=== PATIENT | male | born 1955 | race Caucasian/White ===

== ENCOUNTER → 2019-11-24 08:51 | Outpatient (CLI) | payer MEDICARE, SELFPAY ==
[2019-10-29 10:15] VITALS: BMI 29.6
--- NOTE | 2019-11-24 08:52 | ECHOCS_ITS ---
Reason For Study: Afib/Flutter Procedure This was a 2D Doppler, Color Flow transthoracic echocardiogram. The study was technically difficult. Contrast injection was performed. Exam performed in department. Left Ventricle Normal LV size. Mild concentric left ventricular hypertrophy. Left ventricular systolic function is normal. Stage 1 diastolic dysfunction. No regional wall motion abnormalities noted. Right Ventricle Normal RV size. Normal systolic function. Atria Normal left atrium. Normal right atrium. Mitral Valve Normal mitral valve. Tricuspid Valve Normal tricuspid valve. Aortic Valve Normal aortic valve. Pulmonic Valve The pulmonic valve is not well visualized. Great Vessels Normal aortic root. Pericardium/Pleural No pericardial effusion. Medication 22 gauge I.V. with prn adaptor inserted into right arm. Diluted definity 4ml given slow IV push to enhance endocardial definition. MMode/2D Measurements & Calculations LVIDd: 5.2 cm IVSd: 1.2 cm Ao root diam: 3.7 cm LVIDs: 3.3 cm LVPWd: 1.5 cm LA dimension: 3.8 cm FS: 36.2 % LAV(MOD-bp): 61.6 ml LA A4 area: 21.4 cm2 LAV(MOD-bp) Indexed: 26.7 ml/m2 LAV(MOD-sp2): 63.6 ml LAV(MOD-sp4): 59.2 ml Time Measurements MV dec time: 0.32 sec Doppler Measurements & Calculations MV E max best: 78.1 cm/sec Lat Peak E' Best: 8.3 cm/sec Med Peak E' Best: 10.1 cm/sec MV A max best: 65.8 cm/sec E/E' lat: 9.5 E/E' med: 7.7 MV E/A: 1.2 MV V2 max: 99.2 cm/sec MV P1/2t max best: 104.0 cm/sec Ao V2 max: 83.9 cm/sec MV max P.9 mmHg MV P1/2t: 175.5 msec Ao max P.8 mmHg MV V2 mean: 52.0 cm/sec MV dec slope: 173.5 cm/sec2 MV mean P.3 mmHg MV V2 VTI: 39.6 cm MVA(P1/2t): 1.3 cm2 LV V1 max: 69.8 cm/sec PA V2 max: 79.0 cm/sec LV V1 max P.9 mmHg Interpretation Summary Normal LV size. Mild concentric left ventricular hypertrophy. Left ventricular systolic function is normal. Stage 1 diastolic dysfunction. Contrast injection was performed. Ordering Physician: Minesh Mcmanus Referring Physician: Minesh Mcmanus Performed By: Valdez Ho RCS
== END ==
PROVIDERS: Referring Provider Internal Medicine Cardiovascular Disease; Visit Provider Internal Medicine Cardiovascular Disease
DX: I25.5 Ischemic cardiomyopathy (principal); I48.91 Unspecified atrial fibrillation; I48.92 Unspecified atrial flutter
CPT/HCPCS: 93306; Q9957; A4216; C8929

== ENCOUNTER → 2022-11-21 | Outpatient (CLI) | payer MEDICARE, SELFPAY ==
[2022-11-21 13:54] LABS: Anion Gap 8 (5-15); BUN 25 mg/dL (7-18); BUN/Creat Ratio 16.1 RATIO (10-20); Calcium,Total 9.1 mg/dL (8.5-10.1); Chloride 105 mmol/L (98-107); Creatinine, Serum 1.55 mg/dL (0.70-1.30); EST Glomerular Filtration Rate 47 mL/min (>60); Est Glom Filt Rate - Afr Amer 57 mL/min (>60); Glucose 90 mg/dL (74-106); Potassium 4.3 mmol/L (3.5-5.1); Sodium Level 139 mmol/L (136-145)
== END | disposition home or self-care (01) ==
LOC: LAB 12:11
PROVIDERS: Referring Provider Internal Medicine Cardiovascular Disease; Visit Provider Internal Medicine Cardiovascular Disease
DX: I48.0 Paroxysmal atrial fibrillation (principal)
CPT/HCPCS: 36415; 80048

== ENCOUNTER → 2022-11-30 | Outpatient (CLI) | payer MEDICARE, SELFPAY ==
--- NOTE | 2022-11-30 07:39 | ECHOCS_ITS ---
Reason For Study: Afib/Flutter Procedure This was a 2D Doppler, Color Flow transthoracic echocardiogram. The study was technically difficult. Contrast injection was performed. Exam performed in department. Left Ventricle Normal LV size. Left ventricular systolic function is normal. The estimated ejection fraction is 55 %. No regional wall motion abnormalities noted. Right Ventricle Normal RV size. Normal systolic function. Atria The left atrium is moderately enlarged. Normal right atrium. Mitral Valve Normal mitral valve. Tricuspid Valve Normal tricuspid valve. Aortic Valve Trisinus/trileaflet aortic valve. Pulmonic Valve Normal pulmonic valve. Trivial pulmonic valve insufficiency. Great Vessels Normal aortic root. The pulmonary artery is normal size. Normal inferior vena cava. Pericardium/Pleural No pericardial effusion. Medication 20 gauge I.V. with prn adaptor inserted into left arm. Diluted definity 3ml given slow IV push to enhance endocardial definition. MMode/2D Measurements & Calculations LVIDd: 5.6 cm IVSd: 0.84 cm Ao root diam: 3.8 cm LVIDs: 4.0 cm LVPWd: 1.2 cm LA dimension: 4.3 cm RVDd: 4.1 cm FS: 28.8 % LAV(MOD-bp): 92.9 ml LVAd ap4: 38.6 cm2 SV(MOD-sp4): 77.1 ml LAV(MOD-bp) Indexed: 41.0 ml/m2 LVLd ap4: 8.5 cm LAV(MOD-sp2): 97.1 ml EDV(MOD-sp4): 146.2 ml LAV(MOD-sp4): 85.8 ml EDV(sp4-el): 148.2 ml LVAs ap4: 24.1 cm2 LVLs ap4: 7.1 cm ESV(MOD-sp4): 69.1 ml ESV(sp4-el): 69.1 ml EF(MOD-sp4): 52.7 % EF(sp4-el): 53.4 % SV(sp4-el): 79.1 ml LA A4 area: 26.3 cm2 RA A4 area: 17.9 cm2 Time Measurements MV dec time: 0.31 sec Doppler Measurements & Calculations MV E max best: 77.4 cm/sec Lat Peak E' Best: 11.0 cm/sec Med Peak E' Best: 6.4 cm/sec MV A max best: 61.5 cm/sec E/E' lat: 7.0 E/E' med: 12.1 MV E/A: 1.3 MV V2 max: 89.8 cm/sec MV P1/2t max best: 90.8 cm/sec Ao V2 max: 112.3 cm/sec MV max P.2 mmHg MV P1/2t: 127.5 msec Ao max P.0 mmHg MV V2 mean: 44.0 cm/sec MV mean P.94 mmHg MV dec slope: 208.7 cm/sec2 MV V2 VTI: 36.1 cm MVA(P1/2t): 1.7 cm2 LV V1 max: 84.9 cm/sec PA V2 max: 85.5 cm/sec LV V1 max P.9 mmHg ECHO/Echo Complete W/ Contrast Interpretation Summary Normal LV size. Left ventricular systolic function is normal. The estimated ejection fraction is 55 %. The left atrium is moderately enlarged. Contrast injection was performed. Ordering Physician: Minesh Mcmanus Performed By: Valdez Ho RCS
== END | disposition home or self-care (01) ==
PROVIDERS: Visit Provider Internal Medicine Cardiovascular Disease
DX: I48.91 Unspecified atrial fibrillation (principal); I25.2 Old myocardial infarction
CPT/HCPCS: 93306; Q9957; A4216; C8929

== ENCOUNTER → 2022-12-26 | Outpatient (CLI) | payer MEDICARE, SELFPAY | END | disposition home or self-care (01) | PROVIDERS: Referring Provider Internal Medicine Cardiovascular Disease; Visit Provider Internal Medicine Cardiovascular Disease | DX: I48.0 Paroxysmal atrial fibrillation (principal) | CPT/HCPCS: 93225; 93226 ==

== ENCOUNTER → 2023-07-17 | Outpatient (CLI) | payer MEDICARE, SELFPAY ==
--- NOTE | 2023-07-17 12:59 | ECHOD_ITS ---
Reason For Study: OTHER SPECIFIED POSTPROCEDUFAL STATES Procedure This was a 2D Doppler, Color Flow transthoracic echocardiogram. Exam performed in department. Left Ventricle Normal LV size. Left ventricular systolic function is normal. The estimated ejection fraction is 55 %. Stage 1 diastolic dysfunction. No regional wall motion abnormalities noted. Right Ventricle Normal RV size. Normal systolic function. Atria Normal left atrium. Normal right atrium. Mitral Valve Normal mitral valve. Tricuspid Valve Normal tricuspid valve. Aortic Valve Trisinus/trileaflet aortic valve. Pulmonic Valve The pulmonic valve is not well visualized. Great Vessels Normal aortic root. The pulmonary artery is normal size. Normal inferior vena cava. Pericardium/Pleural No pericardial effusion. MMode/2D Measurements & Calculations LVIDd: 4.8 cm IVSd: 0.96 cm Ao root diam: 3.5 cm LVIDs: 3.0 cm LVPWd: 1.0 cm RVDd: 2.9 cm FS: 37.8 % LAV(MOD-bp): 54.6 ml EDV(MOD-sp4): 119.8 ml EDV(MOD-sp2): 99.0 ml LAV(MOD-bp) Indexed: 24.6 ml/m2 ESV(MOD-sp4): 47.6 ml ESV(MOD-sp2): 40.8 ml LAV(MOD-sp2): 52.3 ml EF(MOD-sp4): 60.2 % EF(MOD-sp2): 58.7 % LAV(MOD-sp4): 52.3 ml SV(MOD-sp4): 72.1 ml SV(MOD-sp2): 58.2 ml LA A4 area: 18.6 cm2 LA dimension(2D): 3.2 cm RA A4 area: 14.2 cm2 Time Measurements MV dec time: 0.19 sec Doppler Measurements & Calculations MV E max best: 74.0 cm/sec Lat Peak E' Best: 11.1 cm/sec Med Peak E' Best: 10.3 cm/sec MV A max best: 93.3 cm/sec E/E' lat: 6.7 E/E' med: 7.2 MV E/A: 0.79 Ao V2 max: 109.3 cm/sec LV V1 max: 81.5 cm/sec Ao max P.8 mmHg LV V1 max P.7 mmHg Ao V2 mean: 74.6 cm/sec LV V1 mean P.5 mmHg Ao mean P.5 mmHg LV V1 mean: 58.5 cm/sec Ao V2 VTI: 22.7 cm LV V1 VTI: 22.4 cm AV (velocity ratio): 0.99 ECHO/Echo Complete Interpretation Summary Normal LV size. Left ventricular systolic function is normal. The estimated ejection fraction is 55 %. Stage 1 diastolic dysfunction. Structurally normal valves. Ordering Physician: Minesh Mcmanus Referring Physician: OTD Performed By: Liseth Daniel, VERONICA, RVT
== END | disposition home or self-care (01) ==
PROVIDERS: Referring Provider Internal Medicine Cardiovascular Disease; Visit Provider Internal Medicine Cardiovascular Disease
DX: I48.0 Paroxysmal atrial fibrillation (principal); Z98.890 Other specified postprocedural states; I25.10 Atherosclerotic heart disease of native coronary artery without angina pectoris; I25.2 Old myocardial infarction; R00.1 Bradycardia, unspecified
CPT/HCPCS: 93225; 93226; 93306

== ENCOUNTER → 2025-10-09 | Outpatient (CLI) | payer MEDICARE, SELFPAY ==
--- NOTE | 2025-10-09 07:56 | ECHOD_ITS ---
Reason For Study Reason For Study: Dyspnea Procedure This was a 2D Doppler, Color Flow transthoracic echocardiogram. Exam performed in department. Left Ventricle Normal LV size. Mild concentric left ventricular hypertrophy. The left ventricular ejection fraction is 60 %. No regional wall motion abnormalities noted. Right Ventricle Normal RV size. Normal systolic function. Atria Normal left atrium. Normal right atrium. Mitral Valve Normal mitral valve. Tricuspid Valve Normal tricuspid valve. Mild (1+) tricuspid valve insufficiency. Aortic Valve Trisinus/trileaflet aortic valve. Pulmonic Valve Normal pulmonic valve. Great Vessels Normal aortic root. The pulmonary artery is normal size. Inferior vena cava collapse with respiration. Pericardium/Pleural No pericardial effusion. MMode/2D Measurements & Calculations LVIDd: 4.7 cm IVSd: 1.3 cm Ao root diam: 3.2 cm LVIDs: 3.3 cm LVPWd: 1.2 cm RVDd: 3.6 cm FS: 30.8 % LAV(MOD-bp): 41.8 ml LVAd ap4: 29.8 cm2 SV(MOD-sp4): 55.1 ml LAV(MOD-bp) Indexed: 18.3 ml/m2 LVLd ap4: 8.3 cm SI(MOD-sp4): 24.1 ml/m2 LAV(MOD-sp2): 41.0 ml EDV(MOD-sp4): 90.2 ml LAV(MOD-sp4): 43.0 ml EDV(sp4-el): 90.7 ml LVAs ap4: 16.7 cm2 LVLs ap4: 6.8 cm ESV(MOD-sp4): 35.1 ml ESV(sp4-el): 34.8 ml EF(MOD-sp4): 61.1 % EF(sp4-el): 61.6 % SV(sp4-el): 55.9 ml LA A4 area: 17.3 cm2 LA dimension(2D): 3.6 cm RA A4 area: 12.2 cm2 TAPSE: 1.9 cm Time Measurements MV dec time: 0.25 sec Doppler Measurements & Calculations MV E max best: 85.7 cm/sec Lat Peak E' Best: 11.8 cm/sec Med Peak E' Best: 10.2 cm/sec MV A max best: 89.7 cm/sec E/E' lat: 7.2 E/E' med: 8.4 MV E/A: 0.96 Ao V2 max: 124.0 cm/sec LV V1 max: 113.6 cm/sec MV dec slope: 343.9 cm/sec2 Ao max P.1 mmHg LV V1 max P.2 mmHg Ao V2 mean: 103.8 cm/sec LV V1 mean P.7 mmHg Ao mean P.4 mmHg LV V1 mean: 76.9 cm/sec Ao V2 VTI: 29.2 cm LV V1 VTI: 24.9 cm AV (velocity ratio): 0.85 PA V2 max: 108.4 cm/sec TR max best: 167.2 cm/sec TR max P.2 mmHg ECHO/Echo Complete Interpretation Summary Normal LV size. Mild concentric left ventricular hypertrophy. The left ventricular ejection fraction is 60 %. Structurally normal valves. Ordering Physician: Stephen Hunt Referring Physician: Stephen Hunt Performed By: Taya Holcomb, VERONICA, RVT
--- OUTSIDE RECORDS SUMMARY | 2025-10-09 08:20 | XMS RPT_ITS | CCD ---
Author Organization [facility] ion Partnership [facility] Care Team Providers Care Dye Lab Technician Name Role Phone Pcp, None Primary Care Provider UnavailMark Rubio Unavailable No, Physician Primary Care Provider Unavailabl e SYSTEM, PROVIDER NOT IN Referring Unavaila KESHA Solano Admitting Unavailable ALEXANDRA SORENSEN Consulting Unavailable NO, PHYSICIAN Primary Care Unavailable BRADLEY HERNANDEZ Attending Unavail able ALEXANDRA SORENSEN Attending Unavailable NO, PHYSICIAN Primary Care Unavailable No, Physician Primary Care Provider UnavailMark Rubio MD Unavailable Taya Lynch PA-C Primary Care Provider Care Physician, No Primary Primary Care Provider Unavailable Care Physician, No Primary Referring Provider Un available Dr. Minesh Mcmanus Attending Provider Roof GROUP SALES COORDINATOR, GROUP SALES COORDINATOR-C Alexandra Baker Attending Provider Unavailable Primary Care Provider Unavailabl Minesh Oglesby MD Unavailable Minesh Mcmanus MD Primary Care Provider Yonathan, Jackson S Unavailable LEO IQBAL Attending Unavailable YONATHAN, MINESH S Referring Unavailable YONATHAN, IMNESH S Primary Care Unavailable Yonathan, Minesh S Unavailable Care Physician, No Primary Primary Care Provider Unavailable Laury Byrne Attending Provider Unavailable Dr. Minesh Mcmanus Attending Provider Minesh Mcmanus MD Unavailable Mark Fernandez MD Unavailable Taya Lynch PA-C Primary Care Provider Oral Miller MD Primary Care Provider Lanie Thakkar MD Unavailable PHYSICIAN, UNASSIGNED Primary Care Provider Unav PATRICIA Grant MD Emergency Provider PAUL A, ORAL Other Provider PAUL RUBIO MD, ORAL Donohue Primary Care Provider ORAL MILLER JR A Primary Care Unavailable PATRICIA CARDOZO Attending Unavailable Paul Joyce MD, [facility] Primary Care Pro vider Care Physician, No Primary Referring Provider Un available Christopher Alegre Attending Provider Town Doctor, Out of Primary Care Provider Unachandrakant carranza [facility] Doctor, Out of Referring Provider Unavailab Charla SANTOS, Dr. Del Rosario Attending Provider LANIE THAKKAR Admitting Unavailable LANIE THAKKAR Attending Unavailable PAUL JR, [facility] Primary Care Unava ilable LANIE THAKKAR Admitting Unavailable LANIE THAKKAR Attending Unavailable [facility] Care Unava ilable LANIE THAKKAR Attending Unavailable PAUL JR, [facility] Primary Care Unava ilable LANIE THAKKAR Referring Unavailable [facility]UL [facility], [facility] Primary Care Unava ilable PAUL, ORAL Primary Care Unavailable ALE WISE Referring Unavailable CAL WISE Attending Unavailable PAUL, ORAL Primary Care Unavailable JASMINA NASH Attending Unavailable PAUL, ORAL Primary Care Unavailable LANA FERNANDEZ Attending Unavailable LANA FERNANDEZ Referring Unavailable PAUL, ORAL Primary Care Unavailable PAUL, ORAL Referring Unavailable JOSHUA URBAN Attending Unavailable PAUL, ORAL Primary Care Unavailable PAUL, ORAL Referring Unavailable PATRICIA TRAN Attending Unavailable Town Doctor, Out of Primary Care Unavailable Christopher Fine Attending Unavailable Care Physician, No Primary Referring Unava ilelise [place] Doctor, Out of Primary Care Unavailable [facility] Doctor, Out of Referring Unavailable Miguel Ángel Oviedo Attending Unavailable Lanie Thakkar Attending Unavailable Lanie Thakkar Referring Unavailable KERRI CORTEZ Primary Care Unavailable Allergies Allergy Classification Reported Allergen(s) Allergy Type Date of Onset Reaction(s) Facility Caffeine (2 sources) Caffeine Drug Allergy 8 Palpitations, Other: See Comments [facility] Work Phone: Calcium Channel Blockers (2 sources) Verapamil Drug Allergy 8 Other (See Comments), Other: See Comments [facility] Penicillins (antibiotic) (2 sources) Penicillins Drug Allergy 8 Anaphylaxis [facility] Ticagrelor (1 source) Ticagrelor Drug Allergy 1 Other: See Comments [facility] (20 sources) Caffeine; Translations: [CAFFEINE] Drug Allergy 8 Palpitations, Other: See Comments [facility] (16 sources) Penicillins; Translations: [PENICILLINS] Propensity to adverse reactions to drug 8 Anaphylaxis [facility] (20 sources) Verapamil; Translations: [Unknown] Drug Allergy 8 Other (See Comments), Other: See Comments [facility] (5 sources) Penicillins Allergy to substance 3 Anaphylaxis [facility] (18 sources) Ticagrelor; Translations: [TICAGRELOR] Drug Allergy 1 Other: See Comments [facility] (7 sources) Penicillins Drug Allergy 3 Anaphylaxis [facility] Work Phone: (4 sources) Penicillins (Antibiotic); Translations: [PCN] Propensity to adverse reactions 8 [facility] (5 sources) Penicillins Drug Allergy 3 Anaphylaxis [facility] (2 sources) Caffeine Drug Allergy 8 [facility] Rep[facility] (1 source) Penicillins Drug allergy (disorder) 5 [facility] Rep[facility] (1 source) Ticagrelor Drug Allergy 5 [facility] (1 source) Verapamil Drug Allergy 5 [facility] Medications Current Medications Medication Drug Class(es) Dates Sig (Normalized) Sig (Original) acetaminophen 500 mg oral tablet (5 sources) Start: 04-01-2024 acetaminophen tablet 1,000 mg Start: 03-11-2024 take 1 tablet by every four hours as needed 650 mg, Oral, EVERY 4 HOURS PRN, Mild Pain, Fever, Headaches, Starting on Sun03/11/24 at 2154, Until Discontinued, Maximum dose of acetaminophen is 4000 mg from all sources in 24 hours. Start: 04-28-2020 End: 05-08-2020 take 2 tablets by mouth every four hours as needed acetaminophen (TYLENOL) 325 MG tablet Take 2 (two) tablets (650 mg total) by mouth every 4 (four) hours as needed . 30 tablet 0 04/28/2020 05/08/2020 Active Start: 04-27-2020 End: 04-28-2020 take 1 tablet by mouth every four hours as needed 650 mg, Oral, Every 4 hours PRN, mild pain, fever 100.4 F or greater, headaches, Starting Sun04/27/20 at 0432 aspirin 81 mg delayed release oral tablet (20 sources) Platelet Aggregation Inhibitor, Nonsteroidal Anti-inflammatory Drug Start: 10-29-2019 Aspirin (Adult Lo w Dose Aspirin) 81 mg tablet,delayed release (DR/EC) Active 81 mg PO DAILY October 29, 2019 1:00am aspirin 81 MG Ch ew Tab chewable tablet Chew 1 tablet daily. 0 Active Comment on above: Take 81 mg by mouth once daily. calcium chloride 0.0014 meq/ml / potassium chloride 0.004 meq/ml / sodium chloride 0.103 meq/ml / sodium lactate 0.028 meq/ml injectable solution (3 sources) Start: 04-01-2024 lactated ringers infusion Start: 03-11-2024 End: 03-12-2024 Intravenous, at 100 mL/hr, CONTINUOUS, Starting on Sun03/11/24 at 2230, Until Sun03/12/24 at 1629 Start: 04-27-2020 End: 04-28-2020 take 125 mL intravenous route every hour 125 mL/hr, Intravenous, Continuous, Starting Sun04/27/20 at 1815, PACU (only) ciprofloxacin 500 mg oral tablet (6 sources) Quinolone Antimicrobial Start: 04-01-2024 take 1 tablet by mouth twice daily ciprofloxacin (CIPRO) 500 MG tablet Indications: Right kidney stone Take 1 tablet by mouth two times a day. 6 tablet 04/01/2024 Active Start: 03-13-2024 End: 03-16-2024 take 1 tablet by mouth twice daily ciprofloxacin (CIPRO) 250 MG tablet Indications: Right ureteral stone Take 1 tablet by mouth two times a day for 3 days. 6 tablet 0 03/13/2024 03/16/2024 Active Start: 04-27-2020 End: 04-28-2020 take 400 mg intravenous route every twenty-four hours ciprofloxacin (CIPRO) IVPB 400 mg (premix) doxycycline hyclate 100 mg oral capsule (1 source) Tetracycline-class Drug Start: 06-21-2021 End: 06-28-2021 take 1 capsule by mouth twice daily doxycycline (VIBRAMYCIN) 100 MG capsule Indications: Subacute maxillary sinusitis Take 1 capsule by mouth two times a day for 7 days. 14 capsule 0 06/21/2021 06/28/2021 Active 0.5 ml HYDROmorphone hydrochloride 1 mg/ml prefilled syringe (2 sources) Opioid Agonist Start: 04-01-2024 HYDROmorphone (DILAUDID) injection 0.5 mg Start: 03-11-2024 take 0.25 mg intrave nously every four hours as needed HYDROmorphone (DILAUDID) injection 0.25 mg 100 ml levoFLOXacin 5 mg/ml injection (3 sources) Quinolone Antimicrobial Start: 04-01-2024 levoFLOXacin (LEVAQUIN) IVPB SOLN 500 mg Start: 03-13-2024 levoFLOXacin 2 50mg/50ml (LEVAQUIN) IVPB SOLN 250 mg Start: 03-11-2024 End: 03-12-2024 levoFLOXacin (LEVAQUIN) IVPB SOLN 500 mg melatonin 5 mg oral tablet (1 source) Start: 03-11-2024 melatonin tabl et 5 mg Ondansetron (ZOFRAN-ODT) disintegrating tablet 4 mg (1 source) Start: 03-11-2024 take 1 tablet by mouth every six hours as needed Ondansetron (ZOFRAN-ODT) disintegrating tablet 4 mg oxyCODONE hydrochloride 5 mg oral tablet (2 sources) Opioid Agonist Start: 04-01-2024 take 1 tablet by mouth every four hours as needed oxyCODONE (ROXICODONE) immediate release tablet 5 mg Start: 03-11-2024 take 1 tablet by kendrick th every six hours as needed oxyCODONE (ROXICODONE) immediate release tablet 5 mg phenazopyridine hydrochloride 100 mg oral tablet (3 sources) Start: 04-01-2024 take 1 tablet by mouth three times daily as needed for pain phenazopyridine (PYRIDIUM) 100 MG tablet Take 1 tablet by mouth 3 times daily as needed for Pain. 10 tablet 04/01/2024 Active potassium citrate 10 meq extended release oral tablet (11 sources) Start: 02-25-2025 take 1 tablet by mouth twice daily Potassium Citrate 10 mEq (1,080 mg) tablet extended release Active 30 meq PO TWICE A DAY February 25, 2025 12:00am Start: 02-25-2025 End: 02-25-2025 take 1 mg by mouth twice daily Potassium Citrate 99 mg capsule Discontinued mg PO TWICE A DAY February 25, 2025 12:00am February 25, 2025 8:56am Start: 04-14-2024 take 1 tablet by kendrick th twice daily at mealtime potassium citrate (UROCIT-K) 10 MEQ (1080 MG) SR tablet Take 1 tablet by mouth 2 times daily (with meals). 180 tablet 3 04/14/2024 Active Start: 04-01-2024 take 1 tablet by kendrick th three times daily at mealtime potassium citrate (UROCIT-K) 10 MEQ (1080 MG) SR tablet Take 1 tablet by mouth 3 times daily (with meals). 90 tablet 1 04/01/2024 Active rivaroxaban 15 mg oral tablet (20 sources) Factor Xa Inhibitor Start: 06-05-2025 take 1 tablet by mouth once daily rivaroxaban (XARELTO) 15 mg tablet Indications: Paroxysmal atrial fibrillation (HCC) , At risk for stroke , Anticoagulant medication declined by patient Take 1 tablet by mouth once daily. 180 tablet 3 06/05/2025 Active Start: 04-02-2023 End: 04-03-2023 take 1 tablet by mouth once daily at dinner Rivaroxaban (Xarelto) 20 mg tablet Discontinued 20 mg PO DAILY 30 April 02, 2023 5:32pm April 03, 2023 8:56am must administer with evening meal Start: 03-15-2023 End: 05-09-2024 take 1 tablet by mouth once daily Rivaroxaban (Xarelto) 10 mg tablet Discontinued 10 mg PO DAILY June 28, 2023 12:00am August 10, 2023 10:00am Start: 03-15-2023 End: 06-05-2025 take 10 mg by mouth once daily at dinner Rivaroxaban (Xarelto) 20 mg tablet Discontinued 10 mg PO DAILY April 03, 2023 12:00am June 28, 2023 8:55am Pt will stay on until after EP procedure must administer with evening meal Comment on above: Take 10 mg by mouth once daily. 5 ml sodium chloride 9 mg/ml injection (12 sources) Start: 04-01-2024 take 1-10 mL intravenously every twenty-four hours as needed Sodium Chloride Flush (SALINE FLUSH) 0.9 % injection 1-10 mL Start: 03-11-2024 End: 03-11-2024 sodium chloride 0.9% bolus 0 .9 % solution 1,000 mL Start: 12-01-2023 End: 12-01-2023 sodium chloride 0.9% bolus 0 .9 % solution 1,000 mL Start: 05-25-2023 End: 08-23-2024 sodium chloride 0.9 % (flush ) 10 mL (BD POSIFLUSH) Start: 04-27-2020 End: 04-28-2020 take 100 mL intravenous route every hour 100 mL/hr, Intravenous, Continuous, Starting Sun04/27/20 at 0530 Start: 04-27-2020 End: 04-27-2020 sodium chloride 0.9% bolus 0 .9 % solution 1,000 mL sotalol hydrochloride 80 mg oral tablet (20 sources) Antiarrhythmic Start: 06-05-2025 take 1.5 tablets by mouth once daily sotalol (BETAPACE) 80 mg tablet Indications: Paroxysmal atrial fibrillation (HCC) Take 1.5 tablets by mouth once daily. 135 tablet 3 06/05/2025 Active Start: 11-09-2022 End: 05-08-2023 take 3 tablets by mouth three times daily sotalol (BETAPACE) 80 mg tablet Take 240 mg by mouth three times daily. 0 12/22/2022 01/23/2023 Discontinued (Other) Start: 11-09-2022 End: 05-08-2023 take 240 mg by mouth three times daily Sotalol Discontinued 240 MG PO THREE TIMES A DAY 270 November 21, 2022 1:04pm May 08, 2023 8:35am Start: 10-29-2019 End: 12-01-2023 Sotalol 80 mg tablet Discont inued 120 mg PO TWICE A DAY 270 3 April 17, 2022 12:25pm November 09, 2022 10:10am Start: 10-29-2019 End: 11-09-2022 take 120 mg by mouth twice daily Sotalol Discontinued 120 MG PO TWICE A DAY 270 April 17, 2022 12:25pm November 09, 2022 10:10am Start: 10-29-2019 End: 10-29-2019 take 1 tablet by mouth every eight hours Sotalol 80 mg tablet Discontinued 80 mg PO Q8H October 29, 2019 1:00am October 29, 2019 11:19am Start: 01-06-2018 take 1 tablet by kendrick th three times daily Sotalol Hcl (Sotalol) 80 MG Tablet Active 80 MG PO Three Times A Day January 06, 2018 1:00am take 1 tablet by kendrick th three times daily sotalol (BETAPACE) 240 mg tablet Take 240 mg by mouth three times daily. 0 Active End: 04-27-2020 take 2 tablets by mouth twice daily sotaloL (BETAPACE) 160 MG tablet Take 320 mg by mouth 2 (two) times a day . 0 04/27/2020 Discontinued (Error) Comment on above: Take 240 mg by mouth three times daily. tamsulosin hydrochloride 0.4 mg oral capsule (11 sources) alpha-Adrenergic Rose Start: 12-01-2023 End: 05-09-2024 take 1 capsule by mouth once daily Tamsulosin HCl (FLOMAX) 0.4 MG 24 hr capsule Take 1 capsule by mouth daily. Take until stone passes. 30 capsule 04/02/2024 Active Start: 04-27-2020 End: 04-28-2020 tamsulosin (FLOMAX) 24 hr ca psule 0.4 mg ticagrelor 90 mg oral tablet (3 sources) Start: 05-31-2018 take 1 tablet by mouth twice daily Ticagrelor (Brilinta) 90 MG Tablet Active 1 TAB PO Two Times A Day May 31, 2018 12:00am traZODone hydrochloride 50 mg oral tablet (2 sources) Serotonin Reuptake Inhibitor Start: 03-12-2024 traZODone (DESYREL) tablet 50 mg Start: 04-27-2020 End: 04-28-2020 take 50 mg by mouth once daily as needed for sleep 50 mg, Oral, Nightly PRN, sleep, Starting Sun04/27/20 at 0432 [] May repeat times 1 in 30 minutes if still awake. Completed/Discontinued Medications Medication Drug Class(es) Dates Sig (Normalized) Sig (Original) aluminum hydroxide 40 mg/ml / magnesium hydroxide 40 mg/ml oral suspension (1 source) Start: 03-11-2024 take 30 mL by mouth every six hours as needed 30 mL, Oral, EVERY 6 HOURS PRN, Indigestion, Starting on Sun03/11/24 at 2154, Until Discontinued aluminum hydroxide 40 mg/ml / magnesium hydroxide 40 mg/ml / simethicone 4 mg/ml oral suspension (1 source) Start: 04-27-2020 End: 04-28-2020 take 30 mL by mouth every four hours as needed 30 mL, Oral, Every 4 hours PRN, indigestion, Starting Sun04/27/20 at 0432 apixaban 5 mg oral tablet (4 sources) Factor Xa Inhibitor Start: 01-10-2023 End: 01-23-2023 take 1 tablet by mouth every twelve hours apixaban (ELIQUIS) 5 mg tab(s) Take 1 tablet by mouth q 12 HR. 0 01/10/2023 01/23/2023 Discontinued (Other) Comment on above: Take 1 tablet by kendrick th q 12 HR. bisacodyl 10 mg rectal suppository (1 source) Stimulant Laxative Start: 04-27-2020 End: 04-28-2020 take 10 mg rectal route once daily as needed for constipation 10 mg, Rectal, Daily PRN, constipation, Starting Sun04/27/20 at 0432 Try oral medications first for constipation.&nbsp ; Try rectal medication if oral meds are ineffective, not tolerated, or not ordered. calcium carbonate 500 mg chewable tablet (1 source) Start: 03-11-2024 take 1 tablet by mouth every four hours as needed 1,000 mg, Oral, EVERY 4 HOURS PRN, Heartburn, Starting on Sun03/11/24 at 2154, Until Discontinued For electrolyte abnormalities subsequent to initial labs (refer to the [facility] Electrolyte Replacement Orders) (1 source) Start: 03-11-2024 Other, PRN, For electrolyte abnormalities, Starting on Sun03/11/24 at 2154, Until Discontinued, For Potassium level <=3.9 or Magnesium level <=1.9, please use Order Set #100 to order medications and repeat labs. BE SURE TO CONTINUE PROTOCOL AFTER REPLACEMENT UNTIL LABS NORMALIZE. lidocaine hydrochloride 0.02 mg/mg topical gel (2 sources) Antiarrhythmic, Amide Local Anesthetic Start: 05-06-2020 End: 05-06-2020 lidocaine HCL (UROJET) 2 % applicator 1 application Start: 05-06-2020 End: 05-06-2020 lidocaine HCL (UROJET) 2 % a pplicator 1 application magnesium hydroxide 80 mg/ml oral suspension (1 source) Start: 04-27-2020 End: 04-28-2020 take 2400 mg by mouth once daily as needed for constipation 2,400 mg (30 mL), Oral, Daily PRN, constipation, For constipation., Starting Sun04/27/20 at 0432 ondansetron 4 mg disintegrating oral tablet (6 sources) Serotonin-3 Receptor Antagonist Start: 12-01-2023 End: 03-20-2024 take 1 tablet by mouth every eight hours as needed Ondansetron (ZOFRAN-ODT) 4 MG disintegrating tablet Take 1 tablet by mouth every 8 hours as needed for Nausea and/or Vomiting. Dissolve on tongue then swallow. 20 tablet 0 12/01/2023 03/20/2024 Discontinued (Error) ondansetron (ZOFRAN-ODT) disintegrating tablet 4 mg (1 source) Start: 04-27-2020 End: 04-28-2020 take 1 tablet by mouth every six hours as needed ondansetron (ZOFRAN-ODT) disintegrating tablet 4 mg oxybutynin chloride 5 mg oral tablet (4 sources) Cholinergic Muscarinic Antagonist Start: 03-13-2024 End: 03-20-2024 take 1 tablet by mouth every eight hours as needed oxybutynin (DITROPAN) 5 MG tablet Take 1 tablet by mouth every 8 hours as needed (bladder spasms). 15 tablet 0 03/13/2024 03/20/2024 Discontinued (Error) perflutren lipid microspheres 1.3 mL in NaCl (PF) 0.9% 10 mL injection (DEFINITY) (7 sources) Start: 05-25-2023 End: 05-09-2024 perflutren lipid microspheres 1.3 mL in NaCl (PF) 0.9% 10 mL injection (DEFINITY) Start: 05-25-2023 End: 08-23-2024 perflutren lipid microsphere s 1.3 mL in NaCl (PF) 0.9% 10 mL injection (DEFINLab21) polyethylene glycol 3350 11504 mg powder for oral solution (1 source) Osmotic Laxative Start: 03-11-2024 take 17 g by mouth every twenty-four hours as needed 17 g, Oral, DAILY PRN, Constipation, constipation, Starting on Sun03/11/24 at 2154, Until Discontinued, This is a maintenance laxative, begin for prevention of constipation. Problems Active Problems Problem Classification Problem Date Documented Date Episodic/Chronic Acute and unspecified renal failure (15 sources) Acute renal failure syndrome; Translations: [Acute kidney failure, unspecified] Onset: 06-01-20 Resolved : 06-02-20 18 06-02-2018 Episodic Acute myocardial infarction (20 sources) Myocardial infarction; Translations: [Acute ST segment elevation myocardial infarction] Onset: 01-06-20 Resolved : 08-09-20 18 08-09-2018 Chronic Cardiac dysrhythmias (20 sources) Sinus bradycardia; Translations: [Paroxysmal atrial fibrillation] Onset: 01-31-20 18 03-13-2019 Chronic Comment on above: Failed RFA/PVI 2005; Ablation in April 2023 at [facility]; Chronic kidney disease (20 sources) Chronic kidney disease stage 3; Translations: [CKD (chronic kidney disease) stage 3, GFR 30-59 ml/min] Onset: 12-12-19 19 12-12-2018 Chronic Chronic kidney disease (1 source) Chronic kidney disease; Translations: [Stage 3a chronic kidney disease (HCC)] Onset: 01-24-20 Coma; stupor; and brain damage (1 source) Daytime somnolence; Translations: [Somnolence] Episodic Conduction disorders (18 sources) Right bundle branch block; Translations: [Unspecified right bundle-branch block] Onset: 01-24-20 Chronic Coronary atherosclerosis and other heart disease (20 sources) Coronary arteriosclerosis in knik artery; Translations: [Coronary arteriosclerosis] Onset: 01-06-20 Resolved : 08-09-20 18 08-09-2018 Chronic Diverticulosis and diverticulitis (1 source) Diverticular disease; Translations: [Diverticulosis] Chronic Genitourinary congenital anomalies (1 source) Congenital occlusion of ureteropelvic junction; Translations: [Hydronephrosis] 03-11-2024 Chronic Immunizations and screening for infectious disease (1 source) Viral screening status; Translations: [Encounter for screening for other viral diseases] Episodic Nephritis; nephrosis; renal sclerosis (20 sources) Atrophy of kidney; Translations: [Atrophy of left kidney] Onset: 06-01-2006-02-2018 Chronic Other circulatory disease (3 sources) H/O: atrial fibrillation; Translations: [Personal history of other diseases of the circulatory system] 05-25-2025 Episodic Other diseases of kidney and ureters (1 source) Hydroureteronephrosis ; Translations: [Unspecified hydronephrosis] 12-01-2023 Episodic Other gastrointestinal disorders (3 sources) Diarrhea; Translations: [Diarrhea, unspecified] 05-25-2025 Episodic Other lower respiratory disease (1 source) Dyspnea; Translations: [Dyspnea, unspecified] 07-10-2025 Episodic Other lower respiratory disease (1 source) Dyspnea, unspecified; Translations: [Dyspnea, unspecified] Onset: 09-21-20 Episodic Other nutritional; endocrine; and metabolic disorders (4 sources) Obese class I; Translations: [Obesity, unspecified] Onset: 01-11-2001-10-2023 Chronic Other nutritional; endocrine; and metabolic disorders (3 sources) Body mass index 30+ - obesity; Translations: [Obesity, unspecified] Onset: 07-06-2007-06-2025 Chronic Other nutritional; endocrine; and metabolic disorders (1 source) Obesity, unspecified; Translations: [Obesity (BMI 30-39.9)] Onset: 07-06-20 Chronic Other screening for suspected conditions (not mental disorders or infectious disease) (3 sources) Patient encounter status; Translations: [Encounter for screening for diseases of the blood and blood-forming organs and certain disorders involving the immune mechanism] Episodic Spondylosis; intervertebral disc disorders; other back problems (1 source) Lumbar spondylosis; Translations: [Lumbar spondylosis] Chronic Unclassified (2 sources) Patient encounter status; Translations: [Medication monitoring encounter] Unclassified (2 sources) Atrophy of left kidney; Translations: [Atrophy of left kidney] Onset: 06-01-2006-02-2018 Unclassified (1 source) Autogenerated Problem Onset: 06-21-2006-21-2025 Unclassified (1 source) Flank pain, unspecified side; Translations: [Flank pain, unspecified side] Onset: 09-14-20 Past or Other Problems Problem Classification Problem Date Documented Date Episodic/Chronic Allergic reactions (1 source) Unspecified contact dermatitis due to plants, except food; Translations: [Unspecified contact dermatitis due to plants, except food] Onset: 04-28-2025 Episodic Calculus of urinary tract (20 sources) Kidney stone; Translations: [Ureteric stone] Onset: 06-01-2018 Resolved: 06-02-2018 08-09-2018 Episodic Cardiac dysrhythmias (20 sources) Sinus bradycardia; Translations: [Bradycardia, unspecified] Onset: 03-13-2019 03-13-2019 Episodic Coronary atherosclerosis and other heart disease (6 sources) Presence of coronary angioplasty implant and graft; Translations: [Percutaneous transluminal coronary angioplasty status] Onset: 01-06-2018 11-21-2022 Episodic E Codes: Natural/environment (7 sources) Tick bite; Translations: [Bitten or stung by nonvenomous insect and other nonvenomous arthropods, initial encounter] Onset: 04-03-2025 Episodic Other aftercare (14 sources) Long-term current use of drug therapy; Translations: [Other termite control representative (current) drug therapy] Onset: 01-22-2023 Resolved: 05-08-2024 Episodic Other aftercare (7 sources) Long-term current use of anticoagulant; Translations: [intermediate card tender (current) use of anticoagulants] Onset: 05-08-2024 Resolved: 05-09-2024 05-09-2024 Episodic Other aftercare (1 source) intermediate card tender (current) use of anticoagulants; Translations: [Anticoagulant long-term use] Onset: 05-09-2024 Episodic Other non-traumatic joint disorders (1 source) Pain in unspecified joint; Translations: [Pain in unspecified joint] Onset: 04-03-2025 Episodic Residual codes; unclassified (6 sources) History of radiofrequency ablation operation for arrhythmia; Translations: [Other specified postprocedural states] Onset: 11-12-2005 10-24-2022 Episodic Comment on above: Pulmonary vein isola tion 2006, 05/01/2023 Residual codes; unclassified (18 sources) Other specified personal risk factors, not elsewhere classified; Translations: [Other specified personal history presenting hazards to health] Onset: 01-23-2023 Episodic Residual codes; unclassified (17 sources) H/O cardiac surgery; Translations: [Other specified postprocedural states] Onset: 11-21-2022 Episodic Residual codes; unclassified (3 sources) Other specified postprocedural states; Translations: [Other specified postprocedural states] Onset: 10-25-2022 Episodic Residual codes; unclassified (8 sources) Anticoagulation declined; Translations: [Procedure and treatment not carried out because of patient's decision for unspecified reasons] Onset: 05-09-2024 05-09-2024 Episodic Residual codes; unclassified (1 source) Procedure and treatment not carried out because of patient's decision for unspecified reasons; Translations: [Anticoagulant medication declined by patient] Onset: 05-09-2024 Episodic Superficial injury; contusion (1 source) Insect bite (nonvenomous) of abdominal wall, initial encounter; Translations: [Insect bite (nonvenomous) of abdominal wall, initial encounter] Onset: 04-03-2025 Episodic Results Test Name Value Interpretation Reference Range Facility CT KIDNEY STONEon 09-14-2025 CT KIDNEY STONE EXAMINATION: CT JOSIASWale BROWN STONE, 09/14/2025 6:54 AM RECRUITMENT AND OUTREACH ASSISTANT HISTORY: Abdominal/flank pain, stone suspected. COMPARISON: CT of the abdomen and pelvis from 09/12/2024. TECHNIQUE: CT scan of the abdomen and pelvis was performed without IV contrast. CT dose reduction technique was used, including Automated Exposure Control. FINDINGS: ABDOMEN: Imaged lower lungs grossly clear. Visualized lower cardiac chambers are normal in size. Coronary artery calcifications are present. Noncontrast appearance of the liver, spleen, pancreas, and adrenal glands are unremarkable. Gallbladder not well-distended limiting evaluation. No biliary ductal dilatation. Mild calcified atherosclerotic plaque involving the abdominal aorta which is nonaneurysmal. There is severe atrophy of the left kidney. There is nonobstructing calculus involving the lower pole of the left kidney measuring 0.6 cm as well as a punctate nonobstructing calculus involving the mid left kidney on image 68. Exophytic cyst is noted emanating from the posterior-inferior left renal cortex measuring approximately 2.1 cm. Noncontrast appearance of the right kidney demonstrates punctate, nonobstructing calculus involving the lower pole. Pelvis: No ureteral calculus or hydroureter. No intraluminal bladder calculus. Prostate is top normal to mildly enlarged. Calcified pelvic phleboliths are present. No bulky pelvic lymphadenopathy or ascites. There is mild to moderate colonic diverticulosis primarily within the sigmoid colon without CT evidence of diverticulitis. No obvious small or large bowel wall thickening or bowel obstruction. No mesenteric inflammatory change. Small fat-containing left inguinal hernia. Images on bone windows demonstrate moderate to severe L4-L5 degenerative disc disease. Moderate bilateral hip degenerative change. There is moderate bilateral sacroiliac degenerative change as well. IMPRESSION: Severe atrophy of the left kidney, stable. Nonobstructing bilateral renal calculi with the largest in the lower pole of the left kidney measuring 6 mm. No ureteral or bladder calculus. No CT evidence of urinary obstruction. Exophytic lower pole left renal cyst measures 2.1 cm, grossly stable. No lymphadenopathy. Colonic diverticulosis without CT evidence of diverticulitis. Prostate is top normal to mildly enlarged. Abdominal/flank pain, stone suspected, Flank pain Normal [facility] Basic metabolic 2000 panelon 07-10-2025 Anion gap [Moles/Vol] 11 mmol/L Normal 8-15 [facility] Comment on above: Order Comment: Speci men Type: BLOOD SPECIMENOrdering Facility: [facility] Address: [address] [place] [address] Performed By: #### 2 4321-2 ####[facility] LABORATORYCLIA [id number] [place] [address] [place] Calcium [Mass/Vol] 8.6 mg/dL Normal 8.5-10.2 [facility] Comment on above: Order Comment: Speci men Type: BLOOD SPECIMENOrdering Facility: [facility] Address: [address] [place] [address] Performed By: #### 2 4321-2 ####[facility] LABORATORYCLIA [id number] [place] [address] [place] Chloride [Moles/Vol] 103 mmol/L Normal 98-107 [facility] Comment on above: Order Comment: Speci men Type: BLOOD SPECIMENOrdering Facility: [facility] Address: [address] [place] [address] Performed By: #### 2 4321-2 ####[facility] LABORATORYCLIA [id number] [place] [id number] [place] CO2 [Moles/Vol] 22 mmol/L Normal 22-30 [facility] Comment on above: Order Comment: Speci men Type: BLOOD SPECIMENOrdering Facility: [facility] Address: [address] [place] [address] Performed By: #### 2 4321-2 ####[facility] LABORATORYCLIA [id number] [place] [address] [place] Creatinine [Mass/Vol] 1.50 mg/dL High 0.73-1.22 [facility] Comment on above: Order Comment: Speci men Type: BLOOD SPECIMENOrdering Facility: [facility] Address: [address] [place] [address] Performed By: #### 2 4321-2 ####[facility] LABORATORYCLIA [id number] [place] [address] [place] eGFRcr SerPlBld CKD-EPI 2020 49 mL/min/1.73m??? Low >=60 [facility] Comment on above: Order Comment: Speci men Type: BLOOD SPECIMENOrdering Facility: [facility] Address: [address] [place] [address] Result Comment: Antonietta mated Glomerular Filtration Rate (eGFR) is calculated using the 2020 CKD-EPI creatinine equation. This equation utilizes serum creatinine, sex, and age as parameters. The creatinine assay has traceable calibration to isotope dilution-mass spectrometry. Refer to KDIGO guidelines for clinical interpretation. In patients with unstable renal function, e.g. those with acute kidney injury, the eGFR may not accurately reflect actual GFR. Performed By: #### 2 4321-2 ####[facility]ORATORYCLIA [id number] [place] [address] [place] Glucose [Mass/Vol] 113 mg/dL High 74-99 [facility] Comment on above: Order Comment: Daquan men Type: BLOOD SPECIMENOrdering Facility: [facility] Address: [address] [place] [id number] Result Comment: The [place] Diabetes Association (ADA) provides guidance for cutoff values for fasting glucose and random glucose. The ADA defines fasting as no caloric intake for at least 8 hours. Fasting plasma glucose results between 100 to 125 mg/dL indicate increased risk for diabetes (prediabetes). Fasting plasma glucose results greater than or equal to 126 mg/dL meet the criteria for diagnosis of diabetes. In the absence of unequivocal hyperglycemia, results should be confirmed by repeat testing. In a patient with classic symptoms of hyperglycemia or hyperglycemic crisis, random plasma glucose results greater than or equal to 200 mg/dL meet the criteria for diagnosis of diabetes. Reference: Standards of Medical Care in Diabetes 2016, [place] [employer] Association. Diabetes Care. 2016.39(Suppl 1). Performed By: #### 2 4321-2 ####[facility]ATORYCLIA [id number] [place] [address] [place] Potassium [Moles/Vol] 4.4 mmol/L Normal 3.7-5.1 [facility] Comment on above: Order Comment: Daquan elizabeth Type: BLOOD SPECIMENOrdering Facility: [facility] Address: [address] [place] [address] Performed By: #### 2 4321-2 ####[facility]ORATORYCLIA [id number] [place] [address] [place] Sodium [Moles/Vol] 136 mmol/L Normal 136-144 [facility] Comment on above: Order Comment: Mateoi men Type: BLOOD SPECIMENOrdering Facility: [facility] Address: [address] [place] [id number] Performed By: #### 2 4321-2 ####[facility]ATORYCLIA [id number] [place] [address] [place] Urea nitrogen [Mass/Vol] 23 mg/dL Normal 9-24 [facility] Comment on above: Order Comment: Mateoi men Type: BLOOD SPECIMENOrdering Facility: [facility] Address: [address] [place] [address] Performed By: #### 2 4321-2 ####[facility]ORATORYCLIA [id number] [address] CBC panel Auto (Bld)on 07-10 Erythrocyte distribution width (RBC) [Ratio] 14.3 % Normal 11.5-15.0 [facility] Comment on above: Order Comment: Speci men Type: BLOOD SPECIMENOrdering Facility: [facility] Address: [address] [place] [address] Performed By: #### 5 8410-2 ####[facility]ATORYCLIA [id number] [address] Hematocrit (Bld) [Volume fraction] 40.0 % Normal 39.0-51.0 [facility] Comment on above: Order Comment: Speci men Type: BLOOD SPECIMENOrdering Facility: [facility] Address: [address] [place] [address] Performed By: #### 5 8410-2 ####[facility]ATORYCLIA [id number] [address] Hemoglobin (Bld) [Mass/Vol] 12.8 g/dL Low 13.0-17.0 [facility] Comment on above: Order Comment: Speci men Type: BLOOD SPECIMENOrdering Facility: [facility] Address: [address] [place] [address] Performed By: #### 5 8410-2 ####[facility]ORATORYCLIA [id number] [address] STATES [facility] MCH (RBC) [Entitic mass] 26.2 pg Normal 26.0-34.0 [facility] Comment on above: Order Comment: Speci men Type: BLOOD SPECIMENOrdering Facility: [facility] Address: [address] [place] [address] Performed By: #### 5 8410-2 ####[facility]ATORYCLIA [id number] [address] STATES [facility] MCHC (RBC) [Mass/Vol] 32.0 g/dL Normal 30.5-36.0 [facility] Comment on above: Order Comment: Speci men Type: BLOOD SPECIMENOrdering Facility: [facility] Address: [address] [place] [address] Performed By: #### 5 8410-2 ####[facility]ATORYCLIA [id number] [address] [place] MCV (RBC) [Entitic vol] 81.8 fL Normal 80.0-100.0 [facility] Comment on above: Order Comment: Speci men Type: BLOOD SPECIMENOrdering Facility: [facility] Address: [address] [place] [address] Performed By: #### 5 8410-2 ####[facility]ATORYCLIA [id number] [address] [place] Nucleated RBC (Bld) [#/Vol] 10*3/uL Normal <0.01 [facility] Comment on above: Order Comment: Speci men Type: BLOOD SPECIMENOrdering Facility: [facility] Address: [address] [place] [address] Performed By: #### 5 8410-2 ####[facility]ATORYCLIA [id number] [address] [place] Platelet mean volume (Bld) [Entitic vol] 10.8 fL Normal 9.0-12.7 [facility] Comment on above: Order Comment: Speci men Type: BLOOD SPECIMENOrdering Facility: [facility] Address: [address] [place] [address] Performed By: #### 5 8410-2 ####[facility]ATORYCLIA [id number] [address] [place] Platelets (Bld) [#/Vol] 201 10*3/uL Normal 150-400 [facility] Comment on above: Order Comment: Speci men Type: BLOOD SPECIMENOrdering Facility: [facility] Address: [address] [place] [address] Performed By: #### 5 8410-2 ####[facility]ATORYCLIA [id number] [address] OF [facility] RBC (Bld) [#/Vol] 4.89 10*6/uL Normal 4.20-6.00 [facility] Comment on above: Order Comment: Speci elizabeth Type: BLOOD SPECIMENOrdering Facility: [facility] Address: [address] [place] [address] Performed By: #### 5 8410-2 ####[facility]ATORYCLIA [id number] [address] WBC (Bld) [#/Vol] 10.94 10*3/uL Normal 3.70-11.00 [facility] Comment on above: Order Comment: Specaliya elizabeth Type: BLOOD SPECIMENOrdering Facility: [facility] Address: [address] [place] [address] Performed By: #### 5 8410-2 ####[facility]ORATORYCLIA [id number] [address] CNDSon 07-10-2025 [facility] HNO ID: [id number] Author: ALEX ARROYO MD Service: Electrophysiology Author Type: Physician Type: Discharge Summary Filed: 07/10/2025 11:35 Note Text: Patient kept in observation post PFA for AF Patient seen and examined at bedside No complaints No bleeding No chest pain SOB dizziness No pain over procedural access sites Ambulated earlier without difficulty, O/E Alert Oriented X3 Speech nl Lungs good air entry No wheeze CVS Regular rhythm nl S1S2 no murmur Tele SR with PVCs Rt and Lt femoral sites - Dressing removed, F of 8 suture cut Soft Non tender No hematoma Rt IJ site dressing removed, small oozing of blood, Manual pressure held for 12-15 minutes and gauze dressing with tagaderm placed. This is to be removed tomorrow. Post procedure care instructions discussed To continue medications as prescribed, Stop Sotalol FU in EP clinic as scheduled Normal [facility] Barry 07-10-2025 [place] Telephone (AKPRAD) -------- JOHNATHAN SOLIS ([id number]) 1955 M Date Time Provider Department 07/10/25 ALEX ARROYO During your visit today, we recorded the following information about you: Alex Arroyo MD 07/10/2025 11:40 AM Signed Patient had AF ablation with DR Thakkar Needs to be set for TTE in 3 months and monitor in 3 months MD Carlos Sweet Emily 07/10/2025 2:19 PM Signed Post PVAI orders pended for signature Curry Bowman 07/10/2025 2:19 PM Signed Addended by: CURRY BOWMAN on: 07/10/2025 02:19 PM Modules accepted: Lanie Schulz MD 07/10/2025 8:31 PM Signed Addended by: LANIE THAKKAR on: 07/10/2025 08:31 PM Modules accepted: Donna Cox RN 08/21/2025 2:38 PM Addendum Johnathan Solis called in because he wasw not aware of upcoming appts. He asked if he could have 4 mo follow up visit in [place]? He also asks if he can have Holter and Echo completed in [place] through Dr. Se Oviedo? Pt asks if monitor really needs to be 7 days? CYNDI Ramos Linda S, RN 08/24/2025 9:16 AM Signed Called Johnathan Irma to relay reinforce timing of testing and ok to have tests in [place]. He voiced understanding and will ask them to fax results to [facility] prior to appt. Transferred to clerical to inquire about switching post procedure appt to [place] location. CYNDI Ramos Jessica, LPN 08/25/2025 10:40 AM Signed Received a call from [employer] and they are requesting a new order for them to mail a monitor to patient. [place] does not apply them anymore and mails them out but will not accept the Zio-patch order in chart. Patient is scheduled in [place] for Echo on 09/08/2025. TANYA Dinh Robert A, MD 08/25/2025 11:09 AM Signed [facility] Electrophysiology (EP) I am confused, what does [employer] have to do with our outpatient cardiac monitors? Are you asking for a new ZioPatch to be mailed to him? Lanie Thakkar MD August 25, 2025 11:09 AM Sadia Martínez LPN 08/25/2025 11:17 AM Signed He was informed to schedule through [place] he would need an order for [employer]. The Zio patch would work as well since he just wants it mailed out but new order will need placed to be a mail out instead of in clinic. TANYA Dinh Robert A, MD 08/25/2025 11:30 AM Signed [facility] Electrophysiology (EP) ZioPatch 7-day monitor ordered as mail out to patient. Lanie Thakkar MD August 25, 2025 11:30 AM Lanie Thakkar MD 08/25/2025 11:30 AM Signed Addended by: LANIE THAKKAR on: 08/25/2025 11:30 AM Modules accepted: Sadia Vance LPN 08/25/2025 11:34 AM Signed I left detailed message for Johnathan Solis and informed him of 's new order and that he would get monitor in the mail. [facility] phone number provided for any questions or concerns. TANYA Dinh Emily 08/25/2025 12:20 PM Signed Patient will receive the monitor in a few days but he should not wear it before 10/09. He will also need instructed to reschedule his ECHO to 10/09 or after. 09/08 is only 2 months post ablation. Sadia Brink LPN 08/26/2025 8:27 AM Signed I spoke to Johnathan Solis and he is scheduled for 10/09/2025. He states he is very aware that it is due on 10/09/2025. TANYA Dinh As of Date: 07/10/2025 Noted Allergy Reaction PENICILLINS 01/18/2023 10 - Anaphylaxis CAFFEINE 01/18/2023 14 - Other: See Comments Comments: arrhythmia TICAGRELOR 05/24/2021 14 - Other: See Comments Comments: Didn't feel well VERAPAMIL 01/18/2023 14 - Other: See Comments Comments: Hypotension Date Reviewed: 07/09/2025 Reviewed by: Caridad Lubin RN - Fully Assessed Reason for Visit: Orders [681] Primary Visit Diagnosis:Persistent atrial fibrillation (HCC) [I48.19] Other Visit Diagnosis:Dyspnea, unspecified type [R06.00] Order(s):ECHO [213802] Order #: [id number]: 1 FUTURE OUTSIDE VENDOR CARDIAC OUTPATIENT EXTENDED RHYTHM RECORDING (WITHOUT TELEMETRY) [4327807] Order #: [id number]: 1 FUTURE OUTSIDE VENDOR CARDIAC OUTPATIENT EXTENDED RHYTHM RECORDING (WITHOUT TELEMETRY) [9759927] Order #: [id number]: 1 OUTSIDE VENDOR CARDIAC OUTPATIENT EXTENDED RHYTHM RECORDING (WITHOUT TELEMETRY) [0640661] Order #: [id number]: 1 Prescriptions as of 08/26/2025 - rivaroxaban (XARELTO) 15 mg tablet Take 1 tablet by mouth once daily. - potassium citrate ER (UROCIT-K) 10 mEq (1,080 mg) Take 1,080 mg by mouth two times a day. - aspirin, enteric coated (ASPIRIN, ENTERIC COATED) 81 mg EC tablet Take 81 mg by mouth once daily. Problem List As Of Date 07/10/2025 Noted Resolved Atherosclerotic heart disease of knik coronar* Ischemic cardi (more content not included)... Normal [facility] ECG COMPLETEon 07-10-2025 ECG COMPLETE Ventricular Rate : 7 2 BPM Atrial Rate : 72 BPM P-R Interval : 168 ms QRS Duration : 136 ms Q-T Interval : 446 ms QTC Calculation(Bazett) : 488 ms Calculated P [place] : 68 degrees Calculated R [place] : 22 degrees Calculated T [place] : 13 degrees NORMAL SINUS RHYTHM RIGHT BUNDLE BRANCH BLOCK INFERIOR INFARCT , AGE UNDETERMINED ABNORMAL ECG NO PREVIOUS ECGS AVAILABLE Confirmed by MD MCLAIN YASSAR ([id number]) on 07/10/2025 1:23:23 PM NAME : JOHNATHAN SOLIS PID : [id number] : 1955 Gender : Male Race : ORD : [id number] Procedure Date : Jul 10 2025 07:52:45 Edit Date : Jul 10 2025 13:23:24 Diagnosis: NORMAL SINUS RHYTHM RIGHT BUNDLE BRANCH BLOCK INFERIOR INFARCT , AGE UNDETERMINED ABNORMAL ECG NO PREVIOUS ECGS AVAILABLE Confirmed by MD MCLAIN YASSAR ([id number]) on 07/10/2025 1:23:23 PM Test Reason : Arrhythmia Location : 103 : [facility] Overread By : MD MCLAIN YASSAR Edited By : MD MCLAIN YASSAR Referred By : , Acquired by : CARIDAD LUBIN [facility] ANES POSTPROC EVALon 025 ANES POSTPROC EVAL HNO ID: [id number] Author: ESME MANSFIELD MD Service: Anesthesiology Author Type: Anesthesiologist Type: Anesthesia Postprocedure Evaluation Filed: 07/09/2025 15:47 Note Text: POST ANESTHESIA EVALUATION NOTE : 1955 Procedure Summary Date: 07/09/25 Room / Location: [facility] [place] [facility] Anesthesia Start: 0937 Anesthesia Stop: Procedure: COMPRE EP EVAL ABLTJ ATR FIB PULM VEIN ISOLATION (Cardiac) Diagnosis: Paroxysmal atrial fibrillation (HCC) Status post catheter ablation of atrial fibrillation (Paroxysmal atrial fibrillation (HCC) [I48.0]) (Status post catheter ablation of atrial fibrillation [Z98.890]) Surgeons: Lanie Thakkar MD Responsible Provider: Esme Mansfield MD Anesthesia Type: general ASA Status: 4 Anesthesia Type: general Airway Type: ETT Last Vitals Vitals Value Taken Time BP 140/79 07/09/25 15:30 Temp 36.5 ?C (97.7 ?F) 07/09/25 15:30 Pulse 77 07/09/25 15:45 Resp 11 07/09/25 15:45 SpO2 97 % 07/09/25 15:45 Vitals shown include unfiled device data. Post Anesthesia Patient Status Patient Evaluation: bedside. Neurological Status: aware and responsive. Pulmonary Status: breathing comfortably on room air Airway Control: returned to baseline unsupported. Cardiovascular Status: stable. Pain Management: clinically adequate Postoperative Hydration: acceptable. Intraoperative Events: no significant anesthesia events Post Operative Nausea/Vomiting Status: no significant post operative nausea or vomiting Recommendation: continue current plan of care. Anesthesia Observations No Documentation SIGNATURE: Esme Mansfield MD PATIENT NAME: Johnathan Solis DATE: July 09, 2025 TIME: 3:46 PM CSN: [id number] Normal [facility] ANES PRE-OPon 07-09-2025 ANES PRE-OP HNO ID: [id number] Author: ESME MANSFIELD MD Service: Anesthesiology Author Type: Anesthesiologist Type: Anesthesia Preprocedure Evaluation Filed: 07/09/2025 12:56 Note Text: ANESTHESIOLOGY DAY OF SURGERY NOTE : 1955 Procedure Information Anesthesia Start Date/Time: 07/09/25936 Procedure: COMPRE EP EVAL ABLTJ ATR FIB PULM VEIN ISOLATION (Cardiac) - pfa/carto hANDp on 07/06 by PAT *can reschedule to 07/09 if unable to do 3 pvi on 07/08 Try to expedite a redo catheter ablation procedure (PFA) for atrial fibrillation. Dr. Thakkar only. Hold sotalol one week prior to procedure. Taking Xarelto. No other medications that need to be held. PACU/ROU Location: [facility] [place] [facility] Surgeons: Lanie Thakkar MD Estimated body mass index is 30.38 kg/m? as calculated from the following: Height as of 07/06/25: 182.9 cm (6'). Weight as of 07/06/25: 101.6 kg (224 lb). 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 Tracheostomy tube not present Mallampati: II. TM distance: >3 FB. Neck ROM: full ROM without neurological symptoms. Mouth opening: >3 FB. Short neck: no. Thick neck: no DENTAL Dental findings: teeth intact and poor dentition. II - ANESTHESIA PLAN ASA Score: 4 Anesthetic Plan: general Airway type: ETT NPO Status: adequate Monitoring Plan Monitoring plan: standard ASA. Post Procedure Analgesic Plan Postoperative analgesic plan: parenteral or oral opioids. Informed Consent Anesthetic risks, benefits, alternatives, personnel and consent discussed: yes. Patient / Responsible Constitution Party agrees to proceed: yes Patient / Surrogate agrees to blood products: blood products not planned Potential Anesthesia issues that may suggest increased risk of complications or contraindication to planned procedure: none. Vitals Value Taken Time BP 149/87 07/09/25 08:46 Pulse Resp 16 07/09/25 08:44 Temp 36.1 ?C (97 ?F) 07/09/25 08:44 SpO2 97 % 07/09/25 08:46 Vitals shown include unfiled device data. No current facility-administered medications on file as of 07/09/2025. Outpatient Medications as of 07/09/2025 Medication Sig rivaroxaban (XARELTO) 15 mg tablet Take 1 tablet by mouth once daily. potassium citrate ER (UROCIT-K) 10 mEq (1,080 mg) Take 1,080 mg by mouth two times a day. aspirin, enteric coated (ASPIRIN, ENTERIC COATED) 81 mg EC tablet Take 81 mg by mouth once daily. sotalol (BETAPACE) 80 mg tablet Take 1.5 tablets by mouth once daily. (Patient not taking: Reported on 07/06/2025) I have interviewed and examined the patient. I have reviewed the medical record and/or the pre-anesthesia evaluation, pertinent labs, and test results. This contains updated information obtained within 48 hours of Surgery/Procedure. SIGNATURE: Esme Mansfield MD PATIENT NAME: Johnathan Solis DATE: July 09, 2025 TIME: 9:20 AM CSN: [id number] Normal [facility] Basic metabolic 2000 panelon 07-09-2025 Anion gap [Moles/Vol] 15 mmol/L Normal 8-15 [facility] Comment on above: Order Comment: Speci men Type: BLOOD SPECIMENOrdering Facility: [facility] Address: [address] [place], [place] [address] Performed By: #### 2 4321-2 ####[facility] LABORATORYCLIA [id number] [place] [address] [place] Calcium [Mass/Vol] 9.4 mg/dL Normal 8.5-10.2 [facility] Comment on above: Order Comment: Speci men Type: BLOOD SPECIMENOrdering Facility: [facility] Address: [address] [place] [address] Performed By: #### 2 4321-2 ####[facility] LABORATORYCLIA [id number] [place] [address] [place] Chloride [Moles/Vol] 100 mmol/L Normal 98-107 [facility] Comment on above: Order Comment: Speci men Type: BLOOD SPECIMENOrdering Facility: [facility] Address: [address] [place] [address] Performed By: #### 2 4321-2 ####[facility] LABORATORYCLIA [id number] [address] [place] CO2 [Moles/Vol] 22 mmol/L Normal 22-30 [facility] Comment on above: Order Comment: Speci men Type: BLOOD SPECIMENOrdering Facility: [facility] Address: [address] [place] [address] Performed By: #### 2 4321-2 ####[facility] LABORATORYCLIA [id number] [place] [address] [place] Creatinine [Mass/Vol] 1.44 mg/dL High 0.73-1.22 [facility] Comment on above: Order Comment: Speci men Type: BLOOD SPECIMENOrdering Facility: [facility] Address: [address] [place] [address] Performed By: #### 2 4321-2 ####[facility] LABORATORYCLIA [id number] [address] [place] eGFRcr SerPlBld CKD-EPI 2020 52 mL/min/1.73m??? Low >=60 [facility] Comment on above: Order Comment: Speci men Type: BLOOD SPECIMENOrdering Facility: [facility] Address: [address] [place] [address] Result Comment: Antonietta mated Glomerular Filtration Rate (eGFR) is calculated using the 2020 CKD-EPI creatinine equation. This equation utilizes serum creatinine, sex, and age as parameters. The creatinine assay has traceable calibration to isotope dilution-mass spectrometry. Refer to KDIGO guidelines for clinical interpretation. In patients with unstable renal function, e.g. those with acute kidney injury, the eGFR may not accurately reflect actual GFR. Performed By: #### 2 4321-2 ####[facility] LABORATORYCLIA [id number] [place] [address] [place] Glucose [Mass/Vol] 100 mg/dL High 74-99 [facility] Comment on above: Order Comment: Specaliya johnson Type: BLOOD SPECIMENOrdering Facility: [facility] Address: [address] [place] [address] Result Comment: The [place] [employer] (ADA) provides guidance for cutoff values for fasting glucose and random glucose. The ADA defines fasting as no caloric intake for at least 8 hours. Fasting plasma glucose results between 100 to 125 mg/dL indicate increased risk for diabetes (prediabetes). Fasting plasma glucose results greater than or equal to 126 mg/dL meet the criteria for diagnosis of diabetes. In the absence of unequivocal hyperglycemia, results should be confirmed by repeat testing. In a patient with classic symptoms of hyperglycemia or hyperglycemic crisis, random plasma glucose results greater than or equal to 200 mg/dL meet the criteria for diagnosis of diabetes. Reference: Standards of Medical Care in Diabetes 2016, [place] [employer]. Diabetes Care. 2016.39(Suppl 1). Performed By: #### 2 4321-2 ####[facility] LABORATORYCLIA [id number] [place] [address] [place] Potassium [Moles/Vol] Normal [facility] Comment on above: Order Comment: Speci men Type: BLOOD SPECIMENOrdering Facility: [facility] Address: [address] [place] [address] Result Comment: Unab le to assay due to interference from hemolysis. Suggest reorder as clinically indicated. Performed By: #### 2 4321-2 ####[facility]ORATORYCLIA [id number] [address] STATES OF [facility] Sodium [Moles/Vol] 137 mmol/L Normal 136-144 [facility] Comment on above: Order Comment: Speci men Type: BLOOD SPECIMENOrdering Facility: [facility] Address: [address] [place] [address] Performed By: #### 2 4321-2 ####[facility]ORATORYCLIA [id number] [address] [place] Urea nitrogen [Mass/Vol] 19 mg/dL Normal 9-24 [facility] Comment on above: Order Comment: Speci men Type: BLOOD SPECIMENOrdering Facility: [facility] Address: [address] [place] [address] Performed By: #### 2 4321-2 ####[facility]ORATORYCLIA [id number] [address] STATES OF [facility] CBC panel Auto (Bld)on 07-09 Erythrocyte distribution width (RBC) [Ratio] 14.0 % Normal 11.5-15.0 [facility] Comment on above: Order Comment: Speci men Type: BLOOD SPECIMENOrdering Facility: [facility] Address: [address] [place] [address] Performed By: #### 5 8410-2 ####[facility] LABORATORYCLIA [id number] [address] [place] Hematocrit (Bld) [Volume fraction] 46.8 % Normal 39.0-51.0 [facility] Comment on above: Order Comment: Speci men Type: BLOOD SPECIMENOrdering Facility: [facility] Address: [address] [place] [address] Performed By: #### 5 8410-2 ####[facility] LABORATORYCLIA [id number] [address] [place] Hemoglobin (Bld) [Mass/Vol] 15.3 g/dL Normal 13.0-17.0 [facility] Comment on above: Order Comment: Speci men Type: BLOOD SPECIMENOrdering Facility: [facility] Address: [address] [place] [address] Performed By: #### 5 8410-2 ####[facility]ORATORYCLIA [id number] [address] MCH (RBC) [Entitic mass] 27.5 pg Normal 26.0-34.0 [facility] Comment on above: Order Comment: Speci men Type: BLOOD SPECIMENOrdering Facility: [facility] Address: [address] [place] [address] Performed By: #### 5 8410-2 ####[facility]ORATORYCLIA [id number] [address] MCHC (RBC) [Mass/Vol] 32.7 g/dL Normal 30.5-36.0 [facility] Comment on above: Order Comment: Speci men Type: BLOOD SPECIMENOrdering Facility: [facility] Address: [address] [place] [address] Performed By: #### 5 8410-2 ####[facility]ATORYCLIA [id number] [address] MCV (RBC) [Entitic vol] 84.2 fL Normal 80.0-100.0 [facility] Comment on above: Order Comment: Speci men Type: BLOOD SPECIMENOrdering Facility: [facility] Address: [address] [place] [address] Performed By: #### 5 8410-2 ####[facility] LABORATORYCLIA [id number] [address] Nucleated RBC (Bld) [#/Vol] 10*3/uL Normal <0.01 [facility] Comment on above: Order Comment: Speci men Type: BLOOD SPECIMENOrdering Facility: [facility] Address: [address] [place] [address] Performed By: #### 5 8410-2 ####[facility] LABORATORYCLIA [id number] [address] Platelet mean volume (Bld) [Entitic vol] 11.3 fL Normal 9.0-12.7 [facility] Comment on above: Order Comment: Speci men Type: BLOOD SPECIMENOrdering Facility: [facility] Address: [address] [place] [address] Performed By: #### 5 8410-2 ####[facility]ORATORYCLIA [id number] [address] OF [facility] Platelets (Bld) [#/Vol] 239 10*3/uL Normal 150-400 [facility] Comment on above: Order Comment: Speci men Type: BLOOD SPECIMENOrdering Facility: [facility] Address: [address] [place] [address] Performed By: #### 5 8410-2 ####[facility]ATORYCLIA [id number] [address] OF [facility] RBC (Bld) [#/Vol] 5.56 10*6/uL Normal 4.20-6.00 [facility] Comment on above: Order Comment: Speci men Type: BLOOD SPECIMENOrdering Facility: [facility] Address: [address] [place] [address] Performed By: #### 5 8410-2 ####[facility]ORATORYCLIA [id number] [address] OF [facility] WBC (Bld) [#/Vol] 7.72 10*3/uL Normal 3.70-11.00 [facility] Comment on above: Order Comment: Speci men Type: BLOOD SPECIMENOrdering Facility: [facility] Address: [address] [place] [address] Performed By: #### 5 8410-2 ####[facility]ATORYCLIA [id number] [address] OF [place] Basic metabolic 2000 panelon 07-08-2025 Anion gap [Moles/Vol] 13 mmol/L Normal 8-15 [facility] Comment on above: Order Comment: Speci men Type: BLOOD SPECIMENOrdering Facility: [facility] Address: [address] [place] [address] Performed By: #### 2 4321-2 ####[facility] LABORATORYCLIA [id number] [place] [address] [place] Calcium [Mass/Vol] 9.7 mg/dL Normal 8.5-10.2 [facility] Comment on above: Order Comment: Speci men Type: BLOOD SPECIMENOrdering Facility: [facility] Address: [address] [place] [address] Performed By: #### 2 4321-2 ####[facility]ORATORYCLIA [id number] [place] [address] [place] Chloride [Moles/Vol] 102 mmol/L Normal 98-107 [facility] Comment on above: Order Comment: Speci men Type: BLOOD SPECIMENOrdering Facility: [facility] Address: [address] [place] [address] Performed By: #### 2 4321-2 ####[facility]ATORYCLIA [id number] [place] [address] [place] CO2 [Moles/Vol] 21 mmol/L Low 22-30 [facility] Comment on above: Order Comment: Speci men Type: BLOOD SPECIMENOrdering Facility: [facility] Address: [address] [place] [address] Performed By: #### 2 4321-2 ####[facility] LABORATORYCLIA [id number] [place] [address] [place] Creatinine [Mass/Vol] 1.47 mg/dL High 0.73-1.22 [facility] Comment on above: Order Comment: Speci men Type: BLOOD SPECIMENOrdering Facility: [facility] Address: [address] [place] [address] Performed By: #### 2 4321-2 ####[facility]ORATORYCLIA [id number] [place] [address] [place] eGFRcr SerPlBld CKD-EPI 2020 51 mL/min/1.73m??? Low >=60 [facility] Comment on above: Order Comment: Speci men Type: BLOOD SPECIMENOrdering Facility: [facility] Address: [address] [place] [address] Result Comment: Antonietta mated Glomerular Filtration Rate (eGFR) is calculated using the 2020 CKD-EPI creatinine equation. This equation utilizes serum creatinine, sex, and age as parameters. The creatinine assay has traceable calibration to isotope dilution-mass spectrometry. Refer to KDIGO guidelines for clinical interpretation. In patients with unstable renal function, e.g. those with acute kidney injury, the eGFR may not accurately reflect actual GFR. Performed By: #### 2 4321-2 ####[facility]ATORYCLIA [id number] [place] [address] [place] Glucose [Mass/Vol] 91 mg/dL Normal 74-99 [facility] Comment on above: Order Comment: Daquan johnson Type: BLOOD SPECIMENOrdering Facility: [facility] Address: [address] [place] [address] Result Comment: The [place] Diabetes [employer] (ADA) provides guidance for cutoff values for fasting glucose and random glucose. The ADA defines fasting as no caloric intake for at least 8 hours. Fasting plasma glucose results between 100 to 125 mg/dL indicate increased risk for diabetes (prediabetes). Fasting plasma glucose results greater than or equal to 126 mg/dL meet the criteria for diagnosis of diabetes. In the absence of unequivocal hyperglycemia, results should be confirmed by repeat testing. In a patient with classic symptoms of hyperglycemia or hyperglycemic crisis, random plasma glucose results greater than or equal to 200 mg/dL meet the criteria for diagnosis of diabetes. Reference: Standards of Medical Care in Diabetes 2016, [place] [employer]. Diabetes Care. 2016.39(Suppl 1). Performed By: #### 2 4321-2 ####[facility]ATORYCLIA [id number] [place] [address] [place] Potassium [Moles/Vol] 3.9 mmol/L Normal 3.7-5.1 [facility] Comment on above: Order Comment: Daquan johnson Type: BLOOD SPECIMENOrdering Facility: [facility] Address: [address] [place] [id number] Performed By: #### 2 4321-2 ####[facility] LABORATORYCLIA [id number] [place] [id number] [place] Sodium [Moles/Vol] 136 mmol/L Normal 136-144 [facility] Comment on above: Order Comment: Speci men Type: BLOOD SPECIMENOrdering Facility: [facility] Address: [address] [place] [address] Performed By: #### 2 4321-2 ####[facility]ORATORYCLIA [id number] [place] [address] [place] Urea nitrogen [Mass/Vol] 20 mg/dL Normal 9-24 [facility] Comment on above: Order Comment: Speci men Type: BLOOD SPECIMENOrdering Facility: [facility] Address: [address] [place] [address] Performed By: #### 2 4321-2 ####[facility]ATORYCLIA [id number] [address] [place] CBC panel Auto (Bld)on 07-08 Erythrocyte distribution width (RBC) [Ratio] 13.5 % Normal 11.5-15.0 [facility] Comment on above: Order Comment: Speci men Type: BLOOD SPECIMENOrdering Facility: [facility] Address: [address] [place] [address] Performed By: #### 5 8410-2 ####[facility] LABORATORYCLIA [id number] [address] [place] Hematocrit (Bld) [Volume fraction] 45.0 % Normal 39.0-51.0 [facility] Comment on above: Order Comment: Speci men Type: BLOOD SPECIMENOrdering Facility: [facility] Address: [address] [place] [address] Performed By: #### 5 8410-2 ####[facility] LABORATORYCLIA [id number] [address] [place] Hemoglobin (Bld) [Mass/Vol] 14.5 g/dL Normal 13.0-17.0 [facility] Comment on above: Order Comment: Speci men Type: BLOOD SPECIMENOrdering Facility: [facility] Address: [address] [place] [address] Performed By: #### 5 8410-2 ####[facility] LABORATORYCLIA [id number] [address] STATES [facility] MCH (RBC) [Entitic mass] 26.3 pg Normal 26.0-34.0 [facility] Comment on above: Order Comment: Speci men Type: BLOOD SPECIMENOrdering Facility: [facility] Address: [address] [place] [address] Performed By: #### 5 8410-2 ####[facility] LABORATORYCLIA [id number] [address] STATES OF [facility] MCHC (RBC) [Mass/Vol] 32.2 g/dL Normal 30.5-36.0 [facility] Comment on above: Order Comment: Speci men Type: BLOOD SPECIMENOrdering Facility: [facility] Address: [address] [place] [address] Performed By: #### 5 8410-2 ####[facility] LABORATORYCLIA [id number] [address] MCV (RBC) [Entitic vol] 81.5 fL Normal 80.0-100.0 [facility] Comment on above: Order Comment: Speci men Type: BLOOD SPECIMENOrdering Facility: [facility] Address: [address] [place] [address] Performed By: #### 5 8410-2 ####[facility] LABORATORYCLIA [id number] [address] Nucleated RBC (Bld) [#/Vol] 10*3/uL Normal <0.01 [facility] Comment on above: Order Comment: Speci men Type: BLOOD SPECIMENOrdering Facility: [facility] Address: [address] [place] [address] Performed By: #### 5 8410-2 ####[facility] LABORATORYCLIA [id number] [address] Platelet mean volume (Bld) [Entitic vol] 10.5 fL Normal 9.0-12.7 [facility] Comment on above: Order Comment: Speci men Type: BLOOD SPECIMENOrdering Facility: [facility] Address: [address] [place] [address] Performed By: #### 5 8410-2 ####[facility] LABORATORYCLIA [id number] [address] OF [facility] Platelets (Bld) [#/Vol] 207 10*3/uL Normal 150-400 [facility] Comment on above: Order Comment: Speci men Type: BLOOD SPECIMENOrdering Facility: [facility] Address: [address] [place] [address] Performed By: #### 5 8410-2 ####[facility] LABORATORYCLIA [id number] [address] OF [facility] RBC (Bld) [#/Vol] 5.52 10*6/uL Normal 4.20-6.00 [facility] Comment on above: Order Comment: Speci men Type: BLOOD SPECIMENOrdering Facility: [facility] Address: [address] [place] [address] Performed By: #### 5 8410-2 ####[facility] LABORATORYCLIA [id number] [address] OF [facility] WBC (Bld) [#/Vol] 8.57 10*3/uL Normal 3.70-11.00 [facility] Comment on above: Order Comment: Speci men Type: BLOOD SPECIMENOrdering Facility: [facility] Address: [address] [place] [address] Performed By: #### 5 8410-2 ####[facility] LABORATORYCLIA [id number] [address] OF [facility] TYPE + SCREENon 07-08-2025 ABO A Normal [facility] Comment on above: Order Comment: Speci men Type: BLOOD SPECIMENOrdering Facility: [facility] Address: [address] [place] [address] Performed By: #### T SCR ####[facility] B[facility] BANKCLIA [id number] [address] Rh Nom (Bld) Positive Normal [facility] Comment on above: Order Comment: Speci men Type: BLOOD SPECIMENOrdering Facility: [facility] Address: [address] [place] [address] Performed By: #### T SCR ####[facility] BLOOD BANKCLIA [id number] [place] [address] [facility] TYPE AND SCREEN EXPIRATION 07/11/2025 23:59 Normal [facility] Comment on above: Order Comment: Speci men Type: BLOOD SPECIMENOrdering Facility: [facility] Address: [address] [place], [place] [address] [address] Performed By: #### T SCR ####[facility] BLOOD BANKCLIA [id number] [place] [id number] [facility] EKGon 07-06-2025 Electrocardiogram Ventricular Rate : 5 9 BPM Atrial Rate : 59 BPM P-R Interval : 166 ms QRS Duration : 132 ms Q-T Interval : 478 ms QTC Calculation(Bazett) : 473 ms Calculated P [place] : 58 degrees Calculated R [place] : 26 degrees Calculated T [place] : 2 degrees SINUS BRADYCARDIA RIGHT BUNDLE BRANCH BLOCK LATERAL INFARCT , AGE UNDETERMINED INFERIOR INFARCT (CITED ON OR BEFORE 02-May-2023) ABNORMAL ECG WHEN COMPARED WITH ECG OF 02-May-2023 05:36, LATERAL INFARCT IS NOW PRESENT T WAVE INVERSION NO LONGER EVIDENT IN ANTEROLATERAL LEADS Confirmed by MD MCLAIN YASSAR ([id number]) on 07/07/2025 12:50:37 PM NAME : JOHNATHAN SOLIS PID : [id number] : 1955 Gender : Male Race : ORD : Procedure Date : Jul 06 2025 08:42:18 Edit Date : Jul 07 2025 12:57:54 Diagnosis: SINUS BRADYCARDIA RIGHT BUNDLE BRANCH BLOCK LATERAL INFARCT , AGE UNDETERMINED INFERIOR INFARCT (CITED ON OR BEFORE 02-May-2023) ABNORMAL ECG WHEN COMPARED WITH ECG OF 02-May-2023 05:36, LATERAL INFARCT IS NOW PRESENT T WAVE INVERSION NO LONGER EVIDENT IN ANTEROLATERAL LEADS Confirmed by MD MCLAIN YASSAR ([id number]) on 07/07/2025 12:50:37 PM Test Reason : Location : 147 : [facility] Overread By : MD MCLAIN YASSAR Edited By : MD MCLAIN YASSAR Referred By : LANIE THAKKAR Acquired by : SHYANNE HERNANDEZ [facility] HISTORY PHYSICALon HISTORY PHYSICAL HNO ID: [id number] Author: SHYANNE OCONNOR APRN.CNP Service: ? Author Type: Nurse Practitioner Type: H&P Filed: 07/06/2025 09:12 Note Text: [facility] HISTORY AND PHYSICAL EXAMINATION SERVICE DATE: 07/06/2025 SERVICE TIME: 9:12 AM PRIMARY CARE PHYSICIAN: Oral Miller Jr, MD, MD Assessment Patient has the following medical conditions which may affect dotty-operative course: Paroxysmal atrial fibrillation (HCC) Scheduled for ablation 07/08/[address] Thakkar Old myocardial infarction 2018 with stent to RCA Anticoagulant long-term use LD Xarelto 07/01/2025 ASA 81mg Obesity (BMI 30-39.9) BMI 30.38 ANESTHESIA FINDINGS: Intubation History: No history of difficult intubation Significant Anesthesia Considerations: none Airway History: No history of difficult airway Carvajal Activity Status Index: METS: Climb a flight of stairs or walk up a hill (5.50 METs) DASI Score: 5.5 ARISCAT Score: Age: 51-80 Preoperative SpO2: >=96% Respiratory infection in the last month: No Preoperative anemia: No Surgical incision: peripheral Duration of surgery: >3 hrs Emergency procedure: No ARISCAT Score: 26 I - PHYSICAL EVALUATION AIRWAY Patient intubated: No. DENTAL Dental findings: teeth intact. II - ANESTHESIA PLAN Anesthetic Plan: general Beta Rose Monitoring Plan Post Procedure Analgesic Plan Prepared for Surgery: CONSULTS: Patient does not require consults for optimization at this time Planned Anesthetic: general The Following Tests/Procedures Have Been Initiated: No orders of the defined types were placed in this encounter. REASON FOR VISIT: Johnathan Solis is a 69 year old male who is scheduled for Procedure(s) with comments: JANIE EP EVAL ABLTJ ATR FIB PULM VEIN ISOLATION (N/A) - pfa/carto *can reschedule to 07/09 if unable to do 3 pvi on 07/08 at the request of Dr. Lanie Thakkar for routine HANDP. My final recommendation will be communicated back to the requesting physician by way of shared medical record or letter. Implantable Devices: cardiac stent Assessment/Plan PLAN Pre-op testing: Medical conditions which may affect the dotty-operative course were addressed in the visit today. Procedure Diagnosis: PAF Planned Procedure: Procedure(s) with comments: CAMILLE SIBLEY EVAL ABLTJ ATR FIB PULM VEIN ISOLATION (N/A) - pfa/carto *can reschedule to 07/09 if unable to do 3 pvi on 07/08 Planned Anesthetic: General CONSULTS: Patient does not require consults for optimization at this time. I spent a total of 60 minutes on the date of the service which included preparing to see the patient, [id number] patient care, completing clinical documentation, obtaining and/or reviewing separately obtained history, performing a medically appropriate examination, counseling and educating the patient/family/caregiver , and ordering medications, tests, or procedures. The Following Tests/Procedures Have Been Initiated: EKG ordered in Epic per surgeon. None ordered per SEARCH MARKETING SPECIALIST. Subjective The patient has the following: COVID-19 Immunization Status This patient has no relevant Health Maintenance data. CHIEF COMPLAINT: The reason for this visit is to perform a comprehensive review of the patient's past medical history, assess their current health status and obtain any additional testing required based on anesthesia guidelines. We will also identify any potential anesthesia problems or contraindications to the planned procedure. HPI: 69 yo WM with Paroxysmal atrial fibrillation (HCC) [I48.0] Status post catheter ablation of atrial fibrillation [Z98.890], A fib since age 33, 1987. States was treated with multiple atniarrythmics, Ablation 2005 and April 2023. Reports April 2025, felt in A fib. Last does stotal 07/01/2025. REVIEW OF SYSTEMS: General: No weight loss, malaise or fevers. Negative for: unintentional weight change, malaise and fever. Neurological: Negative for: headaches, seizures and strokes. Respiratory: Negative for: asthma, COPD, tobacco use and obstructive sleep apnea. Cardiovascular: Positive for: CAD Patient's last office visit with transporter driver, Dr. Yonathan Ross, The following tests and/or procedures were performed: cardiac stents (2018 [place] stent RCA). Negative for: arrhythmia, DVT/PE, hyperlipidemia and hypertension. GI: Negative for: abdominal pain and GERD. : Hx renal stones Left kidney Negative for: frequent urination, hematuria, hesitancy and urinary incontinence. Endocrine: Negative for: diabetes mellitus, hyperthyroidism and hypothyroidism. Hematology: Positive for: chronic anti-coagulation/platele t meds. Patient is on anti-coagulation/platele t medication(s): Aspirin. Oncology: No history of CA metastasis, chemo within 30 days, or radiotherapy within 90 days. No history of oncological symptoms or problems. Psych: Negative for: an (more content not included)... Normal [facility] 06-16-2025 POPPY Telephone (AGCARDPOB ) -------- JOHNATHAN SOLIS ([id number]) 1955 M Date Time Provider Department 06/16/25 LANIE THAKKAR AGCARDPOSharon During your visit today, we recorded the following information about you: Delilah Carrillo LPN 06/16/2025 7:30 AM Signed Received EKG from [facility]. Scanned in for review. TANYA Coe Kimberly, APRN.CARISSA 06/16/2025 1:54 PM Addendum Reviewed EKG, which appears to be atrial fibrillation. According to the notes, short-term treatment plan would be cardioversion, he is scheduled for catheter ablation the end of this month with Dr. Thakkar, with plan to hold sotalol 1 week prior to ablation. A cardioversion will get him through the next few weeks, if he is overly symptomatic, perhaps he wishes to pursue, though may take a little time to even get that scheduled. So if his symptoms are reasonably controlled, perhaps continue current regimen and proceed with catheter ablation, as previously outlined. Thank you. Karina Causey APRN.Suri Kraus LPN 06/16/2025 2:01 PM Signed Spoke with Johnathan Solis and informed them of Loretta response to EKG and recommendations. Patient voiced understanding . Suri James LPN June 16, 2025 2:01 PM Allergies As of Date: 06/16/2025 Noted Allergy Reaction PENICILLINS 01/18/2023 10 - Anaphylaxis CAFFEINE 01/18/2023 14 - Other: See Comments Comments: arrhythmia TICAGRELOR 05/24/2021 14 - Other: See Comments Comments: Didn't feel well VERAPAMIL 01/18/2023 14 - Other: See Comments Comments: Hypotension Date Reviewed: 06/05/2025 Reviewed by: Lanie Thakkar MD - Fully Assessed Reason for Visit: Results [95] Prescriptions as of 06/16/2025 - rivaroxaban (XARELTO) 15 mg tablet Take 1 tablet by mouth once daily. - sotalol (BETAPACE) 80 mg tablet Take 1.5 tablets by mouth once daily. - potassium citrate ER (UROCIT-K) 10 mEq (1,080 mg) Take 1,080 mg by mouth two times a day. - aspirin, enteric coated (ASPIRIN, ENTERIC COATED) 81 mg EC tablet Take 81 mg by mouth once daily. Problem List As Of Date 06/16/2025 Noted Resolved Atherosclerotic heart disease of knik coronar* Ischemic cardiomyopathy [I25.5] Bradycardia [R00.1] Paroxysmal atrial fibrillation (HCC) [I48.0] Old myocardial infarction [I25.2] intermediate card tender current use of antiarrhythmic drug [Z*01/22/2023 05/08/2024 Atrophy of left kidney [N26.1] 06/01/2018 Status post catheter ablation of atrial fibrill*11/21/2022 History of coronary artery stent placement [Z95*01/06/[address] elevation myocardial infarction (*01/06/2018 Kidney stones [N20.0] 08/09/2018 Sinus bradycardia [R00.1] 03/13/2019 Stage 3 chronic kidney disease (HCC) [N18.30] 12/12/2018 At risk for stroke [Z91.89] 01/23/2023 Right bundle branch block (RBBB) [I45.10] 01/23/2023 PAC (premature atrial contraction) [I49.1] 08/02/2023 Anticoagulant long-term use [Z79.01] 05/08/2024 05/09/2024 Anticoagulant medication declined by patient [Z*05/09/2024 Encounter Status:Closed by DELILAH CARRILLO on 06/16/25 [facility] CNPN Telephone (AGCARDPOB ) -------- JOHNATHAN SOLIS ([id number]) 1955 M Date Time Provider Department 06/16/25 LANIE THAKKAR AGCARDPOB During your visit today, we recorded the following information about you: Curry Bowman 06/16/2025 12:43 PM Signed Patient is scheduled for a PFA on 07/[address] Thakkar. The hospital will call the day before between 2-5pm with your arrival time. You should not eat or drink after midnight the day before the procedure. You will need a package car driver when released from the hospital and you will stay overnight for observation. You should continue to take medications as prescribed the morning of the procedure with just a sip of water but Hold sotalol one week prior PAT to call and scheduled HANDP/EKG Spoke with Johnathan Solis on June 16, 2025. Informed of instructions as stated above. Patient verbalized understanding. Donna Sunshine RN 06/16/2025 12:54 PM Signed Noted CYNDI Ramos Linda S, RN 07/02/2025 10:55 AM Addendum Johnathan Solis called in. He needs to cancel PAT appt today. He tried to call [facility] [phone] to reschedule appt, but was transferred to [facility] to reschedule. Curry can you assist? CYNDI Ramos Linda S, RN 07/02/2025 11:26 AM Signed Called Scheduling [phone]. They will reach out to to reschedule. Donna Arzola RN Allergies As of Date: 06/16/2025 Noted Allergy Reaction PENICILLINS 01/18/2023 10 - Anaphylaxis CAFFEINE 01/18/2023 14 - Other: See Comments Comments: arrhythmia TICAGRELOR 05/24/2021 14 - Other: See Comments Comments: Didn't feel well VERAPAMIL 01/18/2023 14 - Other: See Comments Comments: Hypotension Date Reviewed: 06/05/2025 Reviewed by: Lanie Thakkar MD - Fully Assessed Reason for Visit: Preparations For Procedures [899] Prescriptions as of 07/02/2025 - rivaroxaban (XARELTO) 15 mg tablet Take 1 tablet by mouth once daily. - sotalol (BETAPACE) 80 mg tablet Take 1.5 tablets by mouth once daily. - potassium citrate ER (UROCIT-K) 10 mEq (1,080 mg) Take 1,080 mg by mouth two times a day. - aspirin, enteric coated (ASPIRIN, ENTERIC COATED) 81 mg EC tablet Take 81 mg by mouth once daily. Problem List As Of Date 06/16/2025 Noted Resolved Atherosclerotic heart disease of knik coronar* Ischemic cardiomyopathy [I25.5] Bradycardia [R00.1] Paroxysmal atrial fibrillation (HCC) [I48.0] Old myocardial infarction [I25.2] intermediate card tender current use of antiarrhythmic drug [Z*01/22/2023 05/08/2024 Atrophy of left kidney [N26.1] 06/01/2018 Status post catheter ablation of atrial fibrill*11/21/2022 History of coronary artery stent placement [Z95*01/06/[address] elevation myocardial infarction (*01/06/2018 Kidney stones [N20.0] 08/09/2018 Sinus bradycardia [R00.1] 03/13/2019 Stage 3 chronic kidney disease (HCC) [N18.30] 12/12/2018 At risk for stroke [Z91.89] 01/23/2023 Right bundle branch block (RBBB) [I45.10] 01/23/2023 PAC (premature atrial contraction) [I49.1] 08/02/2023 Anticoagulant long-term use [Z79.01] 05/08/2024 05/09/2024 Anticoagulant medication declined by patient [Z*05/09/2024 Encounter Status:Closed by CURRY BOWMAN on 06/16/25 [facility] Office Visit Reporton 2024 Office Visit Report [facility] [address] [place] [address] OFFICE VISIT Date of Service: 06/12/25 MR#: [id number] Acct: [id number] Patient: JOHNATHAN SOLIS Rep #: [id number] : 1955 Provider: Dr. Miguel Ángel viera MD Age/Sex: 69/M Location[place] [facility] [place] Status: Signed Intake Vital Signs 02/25/25 07:29 Height 6 ft 2 in Weight: 234 lb BMI 30.0 BP 121/77 H Blood Pressure Location Lt brachial Position Sitting Respiration 18 Pulse 74 Pulse Source Monitor Pulse Oximetry (%) 100 Intake Visit Reasons: 1 WK S/P Ablation Allergies Penicillins Allergy (Severe, Verified 02/25/25 08:54) Anaphylaxis caffeine Allergy (Intermediate, Verified 02/25/25 08:54) arrhythmia verapamil Allergy (Intermediate, Verified 02/25/25 08:54) hypotension ticagrelor (From Brilinta) Adverse Reaction (Verified 02/25/25 08:54) insomnia, nausea, dizziness Have you fallen in the past year?: No Nursing Note Patient in office for EKG per Dr. Thakkar's request. Patient started Sotalol on 06/05/2025. States he can tell he is currently in afib. EKG faxed to Dr. Thakkar's office to review. Assessment and Plan Assessment and Plan Orders: Orders 12 Lead EKG performed by [facility] [place] 06/12/25 I48.0 - Paroxysmal atrial fibrillation Clinical Quality Measures Falls Risk Screening/Assistive Devices Have you fallen in the past year?: No 06/14/2532 Date Miguel Ángel Mao Signature: Date (if applicable) [facility] -------- JOHNATHAN SOLIS ([id number]) 1955 M Date Time Provider Department 06/05/25 8:00 AM LANIE THAKKARAGHWW During your visit today, we recorded the following information about you: Pulse Respiration Blood pressure Weight 91/minute 16/minute 131/84 98.4 kg Height 1.88 m Lanie Thakkar MD 06/05/2025 11:55 AM Signed PRIMARY CARE PHYSICIAN: Oral Miller Jr, MD [address] [place] [address] Patient Care Team: Oral Miller Jr., MD as PCP - General (Nephrology) [facility] as Specialty Pin Machine Operator (Cardiology) Lanie Thakkar MD as Specialty Pin Machine Operator (Cardiology) CHIEF COMPLAINT: Follow up for arrhythmia HISTORY OF PRESENT ILLNESS: Mr. Solis is a 69 year old male who presents today for a cardiovascular medicine follow-up visit. Recording using ambient AI software for draft documentation of the visit was discussed with the patient/authorized electroplating sales representative; all questions welcomed and answered. Patient/authorized electroplating sales representative agreed to proceed History from previous notes, edited as needed and/or generated by dictation with use of AI.: Patient Overview: Mr. Solis presents for a follow-up evaluation in the [facility] outpatient clinic with Dr. Thakkar on 06/05/2025. He has a long history of arrhythmia, first experiencing atrial fibrillation at age 33 in 1987. He has been treated with various medications over the years, including digoxin, beta blockers, calcium channel blockers, and sotalol. In late 2021, he experienced a recurrence of atrial fibrillation and resumed taking sotalol, 240 mg three times daily. He has a history of coronary artery disease and experienced a heart attack in 2018, undergoing intracoronary stent placement to the right coronary artery. He reports triggers for his atrial fibrillation, including large meals and alcohol, particularly wine. He underwent repeat atrial fibrillation catheter ablation in April 2023 at [facility] by Dr. Thakkar, which included catheter ablation of a focal left atrial PAC. In April 2024, he reported doing well, experiencing only occasional and brief palpitations. At that time, there was a discussion about oral anticoagulation therapy for stroke prevention, but he preferred to take low-dose aspirin, 81 milligrams daily. He has been followed by general transporter driver Dr. Mcmanus of the [facility]. In May 2025, he contacted the office to report a recurrence of atrial fibrillation, with prolonged episodes lasting over 12 hours. He had been sick with norovirus, experiencing diarrhea and fever, and reported heart rates around 85 bpm. He was evaluated by his primary care physician and was considered to still be in atrial fibrillation, although he has recovered from the viral illness. He inquired about anticoagulant medication and resuming sotalol and was advised to make an appointment with Dr. Thakkar, for which he presents now. Diagnostic Results: - Echocardiogram (07/17/2023): - Normal left ventricular size and function - LVEF: 55% - Stage 1 diastolic dysfunction - Normal atrial dimensions - No significant valvular abnormalities Interim History Dr. Thakkar 06/05/2025: The patient is a 69-year-old male with a history of arrhythmia, CAD, and [place], presenting for follow-up. The patient has a long-standing history of arrhythmia, with initial onset of atrial fibrillation at age 33 in 1987. He has been treated with various medications over the years, including digoxin, beta blockers, and calcium channel blockers. In 1992, he was started on sotalol, at one point taking a high dosage of 240 mg TID for several years. He underwent atrial fibrillation catheter ablation in 2005, which was reportedly unsuccessful, and a repeat ablation in April 2023, which included ablation of a focal left atrial PAC. In late 2021, he experienced a recurrence of atrial fibrillation and resumed taking sotalol 240 mg TID. During a follow-up in April 2024, he reported doing well with only occasional brief palpitations. At that time, he declined oral anticoagulation therapy for stroke prevention, opting to continue low-dose aspirin 81 mg daily. Recently, he contacted the office in May 2025, reporting a recurrence of atrial fibrillation with prolonged episodes lasting over 12 hours. He was experiencing diarrhea and fever, reportedly due to norovirus, and noted heart rates around 85 bpm. He was evaluated by his PCP and was considered to be still in atrial fibrillation, although he has recovered from the viral illness. He inquired about resuming sotalol and starting anticoagulation therapy. He reports a strong vagal component to his atrial fibrillation, with episodes more likely to occur after eating a large meal or consumin (more content not included)... Normal [facility] ECG B/O W INTERP (MED OFFICE )on 06-05-2025 Interpretation and review of laboratory results Abnormal [facility] atrial fibrillation with rapid ventricular response, average 115 bpm; RBBB (QRS 134 ms); QTc 528 ms; inferior infarct pattern; compared with previous EKG 04/2024, atrial fibrillation has replaced sinus rhythm [facility] Absolute immature granulocyt e countOrdered By: REBECCA PEREZ on 05-25-2025 Immature granulocytes (Bld) [#/Vol] Absolute immature granulocyte count 0.00-1.00 [facility] Absolute lymphocyte countOrd ered By: REBECCA PEREZ on 05-25-2025 Lymphocytes Auto (Unsp spec) [#/Vol] Absolute lymphocyte count 1.30-2.90 [facility] Activated partial thrombopla stin time (aPTT) in platelet poor plasma by coagulation aOrdered By: REBECCA PEREZ on 05-25-2025 aPTT Coag (PPP) [Time] PTT PPP 19.5-32.1 [facility] Comment on above: New Reference Ranges effective 2018. Basophils Auto (Bld) [#/Vol] Ordered By: REBECCA PEREZ on 05-25-2025 Basophils (Bld) [#/Vol] Automated blood basophil count (number/volume) 0.00-0.10 [facility] Blood absolute eosinophil co untOrdered By: REBECCA PEREZ on 05-25-2025 Eosinophils (Bld) [#/Vol] Blood absolute eosinophil count 0.00-0.20 [facility] Blood basophils/100 leukocyt esOrdered By: REBECCA PEREZ on 05-25-2025 Basophils/100 WBC (Bld) Blood basophils/100 leukocytes 0.2-1.0 [facility] Blood erythrocytes count (nu mber/volume)Ordered By: REBECCA PEREZ on 05-25-2025 RBC (Bld) [#/Vol] Blood erythrocyte count High 4.13- 5.69 [facility] Blood hematocrit (volume fra ction)Ordered By: REBECCA PEREZ on 05-25-2025 Hematocrit (Bld) [Volume fraction] Blood hematocrit (volume fraction) 36.7-50.6 [facility] Blood leukocytes count (numb er/volume)Ordered By: REBECCA PEREZ on 05-25-2025 WBC (Bld) [#/Vol] Blood leukocytes cou nt (number/volume) High 3.6-10.8 [facility] Blood platelet mean volumeOr dered By: REBECCA PEREZ on 05-25-2025 Platelet mean volume (Bld) [Entitic vol] Blood platelet mean volume 7.4-10.4 [facility] CBC w/Auto Differentialon Basophils Abs. # 0.04 K/uL Normal 0.00-0.10 [facility] Comment on above: Performed By: #### C BCS #### [place] [address] Basophils/100 WBC (Bld) 0.4 % Normal 0.2-1.0 [facility] Comment on above: Performed By: #### C BCS #### [address] [address] Eosinophils (Bld) [#/Vol] 0.10 10*3/uL Normal 0.00-0.20 [facility] Comment on above: Performed By: #### C BCS #### [address] [address] Eosinophils/100 WBC (Bld) 1.1 % Normal 0.9-2.9 [facility] Comment on above: Performed By: #### C BCS #### [address] [place] [address] Erythrocyte distribution width (RBC) [Ratio] 13.7 % Normal 11.5-14.5 [facility] Comment on above: Performed By: #### C BCS #### [address] [address] Hematocrit (Bld) [Volume fraction] 47.2 % Normal 36.7-50.6 [facility] Comment on above: Performed By: #### C BCS #### [address] [address] Hemoglobin (Bld) [Mass/Vol] 15.5 g/dL Normal 12.4-17.3 [facility] Comment on above: Performed By: #### C BCS #### [address] [address] Imm Grans % 0.10 % Normal 0.00-1.00 [facility] Comment on above: Performed By: #### C BCS #### [address] [address] Imm Grans Absolute # 0.01 K/uL Normal 0.00-0.10 [facility] Comment on above: Performed By: #### C BCS #### [address] [place] [address] Lymphocytes (Bld) [#/Vol] 2.30 10*3/uL Normal 1.30-2.90 [facility] Comment on above: Performed By: #### C BCS #### [address] [address] Lymphocytes/100 WBC (Bld) 21.1 % Normal 17.0-45.5 [facility] Comment on above: Performed By: #### C BCS #### [facility] [address] [place] [address] MCH (RBC) [Entitic mass] 26.2 pg Low 27.0-31.0 [facility] Comment on above: Performed By: #### C BCS #### [address] [place] [address] MCHC (RBC) [Mass/Vol] 32.8 g/dL Low 33.0-37.0 [facility] Comment on above: Performed By: #### C BCS #### [address] [place] [address] MCV (RBC) [Entitic vol] 79.7 fL Low 80.0-94.0 [facility] Comment on above: Performed By: #### C BCS #### [address] [place] [address] Monocytes (Bld) [#/Vol] 0.90 10*3/uL High 0.30-0.80 [facility] Comment on above: Performed By: #### C BCS #### [address] [place] [address] Monocytes/100 WBC (Bld) 8.2 % Normal 5.5-11.7 [facility] Comment on above: Performed By: #### C BCS #### [address] [place] [address] Neutrophils Abs. # 7.63 K/uL High 2.20-4.80 [facility] Comment on above: Performed By: #### C BCS #### [address] [place] [address] Neutrophils/100 WBC (Bld) 69.1 % High 43.0-65.0 [facility] Comment on above: Performed By: #### C BCS #### [address] [place] [address] Platelet mean volume (Bld) [Entitic vol] 10.0 fL Normal 7.4-10.4 [facility] Comment on above: Performed By: #### C BCS #### [address] [place] [address] Platelets (Bld) [#/Vol] 206 10*3/uL Normal 148-402 [facility] Comment on above: Performed By: #### C BCS #### [address] [place] [address] RBC (Bld) [#/Vol] 5.92 10*6/uL High 4.13-5.69 [facility] [place] Comment on above: Performed By: #### C BCS #### [address] [place] [address] WBC (Bld) [#/Vol] 11.0 10*3/uL High 3.6-10.8 [facility] [place] Comment on above: Performed By: #### C BCS #### [address] [address] CHEST APon 05-25-2025 CHEST AP EXAMINATION: ONE XRAY VIEW OF THE CHEST 05/25/2025 7:01 pm COMPARISON: 01/06/2018 HISTORY: ORDERING SYSTEM PROVIDED HISTORY: Chest Pain, Afib FINDINGS: The lungs are without acute focal process. There is no effusion or pneumothorax. The cardiomediastinal silhouette is without acute process. The osseous structures are without acute process. IMPRESSION: No acute process. Normal [facility] CNPNon 05-25-2025 CNPN Telephone (AGCARDPOB ) -------- JOHNATHAN SOLIS ([id number]) 1955 M Date Time Provider Department 05/25/25 LANIE THAKKAR During your visit today, we recorded the following information about you: Donna Arzola RN 05/25/2025 1:06 PM Signed Johnathan Solis called in to report he went out of rhythm yesterday with an episode lasting about 12 hours then he returned to normal rhythm. He went out of rhythm again about an hour ago. He states he also has norovirus which started yesterday with diarrhea, fever 99.1. How long has this been occurring? Since yesterday What is your heart rate and blood pressure? HR 85 BP has not checked Are you having chest pain, shortness of breath or dizziness? no Verify medications, doses and frequency. Reviewed, correct. CYNDI Ramos Robert A, MD 05/25/2025 7:52 PM Signed [facility] Electrophysiology (EP) Not uncommon to have arrhythmias exacerbated when having another illness such as the viral illness. Not much to do differently right now except recover from the viral illness. Lanie Thakkar MD May 25, 2025 7:52 PM Jamila Dan RN 05/26/2025 8:28 AM Signed Spoke with pt. Notified of Dr Thakkar's message. He voices understanding. CYNDI Farnsworth Stacey, RN 05/27/2025 2:09 PM Signed Pt calls to report he is over his viral symptoms. He reports he saw an MD this morning who feels he is recovered from the virus but remains in atrial fibrillation. Pt confirms by symptoms also that he is in atrial fibrillation. HR 88-110 bpm. Pt denies dizziness, dyspnea or any symptoms. Pt reports he is eating a bland diet and drinking normally. CYNDI Farnsworth Stacey, RN 05/28/2025 3:06 PM Signed Pt calls to report he remains in afib. He continue concerned about not being on OAC or sotalol. He asks how will you allow him to remain in afib before starting OAC and/or sotalol. Pt has OV 06/05/25. CYNDI Farnsworth, Lanie Donohue MD 05/28/2025 4:58 PM Signed [facility] Electrophysiology (EP) His risk for stroke is not necessarily any different now than in the past when he was not in atrial fibrillation. This is why at previous outpatient visits we discussed the fact that he had risk for stroke ([id number] score of 2 points) and he preferred not to be on an anticoagulation medication. He should be on an anticoagulant, yes, but not just because the atrial fibrillation has recurred. If he is willing to take Xarelto 15 mg daily we can send a prescription. We should obtain more recent blood tests that evaluate kidney function, serum potassium (such as BMP or CMP). We should confirm the presence of atrial fibrillation with an EKG. We typically do not start sotalol as outpatient. I am also hesitant to even use sotalol in patients with CKD, as sotalol is processed by the kidneys so might not be safe with CKD. Lanie Thakkar MD May 28, 2025 4:57 PM Sadia Martínez LPN 05/29/2025 9:13 AM Signed I spoke to Johnathan Paigebill and informed them of 's response and recommendations. Patient voiced understanding and states he knows he should be on OAC but states he wants to wait until Sunday and discuss in depth in office visit. Patient wants to discuss treatment options so he does not have the expense of the OAC. Sadia Martínez LPN Allergies As of Date: 05/25/2025 Noted Allergy Reaction PENICILLINS 01/18/2023 10 - Anaphylaxis CAFFEINE 01/18/2023 14 - Other: See Comments Comments: arrhythmia TICAGRELOR 05/24/2021 14 - Other: See Comments Comments: Didn't feel well VERAPAMIL 01/18/2023 14 - Other: See Comments Comments: Hypotension Date Reviewed: 05/09/2024 Reviewed by: Joya Hernandez MA - Fully Assessed Reason for Visit: Patient Update [1234] Treatment Planning [881] Prescriptions as of 05/29/2025 - potassium citrate ER (UROCIT-K) 10 mEq (1,080 mg) Take 1,080 mg by mouth three times a day. - aspirin, enteric coated (ASPIRIN, ENTERIC COATED) 81 mg EC tablet Take 81 mg by mouth once daily. Problem List As Of Date 05/25/2025 Noted Resolved Atherosclerotic heart disease of knik coronar* Ischemic cardiomyopathy [I25.5] Bradycardia [R00.1] Paroxysmal atrial fibrillation (HCC) [I48.0] Old myocardial infarction [I25.2] jail current use of antiarrhythmic drug [Z*01/22/2023 05/08/2024 Atrophy of left kidney [N26.1] 06/01/2018 Status post catheter ablation of atrial fibrill*11/21/2022 History of coronary artery stent placement [Z95*01/06/[address] elevation myocardial infarction (*01/06/2018 Kidney stones [N20.0] 08/09/2018 Sinus bradycardia [R00.1] 03/13/2019 Stage 3 chronic kidney disease (HCC) [N18.30] 12/12/2018 At risk for stroke [Z91.89] 01/23/2023 Right bundle branch block (RBBB) [I45.10] 01/23/2023 PAC (more content not included)... Normal [facility] Calcium measurement (mass fr action)Ordered By: REBECCA PEREZ on 05-25-2025 Calcium (Unsp spec) [Mass fraction] Calcium measurement (mass fraction) 8.2-10.0 [facility] Comprehensive Metabolic Pane enrique 05-25-2025 Albumin [Mass/Vol] 3.7 g/dL Normal 3.4-5.0 [facility] Comment on above: Performed By: #### C MP #### [facility] [address] [place] [address] Albumin/Globulin [Mass ratio] 0.8 {ratio} Low 1.1-2.5 [facility] Comment on above: Performed By: #### C MP #### [facility] [address] [place] [address] ALP [Catalytic activity/Vol] 76 U/L Normal 54-112 [facility] Comment on above: Performed By: #### C MP #### [facility] [address] [place] [address] ALT [Catalytic activity/Vol] 18 U/L Normal 13-66 [facility] Comment on above: Performed By: #### C MP #### [facility] [address] [place] [address] Anion gap [Moles/Vol] 15.7 mmol/L Normal 8.0-16.0 [facility] Comment on above: Performed By: #### C MP #### [address] [place] [address] AST [Catalytic activity/Vol] 13 U/L Normal 3-39 [facility] Comment on above: Performed By: #### C MP #### [facility] [address] [place] [address] Bilirubin [Mass/Vol] 1.05 mg/dL High 0.00-0.99 [facility] Comment on above: Performed By: #### C MP #### [address] [place] [address] Calcium [Mass/Vol] 8.9 mg/dL Normal 8.2-10.0 [facility] Comment on above: Performed By: #### C MP #### [facility] [address] [place] [address] Chloride [Moles/Vol] 102 mmol/L Normal 94-110 [facility] Comment on above: Performed By: #### C MP #### [address] [place] [address] CO2 [Moles/Vol] 22 mmol/L Normal 21-34 [facility] Comment on above: Performed By: #### C MP #### [facility] [address] [place] [address] Creatinine [Mass/Vol] 1.80 mg/dL High 0.50-1.17 [facility] Comment on above: Performed By: #### C MP #### [facility] [address] [place] [address] EGFR Other Races 37 Abnormal >60 [facility] Comment on above: Performed By: #### C MP #### [facility] [address] [place] [address] GFR/1.73 sq M.predicted among blacks MDRD (S/P/Bld) [Vol rate/Area] 45 mL/min/{1.73_m2} Abnormal >60 [facility] Comment on above: Result Comment: Loading And Unloading Supervisor barrington Kidney Disease less than 60 mL/min/1.73 m2 Kidney Failure less than 15 mL/min/1.73 m2 Average estimated GFR by age: 70+ years 75 mL/min/1.73 m2 Performed By: #### C MP #### [facility] [address] [place] [address] Globulin (S) [Mass/Vol] 4.4 g/dL Normal 1.5-4.5 [facility] Comment on above: Performed By: #### C MP #### [facility] [address] [place] [address] Glucose [Mass/Vol] 147 mg/dL High 65-100 [facility] Comment on above: Performed By: #### C MP #### [facility] [address] [place] [address] Potassium [Moles/Vol] 3.7 mmol/L Normal 3.3-5.1 [facility] Comment on above: Performed By: #### C MP #### [address] [place] [address] Protein [Mass/Vol] 8.1 g/dL Normal 6.1-8.2 [facility] Comment on above: Performed By: #### C MP #### [address] [address] Sodium [Moles/Vol] 136 mmol/L Normal 132-145 [facility] Comment on above: Performed By: #### C MP #### [address] [address] Urea nitrogen [Mass/Vol] 31.3 mg/dL High 3.2-26.9 [facility] Comment on above: Performed By: #### C MP #### [address] [address] Urea nitrogen/Creatinine [Mass ratio] 17 mg/mg Normal 6-20 [facility] Comment on above: Performed By: #### C MP #### [address] [address] Determination of erythrocyte mean corpuscular volume (MCV)Ordered By: REBECCA PEREZ on 05-25-2025 MCV (RBC) [Entitic vol] Determination of erythrocyte mean corpuscular volume (MCV) Low 80.0-94.0 [facility] EMERGENCY DEPARTMENTon 05-25 [place] [address] HEALTH INFORMATION MANAGEMENT EMERGENCY DEPARTMENT : [id number] Signed Patient: JOHNATHAN SOLIS Acct:[id number] MRUN: [id number] : 1955 Sex: M Loc: ED ADM Date: Room/Bed: DISC Date: ____ History of Present Illness - General Chief Complaint: Cardiac complaints Stated Complaint: AFIB Symptom onset: TODAY HPI: PT ARRIVES TO THE ED WITH C/O BEING WOKEN UP FROM HIS NAP AND FEELING HIS HEART FLUTTERING. PT HAS H/X OF AFIB. PT HAS H/X OF ABLASIONS. PT TAKES A BABY ASPIRIN DAILY. PT DENIES ANY CHEST PAIN. PT ALERT AND OREINTED. NO RESPIRATORY DISTRESS. Time Seen by Provider: 05/25/25 18:46 Source: Patient Mode of Transport: Ambulatory - History of Present Illness MD Complaint: Complains of: rapid heart beat, atrial fibrillation Onset/Timin -: days(s) Arrhythmia Severity: Pulse checked and, Irregular, Rapid Context: Complains of: occured during rest Modifying factors: worse with: breathing, coughing, defacting, eating, exercise, lying down, anxiety, stress, caffeine, nothing, other Arrhythmia History: Complains of: atrial fibrillation Associated Symptoms: Complains of: diaphoresis. Denies: chest pain, shortness of breath, nausea/vomiting, anxiety Treatments Prior to Arrival: Complains of: other (Sotalol) - Related Data Home Medications Medication Instructions Recorded Confirmed Sotalol HCl [Sotalol] 80 mg PO TID 01/06/18 05/31/18 Ticagrelor [Brilinta] 1 tab PO BID 05/31/18 05/31/18 Allergies Allergy/AdvReac Type Severity Reaction Status Date / Time caffeine AdvReac Verified 05/31/18 15:25 PCN AdvReac Uncoded 05/31/18 15:25 Review of System - Constitutional Constitutional: Present: Well developed, Well nourished, Non-toxic - Nose,Throat,Mouth Nose (ROS): Absent: pain Throat: Absent: pain, swelling, discharge Mouth: Absent: pain, swelling - Respiratory Respiratory: Absent: cough, short of breath, wheezing - CV Cardiology: Present: palpitations. Absent: chest pain, edema - GI Gastrointestinal/Abdomin al: Present: diarrhea. Absent: abdominal pain, nausea, vomiting - Genitourinary Symptoms: Absent: dysuria - Neuro Neurological: Absent: headache, weakness - Muskuloskeletal Musculoskeletal: Absent: back pain, joint pain, joint swelling - Integumentary Skin: Absent: lesions, rash - Allergic/Immunologic Immunological/Allergic: Present: no symptoms reported - Hematologic Hematologic/Lymphatic: Absent: easy bleeding, easy bruising, swollen glands - Endocrine Endocrine: Present: no symptoms reported - Psychiatric Psychiatric: Present: Normal Affect, Normal Mood. Absent: Depressed - All Others/Exceptions All Other Systems: Reviewed and Negative Except Where Noted in Documentation ED PMH/Social HX/Family HX - Respiratory Hx Respiratory Disorders: No - Cardiovascular Hx Cardiac Disorders: Yes PMH--Cardiovascular: Atrial Fib PSH-Cardiac: Cardiac Catheterization - Neurological Hx Neurological Disorder: No - Endocrine Hx Endocrine Disorders: No - Gastrointestinal Hx Gastrointestinal Disorders: No - Genitourinary Hx Genitourinary Disorders: No - Psychological Hx Psychosocial Problems: No - HEENT Hx Ear, Nose Throat Disorders: No - Cancer Hx Cancer: No - Social History Marital Status: Able to Read: Yes Able to Write: Yes Smoking Status: Never Smoked Hx Chewing Tobacco Use: No Alcohol Use: Never Any recreational drug use reported?: No Hx Substance Use Treatment: No Feels Threatened In Home Environment: No Feels Threatened In a Relationship: No - Family PMH mother Living Status: Unknown - [place]/Gender ID What is your current Gender Identity? Choose all that Apply: Male General Exam - General Limitations: Complains of: no limitations Constitutional: Present: no symptoms reported - Head Head exam: Present: atraumatic, normocephalic, normal inspection - Eye Eye exam: Present: normal apperance - ENT ENT exam: Present: normal orophraynx, mucous membranes moist - Neck Neck exam: Present: full ROM, Supple. Absent: tenderness - Respiratory Respiratory exam: Present: lungs clear and equal bilaterally. Absent: respiratory distress - Cardiovascular Cardiovascular Exam: Present: regular rate, normal rhythm - GI/Abdominal GI/Abdominal exam: Present: soft, non tender. Absent: guarding, rebound, rigid - Extremities Exam Extremities exam: Present: normal inspection, neurovascularly intact, full ROM - Back Exam Back exam: Present: normal inspection - Neurological Exam Neurological exam: Present: alert, oriented X3 - Psychiatric Psychiatric exam: Present: normal (more content not included)... Normal [facility] Eosinophil count as percenta ge of total leukocytesOrdered By: REBECCA PEREZ on 05-25-2025 Eosinophils/100 WBC (Unsp spec) Eosinophil count as percentage of total leukocytes 0.9-2.9 [facility] Erythrocyte distribution wid th standard deviationOrdered By: REBECCA PEREZ on 05-25-2025 Erythrocyte distribution width (RBC) [Ratio] Erythrocyte distribution width standard deviation 11.5-14.5 [facility] Glomerular filtration rate ( GFR) estimation/1.73 sq m using serum, plasma, or whole bOrdered By: REBECCA PEREZ on 05-25-2025 GFR/1.73 sq M.predicted among blacks CKD-EPI (S/P/Bld) [Vol rate/Area] Glomerular filtration rate (GFR) estimation/1.73 sq m using serum, plasma, or whole b Abnormal >60 [facility] Comment on above: Chronic Kidney Disea se less than 60 mL/min/1.73 g3Alwlgt Failure less than 15 mL/min/1.73 g8Fbdjcom estimated GFR by age:70+ years 75 mL/min/1.73 m2 GFR/1.73 sq M.predicted among non-blacks CKD-EPI (S/P/Bld) [Vol rate/Area] Glomerular filtration rate (GFR) estimation/1.73 sq m using serum, plasma, or whole b Abnormal >60 [facility] High Sensitivity TNIon 05-25 High Sensitivity TNI 11 ng/L Normal 0-76 [facility] Comment on above: Result Comment: Inte rpretation comment: High-sensitivity troponin I (hsTnI) assay can reliably detect low troponin concentrations relative to conventional troponin assays. It is the preferred marker of myocardial necrosis as recommended by the Fourth [place] Definition of Myocardial Infarction Guidelines. The diagnosis of acute myocardial infarction (AMI) is made based on a rise or fall of troponin with at least one measurement exceeding the laboratory's upper limit of normal (indicating myocardial injury), in the context of reasonable suspicion for coronary ischemia (e.g. typical symptoms, changes on ECG, evidence for loss of myocardial infarction or demonstration of obstructive coronary artery disease). Note: Although abnormal hsTnI values reflect injury to myocardial cells, an elevated hsTnI does not indicate the cause of injury (i.e. ischemia versus non-ischemic disease). In some cases, myocardial injury is chronic and relatively stable such that hsTnI values remain elevated but do not change substantially over hours to days (examples include chronic kidney disease, heart failure or advanced patient age). When determining whether there has been a significant rise or fall of troponin on serial sampling, absolute change in troponin concentration has greater diagnostic accuracy for AMI then relative change criteria. A change of >7 ng/L over a 2-hour interval or a change of >10 ng/L over a 3-hour interval is suggested as a significant change. If the initial hsTnI is below or at the 99th percentile upper reference limit, a 50% change from the baseline is considered significant. If the initial hsTnI is above the 99th percentile upper reference limit, a 20% change from the baseline value is considered significant. Performed By: #### H STNI #### [place] [address] INR in Platelet poor plasma by Coagulation assayOrdered By: REBECCA PEREZ on 05-25-2025 INR Coag (PPP) [Relative time] Platelet poor plasma international normalized ratio (INR) [facility] Comment on above: 2.0 - 3.0 Group A2.5 - 3.5 Group BGroup A indications: Prophylaxis and treatment of venousthrombosis. Treatment of pulmonary embolism. Prevention ofsystemic embolism. Tissue heart valves. Acute myocardialinfarction. Valvular heart disease. Atrial fibrillation.Group B indications: Mechanical prosthetic valves. . Interpretation of serum or p lasma cardiac troponin I measurement by high sensitivityOrdered By: REBECCA PEREZ on 05-25-2025 Troponin I.cardiac High sensitivity method Ql [Interp] Interpretation of serum or plasma cardiac troponin I measurement by high sensitivity 0-76 [facility] Comment on above: Interpretation comme nt:High-sensitivity troponin I (hsTnI) assay can reliably detect low troponinconcentrations relative to conventional troponin assays. It is thepreferred marker of myocardial necrosis as recommended by the [place] Definition of Myocardial Infarction Guidelines.The diagnosis of acute myocardial infarction (AMI) is made based on a riseor fall of troponin with at least one measurement exceeding the laboratory'supper limit of normal (indicating myocardial injury), in the context ofreasonable suspicion for coronary ischemia (e.g. typical symptoms, changeson ECG, evidence for loss of myocardial infarction or demonstration ofobstructive coronary artery disease).Note: Although abnormal hsTnI values reflect injury to myocardial cells, anelevated hsTnI does not indicate the cause of injury (i.e. ischemia versusnon-ischemic disease).In some cases, myocardial injury is chronic and relatively stable such thathsTnI values remain elevated but do not change substantially over hours todays (examples include chronic kidney disease, heart failure or advancedpatient age).When determining whether there has been a significant rise or fall oftroponin on serial sampling, absolute change in troponin concentration hasgreater diagnostic accuracy for AMI then relative change criteria. A changeof >7 ng/L over a 2-hour interval or a change of >10 ng/L over a 3-hourinterval is suggested as a significant change. If the initial hsTnI isbelow or at the 99th percentile upper reference limit, a 50% change from thebaseline is considered significant. If the initial hsTnI is above the 99thpercentile upper reference limit, a 20% change from the baseline value isconsidered significant. Lymphocytes/100 WBC Auto (Bl d)Ordered By: REBECCA PEREZ on 05-25-2025 Lymphocytes/100 WBC (Bld) Automated blood lymphocyte count as percentage of total leukocytes 17.0-45.5 [facility] MCH Auto (RBC) [Entitic mass ]Ordered By: REBECCA PEREZ on 05-25-2025 MCH (RBC) [Entitic mass] Automated erythrocyte mean corpuscular hemoglobin (MCH) measurement (mass/erythrocyte Low 27.0-31.0 [facility] MCHC Auto (RBC) [Mass/Vol]Or dered By: REBECCA PEREZ on 05-25-2025 MCHC (RBC) [Mass/Vol] Automated erythroc yte mean corpuscular hemoglobin concentration (MCHC) measurement (m Low 33.0-37.0 [facility] Magnesiumon 05-25-2025 Magnesium [Mass/Vol] 2.2 mg/dL Normal 1.3-2.3 [facility] Comment on above: Performed By: #### M G #### [address] [id number] Monocytes Auto (Bld) [#/Vol] Ordered By: REBECCA PEREZ on 05-25-2025 Monocytes (Bld) [#/Vol] Automated blood monocyte count (number/volume) High 0.30-0.80 [facility] Monocytes/100 WBC Auto (Bld) Ordered By: REBECCA PEREZ on 05-25-2025 Monocytes/100 WBC (Bld) Automated blood monocyte count as percentage of total leukocytes 5.5-11.7 [facility] Neutrophils Auto (Bld) [#/Vo l]Ordered By: REBECCA PEREZ on 05-25-2025 Neutrophils (Bld) [#/Vol] Automated blood neutrophil count (number/volume) High 2.20-4.80 [facility] Neutrophils seg % bldOrdered By: REBECCA PEREZ on 05-25-2025 Segmented neutrophils/100 WBC (Bld) Neutrophils seg % bld High 43.0-65.0 [facility] PTTon 05-25-2025 aPTT Coag (Bld) [Time] 26.5 s Normal 19.5-32.1 [facility] Comment on above: Result Comment: New Reference Ranges effective 2018. Performed By: #### P TT #### [address] [id number] Platelets Auto (Bld) [#/Vol] Ordered By: REBECCA PEREZ on 05-25-2025 Platelets (Bld) [#/Vol] Automated blood platelet count (number/volume) 148-402 [facility] Potassium (Bld) [Moles/Vol]O rdered By: REBECCA PEREZ on 05-25-2025 Potassium [Moles/Vol] Potassium [Moles/v olume] in Blood 3.3-5.1 [facility] Protein total ser/plasOrdere d By: REBECCA PEREZ on 05-25-2025 Protein [Mass/Vol] Blood total protein measurement 6.1-8.2 [facility] Prothrombin Timeon INR Coag (PPP) [Relative time] 1.1 {INR} Normal [facility] Comment on above: Result Comment: 2.0 - 3.0 Group A 2.5 - 3.5 Group B Group A indications: Prophylaxis and treatment of venous thrombosis. Treatment of pulmonary embolism. Prevention of systemic embolism. Tissue heart valves. Acute myocardial infarction. Valvular heart disease. Atrial fibrillation. Group B indications: Mechanical prosthetic valves. . Performed By: #### P T #### [address] [address] PT Coag (PPP) [Time] 10.6 s Normal 8.9-12.2 [facility] Comment on above: Result Comment: New Reference Ranges effective 2018. Performed By: #### P T #### [address] [address] Prothrombin time (PT) in dario telet poor plasmaOrdered By: REBECCA PEREZ on 05-25-2025 PT Coag (PPP) [Time] Prothrombin time (P T) in platelet poor plasma by coagulation assay 8.9-12.2 [facility] Comment on above: New Reference Ranges effective 2018. Serum globulin measurement ( mass/volume)Ordered By: REBECCA PEREZ on 05-25-2025 Globulin (S) [Mass/Vol] Serum globulin measurement (mass/volume) 1.5-4.5 [facility] Serum or plasma alanine lowery otransferase (ALT) measurementOrdered By: REBECCA PEREZ on 05-25-2025 ALT [Catalytic activity/Vol] ALT (SGPT) ser/plas 13-66 [facility] Serum or plasma albumin alexandrea urement by bromocresol purple (BCP) dye binding method (mOrdered By: REBECCA PEREZ on 05-25-2025 Albumin BCP dye [Mass/Vol] Serum or plasma albumin measurement by bromocresol purple (BCP) dye binding method (m 3.4-5.0 [facility] Serum or plasma albumin/glob ulin mass ratioOrdered By: REBECCA PEREZ on 05-25-2025 Albumin/Globulin [Mass ratio] Serum or plasma albumin/globulin mass ratio Low 1.1-2.5 [facility] Serum or plasma alkaline polo sphatase measurement (enzymatic activity/volume)Ordered By: REBECCA PEREZ on 05-25-2025 ALP [Catalytic activity/Vol] Serum or plasma alkaline phosphatase measurement (enzymatic activity/volume) 54-112 [facility] Serum or plasma anion gapOrd ered By: REBECCA PEREZ on 05-25-2025 Anion gap [Moles/Vol] Serum or plasma an ion gap 8.0-16.0 [facility] Serum or plasma aspartate am inotransferase measurement with P-5'-P (enzymatic activitOrdered By: REBECCA PEREZ on 05-25-2025 AST With P-5'-P [Catalytic activity/Vol] Serum or plasma aspartate aminotransferase measurement with P-5'-P (enzymatic activit 3-39 [facility] Serum or plasma bilirubin me asurement (mass/volume)Ordered By: REBECCA PEREZ 05-25-2025 Bilirubin [Mass/Vol] Serum or plasma bilirubin measurement (mass/volume) High 0.00-0.99 [facility] Serum or plasma carbon dioxi de measurement (moles/volume)Ordered By: REBECCA PEREZ 05-25-2025 CO2 [Moles/Vol] Serum or plasma carb on dioxide measurement (moles/volume) 21-34 [facility] Serum or plasma chloride tariq surement (moles/volume)Ordered By: REBECCA PEREZ on 05-25-2025 Chloride [Moles/Vol] Serum or plasma chl oride measurement (moles/volume) 94-110 [facility] Serum or plasma creatinine m easurement (mass/volume)Ordered By: REBECCA PEREZ on 05-25-2025 Creatinine [Mass/Vol] Serum or plasma creatinine measurement (mass/volume) High 0.50-1.17 [facility] Serum or plasma glucose alexandrea urement (mass/volume)Ordered By: REBECCA PEREZ on 05-25-2025 Glucose [Mass/Vol] Serum or plasma gluc ose measurement (mass/volume) High 65-100 [facility] Serum or plasma magnesium me asurement (mass/volume)Ordered By: REBECCA PEREZ on 05-25-2025 Magnesium [Mass/Vol] Serum or plasma magnesium measurement (mass/volume) 1.3-2.3 [facility] Serum or plasma sodium measu rement (moles/volume)Ordered By: REBECCA PEREZ on 05-25-2025 Sodium [Moles/Vol] Serum or plasma sodi um measurement (moles/volume) 132-145 [facility] Serum or plasma urea nitroge n measurement (mass/volume)Ordered By: REBECCA PEREZ on 05-25-2025 Urea nitrogen [Mass/Vol] Serum or plasma urea nitrogen measurement (mass/volume) High 3.2-26.9 [facility] Serum or plasma urea nitroge n/creatinine mass ratioOrdered By: REBECCA PEREZ on 05-25-2025 Urea nitrogen/Creatinine [Mass ratio] Serum or plasma urea nitrogen/creatinine mass ratio 6-20 [facility] Whole blood hemoglobin measu rement (mass/volume)Ordered By: REBECCA PEREZ on 05-25-2025 Hemoglobin (Bld) [Mass/Vol] Whole blood hemoglobin measurement (mass/volume) 12.4-17.3 [facility] LYME ANTIBODY IGG IGM CHRIS N BLOTon 04-03-2025 ADDITIONAL INFORMATION ([facility]) Comment Normal [facility] Comment on above: Order Comment: Perfo rmed at: - [facility] [address] [id number] Binding Printer: Danny Alvarado MD, Phone: [phone] Result Comment: Per CDC criteria, the Lyme IgG Immunoblot is interpreted as positive if IgG-class antibodies are detected to 5 or more B. burgdorferi proteins, and the Lyme IgM Immunoblot is interpreted as positive if IgM-class antibodies are detected to 2 or more B. burgdorferi proteins. Immunoblot patterns not meeting these criteria should not be interpreted as positive. Epitopes from certain B. burgdorferi proteins (e.g., p41) are conserved across other bacteria, which may lead to the detection of IgM-and/or IgG class antibodies on the Lyme disease immunoblots in patients without Lyme disease. Immunoblot should only be ordered on specimens that are positive or equivocal by an FDA-licensed Lyme disease antibody screening test (e.g., EIA). Results of the Lyme IgM immunoblot should not be considered in patients with 30 or more days of symptoms. Performed By: #### [id number] #### [facility] [address] [place] [address] IGG P18 AB Absent [facility] Comment on above: Order Comment: Perfo rmed at: 01 - [address] [id number] Binding Printer: Danny Alvarado MD, Phone: [phone] Performed By: #### 4 [id number] #### [facility] [address] [place] [address] [place] IGG P23 AB Absent [facility] Comment on above: Order Comment: Perfo rmed at: 01 - [facility] [address] [id number] Binding Printer: Danny Alvarado MD, Phone: [phone] Performed By: #### 4 [id number] #### [facility] [address] [place] [address] [place] IGG P28 AB Absent [facility] Comment on above: Order Comment: Perfo rmed at: 01 - [facility] [address] [id number] Binding Printer: Danny Alvarado MD, Phone: [phone] Performed By: #### 4 [id number] #### [facility] [address] [place] [address] IGG P30 AB Absent [facility] Comment on above: Order Comment: Perfo rmed at: 01 - [facility] [address] [id number] Binding Printer: Danny Alvarado MD, Phone: [phone] Performed By: #### 4 [id number] #### [facility] [address] [place] [address] [place] IGG P39 AB Absent [facility] Comment on above: Order Comment: Perfo rmed at: 01 - [facility] [address] [id number] Binding Printer: Danny Alvarado MD, Phone: [phone] Performed By: #### 4 [id number] #### [facility] [address] [place] [address] [place] IGG P41 AB Present [facility] Comment on above: Order Comment: Perfo rmed at: 01 - [facility] [address] [id number] Binding Printer: Danny Alvarado MD, Phone: [phone] Performed By: #### 4 [id number] #### [facility] [address] [place] [address] [place] IGG P45 AB Absent [facility] Comment on above: Order Comment: Perfo rmed at: 01 - [facility] [address] [id number] Binding Printer: Danny Alvarado MD, Phone: [phone] Performed By: #### 4 [id number] #### [facility] [address] [place] [address] [place] IGG P58 AB Absent [facility] Comment on above: Order Comment: Perfo rmed at: 01 - [facility] [address] [id number] Binding Printer: Danny Alvarado MD, Phone: [phone] Performed By: #### 4 [id number] #### [facility] [address] [place] [address] [place] IGG P66 AB Absent [facility] Comment on above: Order Comment: Perfo rmed at: 01 - [facility] [address] [id number] Binding Printer: Danny Alvarado MD, Phone: [phone] Performed By: #### 4 [id number] #### [facility] [address] [place] [address] [place] IGG P93 AB Absent [facility] Comment on above: Order Comment: Perfo rmed at: 01 - [facility] [address] [id number] Binding Printer: Danny Alvarado MD, Phone: [phone] Performed By: #### 4 [id number] #### [facility] [address] [place] [address] [place] IGM P23 AB Absent [facility] Comment on above: Order Comment: Perfo rmed at: 01 - [facility] [address] [id number] Binding Printer: Danny Alvarado MD, Phone: [phone] Performed By: #### 4 [id number] #### [facility] [address] [place] [address] [place] IGM P39 AB Absent [facility] Comment on above: Order Comment: Perfo rmed at: 01 - [facility] [address] [id number] Binding Printer: Danny Alvarado MD, Phone: [phone] Performed By: #### 4 [id number] #### [facility] [address] [place] [address] [place] IGM P41 AB Absent [facility] Comment on above: Order Comment: Perfo rmed at: 01 - [facility] [address] [id number] Binding Printer: Danny Alvarado MD, Phone: [phone] Performed By: #### 4 [id number] #### [facility] [address] [place] [address] [place] LYME IGG WB INTERP Negative Normal Negative [facility] Comment on above: Order Comment: Perfo rmed at: 01 - [facility] [address] [id number] Binding Printer: Danny Alvarado MD, Phone: [phone] Performed By: #### 4 [id number] #### [facility] [address] [place] [address] [place] LYME IGM WB INTERP Negative Normal Negative [facility] Comment on above: Order Comment: Perfo rmed at: 01 - [facility] [address] [id number] Binding Printer: Danny Alvarado MD, Phone: [phone] Result Comment: Jean-Pierre acosta Note: Lyme immunoblot alone is not recommended for the diagnosis of Lyme disease. Current guidelines recommend the use of a two-tiered approach to Lyme serology testing to improve the sensitivity and specificity of testing. [facility] offers test code 556396 Lyme Disease Serology with Reflex to aid in the diagnosis of Lyme Disease. Performed By: #### 4 [id number] #### [facility] [address] [place] [address] Cardiology Visit Reporton Cardiology Visit Report [facility] [address] [place], [place] [address] OFFICE VISIT Date of Service: 02/25/25 MR#: [id number] Acct: [id number] Name: JOHNATHAN SOLIS Rep #: [id number] : 1955 Provider: MARANDA Valentino Age/Sex: 69/M Location[place] [facility] [place] Status: Signed HPI HPI History of Present Illness Details: Johnathan Solis is a 69 year old male who presents to office today for follow-up for monitoring of his cardiovascular disease. Patient has a history of atrial fibrillation and coronary artery disease. Patient was initially diagnosed with atrial fibrillation in 1987. In 2005, patient underwent ablation in [place] that was unsuccessful and pulmonary vein isolation. Patient was taking a large dose of sotalol after 720 mg a day. Patient with a history of inferior posterior [place] in 2018. Cardiac catheterization at that time demonstrated totally occluded RCA, LAD artery with 35% proximal lesion, and angiographically normal left main coronary artery, circumflex artery, normal ramus intermedius. Patient underwent stenting to his RCA. He did well on Brilinta for approximately 9 months and then discontinue this. Patient had sought out opinions from a few different EP physicians and ultimately when seeking out his third opinion in [place], they recommended ablation with anticoagulation prior and weaning off sotalol. Patient underwent ablation at [facility], Dr. Thakkar on 05/01/2023 with follow-up echocardiogram and Holter monitor that demonstrated preserved EF and no atrial fibrillation. Since last seen, approximately 18 months ago, patient reports doing well. Patient follows with EP Dr. Thakkar on a yearly basis, last seen in September. Since his ablation in April of 2023, patient denies any recurrence of atrial fibrillation. Patient describes the sensation of a butterfly in my chest and which is how he knew he was in atrial fibrillation. Patient denies any bleeding concerns, is taking aspirin. Prior to his [place], patient experienced a gas bubble in his epigastric region. He denies any recurrence of this symptom. Patient denies any anginal symptoms. No other concerns at this time. Further ROS below. Patient does remain active with walking his dog 2 times per day every day and denies any concerning symptoms associated. 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 Required: No Is patient in pain?: No Allergies Penicillins Allergy (Severe, Verified 02/25/25 08:54) Anaphylaxis caffeine Allergy (Intermediate, Verified 02/25/25 08:54) arrhythmia verapamil Allergy (Intermediate, Verified 02/25/25 08:54) hypotension ticagrelor (From Brilinta) Adverse Reaction (Verified 02/25/25 08:54) insomnia, nausea, dizziness Medications ???Medication ???Instructions ???Recorded ???Confirmed ???Type aspirin 81 mg tablet,delayed 81 mg PO DAILY 10/29/19 08/10/23 H istory release (Adult Low Dose Aspirin) potassium citrate 10 mEq (1,080 30 meq PO BID 02/25/25 02/25/25 Hi story mg) tablet,extended release Ejection fraction %: 55 Have you fallen in the past year?: No PFSH Medical History Ischemic cardiomyopathy Sinus bradycardia CKD (chronic kidney disease) stage 3, GFR 30-59 ml/min Paroxysmal atrial fibrillation Atherosclerosis of coronary artery of knik heart without angina pectoris 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) History of ST elevation myocardial infarction (STEMI) (01/06/18) Surgical History History of lithotripsy (04/2020) History of cardiac radiofrequency ablation (05/01/23) History of coronary artery stent placement (01/06/18) History of extraction of renal calculus (2017) History of tonsillectomy Family History Mother Alzheimers disease Diabetes Father Aneurysm Sister CVA (cerebral vascular accident) Social History Smoking Status: Never smoker alcohol intake: never substance use type: does not use caffeine: No ROS Const Const: Negative for fatigue, weakness, headache(s) or frequent falls Eyes Eyes: Negative for blurry vision ENT ENT: Negative for headache(s), dizziness or Nosebleed/epistaxis Cardio Chest Pain: No Palpitations: No Edema: None Muscle aches with walking: None Resp Respiratory: Negative for SOB with activity, SOB at rest or SOB orthopnea SOB lying down GI GI: Negative nausea, vomiting, heartbu (more content not included)... Normal [facility] CT Abdomen and Pelvis [facility] traston 09-12-2024 1. There has been interval removal of a previously seen right ureteral stent. 2. There is no ureteral calculus or obstructive uropathy. 3. There are a few small nonobstructing intrarenal calculi bilaterally. 4. There is moderate left renal atrophy. #5 there is moderate uncomplicated diverticulosis of the left colon. ИВАН EXAM: CT KIDNEY STON E TECHNIQUE: Axial CT images were obtained of the abdomen and pelvis without intravenous contrast. Sagittal and coronal reformatted images were also obtained. Dose reduction techniques were achieved by using automated exposure control and/or adjustment of mA and/or kV according to patient size and/or use of iterative reconstruction technique. HISTORY: Urolithiasis, symptomatic COMPARISON: CT abdomen pelvis: 04/11/2024, 04/02/2024 FINDINGS: Lower chest: The lower lungs are clear. Liver: The liver is homogeneous with normal contours and normal size. Gallbladder: There is a 2 mm calcification in the gallbladder lumen. The gallbladder is partially contracted. There is no pericholecystic inflammation. The bile ducts are normal in caliber. Pancreas: The pancreas is homogeneous without evidence for mass lesion or inflammation. Spleen: The spleen is unremarkable without evidence for mass lesion. Adrenal glands: The adrenal glands are unremarkable Kidneys and bladder: The previously seen right ureteral stent has been removed. There is no hydronephrosis or hydroureter. There is no residual right ureteral calculus. There are a couple small right intrarenal calculi measuring 2 to 3 mm. There is moderate atrophy of the left kidney. There is a 20 mm exophytic cyst arising from the left kidney. There is a 7 mm calculus in the lower pole collecting system of the left kidney and 3 mm calculus in the midpole. There is no left hydronephrosis or hydroureter. The ureters demonstrate normal caliber. The urinary bladder is unremarkable. GI Tract: Stomach is unremarkable. Visualized small bowel is unremarkable without evidence for obstruction or active inflammation. There are no findings of acute appendicitis.There is moderate diverticulosis of the left colon. There are no changes of diverticulitis or colitis. Reproductive: The prostate is mildly enlarged. Lymph nodes: No retroperitoneal or abdominal lymphadenopathy. Vascular: The aorta is not dilated. There is mild atherosclerotic change in the aorta. Peritoneum: No free intraperitoneal air or fluid. No acute inflammation. Abdominal wall: There is a tiny fat-containing umbilical hernia. Musculoskeletal: There is moderate to severe lumbar spondylosis and moderate degenerative change in the hips. There is no lumbar compression fracture or subluxation. _ ИВАН Pawel Rivero MD - 09/12/2024 EXAM: CT KIDNEY STONE TECHNIQUE: Axial CT images were obtained of the abdomen and pelvis without intravenous contrast. Sagittal and coronal reformatted images were also obtained. Dose reduction techniques were achieved by using automated exposure control and/or adjustment of mA and/or kV according to patient size and/or use of iterative reconstruction technique. HISTORY: Urolithiasis, symptomatic COMPARISON: CT abdomen pelvis: 04/11/2024, 04/02/2024 FINDINGS: Lower chest: The lower lungs are clear. Liver: The liver is homogeneous with normal contours and normal size. Gallbladder: There is a 2 mm calcification in the gallbladder lumen. The gallbladder is partially contracted. There is no pericholecystic inflammation. The bile ducts are normal in caliber. Pancreas: The pancreas is homogeneous without evidence for mass lesion or inflammation. Spleen: The spleen is unremarkable without evidence for mass lesion. Adrenal glands: The adrenal glands are unremarkable Kidneys and bladder: The previously seen right ureteral stent has been removed. There is no hydronephrosis or hydroureter. There is no residual right ureteral calculus. There are a couple small right intrarenal calculi measuring 2 to 3 mm. There is moderate atrophy of the left kidney. There is a 20 mm exophytic cyst arising from the left kidney. There is a 7 mm calculus in the lower pole collecting system of the left kidney and 3 mm calculus in the midpole. There is no left hydronephrosis or hydroureter. The ureters demonstrate normal caliber. The urinary bladder is unremarkable. GI Tract: Stomach is unremarkable. Visualized small bowel is unremarkable without evidence for obstruction or active inflammation. There are no findings of acute appendicitis.There is moderate diverticulosis of the left colon. There are no changes of diverticulitis or colitis. Reproductive: The prostate is mildly enlarged. Lymph nodes: No retroperitoneal or abdominal lymphadenopathy. Vascular: The aorta is not dilated. There is mild atherosclerotic change in the aorta. Peritoneum: No free intraperitoneal air or fluid. No acute inflammation. Abdominal wall: There is a tiny fat-containing umbilical hernia. Musculoskeletal: There is moderate to severe lumbar spondylosis and moderate degenerative change in the hips. There is no lumbar compression fracture or subluxation. _ IMPRESSION: 1. There has been interval removal of a previously seen right ureteral stent. 2. There is no ureteral calculus or obstructive uropathy. 3. There are a few small nonobstructing intrarenal calculi bilaterally. 4. There is moderate left renal atrophy. #5 there is moderate uncomplicated diverticulosis of the left colon. [facility] Radiology Study observation (narrative) [facility] CT Abdomen and Pelvis WO con trastOrdered By: Pawel Rivero on 09-12-2024 [facility] Work Phone: ECG B/O W INTERP (MED OFFICE )on 05-09-2024 Interpretation and review of laboratory results Abnormal [facility] Sinus rhythm 64 bpm; normal MS interval 184 ms; right bundle branch block (QRS 132 ms); QTc 462 ms; criteria for inferior and lateral infarct, no significant changes compared with previous EKGs [facility] CT Abdomen and Pelvis LONI phillipson 04-02-2024 1. Status post placement of right ureteral stent. Significant decrease in the severity of right-sided hydronephrosis. 2. Residual stone fragments versus contrast material in the right collecting system most prominently in the lower pole infundibulum and calyces. 3. There is the suggestion of a stone fragment at the level of the right UPJ adjacent to the stent. This measures up to 5 mm. 4. Chronic atrophy of the left kidney with left-sided nephrolithiasis. There is also simple appearing cyst in the mid left kidney. ИВАН EXAMINATION: CT BRENDAN DASILVA STONE, 04/02/2024 8:56 AM EDT HISTORY: Urolithiasis, symptomatic F/U FOR KIDNEY STONES. HX OF LITHOTRIPSY AND RT URETERAL STENT. NO OTHER SX'S/ COMPLAINTS COMPARISON: 03/11/2024 TECHNIQUE: CT scan of the abdomen and pelvis was performed without IV contrast. CT dose reduction technique was used, including Automated Exposure Control. FINDINGS: Lung bases: There is a scar or atelectasis in the left costophrenic angle and right costophrenic angle. No evidence for pleural effusion. Abdominal findings: Status post placement of right ureteral stent. This accounts for small amount of gas in the right collecting system. There is a stone fragment at the level of the right UPJ adjacent to the stent. This measures up to 5 mm. The degree of a right-sided hydronephrosis significantly improved since 03/11/2024. There is radiodense material in the upper and lower pole infundibula of the right collecting system. This could be stone material versus contrast. This measures up to 0.8 cm. The left kidney is severely atrophic with left-sided nephrolithiasis. Cyst in the mid left kidney measures up to 2.2 cm. No mass in the liver, spleen or pancreas although there is no IV contrast. No pancreatitis. No pancreatic or biliary ductal dilatation. Normal adrenal glands. IVC and aorta have normal caliber. No retroperitoneal hemorrhage. No dilatation of the small or large bowel. Pelvic findings: There is mild prostatomegaly. There is some gas in urinary bladder. There is diverticulosis of the sigmoid colon. No bladder calculus. [facility] Fazal Rose MD - 04/02/2024 EXAMINATION: CT KIDNEY STONE, 04/02/2024 8:56 AM EDT HISTORY: Urolithiasis, symptomatic F/U FOR KIDNEY STONES. HX OF LITHOTRIPSY AND RT URETERAL STENT. NO OTHER SX'S/ COMPLAINTS COMPARISON: 03/11/2024 TECHNIQUE: CT scan of the abdomen and pelvis was performed without IV contrast. CT dose reduction technique was used, including Automated Exposure Control. FINDINGS: Lung bases: There is a scar or atelectasis in the left costophrenic angle and right costophrenic angle. No evidence for pleural effusion. Abdominal findings: Status post placement of right ureteral stent. This accounts for small amount of gas in the right collecting system. There is a stone fragment at the level of the right UPJ adjacent to the stent. This measures up to 5 mm. The degree of a right-sided hydronephrosis significantly improved since 03/11/2024. There is radiodense material in the upper and lower pole infundibula of the right collecting system. This could be stone material versus contrast. This measures up to 0.8 cm. The left kidney is severely atrophic with left-sided nephrolithiasis. Cyst in the mid left kidney measures up to 2.2 cm. No mass in the liver, spleen or pancreas although there is no IV contrast. No pancreatitis. No pancreatic or biliary ductal dilatation. Normal adrenal glands. IVC and aorta have normal caliber. No retroperitoneal hemorrhage. No dilatation of the small or large bowel. Pelvic findings: There is mild prostatomegaly. There is some gas in urinary bladder. There is diverticulosis of the sigmoid colon. No bladder calculus. IMPRESSION: 1. Status post placement of right ureteral stent. Significant decrease in the severity of right-sided hydronephrosis. 2. Residual stone fragments versus contrast material in the right collecting system most prominently in the lower pole infundibulum and calyces. 3. There is the suggestion of a stone fragment at the level of the right UPJ adjacent to the stent. This measures up to 5 mm. 4. Chronic atrophy of the left kidney with left-sided nephrolithiasis. There is also simple appearing cyst in the mid left kidney. [facility] Radiology Study observation (narrative) [facility] CT Abdomen and Pelvis WO con trastOrdered By: Fazal Rose on 04-02-2024 [facility] Work Phone: XR Abdomen Single viewon 2 radiopaque foci overlap the left abdomen likely representing renal calculi measuring 6 mm and 4 mm. Right ureteral stent. No obvious abnormal calcification identified along the course of the right kidney as well as both ureters and bladder. ИВАН EXAM: XR ABDOMEN 1 V IEW HISTORY: Calculus of kidney: COMPARISON: CT of the abdomen and pelvis from 03/11/2024 TECHNIQUE: AP supine view of the abdomen and pelvis is performed on a total of 2 images. FINDINGS: Right ureteral stent present. 2 left abdominal radiopaque foci measuring 6 mm and 4 mm likely represent left renal calculi. No obvious abnormal calcification along the course of the right kidney as well as both ureters and bladder. Multiple calcified pelvic phleboliths are present. Bowel gas pattern is nonobstructive. Osseous structures are grossly intact. However there is at least mild multilevel degenerative change involving the visualized thoracolumbar spine. Barrington Henderson MD - 03/18/2024 EXAM: XR ABDOMEN 1 VIEW HISTORY: Calculus of kidney: COMPARISON: CT of the abdomen and pelvis from 03/11/2024 TECHNIQUE: AP supine view of the abdomen and pelvis is performed on a total of 2 images. FINDINGS: Right ureteral stent present. 2 left abdominal radiopaque foci measuring 6 mm and 4 mm likely represent left renal calculi. No obvious abnormal calcification along the course of the right kidney as well as both ureters and bladder. Multiple calcified pelvic phleboliths are present. Bowel gas pattern is nonobstructive. Osseous structures are grossly intact. However there is at least mild multilevel degenerative change involving the visualized thoracolumbar spine. IMPRESSION: 2 radiopaque foci overlap the left abdomen likely representing renal calculi measuring 6 mm and 4 mm. Right ureteral stent. No obvious abnormal calcification identified along the course of the right kidney as well as both ureters and bladder. [facility] Radiology Study observation (narrative) [facility] XR Abdomen Single viewOrdere d By: Barrington Mclean on 03-18-2024 [facility] Work Phone: Basic metabolic panelOrdered By: Background Lab on 03-14-2024 Anion gap [Moles/Vol] 11 mmol/L 8 - 12 mmol/L [facility] Calcium [Mass/Vol] 9.3 mg/dL 8.4 - 10. 4 mg/dL [facility] Calcium hydrogen phosphate dihydrate crystals LM Ql (Urine sed) 37 mg/dL High 8 - 26 mg/dL [facility] Chloride [Moles/Vol] 109 mmol/L 96 - 10 9 mmol/L И[facility]ан [employer] CO2 (BldMV) [Moles/Vol] 19 mmol/L Low 22 - 30 mmol/L [facility] Creatinine [Mass/Vol] 2.56 mg/dL High 0.66 - 1.25 mg/dL [facility] GFR/1.73 sq M.predicted among non-blacks MDRD (S/P/Bld) [Vol rate/Area] 26.2 mL/min/{1.73_m2} Low - PINF [facility] Comment on above: eGFR calculation bas ed on the Chronic Kidney Disease Epidemiology Collaboration (CKD-EPI) equation refit without adjustment for race. Categories in Chronic Kidney Disease (CKD) Category: GFR(mL/min/1.73m^2) Interpretation: G1* 90 or greater Normal or high G2* 60-89 Mild decrease G3a 45-59 Mild to moderate decrease G3b 30-44 Moderate to severe decrease G4 15-29 Severe decrease G5 14 or less Kidney failure *G1&G2: In the absence of evidence of kidney damage, neither GFR category G1 nor G2 fulfill the criteria for CKD Kidney Int Suppl.2013;3:1-150 Glucose [Mass/Vol] 109 mg/dL High 65 - 100 mg/dL Иван [employer] [facility] Interpretation and review of laboratory results Abnormal [employer] Potassium [Moles/Vol] 4.4 mmol/L 3.6 - 5.1 mmol/L [employer] Sodium [Moles/Vol] 139 mmol/L 135 - 147 mmol/L [facility] Basic metabolic panelon Anion gap [Moles/Vol] 4 mmol/L Low 8 - 12 mmol/L [employer] Calcium [Mass/Vol] 8.4 mg/dL 8.4 - 10. 4 mg/dL [facility] Calcium hydrogen phosphate dihydrate crystals LM Ql (Urine sed) 45 mg/dL High 8 - 26 mg/dL [facility] Chloride [Moles/Vol] 111 mmol/L High 96 - 10 9 mmol/L [facility] CO2 (BldMV) [Moles/Vol] 23 mmol/L 22 - 30 mmol/L [facility] Creatinine [Mass/Vol] 3.80 mg/dL High 0.66 - 1.25 mg/dL [facility] GFR/1.73 sq M.predicted among non-blacks MDRD (S/P/Bld) [Vol rate/Area] 16.3 mL/min/{1.73_m2} Low - PINF [facility] Comment on above: eGFR calculation bas ed on the Chronic Kidney Disease Epidemiology Collaboration (CKD-EPI) equation refit without adjustment for race. Categories in Chronic Kidney Disease (CKD) Category: GFR(mL/min/1.73m^2) Interpretation: G1* 90 or greater Normal or high G2* 60-89 Mild decrease G3a 45-59 Mild to moderate decrease G3b 30-44 Moderate to severe decrease G4 15-29 Severe decrease G5 14 or less Kidney failure *G1&G2: In the absence of evidence of kidney damage, neither GFR category G1 nor G2 fulfill the criteria for CKD Kidney Int Suppl.2013;3:1-150 Glucose [Mass/Vol] 105 mg/dL High 65 - 100 mg/dL [facility] Interpretation and review of laboratory results Abnormal [facility] Potassium [Moles/Vol] 4.6 mmol/L 3.6 - 5.1 mmol/L [facility] Sodium [Moles/Vol] 138 mmol/L 135 - 147 mmol/L [facility] CBC without Differentialon 0 - Absolute Immature Granulocytes 0.0 [facility] Age [Time] 80.2 fL Low 80.6 - 99 fL [facility] Age [Time] 26.2 pg Low 27.0 - 34.2 pg [facility] Age [Time] 32.6 g/dL 31.4 - 36.2 g/dL [facility] B. burgdorferi IgM IB Ql (CSF) 12.2 % [facility] Basophils (Bld) [#/Vol] 0.0 10*3/uL [facility] Basophils/100 WBC (Body fld) 0.2 % [facility] Eosinophils (Bld) [#/Vol] 1.2 10*3/uL [facility] Eosinophils (Bld) [#/Vol] 0.7 10*3/uL High [facility] Eosinophils (Bld) [#/Vol] 0.1 10*3/uL [facility] Eosinophils/100 WBC (Bld) 0.5 % [facility] Erythrocyte distribution width (RBC) [Ratio] 13.6 % 11.5 - 14.5 % [facility] Hematocrit (Bld) [Volume fraction] 41.7 % 37.7 - 51.1 % [facility] Hexanoylglycine (U) [Moles/Vol] 13.6 g/dL 12.8 - 17.7 g/dL [facility] Immature granulocytes/100 WBC (Bld) 0.2 % [facility] Interpretation and review of laboratory results Abnormal [facility] Monocytes/100 WBC (Bld) 7.8 % [facility] Neurotensin (P) [Mass/Vol] 79.1 % [facility] Neutrophils (Bld) [#/Vol] 7.5 10*3/uL [facility] Nucleated RBC/100 WBC (Bld) [Ratio] 0.0 % 0.0 - 1.0 % [facility] Platelets (Bld) [#/Vol] 175 10*3/uL [facility] RBC (Bld) [#/Vol] 5.20 10*6/uL [facility] WBC (Bld) [#/Vol] 9.5 10*3/uL [facility] Comprehensive metabolic 2000 panelon 03-12-2024 Albumin (Syn fld) [Mass/Vol] 3.9 g/dL 3.5 - 5.0 g/dL [facility] Aldosterone (U) [Mass/Vol] 62 U/L 24 - 126 U/L [facility] ALT [Catalytic activity/Vol] 17 U/L 4 - 50 U/L [facility] Anion gap [Moles/Vol] 8 mmol/L 8 - 12 mmol/L [facility] AST [Catalytic activity/Vol] 28 U/L 3 - 55 U/L [facility] Bilirubin [Mass/Vol] 0.8 mg/dL 0.2 - 1 .6 mg/dL [facility] Calcium [Mass/Vol] 8.7 mg/dL 8.4 - 10. 4 mg/dL [facility] Calcium hydrogen phosphate dihydrate crystals LM Ql (Urine sed) 41 mg/dL High 8 - 26 mg/dL [employer] Chloride [Moles/Vol] 109 mmol/L 96 - 10 9 mmol/L [employer] CO2 (BldMV) [Moles/Vol] 18 mmol/L Low 22 - 30 mmol/L [employer] Creatinine [Mass/Vol] 3.79 mg/dL High 0.66 - 1.25 mg/dL [employer] GFR/1.73 sq M.predicted among non-blacks MDRD (S/P/Bld) [Vol rate/Area] 16.4 mL/min/{1.73_m2} Low - PINF [employer] Comment on above: eGFR calculation bas ed on the Chronic Kidney Disease Epidemiology Collaboration (CKD-EPI) equation refit without adjustment for race. Categories in Chronic Kidney Disease (CKD) Category: GFR(mL/min/1.73m^2) Interpretation: G1* 90 or greater Normal or high G2* 60-89 Mild decrease G3a 45-59 Mild to moderate decrease G3b 30-44 Moderate to severe decrease G4 15-29 Severe decrease G5 14 or less Kidney failure *G1&G2: In the absence of evidence of kidney damage, neither GFR category G1 nor G2 fulfill the criteria for CKD Kidney Int Suppl.2013;3:1-150 Glucose [Mass/Vol] 122 mg/dL High 65 - 100 mg/dL [employer] Interpretation and review of laboratory results Abnormal [employer] Potassium [Moles/Vol] 4.2 mmol/L 3.6 - 5.1 mmol/L [employer] Protein [Mass/Vol] 7.1 g/dL 6.3 - 8.2 g/dL [employer] Sodium [Moles/Vol] 135 mmol/L 135 - 147 mmol/L [facility] EKG 12 leadon 03-12-2024 [employer] Test Date: 2024-03-12 Pat Name: JOHNATHAN SOLIS Department: Room: 1208 Gender: M [facility] President: Kath : 1955 Requested By: PHYLICIA PRATT Order Number: [id number] [place] MD: Vivian Pulliam Study Reason: Preop Cardiovascular Exam (Z01.810) Measurements Intervals [place] Rate: 71 P: 93 MS: 183 QRS: -10 QRSD: 133 T: 31 QT: 404 QTc: 440 Interpretive Statements SINUS RHYTHM RIGHT BUNDLE BRANCH BLOCK INFERIOR MYOCARDIAL INFARCTION , PROBABLY OLD ABNORMAL ECG Electronically Signed On 03-12-2024 8:48:08 EDT by Vivian FARRELL [facility] RF Kidney and Ureter and Uri nary bladder Views during surgery W contrast retrogradeon 03-12-2024 Images submitted for storage only; no interpretation required. RADWHERE/PAC S CBC with DifferentialOrdered By: Background Lab on 03-11-2024 Absolute Immature Granulocytes 0.0 Иван [facility] Age [Time] 80.3 fL Low 80.6 - 99 fL Иван [facility] Age [Time] 26.0 pg Low 27.0 - 34.2 pg Иван [facility] Age [Time] 32.3 g/dL 31.4 - 36.2 g/dL [facility] B. burgdorferi IgM IB Ql (CSF) 19.2 % [facility] Basophils (Bld) [#/Vol] 0.0 10*3/uL Иван [facility] Basophils/100 WBC (Body fld) 0.3 % Иван [facility] Eosinophils (Bld) [#/Vol] 1.8 10*3/uL [facility] Eosinophils (Bld) [#/Vol] 0.7 10*3/uL High Иван [facility] Eosinophils (Bld) [#/Vol] 0.2 10*3/uL Иван [facility] Eosinophils/100 WBC (Bld) 1.6 % Иван [facility] Erythrocyte distribution width (RBC) [Ratio] 13.6 % 11.5 - 14.5 % Иван [facility] Hematocrit (Bld) [Volume fraction] 46.4 % 37.7 - 51.1 % Иван [facility] [employer] Hexanoylglycine (U) [Moles/Vol] 15.0 g/dL 12.8 - 17.7 g/dL [facility] Immature granulocytes/100 WBC (Bld) 0.1 % Иван [facility] Interpretation and review of laboratory results Abnormal [facility] Monocytes/100 WBC (Bld) 7.4 % Иван [facility] [employer] Neurotensin (P) [Mass/Vol] 71.4 % Иван [facility] Neutrophils (Bld) [#/Vol] 6.6 10*3/uL [facility] Platelets (Bld) [#/Vol] 204 10*3/uL [facility] RBC (Bld) [#/Vol] 5.78 10*6/uL [facility] WBC (Bld) [#/Vol] 9.2 10*3/uL [facility] CT Abdomen and Pelvis LONI flores 03-11-2024 1. Moderate to severe right-sided hydronephrosis and perinephric fat stranding secondary to a 1.7 cm size calculus in the right ureteropelvic junction. 2. Distal right ureteral calculi present on the previous examination are no longer present and were likely expelled. 3. Nonobstructive bilateral intrarenal calculi. Severe atrophy of the left kidney. ИВАН EXAMINATION:CT ABDOM EN PELVIS WITHOUT IV CONTRAST INDICATION:Abdominal/fla nk pain, stone suspected COMPARISON:12/01/2023 TECHNIQUE:Multiple thin section transaxial slices were acquired through the abdomen and pelvis without intravenous contrast. Coronal and sagittal reconstructed images were reviewed. Oral contrastWas not administered. FINDINGS: LOWER CHEST: Dependent changes are present in the lung bases. LIVER: The liver is unremarkable. GALLBLADDER AND BILIARY SYSTEM: No obvious ductal dilation. No calcified stones. SPLEEN: The spleen is unremarkable. PANCREAS: The pancreas is unremarkable. ADRENAL GLANDS: The adrenal glands are unremarkable. KIDNEYS AND URETERS: There is moderate to severe hydronephrosis of the right kidney with surrounding perinephric fat stranding. The obstructive uropathy is felt to be due to a large calculus within the distal right renal pelvis at the ureteropelvic junction measuring 1.7 cm. The distal right ureteral calculi present on the previous examination are no longer present and were likely expelled. No obstructing urologic calcifications are identified in either kidney. The left kidney is severely atrophied without hydronephrosis. There are nonobstructive bilateral intrarenal calculi. There is a simple cyst arising from the posterior left kidney similar to the previous exam. VASCULATURE: Vascularity is unremarkable. PERITONEUM/RETROPERITONE UM: Peritoneum/retroperitone um is unremarkable. LYMPH NODES: No suspicious lymphadenopathy. GASTROINTESTINAL TRACT: The bowel is normal in caliber.There is chronic colonic diverticulosis of the colon without acute inflammation.The appendix is not well delineated on this exam and may be absent or diminutive. BLADDER: The urinary bladder is unremarkable. REPRODUCTIVE SYSTEM: Reproductive system is unremarkable. BODY WALL: There is a tiny fat-containing umbilical hernia. There is a small left fat-containing umbilical hernia. BONES: There is multilevel degenerative disc disease throughout the thoracolumbar spine most severe at L4-L5. Danette Pappas, DO - 03/11/2024 EXAMINATION:CT ABDOMEN PELVIS WITHOUT IV CONTRAST INDICATION:Abdominal/fla nk pain, stone suspected COMPARISON:12/01/2023 TECHNIQUE:Multiple thin section transaxial slices were acquired through the abdomen and pelvis without intravenous contrast. Coronal and sagittal reconstructed images were reviewed. Oral contrastWas not administered. FINDINGS: LOWER CHEST: Dependent changes are present in the lung bases. LIVER: The liver is unremarkable. GALLBLADDER AND BILIARY SYSTEM: No obvious ductal dilation. No calcified stones. SPLEEN: The spleen is unremarkable. PANCREAS: The pancreas is unremarkable. ADRENAL GLANDS: The adrenal glands are unremarkable. KIDNEYS AND URETERS: There is moderate to severe hydronephrosis of the right kidney with surrounding perinephric fat stranding. The obstructive uropathy is felt to be due to a large calculus within the distal right renal pelvis at the ureteropelvic junction measuring 1.7 cm. The distal right ureteral calculi present on the previous examination are no longer present and were likely expelled. No obstructing urologic calcifications are identified in either kidney. The left kidney is severely atrophied without hydronephrosis. There are nonobstructive bilateral intrarenal calculi. There is a simple cyst arising from the posterior left kidney similar to the previous exam. VASCULATURE: Vascularity is unremarkable. PERITONEUM/RETROPERITONE UM: Peritoneum/retroperitone um is unremarkable. LYMPH NODES: No suspicious lymphadenopathy. GASTROINTESTINAL TRACT: The bowel is normal in caliber.There is chronic colonic diverticulosis of the colon without acute inflammation.The appendix is not well delineated on this exam and may be absent or diminutive. BLADDER: The urinary bladder is unremarkable. REPRODUCTIVE SYSTEM: Reproductive system is unremarkable. BODY WALL: There is a tiny fat-containing umbilical hernia. There is a small left fat-containing umbilical hernia. BONES: There is multilevel degenerative disc disease throughout the thoracolumbar spine most severe at L4-L5. IMPRESSION: 1. Moderate to severe right-sided hydronephrosis and perinephric fat stranding secondary to a 1.7 cm size calculus in the right ureteropelvic junction. 2. Distal right ureteral calculi present on the previous examination are no longer present and were likely expelled. 3. Nonobstructive bilateral intrarenal calculi. Severe atrophy of the left kidney. [facility] Radiology Study observation (narrative) [employer] CT Abdomen and Pelvis WO con trastOrdered By: Danette Medley on 03-11-2024 [employer] Work Phone: Comprehensive metabolic 2000 panelon 03-11-2024 Albumin (Syn fld) [Mass/Vol] 5.0 g/dL 3.5 - 5.0 g/dL [facility] Aldosterone (U) [Mass/Vol] 69 U/L 24 - 126 U/L Ив[facility] [employer] ALT [Catalytic activity/Vol] 18 U/L 4 - 50 U/L [facility] [employer] Anion gap [Moles/Vol] 11 mmol/L 8 - 12 mmol/L Иван [facility] [employer] AST [Catalytic activity/Vol] 28 U/L 3 - 55 U/L Иван [facility] [employer] Bilirubin [Mass/Vol] 0.6 mg/dL 0.2 - 1 .6 mg/dL Иван [facility] [employer] Calcium [Mass/Vol] 9.4 mg/dL 8.4 - 10. 4 mg/dL [facility] Calcium hydrogen phosphate dihydrate crystals LM Ql (Urine sed) 37 mg/dL High 8 - 26 mg/dL [facility] Chloride [Moles/Vol] 106 mmol/L 96 - 10 9 mmol/L Иван [employer] CO2 (BldMV) [Moles/Vol] 19 mmol/L Low 22 - 30 mmol/L Иван [facility] [employer] Creatinine [Mass/Vol] 2.17 mg/dL High 0.66 - 1.25 mg/dL Иван [facility] GFR/1.73 sq M.predicted among non-blacks MDRD (S/P/Bld) [Vol rate/Area] 32.0 mL/min/{1.73_m2} Low - PINF [facility] Comment on above: eGFR calculation bas ed on the Chronic Kidney Disease Epidemiology Collaboration (CKD-EPI) equation refit without adjustment for race. Categories in Chronic Kidney Disease (CKD) Category: GFR(mL/min/1.73m^2) Interpretation: G1* 90 or greater Normal or high G2* 60-89 Mild decrease G3a 45-59 Mild to moderate decrease G3b 30-44 Moderate to severe decrease G4 15-29 Severe decrease G5 14 or less Kidney failure *G1&G2: In the absence of evidence of kidney damage, neither GFR category G1 nor G2 fulfill the criteria for CKD Kidney Int Suppl.2013;3:1-150 Glucose [Mass/Vol] 114 mg/dL High 65 - 100 mg/dL [facility] Potassium [Moles/Vol] 4.0 mmol/L 3.6 - 5.1 mmol/L [facility] Protein [Mass/Vol] 8.7 g/dL High 6.3 - 8.2 g/dL [facility] Sodium [Moles/Vol] 136 mmol/L 135 - 147 mmol/L [facility] Lipaseon 03-11-2024 Lipase [Catalytic activity/Vol] 1810 U/L High 23 - 300 U/L [facility] No Panel Informationon 03-11 Interpretation and review of laboratory results Abnormal [facility] Urine Dipon 03-11-2024 Acetone [Mass/Vol] Negative Negative mg/dL [facility] Appearance (Body fld) Cloudy [facility] Bilirubin Ql (U) Negative Negative [facility] Color (Stone) Yellow [facility] G6PD (RBC) [Catalytic activity/Vol] Negative Negative mg/dL [facility] Interpretation and review of laboratory results Abnormal [facility] Leukocyte esterase Test strip Ql (U) Trace Abnormal Negative [facility] Nitrite Test strip (U) [Mass/Vol] Negative Negative [facility] pH (Elizabeth fld) 5.5 [facility] Protein (U) [Mass/Vol] 100 mg/dL Abnormal Negative [facility] [place] IgE Qn (S) Large Abnormal Negative [facility] Specific gravity (U) [Rel density] 1.020 [facility] Urobilinogen Qn (U) <2.0 NINF - 2 .0 mg/dL [facility] CBC with DifferentialOrdered By: Background Lab on 12-01-2023 Absolute Immature Granulocytes 0.0 [facility] Age [Time] 80.7 fL 80.6 - 99 fL [facility] Age [Time] 25.7 pg Low 27.0 - 34.2 pg [facility] Age [Time] 31.9 g/dL 31.4 - 36.2 g/dL [facility] B. burgdorferi IgM IB Ql (CSF) 13.0 % [facility] Basophils (Bld) [#/Vol] 0.1 10*3/uL [facility] Basophils/100 WBC (Body fld) 0.5 % [facility] Eosinophils (Bld) [#/Vol] 1.5 10*3/uL [facility] Eosinophils (Bld) [#/Vol] 0.6 10*3/uL [facility] Eosinophils (Bld) [#/Vol] 0.1 10*3/uL [facility] Eosinophils/100 WBC (Bld) 0.7 % [facility] Erythrocyte distribution width (RBC) [Ratio] 14.1 % 11.5 - 14.5 % [facility] Hematocrit (Bld) [Volume fraction] 47.4 % 37.7 - 51.1 % [facility] Hexanoylglycine (U) [Moles/Vol] 15.1 g/dL 12.8 - 17.7 g/dL [facility] Immature granulocytes/100 WBC (Bld) 0.2 % [facility] Interpretation and review of laboratory results Abnormal [facility] Monocytes/100 WBC (Bld) 5.0 % [facility] Neurotensin (P) [Mass/Vol] 80.6 % [facility] Neutrophils (Bld) [#/Vol] 9.3 10*3/uL High [facility] Platelets (Bld) [#/Vol] 200 10*3/uL [facility] RBC (Bld) [#/Vol] 5.87 10*6/uL [facility] WBC (Bld) [#/Vol] 11.6 10*3/uL High [facility] CT Abdomen and Pelvis WO con traston 12-01-2023 1. Mild to moderate right hydroureteronephrosis due to several stones in the distal right ureter measuring up to 3 mm extending to the UVJ level. Additional 16 mm stone noted in the dilated right renal pelvis. Several additional nonobstructing left renal calculi noted. 2. Marked asymmetric left renal atrophy with exophytic left renal cyst, unchanged. 3. Cholelithiasis. 4. Colonic diverticulosis. 5. Prostatomegaly. 6. Diffuse urinary bladder wall thickening could reflect incomplete bladder distention, chronic wall hypertrophy or cystitis, not appreciably changed from the prior exam. [facility] EXAMINATION: CT ABDO MEN PELVIS WITHOUT IV CONTRAST, 12/01/2023 12:48 AM EST HISTORY: Abdominal/flank pain, stone suspected COMPARISON: CT abdomen pelvis, 04/26/2020. TECHNIQUE: CT scan of the abdomen and pelvis was performed without IV contrast. Sagittal and coronal reconstructions are performed. CT dose reduction technique was used, including Automated Exposure Control. FINDINGS: CT ABDOMEN: Mild posterior lower lobe atelectasis. Coronary arterial calcifications in the RCA. Normal cardiac size. No pericardial effusion. Punctate gallstone on image 53 of series 2. No cholecystitis or biliary ductal dilatation. The exam is limited by the lack of IV contrast. Solid organ lesions or acute abnormalities could be missed. Allowing for this, grossly unremarkable liver, pancreas, spleen, adrenal glands, stomach and small bowel. Mild to moderate right hydroureteronephrosis due to multiple small stones in the distal right ureter extending to the UVJ level, measuring up to 3 mm. These have moved distally since the prior exam. New 16 mm stone in the dilated right renal pelvis on image 65. Right perinephric and periureteral fat stranding related to obstructive uropathy. Marked asymmetric left renal atrophy with several nonobstructing left renal stones measuring up to 6 mm in the posterior lower pole. Stable exophytic cyst off the posterior left kidney. Unremarkable stomach and small bowel. Minimal aortic calcifications without aneurysm. Normal IVC. CT PELVIS: A normal appendix on image 86. Unremarkable small bowel. Unremarkable prostate. Nonspecific diffuse urinary bladder wall thickening. Colonic diverticulosis, most prominent in the sigmoid region. Fat-containing inguinal hernias. No free fluid, loculated fluid, free air or soft tissue gas in the abdomen or pelvis. Advanced degenerative disc disease at L4-L5 with bilateral neural foraminal stenosis. No acute osseous abnormality or suspicious bony lesion is seen. Aman Bear MD - 12/01/2023 EXAMINATION: CT ABDOMEN PELVIS WITHOUT IV CONTRAST, 12/01/2023 12:48 AM EST HISTORY: Abdominal/flank pain, stone suspected COMPARISON: CT abdomen pelvis, 04/26/2020. TECHNIQUE: CT scan of the abdomen and pelvis was performed without IV contrast. Sagittal and coronal reconstructions are performed. CT dose reduction technique was used, including Automated Exposure Control. FINDINGS: CT ABDOMEN: Mild posterior lower lobe atelectasis. Coronary arterial calcifications in the RCA. Normal cardiac size. No pericardial effusion. Punctate gallstone on image 53 of series 2. No cholecystitis or biliary ductal dilatation. The exam is limited by the lack of IV contrast. Solid organ lesions or acute abnormalities could be missed. Allowing for this, grossly unremarkable liver, pancreas, spleen, adrenal glands, stomach and small bowel. Mild to moderate right hydroureteronephrosis due to multiple small stones in the distal right ureter extending to the UVJ level, measuring up to 3 mm. These have moved distally since the prior exam. New 16 mm stone in the dilated right renal pelvis on image 65. Right perinephric and periureteral fat stranding related to obstructive uropathy. Marked asymmetric left renal atrophy with several nonobstructing left renal stones measuring up to 6 mm in the posterior lower pole. Stable exophytic cyst off the posterior left kidney. Unremarkable stomach and small bowel. Minimal aortic calcifications without aneurysm. Normal IVC. CT PELVIS: A normal appendix on image 86. Unremarkable small bowel. Unremarkable prostate. Nonspecific diffuse urinary bladder wall thickening. Colonic diverticulosis, most prominent in the sigmoid region. Fat-containing inguinal hernias. No free fluid, loculated fluid, free air or soft tissue gas in the abdomen or pelvis. Advanced degenerative disc disease at L4-L5 with bilateral neural foraminal stenosis. No acute osseous abnormality or suspicious bony lesion is seen. IMPRESSION: 1. Mild to moderate right hydroureteronephrosis due to several stones in the distal right ureter measuring up to 3 mm extending to the UVJ level. Additional 16 mm stone noted in the dilated right renal pelvis. Several additional nonobstructing left renal calculi noted. 2. Marked asymmetric left renal atrophy with exophytic left renal cyst, unchanged. 3. Cholelithiasis. 4. Colonic diverticulosis. 5. Prostatomegaly. 6. Diffuse urinary bladder wall thickening could reflect incomplete bladder distention, chronic wall hypertrophy or cystitis, not appreciably changed from the prior exam. [facility] Radiology Study observation (narrative) [facility] CT Abdomen and Pelvis WO con trastOrdered By: Aman Ash on 12-01-2023 [facility] Work Phone: Comprehensive metabolic 2000 panelon 12-01-2023 Albumin (Syn fld) [Mass/Vol] 4.5 g/dL 3.5 - 5.0 g/dL [facility] Aldosterone (U) [Mass/Vol] 70 U/L 24 - 126 U/L [facility] ALT [Catalytic activity/Vol] 24 U/L 4 - 50 U/L [facility] Anion gap [Moles/Vol] 13 mmol/L High 8 - 12 mmol/L [facility] AST [Catalytic activity/Vol] 31 U/L 3 - 55 U/L [facility] Bilirubin [Mass/Vol] 0.4 mg/dL 0.2 - 1 .6 mg/dL [facility] Calcium [Mass/Vol] 9.4 mg/dL 8.4 - 10. 4 mg/dL [facility] Calcium hydrogen phosphate dihydrate crystals LM Ql (Urine sed) 36 mg/dL High 8 - 26 mg/dL [facility] Chloride [Moles/Vol] 105 mmol/L 96 - 10 9 mmol/L [facility] CO2 (BldMV) [Moles/Vol] 19 mmol/L Low 22 - 30 mmol/L [facility] Creatinine [Mass/Vol] 1.73 mg/dL High 0.66 - 1.25 mg/dL [facility] GFR/1.73 sq M.predicted among non-blacks MDRD (S/P/Bld) [Vol rate/Area] 41.9 mL/min/{1.73_m2} Low - PINF [facility] Comment on above: eGFR calculation bas ed on the Chronic Kidney Disease Epidemiology Collaboration (CKD-EPI) equation refit without adjustment for race. Categories in Chronic Kidney Disease (CKD) Category: GFR(mL/min/1.73m^2) Interpretation: G1* 90 or greater Normal or high G2* 60-89 Mild decrease G3a 45-59 Mild to moderate decrease G3b 30-44 Moderate to severe decrease G4 15-29 Severe decrease G5 14 or less Kidney failure *G1&G2: In the absence of evidence of kidney damage, neither GFR category G1 nor G2 fulfill the criteria for CKD Kidney Int Suppl.2013;3:1-150 Glucose [Mass/Vol] 131 mg/dL High 65 - 100 mg/dL [facility] Interpretation and review of laboratory results Abnormal [facility] Potassium [Moles/Vol] 4.0 mmol/L 3.6 - 5.1 mmol/L [facility] Protein [Mass/Vol] 8.3 g/dL High 6.3 - 8.2 g/dL [facility] Sodium [Moles/Vol] 137 mmol/L 135 - 147 mmol/L [facility] Lipaseon 12-01-2023 Interpretation and review of laboratory results Abnormal [facility] Lipase [Catalytic activity/Vol] 1788 U/L High 23 - 300 U/L [facility] [place]note 2] System Urine Dipon 12-01-2023 Acetone [Mass/Vol] Negative Negative [employer] [facility] System Appearance (Body fld) Clear Gen [facility] Bilirubin Ql (U) Negative Negative [facility] [place] System Color (Stone) Yellow [facility] [place] [facility] G6PD (RBC) [Catalytic activity/Vol] Negative Negative [facility] [place] [facility] Interpretation and review of laboratory results Abnormal [facility] [place] [facility] Leukocyte esterase Test strip Ql (U) Negative Negative [facility] [place] [facility] Nitrite Test strip (U) [Mass/Vol] Negative Negative [facility] [place] System pH (Elizabeth fld) 5.5 [facility] [place] [facility] Protein (U) [Mass/Vol] Negative Negative [facility] [place] [facility] [place] IgE Qn (S) Large Abnormal Negative [facility] System Specific gravity (U) [Rel density] 1.020 [facility] [place] System Urobilinogen Qn (U) <2.0 NINF - 2.0 [facility] [place] System Basophil percentageOrdered B y: Dr. Mcmanus on 11-21-2022 Chloride [Moles/Vol] 105 mmol/L 98-107 [facility] Glucose [Mass/Vol] 90 mg/dL 74-106 [facility] Potassium [Moles/Vol] 4.3 mmol/L 3.5-5.1 [facility] Sodium [Moles/Vol] 139 mmol/L 136-145 [facility] Laboratory - Chemistry and C hemistry - challengeOrdered By: Dr. Mcmanus on 11-21-2022 CO2 [Moles/Vol] 26.0 mmol/L 21.0-32.0 [facility] Urea nitrogen/Creatinine [Mass ratio] 16.1 mg/mg 08-31 [facility] No Panel InformationOrdered By: Dr. Mcmanus on 11-21-2022 Estimated GFR (MDRD) Amer 57 mL/min >60 [facility] Comment on above: GFR Calc Estimated GFR (MDRD) Non-Af Amer 47 mL/min >60 [facility] Comment on above: Non- GFR Calc Serum or plasma calcium alexandrea urement (mass/volume)Ordered By: Dr. Mcmanus on 11-21-2022 Calcium [Mass/Vol] 9.1 mg/dL 8.5-10.1 [facility] Serum or plasma creatinine m easurement (mass/volume)Ordered By: Dr. Mcmanus on 11-21-2022 Creatinine [Mass/Vol] 1.55 mg/dL 0.70-1.30 [facility] Comment on above: The validity of the calculated GFR & GFRAA in patients over 70 years has not been determined. Clinical correlation is essential. Serum or plasma urea nitroge n measurement (mass/volume)Ordered By: Dr. Mcmanus on 11-21-2022 Urea nitrogen [Mass/Vol] 25 mg/dL 7-18 [facility] Thin prep Papanicolaou smear with manual screeningOrdered By: Dr. Mcmanus on 11-21-2022 Thin prep Papanicolaou smear with manual screening 8 -15 [facility] Lipid panelOrdered By: Damaso Lynch on 06-22-2021 Cholesterol [Mass/Vol] 304 mg/dL High 0 - 200 mg/dL [facility] Comment on above: CHOLESTEROL REFERENC E RANGE Desirable <200 mg/dL Borderline 200-239 mg/dL High >240 mg/dL . Cholesterol in HDL [Mass/Vol] 45.0 mg/dL 40.0 - 59.9 mg/dL [facility] Comment on above: Interpretive data fo r HDL Cholesterol states: HDL <40 mg/dL is low and constitutes a coronary disease risk factor. HDL >60 mg/dL is a negative risk factor for coronary heart disease. . Cholesterol in LDL [Mass/Vol] 234 mg/dL High 0 - 100 mg/dL [facility] Comment on above: LDL REFERENCE RANGE Optimal <100 mg/dl Near Optimal 100-129 mg/dL Borderline High 130-159 mg/dL High 160-189 mg/dL Very High >=190 mg/dL . Cholesterol in VLDL [Mass/Vol] 25 mg/dL <42 [facility] Interpretation and review of laboratory results Abnormal [facility] Triglyceride [Mass/Vol] 125 mg/dL 0 - 150 mg/dL [facility] Comment on above: TRIGLYCERIDE REFEREN CE RANGE Normal <150 mg/dL Borderline High 150-199 mg/dL High 200-499 mg/dL Very High >=500 mg/dL . [facility] CBC with DifferentialOrdered By: Taya Lynch on 06-21-2021 Absolute Immature Granulocytes 0.0 0 10 3/uL [facility] Absolute Lymph 2.0 [facility] Absolute Boyd 0.6 [facility] Basophils (Bld) [#/Vol] 0.0 10*3/uL [facility] Basophils/100 WBC (Bld) 0.5 % [facility] Eosinophils (Bld) [#/Vol] 0.1 10*3/uL [facility] Eosinophils/100 WBC (Bld) 1.3 % [facility] Erythrocyte distribution width (RBC) [Ratio] 13.6 % 11.5 - 14.5 % [facility] Hematocrit (Bld) [Volume fraction] 45.2 % 37.7 - 51.1 % [facility] Hemoglobin (Bld) [Mass/Vol] 14.2 g/dL 12.8 - 17.7 g/dL [facility] Immature granulocytes/100 WBC (Bld) 0.1 % [facility] Interpretation and review of laboratory results Abnormal [facility] Lymphocytes/100 WBC (Bld) 26.3 % [facility] MCH (RBC) [Entitic mass] 26.3 pg Low 27.0 - 34.2 pg [facility] MCHC (RBC) [Mass/Vol] 31.4 g/dL 31.4 - 36.2 g/dl [facility] MCV (RBC) [Entitic vol] 83.7 fL 80.6 - 99.0 fL [facility] Monocytes/100 WBC (Bld) 7.5 % [facility] Neutrophils (Bld) [#/Vol] 4.8 10*3/uL [facility] Neutrophils/100 WBC (Bld) 64.3 % [facility] Platelets (Bld) [#/Vol] 180.0 10*3/uL [facility] RBC (Bld) [#/Vol] 5.40 10*6/uL [facility] WBC LM Ql (Sput) 7.5 [facility] Comprehensive metabolic pane l aka MetaboOrdered By: Taya Lynch on 06-21-2021 Albumin [Mass/Vol] 4.7 g/dL 3.5 - 5.0 g/dL [facility] Alk Phos 72 U/L 24 - 126 U/L [facility] ALT [Catalytic activity/Vol] 13 U/L 4 - 50 U/L [facility] AST [Catalytic activity/Vol] 23 U/L 3 - 55 U/L [facility] Bilirubin [Mass/Vol] 0.7 mg/dL 0.2 - 1 .6 mg/dL [facility] Calcium [Mass/Vol] 9.1 mg/dL 8.4 - 10. 4 mg/dL [facility] Chloride [Moles/Vol] 105 mmol/L 96 - 10 9 mmol/L [facility] CO2 [Moles/Vol] 22 mmol/L 22 - 30 mmol/L [facility] Creatinine [Mass/Vol] 1.53 mg/dL High 0.66 - 1.25 mg/dL [facility] Glucose [Mass/Vol] 93 mg/dL 65 - 100 mg/dL [facility] Interpretation and review of laboratory results Abnormal [facility] Potassium [Moles/Vol] 3.9 mmol/L 3.6 - 5.1 mmol/L [facility] Protein [Mass/Vol] 7.9 g/dL 6.3 - 8.2 g/dL [facility] Sodium [Moles/Vol] 139 mmol/L 135 - 147 mmol/L [facility] Urea nitrogen [Mass/Vol] 19 mg/dL 8 - 26 mg/dL [facility] GLOMERULAR FILTRATION RATEOr dered By: Taya Lynch on 06-21-2021 GFR 46 [facility] Comment on above: To estimate the GFR for Americans, multiply the result provided by 1.21. Population mean GFR = 116 ml/min/1.73 sq.m. for ages 18-29 yrs. The MDRD is validated in individuals 18-70 years of age. It is less accurate in patients with extremes of muscle mass, restriction of dietary protein, ingestion of creatine, extra-renal metabolism of creatinine, or treatment with medications that affect renal tubular creatinine secretion. GFR Categories in Chronic Kidney Disease (CKD) Category: GFR(mL/min/1.73m^2) Interpretation: G1* 90 or greater Normal or high G2* 60-89 Mild decrease G3a 45-59 Mild to moderate decrease G3b 30-44 Moderate to severe decrease G4 15-29 Severe decrease G5 14 or less Kidney failure *G1&G2: In the absence of evidence of kidney damage, neither GFR category G1 nor G2 fulfill the criteria for CKD Kidney Int Suppl.2013;3:1-150 [facility] Hepatitis C antibodyOrdered By: Taya Lynch on 06-21-2021 HCV Ab Qn (S) Non-Reactive Nonreactive [facility] No Panel InformationOrdered By: Taya Lynch on 06-21-2021 nRBC 0 [facility] Chem 7on 04-28-2020 Anion gap [Moles/Vol] 17 mmol/L 10 - 2 0 mmol/L [facility] Chloride [Moles/Vol] 105 mmol/L 98 - 10 8 mmol/L [facility] Creatinine [Mass/Vol] 1.90 mg/dL High 0.80 - 1.30 [facility] GFR/1.73 sq M predicted among non-blacks MDRD (S/P/Bld) [Vol rate/Area] The eGFR should be used for monitoring renal function only and not for medication dosing. [facility] GFR/1.73 sq M.predicted CKD-EPI (S/P/Bld) [Vol rate/Area] 36 Low >=60 mL/min/1.73 m2 [facility] Glucose [Mass/Vol] 103 mg/dL High 65 - 99 mg/dL [facility] HCO3 [Moles/Vol] 18 mmol/L Low 21 - 32 mmol/L [facility] Interpretation and review of laboratory results Abnormal [facility] Potassium [Moles/Vol] 4.5 mmol/L 3.5 - 5.1 mmol/L [facility] Sodium [Moles/Vol] 135 mmol/L 135 - 145 mmol/L [facility] Urea nitrogen [Mass/Vol] 32 mg/dL High 8 - 25 mg/dL [facility] Urea nitrogen/Creatinine [Mass ratio] 16.8 mg/mg [facility] CBCon 04-27-2020 Erythrocyte distribution width (RBC) [Entitic vol] 13.7 % 11.6 - 14.8 % [facility] Hematocrit (Bld) [Volume fraction] 43.2 % 41 - 53 % [facility] Hemoglobin (Bld) [Mass/Vol] 13.3 g/dL Low 13.5 - 17.5 g/dL [facility] Interpretation and review of laboratory results Abnormal [facility] MCH (RBC) [Entitic mass] 26.1 pg 26 - 34 pg [facility] MCHC (RBC) [Mass/Vol] 30.8 g/dL Low 31 - 37 g/dL [facility] MCV (RBC) [Entitic vol] 84.7 fL 80 - 100 fL [facility] Nucleated RBC (Bld) [#/Vol] 0.00 10*3/uL [facility] Nucleated RBC/100 WBC (Bld) [Ratio] 0.0 % [facility] Platelet mean volume (Bld) [Entitic vol] 11.2 fL 9.4 - 12.4 fL [facility] Platelets (Bld) [#/Vol] 143 10*3/uL Low [facility] RBC (Bld) [#/Vol] 5.10 10*6/uL [facility] WBC (Bld) [#/Vol] 9.11 10*3/uL [facility] COVID-19, Molecularon 2019 Interpretation and review of laboratory results Normal [facility] SARS-CoV-2 Not Detected Not Detected [facility] Comment on above: This test was perfor med under the FDA's Emergency Use Authorization (EUA). Testing was performed using the [employer] ID NOW COVID-19 assay on the ID NOW platform. This test has not been approved for use in asymptomatic patients and its performance in this patient population has not been evaluated. Negative results do not rule out the presence of SARS-CoV-2/COVID-19. Fact sheets for the EUA can be found at the following links: For Healthcare Providers: https://www.fda.gov/media/321540/download For Patients: https://www.fda.gov/media/823638/download Comprehensive Metabolic Pane enrique 04-27-2020 Albumin [Mass/Vol] 3.9 g/dL 3.2 - 5.2 g/dL [facility] ALP [Catalytic activity/Vol] 55 U/L 40 - 150 U/L [facility] ALT [Catalytic activity/Vol] 10 U/L 0 - 40 U/L [facility] Anion gap [Moles/Vol] 14 mmol/L 10 - 2 0 mmol/L [facility] AST [Catalytic activity/Vol] 13 U/L 0 - 45 U/L [facility] Bilirubin [Mass/Vol] 0.5 mg/dL 0 - 1.3 mg/dL [facility] Calcium [Mass/Vol] 8.5 mg/dL 8.4 - 10. 2 mg/dL [facility] Chloride [Moles/Vol] 108 mmol/L 98 - 10 8 mmol/L [facility] Creatinine [Mass/Vol] 2.96 mg/dL High 0.80 - 1.30 [facility] GFR/1.73 sq M predicted among non-blacks MDRD (S/P/Bld) [Vol rate/Area] The eGFR should be used for monitoring renal function only and not for medication dosing. [facility] GFR/1.73 sq M.predicted CKD-EPI (S/P/Bld) [Vol rate/Area] 21 Low >=60 mL/min/1.73 m2 [facility] Glucose [Mass/Vol] 99 mg/dL 65 - 99 mg/dL [facility] HCO3 [Moles/Vol] 20 mmol/L Low 21 - 32 mmol/L [facility] Interpretation and review of laboratory results Abnormal [facility] Potassium [Moles/Vol] 4.0 mmol/L 3.5 - 5.1 mmol/L [facility] Protein [Mass/Vol] 6.5 g/dL 6 - 8 g/dL [facility] Sodium [Moles/Vol] 138 mmol/L 135 - 145 mmol/L [facility] Urea nitrogen [Mass/Vol] 45 mg/dL High 8 - 25 mg/dL [facility] Urea nitrogen/Creatinine [Mass ratio] 15.2 mg/mg [facility] ECG 12-LEADon 04-27-2020 Atrial Rate 48 BPM [facility] P [place] 52 degrees [facility] P-R Interval 190 ms [facility] Q-T Interval 432 ms [facility] QRS Duration 92 ms [facility] QTC Calculation (Bezet) 385 ms [facility] R [place] 36 degrees [facility] T [place] 46 degrees [facility] Ventricular Rate 48 BPM [facility] Sinus bradycardia Inferior infarct , age undetermined Abnormal ECG Confirmed by ALEXANDRA XIAO MD ([id number]) on 04/27/2020 7:59:21 PM [facility] URINALYSISon 04-27-2020 Bacteria Auto Ql (U) None Seen None Se en /hpf [facility] Bilirubin Ql (U) Negative Negative [facility] Clarity Refractometry automated (U) Clear Clear [facility] Color (U) Colorless Colorless, Yellow [facility] Glucose Auto test strip (U) [Mass/Vol] Negative Negative mg/dL [facility] Hemoglobin Auto test strip Ql (U) Large Abnormal Negative [facility] Interpretation and review of laboratory results Abnormal [facility] Ketones (U) [Mass/Vol] Negative Negative mg/dL [facility] Leukocyte esterase Auto test strip Ql (U) Negative Negative [facility] Mucus Auto (Urine sed) [#/Area] Rare None Seen, Rare /lpf [facility] Nitrite Auto test strip Ql (U) Negative Negative [facility] pH (U) 5.0 [pH] [facility] Protein (U) [Mass/Vol] Negative Negative mg/dL [facility] RBC Auto (Urine sed) [#/Area] 4 High [facility] Specific gravity (U) [Rel density] 1.006 [facility] Urobilinogen (U) [Mass/Vol] <2.0 <2.0 mg/dL [facility] WBC Auto (Urine sed) [#/Area] 3 [facility] Microscopic examinat ion is performed on all urinalysis samples and only positive findings are reported. The test for blood on the chemical analytic portion of urinalysis may also be positive due to hemoglobinuria and myoglobinuria and if red blood cells are present they are quantified by microscopic examination. [facility] XR OR RETROGRADE PYELOGRAMon 04-27-2020 XR OR RETROGRADE PYELOGRAM EXAMINATION: XR OR RETROGRADE PYELOGRAM HISTORY: ORDERING SYSTEM PROVIDED HISTORY: right ureteral calculus, TECHNOLOGIST PROVIDED HISTORY: Illness/Other Reason for exam: right ureteral calculus Encounter Type: Unknown Additional signs and symptoms: . Fluoro dose in mGy: 6.83 ORDERING SYSTEM PROVIDED DIAGNOSIS CODES: N20.1 Right ureteral stone COMPARISON: CT abdomen pelvis dated 04/26/2020. TECHNIQUE: Fluoro Dose Ka,r mGy: Fluoro dose in Ka,r mGy: 6.83 27 seconds fluoroscopy time. FINDINGS: 8 intraoperative fluoroscopic still frame images submitted of presumed right-sided retrograde pyelogram. Multiple filling defects are present within the dilated distal ureter compatible with known obstructing calculi. Subsequent images demonstrate placement of a nephroureteral stent. IMPRESSION: Nephroureteral stent placement. Please see operative report regarding procedural details. Workstation ID: [id number] Dictated by: LANIE LOPEZ on SunApr 28, 2020 8:19:26 PM EDT Transcribed by: LANIE LOPEZ on SunApr 28, 2020 8:19:26 PM EDT Finalized by: LANIE LOPEZ on SunApr 28, 2020 8:19:26 PM EDT [facility] Comment on above: Order Comment: Injur y/Trauma or Illness?:Illness/Other How long have you had these symptoms (acute/chronic)?:Unknown Reason for exam?:right ureteral calculus Type of Exam?:Unknown Additional signs and symptoms?:. Fluoro time in minutes:.45 Fluoro dose in mGy?:6.83 Basic metabolic panel leisa ceballos 8on 04-26-2020 Calcium [Mass/Vol] 9.4 mg/dL 8.4 - 10. 4 mg/dL [facility] Chloride [Moles/Vol] 101 mmol/L 96 - 10 9 mmol/L [facility] CO2 [Moles/Vol] 23 mmol/L 22 - 30 mmol/L [facility] Comprehensive metabolic 2000 panel 3.65 mg/dL High 0.66 - 1.25 mg/dL [facility] Glucose [Mass/Vol] 111 mg/dL High 65 - 100 mg/dL [facility] Potassium [Moles/Vol] 4.2 mmol/L 3.6 - 5.1 mmol/L [facility] Sodium [Moles/Vol] 135 mmol/L 135 - 147 mmol/L [facility] Urea nitrogen [Mass/Vol] 48 mg/dL High 8 - 26 mg/dL [facility] CBC with Differentialon 04-12 Absolute Boyd 0.9 High [facility] Basophils (Bld) [#/Vol] 0.0 10*3/uL [facility] Basophils/100 WBC (Bld) 0.2 % [facility] Eosinophils (Bld) [#/Vol] 0.1 10*3/uL [facility] Eosinophils/100 WBC (Bld) 0.8 % [facility] Erythrocyte distribution width (RBC) [Ratio] 14.1 % 11.5 - 14.5 % [facility] Hematocrit (Bld) [Volume fraction] 49.3 % 37.7 - 51.1 % [facility] Hemoglobin (Bld) [Mass/Vol] 16.2 g/dL 12.8 - 17.7 g/dL [facility] Interpretation and review of laboratory results Abnormal [facility] Lymphocytes (Bld) [#/Vol] 1.5 10*3/uL [facility] Lymphocytes/100 WBC (Bld) 13.5 % [facility] MCH (RBC) [Entitic mass] 27.3 pg 27 - 34.2 pg [facility] MCHC (RBC) [Mass/Vol] 32.9 g/dL 31.4 - 36.2 g/dl [facility] MCV (RBC) [Entitic vol] 83.0 fL 80.6 - 99 fL [facility] Monocytes/100 WBC (Bld) 8.5 % [facility] Neutrophils (Bld) [#/Vol] 8.5 10*3/uL [facility] Neutrophils/100 WBC (Bld) 77.0 % [facility] Platelets (Bld) [#/Vol] 164.0 10*3/uL [facility] RBC (Bld) [#/Vol] 5.94 10*6/uL [facility] WBC LM Ql (Sput) 11.0 [facility] GLOMERULAR FILTRATION RATEon 04-26-2020 GFR/1.73 sq M.predicted MDRD (S/P/Bld) [Vol rate/Area] 17 mL/min/{1.73_m2} [facility] Comment on above: To estimate the GFR for Americans, multiply the result provided by 1.21. Population mean GFR = 116 ml/min/1.73 sq.m. for ages 18-29 yrs. The MDRD is validated in individuals 18-70 years of age. It is less accurate in patients with extremes of muscle mass, restriction of dietary protein, ingestion of creatine, extra-renal metabolism of creatinine, or treatment with medications that affect renal tubular creatinine secretion. GFR Categories in Chronic Kidney Disease (CKD) Category: GFR(mL/min/1.73m^2) Interpretation: G1* 90 or greater Normal or high G2* 60-89 Mild decrease G3a 45-59 Mild to moderate decrease G3b 30-44 Moderate to severe decrease G4 15-29 Severe decrease G5 14 or less Kidney failure *G1&G2: In the absence of evidence of kidney damage, neither GFR category G1 nor G2 fulfill the criteria for CKD Kidney Int Suppl.2013;3:1-150 Hepatic Function Panelon Albumin [Mass/Vol] 5.0 g/dL 3.5 - 5 g/dL [facility] Alk Phos 73 U/L 24 - 126 U/L [facility] ALT [Catalytic activity/Vol] 18 U/L 4 - 50 U/L [facility] AST [Catalytic activity/Vol] 29 U/L 3 - 55 U/L [facility] Bilirubin [Mass/Vol] 0.8 mg/dL 0.2 - 1 .6 mg/dL [facility] Bilirubin.conjugated [Mass/Vol] 0.2 mg/dL 0 - 0.5 mg/dL [facility] Protein [Mass/Vol] 9.1 g/dL High 6.3 - 8.2 g/dL [facility] Lipaseon 04-26-2020 Lipase [Catalytic activity/Vol] 209 U/L 23 - 300 U/L [facility] Otheron 04-26-2020 Interpretation and review of laboratory results Abnormal [facility] Urinalysis with Reflex Cultu reon 04-26-2020 Appearance (U) Cloudy [facility] Bacteria identified Aer cx Nom (Unsp spec) SETUP [facility] Bilirubin Ql (U) Negative Negative [facility] Color (CSF) Yellow [facility] Glucose Ql (U) Negative Negative mg/dL [facility] Hemoglobin Ql (U) 296 High [facility] Interpretation and review of laboratory results Abnormal [facility] [place] Ket[place] Ql (U) Negative Negative mg/dL [facility] Leukoesterase Trace Abnormal Negative [facility] Mucous-Urine Rare /LPF [facility] Nitrite Ql (U) Negative Negative [facility] Occult Bld Large Abnormal Negative [facility] pH (U) 5.0 [pH] [facility] Protein (U) [Mass/Vol] 30 mg/dL Abnormal Negative [facility] Specific gravity (U) [Rel density] 1.010 [facility] Urine Source Clean Catch [facility] Urobilinogen Qn (U) Negative <2.0 mg/dL [facility] WBC (U) [#/Vol] 10 /uL Abnormal [facility] Basic metabolic panelon 10-2 Calcium [Mass/Vol] 9.5 mg/dL 8.4 - 10. 4 mg/dL [facility] Chloride [Moles/Vol] 106 mmol/L 96 - 10 9 mmol/L [facility] CO2 [Moles/Vol] 26 mmol/L 22 - 30 mmol/L [facility] Comprehensive metabolic 2000 panel 1.59 mg/dL High 0.66 - 1.25 mg/dL [facility] Glucose [Mass/Vol] 101 mg/dL High 65 - 100 mg/dL [facility] Interpretation and review of laboratory results Abnormal [facility] Potassium [Moles/Vol] 4.8 mmol/L 3.6 - 5.1 mmol/L [facility] Sodium [Moles/Vol] 141 mmol/L 135 - 147 mmol/L [facility] Urea nitrogen [Mass/Vol] 33 mg/dL High 8 - 26 mg/dL [facility] CBC without differentialon 1 Erythrocyte distribution width (RBC) [Ratio] 14.1 % 11.5 - 14.5 % [facility] Hematocrit (Bld) [Volume fraction] 44.6 % 37.7 - 51.1 % [facility] Hemoglobin (Bld) [Mass/Vol] 14.2 g/dL 12.8 - 17.7 g/dL [facility] MCH (RBC) [Entitic mass] 27.0 pg 27 - 34.2 pg [facility] MCHC (RBC) [Mass/Vol] 31.8 g/dL 31.4 - 36.2 g/dl [facility] MCV (RBC) [Entitic vol] 85.0 fL 80.6 - 99 fL [facility] Platelets (Bld) [#/Vol] 182.0 10*3/uL [facility] RBC (Bld) [#/Vol] 5.25 10*6/uL [facility] WBC LM Ql (Sput) 6.6 [facility] GLOMERULAR FILTRATION RATEon 09-08-2019 GFR/1.73 sq M.predicted MDRD (S/P/Bld) [Vol rate/Area] 44 mL/min/{1.73_m2} [facility] Comment on above: To estimate the GFR for Americans, multiply the result provided by 1.21. Population mean GFR = 85 ml/min/1.73 sq.m. for ages 60-69 yrs Five stages of CKD and GFR for each stage: Stage 1 GFR >=90 Stage 2 GFR 60-89 Stage 3 GFR 30-59 Stage 4 GFR 15-29 Stage 5 GFR <15 No Panel Information [facility] Vital Signs Date Time Vital Sign Value Performing Clinician Facility 07-06-2025 08:25-0400 Body height 182.9 cm Pst 1 [facility] 07-06-2025 08:25-0400 Body mass index (BMI) [Ratio] 30.38 kg/m2 Pst 1 [facility] 07-06-2025 08:25-0400 Body temperature 98.1 [degF] Pst 1 [facility] 07-06-2025 08:25-0400 Body weight 101.61 kg Pst 1 [facility] 07-06-2025 08:25-0400 Diastolic blood pressure 88 mm[Hg] Pst 1 [facility] 07-06-2025 08:25-0400 Heart rate 60 /min Pst 1 [facility] 07-06-2025 08:25-0400 Respiratory rate 18 /min Pst 1 [facility] 07-06-2025 08:25-0400 SaO2% (BldA) [Mass fraction] 99 % Pst 1 [facility] 07-06-2025 08:25-0400 Systolic blood pressure 153 mm[Hg] Pst 1 [facility] 06-05-2025 07:49-0400 Body height 188 cm Lanie Thakkar MD Work Phone: [facility] 06-05-2025 07:49-0400 Body mass index (BMI) [Ratio] 27.86 kg/m2 Lanie Thakkar MD Work Phone: [facility] 06-05-2025 07:49-0400 Body weight 98.43 kg Lanie Thakkar MD Work Phone: [facility] 06-05-2025 07:49-0400 Diastolic blood pressure 84 mm[Hg] Lanie Thakkar MD Work Phone: [facility] 06-05-2025 07:49-0400 Heart rate 91 /min Lanie Thakkar MD Work Phone: [facility] 06-05-2025 07:49-0400 Respiratory rate 16 /min Lanie Thakkar MD Work Phone: [facility] 06-05-2025 07:49-0400 SaO2% (BldA) [Mass fraction] 100 % Lanie Thakkar MD Work Phone: [facility] 06-05-2025 07:49-0400 Systolic blood pressure 131 mm[Hg] Lanie Thakkar MD Work Phone: [facility] 05-25-2025 20:18-0400 Diastolic blood pressure 58 mm[Hg] UNASSIGNED PHYSICIAN [facility] 05-25-2025 20:18-0400 Systolic blood pressure 108 mm[Hg] UNASSIGNED PHYSICIAN [facility] 05-25-2025 18:32-0400 Body height 187.96 cm UNASSIGNED PHYSICIAN [facility] 05-25-2025 18:32-0400 Body temperature 97.9 [degF] UNASSIGNED PHYSICIAN [facility] 05-25-2025 18:32-0400 Body weight 99.79 kg UNASSIGNED PHYSICIAN [facility] 05-25-2025 18:32-0400 Heart rate 111 /min UNASSIGNED PHYSICIAN [facility] 05-25-2025 18:32-0400 Respiratory rate 18 /min UNASSIGNED PHYSICIAN [facility] 05-25-2025 18:32-0400 SaO2% (BldA) [Mass fraction] 98 % UNASSIGNED PHYSICIAN [facility] 02-25-2025 07:29-0400 Body mass index (BMI) [Ratio] 30 kg/m2 No Primary Care Physician [facility] 02-25-2025 07:29-0400 Body weight 106.14 kg No Primary Care Physician [facility] 02-25-2025 07:29-0400 Diastolic blood pressure 77 mm[Hg] No Primary Care Physician [facility] 02-25-2025 07:29-0400 Heart rate 74 /min No Primary Care Physician [facility] 02-25-2025 07:29-0400 Respiratory rate 18 /min No Primary Care Physician [facility] 02-25-2025 07:29-0400 SaO2% (BldA) [Mass fraction] 100 % No Primary Care Physician [facility] 02-25-2025 07:29-0400 Systolic blood pressure 121 mm[Hg] No Primary Care Physician [facility] 05-09-2024 09:22-0400 Body height 188 cm Lanie Thakkar MD Work Phone: [facility] 05-09-2024 09:22-0400 Body mass index (BMI) [Ratio] 29.02 kg/m2 Lanie Thakkar MD Work Phone: [facility] 05-09-2024 09:22-0400 Body weight 102.51 kg Lanie Thakkar MD Work Phone: [facility] 05-09-2024 09:22-0400 Diastolic blood pressure 78 mm[Hg] Lanie Thakkar MD Work Phone: [facility] 05-09-2024 09:22-0400 Heart rate 69 /min Lanie Thakkar MD Work Phone: [facility] 05-09-2024 09:22-0400 Respiratory rate 18 /min Lanie Thakkar MD Work Phone: [facility] 05-09-2024 09:22-0400 SaO2% (BldA) [Mass fraction] 99 % Lanie Thakkar MD Work Phone: [facility] 05-09-2024 09:22-0400 Systolic blood pressure 128 mm[Hg] Lanie Thakkar MD Work Phone: [facility] 04-01-2024 11:12-0400 Body temperature 97.7 [degF] Joshua Urban MD Work Phone: [facility] 04-01-2024 11:12-0400 Diastolic blood pressure 75 mm[Hg] Joshua Urban MD Work Phone: [facility] 04-01-2024 11:12-0400 Heart rate 63 /min Joshua Urban MD Work Phone: [facility] 04-01-2024 11:12-0400 Respiratory rate 22 /min Joshua Urban MD Work Phone: [facility] 04-01-2024 11:12-0400 SaO2% (BldA) [Mass fraction] 99 % Joshua Urban MD Work Phone: [facility] [employer] [facility] 04-01-2024 11:12-0400 Systolic blood pressure 142 mm[Hg] Joshua Urban MD Work Phone: [facility] [employer] [facility] 04-01-2024 07:19-0400 Body height 188 cm Joshua Urban MD Work Phone: [facility] 04-01-2024 07:19-0400 Body mass index (BMI) [Ratio] 28.71 kg/m2 Joshua Urban MD Work Phone: [facility] [employer] 04-01-2024 07:19-0400 Body weight 101.42 kg Joshua Urban MD Work Phone: [facility] [employer] 03-14-2024 09:55-0400 Body mass index (BMI) [Ratio] 28.81 kg/m2 Marleni Russo MD Work Phone: [facility] 03-14-2024 09:55-0400 Body temperature 98.4 [degF] Marleni Russo MD Work Phone: [facility] 03-14-2024 09:55-0400 Body weight 101.79 kg Marleni Russo MD Work Phone: [facility] 03-14-2024 09:55-0400 Diastolic blood pressure 70 mm[Hg] Marleni Russo MD Work Phone: [facility] 03-14-2024 09:55-0400 Heart rate 83 /min Marleni Russo MD Work Phone: [facility] 03-14-2024 09:55-0400 Respiratory rate 20 /min Marleni Russo MD Work Phone: [facility] 03-14-2024 09:55-0400 SaO2% (BldA) [Mass fraction] 98 % Marleni Russo MD Work Phone: [facility] Comment on above: ra 03-14-2024 09:55-0400 Systolic blood pressure 146 mm[Hg] Marleni Russo MD Work Phone: [facility] 03-13-2024 08:14-0400 Body temperature 98.29 [degF] [employer] Work Phone: [facility] 03-13-2024 08:14-0400 Diastolic blood pressure 68 mm[Hg] [employer] Work Phone: [facility] 03-13-2024 08:14-0400 Heart rate 76 /min [employer] Work Phone: [phone] [place] [address] 03-13-2024 08:14-0400 Respiratory rate 20 /min [employer] Work Phone: [facility] 03-13-2024 08:14-0400 SaO2% (BldA) [Mass fraction] 97 % [employer] Work Phone: [facility] 03-13-2024 08:14-0400 Systolic blood pressure 149 mm[Hg] [employer] Work Phone: [facility] [employer] [facility] 03-11-2024 21:42-0400 Body height 188 cm [employer] Work Phone: [facility] 03-11-2024 21:42-0400 Body mass index (BMI) [Ratio] 28.25 kg/m2 [employer] Work Phone: [facility] [employer] [facility] 03-11-2024 21:42-0400 Body weight 99.79 kg [employer] Work Phone: [facility] 12-01-2023 02:33-0500 Body temperature 98.01 [degF] Brandon Bright MD Work Phone: [facility] [employer] [facility] 12-01-2023 02:33-0500 Diastolic blood pressure 82 mm[Hg] Brandon Bright MD Work Phone: [facility] 12-01-2023 02:33-0500 Heart rate 88 /min Brandon Bright MD Work Phone: [facility] 12-01-2023 02:33-0500 Respiratory rate 19 /min Brandon Bright MD Work Phone: [facility] 12-01-2023 02:33-0500 SaO2% (BldA) [Mass fraction] 99 % Brandon Bright MD Work Phone: [facility] 12-01-2023 02:33-0500 Systolic blood pressure 180 mm[Hg] Brandon Bright MD Work Phone: [facility] 12-01-2023 00:19-0500 Body height 188 cm Brandon Bright MD Work Phone: [facility] 12-01-2023 00:19-0500 Body mass index (BMI) [Ratio] 28.25 kg/m2 Brandon Bright MD Work Phone: [facility] 12-01-2023 00:19-0500 Body weight 99.79 kg Brandon Bright MD Work Phone: [facility] 01-23-2023 11:23-0400 Body height 188 cm Lanie Thakkar MD Work Phone: [facility] 01-23-2023 11:23-0400 Body weight 107.96 kg Lanie Thakkar MD Work Phone: [facility] 01-23-2023 11:23-0400 Diastolic blood pressure 84 mm[Hg] Lanie Thakkar MD Work Phone: [facility] 01-23-2023 11:23-0400 Heart rate 57 /min aLnie Thakkar MD Work Phone: [facility] 01-23-2023 11:23-0400 Respiratory rate 18 /min Lanie Thakkar MD Work Phone: [facility] 01-23-2023 11:23-0400 SaO2% (BldA) [Mass fraction] 99 % Lanie Thakkar MD Work Phone: [facility] 01-23-2023 11:23-0400 Systolic blood pressure 155 mm[Hg] Lanie Thakkar MD Work Phone: [facility] 01-10-2023 12:21-0500 Body height 188 cm Leo Iqbal MD Work Phone: [facility] 01-10-2023 12:21-0500 Body mass index (BMI) [Ratio] 30.3 kg/m2 Leo Iqbal MD Work Phone: [facility] 01-10-2023 12:21-0500 Body weight 107.05 kg Leo Iqbal MD Work Phone: [facility] 01-10-2023 12:21-0500 Diastolic blood pressure 71 mm[Hg] Leo Iqbal MD Work Phone: [facility] 01-10-2023 12:21-0500 Heart rate 53 /min Leo Iqbal MD Work Phone: [facility] 01-10-2023 12:21-0500 Respiratory rate 16 /min Leo Iqbal MD Work Phone: [facility] 01-10-2023 12:21-0500 SaO2% (BldA) [Mass fraction] 99 % Leo Iqbal MD Work Phone: [facility] 01-10-2023 12:21-0500 Systolic blood pressure 155 mm[Hg] Leo Iqbal MD Work Phone: [facility] 11-21-2022 11:27-0500 Body height 187.96 cm No Primary Care Physician [facility] 11-21-2022 11:27-0500 Body mass index (BMI) [Ratio] 30.2 kg/m2 No Primary Care Physician [facility] 11-21-2022 11:27-0500 Body weight 106.59 kg No Primary Care Physician [facility] 11-21-2022 11:27-0500 Diastolic blood pressure 60 mm[Hg] No Primary Care Physician [facility] 01-10-2023 11:27-0500 Heart rate 56 /min No Primary Care Physician [facility] 11-21-2022 11:27-0500 Respiratory rate 18 /min No Primary Care Physician [facility] 11-21-2022 11:27-0500 Systolic blood pressure 118 mm[Hg] No Primary Care Physician [facility] 05-06-2020 07:36-0400 BMI (Body Mass Index) 28.89 kg/m2 Alexandra [facility] 05-06-2020 07:36-0400 Body weight 102.06 kg [facility] 05-06-2020 07:36-0400 BP Diastolic 76 mm[Hg] [facility] 05-06-2020 07:36-0400 BP Systolic 134 mm[Hg] [facility] 05-06-2020 07:36-0400 Height 188 cm [facility] 05-06-2020 07:36-0400 Pulse (Heart Rate) 47 /min [facility] 04-28-2020 07:27-0400 Body Temperature 98.1 [degF] [facility] 04-28-2020 07:27-0400 BP Diastolic 69 mm[Hg] [facility] 04-28-2020 07:27-0400 BP Systolic 122 mm[Hg] [facility] 04-28-2020 07:27-0400 Pulse (Heart Rate) 49 /min [facility] 04-28-2020 07:27-0400 Pulse Oximetry 96 % [facility] 04-28-2020 07:27-0400 Respiratory Rate 15 /min [facility] 04-27-2020 05:13-0400 BMI (Body Mass Index) 28.96 kg/m2 [facility] 04-27-2020 05:13-0400 Body weight 102.3 kg [facility] 04-27-2020 05:13-0400 Height 188 cm [facility] 04-27-2020 01:58-0400 Pulse (Heart Rate) 54 /min Pawel Xiao [facility] 04-27-2020 01:58-0400 Pulse Oximetry 98 % Pawel Vila [facility] 04-27-2020 01:58-0400 Respiratory Rate 17 /min [facility]el [facility] 04-27-2020 01:46-0400 BP Diastolic 72 mm[Hg] [facility] 04-27-2020 01:46-0400 BP Systolic 153 mm[Hg] [facility] 04-26-2020 20:48-0400 BMI (Body Mass Index) 29.84 kg/m2 [facility] 04-26-2020 20:48-0400 Body Temperature 97.81 [degF] [facility] 04-26-2020 20:48-0400 Body weight 105.41 kg [facility] 04-26-2020 20:48-0400 Height 188 cm [facility] Encounters Encounter Date Encounter Type Care Provider Facility Start: 10-09-2025 ambulatory Lanie Saleh ity:[facility] Start: 09-14-2025 End: 09-14-2025 ambulatory ORAL MILLER [facility] [facility] Start: 07-10-2025 End: 07-10-2025 Telephone encounter Alex Arroyo MD Work Phone: [facility] Comment on above: Orders Start: 07-09-2025 End: 07-10-2025 ambulatory LANIE THAKKAR Facility:[facility] Start: 07-08-2025 End: 07-08-2025 ambulatory LANIE THAKKAR Facility:[facility] Start: 07-06-2025 End: 07-06-2025 Admission to establishment Pst [facility] Pre Surgical Testing Start: 07-06-2025 End: 07-06-2025 Preprocedural examination done Pst 1 [facility] Start: 07-06-2025 End: 07-06-2025 ambulatory LANIE THAKKAR Pre Surgical Testing Comment on above: Old myocardial infar ction (Primary Dx); Paroxysmal atrial fibrillation (HCC); Stage 3a chronic kidney disease (HCC); Anticoagulant long-term use; Pre-op exam [Z01.818]; Obesity (BMI 30-39.9) Start: 07-06-2025 Encounter for other preprocedural examination LANIE THAKKAR [facility] Start: 07-01-2025 End: 07-03-2025 Preprocedural examination done Pst 1 [facility] Start: 06-16-2025 End: 06-16-2025 Telephone encounter Lanie Thakkar MD Work Phone: [facility] [place] Comment on above: Results Start: 06-12-2025 End: 06-12-[address] Miguel Ángel Oviedo MD -[facility] Work Phone: Start: 06-12-2025 End: 06-12-2025 ambulatory No Primary Care Physician -[facility] Start: 06-05-2025 End: 06-05-2025 Office outpatient visit 25 minutes Lanie Thakkar MD Work Phone: [facility] Comment on above: Paroxysmal atrial fi brillation (HCC) (Primary Dx); Status post catheter ablation of atrial fibrillation; At risk for stroke; Anticoagulant medication declined by patient; Bradycardia; Sinus bradycardia; Right bundle branch block (RBBB); Atherosclerosis of knik coronary artery of knik heart without angina pectoris; Old myocardial infarction; History of ST elevation myocardial infarction (STEMI); History of coronary artery stent placement Start: 06-05-2025 End: 06-05-2025 ambulatory LANIE THAKKAR Facility:[facility] Start: 05-25-2025 End: 05-25-2025 ambulatory ORAL MILLER Facility: Start: 05-25-2025 End: 05-25-2025 Emergency department patient visit UNASSIGNED PHYSICIAN [facility] Start: 05-25-2025 End: 05-25-2025 Telephone encounter Lanie Thakkar MD Work Phone: [facility] [place] Comment on above: Patient Update Start: 04-28-2025 End: 04-28-2025 ambulatory [facility] Start: 04-03-2025 End: 04-03-2025 ambulatory [facility] Start: 02-25-2025 End: 02-25-2025 Patient encounter procedure Christopher LOW -[facility] Work Phone: Start: 02-25-2025 End: 02-25-2025 ambulatory Out of Town Doctor Facility:[facility] Start: 10-23-2024 End: 10-23-2024 ambulatory ORAL MILLER [facility] Start: 09-12-2024 End: 09-12-2024 Subsequent hospital visit by physician Joshua Urban MD Work Phone: [facility] Comment on above: Renal stone Start: 05-09-2024 End: 05-09-2024 Patient encounter procedure Lanie Thakkar MD Work Phone: [facility] Comment on above: Paroxysmal atrial fi brillation (HCC) (Primary Dx); Status post catheter ablation of atrial fibrillation; PAC (premature atrial contraction); Bradycardia; Sinus bradycardia; Right bundle branch block (RBBB); Atherosclerosis of knik coronary artery of knik heart without angina pectoris; Old myocardial infarction; History of ST elevation myocardial infarction (STEMI); History of coronary artery stent placement; Ischemic cardiomyopathy; At risk for stroke; Anticoagulant medication declined by patient Start: 04-02-2024 End: 04-02-2024 Subsequent hospital visit by physician Joshua Urban MD Work Phone: [facility] Comment on above: Renal stone Start: 04-01-2024 End: 04-01-2024 Subsequent hospital visit by physician Joshua Urban MD Work Phone: [facility] Comment on above: Renal stone (Primary Dx); Right ureteral stone; Right kidney stone Start: 03-26-2024 Patient encounter procedure [facility] Start: 03-25-2024 Patient encounter procedure [facility] Start: 03-20-2024 Patient encounter procedure [facility] Start: 03-20-2024 Telephone encounter Lanie salas MD Work Phone: [facility] [place] Comment on above: Medication Clearance Start: 03-18-2024 End: 03-18-2024 Subsequent hospital visit by physician Joshua Urban MD Work Phone: [facility] Comment on above: Right kidney stone Start: 03-14-2024 End: 03-14-2024 Office outpatient visit 25 minutes Marleni Russo MD Work Phone: [facility] Comment on above: Acute renal failure superimposed on stage 3b chronic kidney disease, unspecified acute renal failure type (HCC) (Primary Dx) Start: 03-11-2024 End: 03-13-2024 Emergency department patient visit [facility] Work Phone: [facility] Comment on above: Right ureteral stone (Primary Dx); Hydronephrosis with ureteropelvic junction (UPJ) obstruction; STANISLAW (acute kidney injury) (HCC) Start: 12-01-2023 End: 12-01-2023 Emergency department patient visit Brandon Bright MD Work Phone: [facility] Comment on above: Right kidney stone ( Primary Dx); Hydroureteronephrosis Start: 08-02-2023 End: 08-02-2023 Patient encounter procedure Juan Daniel Noel APRN.CNP Work Phone: [facility] [place] Comment on above: Status post catheter ablation of atrial fibrillation (Primary Dx); Paroxysmal atrial fibrillation (HCC); PAC (premature atrial contraction); Right bundle branch block (RBBB); History of coronary artery stent placement; At risk for stroke Start: 07-17-2023 Non-patient / Non-visit No [facility] Physician [facility] Start: 07-17-2023 End: 07-17-2023 ambulatory No Primary Care Physician [facility] Work Phone: Start: 07-17-2023 End: 07-17-2023 Patient encounter procedure No Primary Care Physician [facility]Cardiov[facility]cul [facility] Services Work Phone: Start: 06-28-2023 Non-patient / Non-visit No [facility] Work Phone: Start: 05-28-2023 Telephone encounter Lanie slaas MD Work Phone: [facility] [place] Comment on above: Patient Update; Josy tment Planning Start: 01-23-2023 End: 01-23-2023 Patient encounter procedure Lanie Thakkar MD Work Phone: [facility] [place] Comment on above: Paroxysmal atrial fi brillation (HCC) (Primary Dx); intermediate card tender current use of antiarrhythmic drug; At risk for stroke; Bradycardia; Atherosclerosis of knik coronary artery of knik heart without angina pectoris; Old myocardial infarction; Ischemic cardiomyopathy; Right bundle branch block (RBBB); Status post catheter ablation of atrial fibrillation Start: 01-12-2023 Telephone encounter Ag Card Work Phone: [facility] [place] Comment on above: Appointment Start: 01-11-2023 Documentation procedure [facility] Start: 01-10-2023 End: 01-10-2023 Office outpatient new 60 minutes Leo Iqbal MD Work Phone: [facility] Comment on above: Paroxysmal atrial fi brillation (Primary Dx); Daytime somnolence Start: 01-10-2023 ambulatory LEO JUNO Facility:[facility] Start: 12-29-2022 Non-patient / Non-visit No [facility] Physician [facility] Start: 12-26-2022 End: 12-26-2022 ambulatory No Primary Care Physician [facility] Work Phone: Start: 12-26-2022 End: 12-26-2022 Patient encounter procedure No Primary Care Physician [facility]-Pulmonary Services/Neurology Start: 11-30-2022 Non-patient / Non-visit No [facility] Start: 11-30-2022 End: 11-30-2022 ambulatory No Primary Care Physician [facility] Work Phone: Start: 11-30-2022 End: 11-30-2022 Patient encounter procedure No Primary Care Physician [facility]-Cardiovascul [facility] Services Start: 11-21-2022 End: 11-21-2022 ambulatory No Primary Care Physician [facility] Work Phone: Start: 11-21-2022 End: 11-21-2022 Patient encounter procedure No Primary Care Physician [facility] [facility] Start: 10-25-2022 ambulatory LEO JUNO Facility:[facility] Start: 06-21-2021 End: 06-21-2021 Subsequent hospital visit by physician Taya Lynch PA-C Work Phone: [facility] Comment on above: Tick bite, initial e ncounter; Screening, anemia, deficiency, iron; Encounter for screening examination for impaired glucose regulation and diabetes mellitus; Screening, ischemic heart disease; Need for hepatitis C screening test Start: 12-20-2020 End: 12-20-2020 Orders Only Lashae Guerrarustam Riley Work Phone: [facility] Start: 05-06-2020 End: 05-10-2020 Patient encounter procedure ALEXANDRA SORENSEN [facility] Start: 05-06-2020 End: 05-06-2020 Patient encounter procedure Alexandra Sorensen Work Phone: [facility] Comment on above: Encounter for fittin g and adjustment of urinary device Start: 04-27-2020 End: 04-28-2020 Evaluation and management of inpatient PROVIDER NOT IN SYSTEM [facility] Start: 04-27-2020 End: 04-28-2020 Evaluation and management of inpatient [facility] Work Phone: [facility] Surgical Unit 2 Comment on above: Right ureteral stone Start: 04-26-2020 End: 04-27-2020 Emergency department patient visit Pawel Vila Work Phone: [facility] Comment on above: Kidney stones (Prima ry Dx); Diverticulosis; Lumbar spondylosis; Renal atrophy Start: 09-08-2019 End: 09-08-2019 Subsequent hospital visit by physician Lina Matamoros Work Phone: [facility] Comment on above: Coronary artery dise ase involving knik coronary artery of knik heart without angina pectoris; CKD (chronic kidney disease) stage 3, GFR 30-59 ml/min ([facility]); Medication monitoring encounter Procedures Date Procedure Procedure Detail Performing Clinician Start: 07-08-2025 Antibody screen LANIE THAKKAR Comment on above: Order Comment: Speci men Type: BLOOD SPECIMENOrdering Facility: [facility] Address: [address] [place] [address] Performed By: #### T SCR ####[facility] BLOOD BANKCLIA [id number] [place] [address] [place] Start: 07-06-2025 Ecg routine ecg w/le ast 12 lds trcg only w/o i&r [facility] Provider Start: 06-05-2025 Ecg routine ecg w/le ast 12 lds w/i&r Lanie Thakkar MD Work Phone: Start: 05-25-2025 X-ray of chest anteroposterior view UNASSIGNED PHYSICIAN Start: 09-12-2024 Ct abdomen & pelvis w/o contrast material Joshua Urban MD Work Phone: Start: 08-12-2024 Lipid 1996 panel - S nkechi or Plasma Joshua Urban MD Work Phone: Start: 05-09-2024 Ecg routine ecg w/le ast 12 lds w/i&r Lanie Thakkar MD Work Phone: Start: 04-22-2024 Lipid 1996 panel - S nkechi or Plasma Lanie Thakkar MD Work Phone: Start: 04-02-2024 Ct abdomen & pelvis w/o contrast material Joshua Urban MD Work Phone: Start: 03-18-2024 Radiologic exam abdo men 1 view Joshua Urban MD Work Phone: Start: 03-14-2024 Basic metabolic pane l calcium total Marleni Russo MD Work Phone: Start: 03-13-2024 Basic metabolic pane l calcium total Phylicia Pratt APRN GROUP SALES COORDINATOR Work Phone: Start: 03-12-2024 RF Kidney and Ureter and Urinary bladder Views during surgery W contrast retrograde Joshua Urban MD Work Phone: Start: 03-12-2024 End: 03-12-2024 URETERAL STENT Joshua Urban MD Work Phone: Start: 03-12-2024 End: 03-12-2024 Comprehensive metabolic panel Phylicia Pratt APRN GROUP SALES COORDINATOR Work Phone: Start: 03-12-2024 Ecg routine ecg w/le ast 12 lds trcg only w/o i&r Phylicia Pratt SUKUMAR GROUP SALES COORDINATOR Work Phone: Start: 03-11-2024 Urnls dip stick/tabl et rgnt non-auto w/o micrscp Keren Mcneill GEOTHERMAL HEAT PUMP MACHINIST GROUP SALES COORDINATOR Work Phone: Start: 03-11-2024 Ct abdomen & pelvis w/o contrast material Keren Mcneill APRN GROUP SALES COORDINATOR Work Phone: Start: 03-11-2024 Comprehensive metabo lic panel Keren Mcneill APRN GROUP SALES COORDINATOR Work Phone: Start: 12-01-2023 Urnls dip stick/tabl et rgnt non-auto w/o micrscp Brandon Bright MD Work Phone: Start: 12-01-2023 Ct abdomen & pelvis w/o contrast material Brandon Bright MD Work Phone: Start: 12-01-2023 Comprehensive metabo lic panel Brandon Bright MD Work Phone: Start: 08-02-2023 Ecg routine ecg w/le ast 12 lds w/i&r Juan Daniel Bellburton PATINO.DIRECTOR OF SOFTWARE ENGINEERING Work Phone: Start: 01-23-2023 Ecg routine ecg w/le ast 12 lds w/i&r Lanie Thakkar MD Work Phone: Start: 01-10-2023 Ecg routine ecg w/le ast 12 lds trcg only w/o i&r Leo Iqbal MD Work Phone: Start: 06-21-2021 CBC W Auto Different ial panel - Blood Taya Lynch PA-C Work Phone: Start: 06-21-2021 Comprehensive metabo lic panel Taya Lynch PA-C Work Phone: Start: 06-21-2021 GLOMERULAR FILTRATION RATE Taya Lynch PA-C Work Phone: Start: 06-21-2021 Lipid panel Taya romero PA-C Work Phone: Start: 06-21-2021 Adult depression scr eening assessment Taya Lynch PA-C Work Phone: Start: 06-21-2021 Lipid 1996 panel - S nkechi or Plasma Taya Lynch PA-C Work Phone: Start: 04-28-2020 Basic metabolic 1998 panel - Serum or Plasma Bradley Aquinorich Hernandez Work Phone: Start: 04-27-2020 End: 04-27-2020 CYSTOSCOPY WITH RETROGRADE STONE MANIPULATION STENT INSERTION WITH LASER Alexandra Sorensen Work Phone: Start: 04-27-2020 12 lead ECG Rashard Tariq Work Phone: Start: 04-27-2020 Complete blood count (hemogram) panel - Blood by Automated count Kesha Cordell Work Phone: Start: 04-27-2020 Comprehensive metabo lic 2000 panel - Serum or Plasma Kesha Cordell Work Phone: Start: 04-27-2020 Urinalysis Kesha denis Work Phone: Start: 04-27-2020 COVID-19, MOLECULAR Jhonathan n Nah Fe Work Phone: Start: 04-26-2020 Urnls dip stick/tabl et reagent auto microscopy Georgia Mcfarlane Work Phone: Start: 04-26-2020 CT Abdomen and Pelvi s WO contrast Pawel Vila Work Phone: Start: 04-26-2020 Assay of lipase Milo Mcfarlane Work Phone: Start: 04-26-2020 Basic metabolic pane l calcium total Georgia Mcfarlane Work Phone: Start: 04-26-2020 CBC WITH DIFFERENTIAL E jocy Mcfarlane Work Phone: Start: 04-26-2020 GLOMERULAR FILTRATION RATE Georgia Mcfarlane Work Phone: Start: 04-26-2020 Hepatic function panel Georgia Mcfarlane Work Phone: Start: 09-08-2019 Basic metabolic pane l calcium total Lina Matamoros Work Phone: Start: 09-08-2019 Blood count complete automated Lina Matamoros Work Phone: Start: 09-08-2019 GLOMERULAR FILTRATION RATE Lina Matamoros Work Phone: Start: 01-06-2018 History of placement of stent for coronary artery disease History of coronary artery stent placement Christopher LOW Comment on above: YUY-ADS-Fprqiy RCA w / 4 x 15 mm Resolute Stent 01/06/18 History of placement of stent for coronary artery disease History of coronary artery stent placement Juan Daniel Noel APRN.CNP Work Phone: History of placement of stent for coronary artery disease History of coronary artery stent placement Lanie Thakkar MD Work Phone: History of placement of stent for coronary artery disease History of coronary artery stent placement Lanie Thakkar MD Work Phone: Plan of Treatment Date Care Activity Detail Author Start: 08-12-2029 Fasting lipid profile LIPID SCREENING [facility] Start: 08-12-2029 Lipid panel Lipid Screening [facility] Start: 04-22-2029 Lipid panel Lipid Screening [facility] Start: 2028 RSV Vaccine (1 - 1-dose 75+ series) RSV Vaccine (1 - 1-dose 75+ series) [facility] Start: 07-10-2028 Diabetes Screening Diabetes Screening [facility] Start: 04-22-2027 Diabetes Screening Diabetes Screening [facility] Start: 03-14-2027 Diabetes Screening Diabetes Screening [facility] Start: 07-10-2026 Complete blood count Hemoglobin/Hematocrit [facility] Start: 07-10-2026 Creatinine measurement Serum Creatinine [facility] Start: 06-21-2026 Fasting lipid profile LIPID SCREENING [facility] Start: 06-21-2026 Lipid 1996 panel - Serum or Plasma Lipid Screening [facility] Start: 06-21-2026 Lipid panel Lipid Screening [facility] Start: 06-21-2026 LIPID SCREEN LIPID SCREEN [facility] Start: 05-02-2026 DIABETES SCREEN DIABETES SCREEN [facility] Start: 05-02-2026 Diabetes Screening Diabetes Screening [facility] Start: 10-26-2025 ambulatory Ambulatory [facility] Start: 08-12-2025 Complete blood count Hemoglobin/Hematocrit [facility] Start: 08-12-2025 Creatinine measurement Serum Creatinine [facility] Start: 07-13-2025 Influenza vaccination Influenza Vaccine (#1) [facility] Start: 07-08-2025 End: 07-08-2025 Admission to same day surgery center 07/08/2025 3:10 PM EDT - 07/08/2025 6:50 PM EDT Surgery [address] [place] [address] Lanie Thakkar MD [address] [place] [address] COMPRE EP EVAL ABLTJ ATR FIB PULM VEIN ISOLATION [facility] Comment on above: COMPRE EP EVAL ABLTJ ATR FIB PULM VEIN I SOLATION Start: 07-08-2025 End: 07-08-2025 Ephys evl trnsptl tx atrial fib isolat pulm vein COMPRE EP EVAL ABLTJ ATR FIB PULM VEIN ISOLATION Paroxysmal atrial fibrillation (HCC) Status post catheter ablation of atrial fibrillation 07/08/2025 3:10 PM EDT [facility] Start: 07-08-2025 Subsequent hospital visit by physician [facility] Comment on above: Paroxysmal atrial fibrillation (HCC) [I4 8.0], Status post catheter ablation of atrial fibrillation [Z98.890] Start: 06-12-2025 Evaluation of diagnostic study results [facility] Start: 06-05-2025 End: 06-05-2025 Patient encounter procedure 06/05/2025 8:00 AM EDT Office Visit [facility] [address] [place], [place] [id number] Lanie Thakkar MD [address] [place] [address] 1 year follow up [facility] Comment on above: 1 year follow up Start: 05-25-2025 Troponin I.cardiac panel - Serum or Plasma by High sensitivity method [facility] Start: 05-25-2025 Troponin I.cardiac panel - Serum or Plasma by High sensitivity method [facility] Start: 05-25-2025 Electrocardiographic procedure EKG [facility] Start: 04-23-2025 Creatinine measurement Serum Creatinine [facility] Start: 04-22-2025 Complete blood count Hemoglobin/Hematocrit [facility] Start: 03-14-2025 Creatinine measurement Serum Creatinine [facility] Start: 03-12-2025 Complete blood count Hemoglobin/Hematocrit [facility] Start: 11-12-2024 Advance Directive Discussion Advance Directive Discussion [facility] Start: 10-06-2024 End: 10-06-2024 Patient encounter procedure 10/06/2024 3:00 PM EST Office Visit [facility] [address] [id number] Joshua Urban MD [address] [address] [facility] Start: 07-13-2024 COVID-19 VACCINE ( season) COVID-19 VACCINE ( season) [facility] Start: 07-13-2024 Influenza vaccination [facility] Start: 07-13-2024 Influenza vaccination given [facility] Start: 06-21-2024 DIABETES SCREEN DIABETES SCREEN [facility] Start: 05-09-2024 End: 05-09-2024 Patient encounter procedure 05/09/2024 9:20 AM EDT Office Visit [facility] [address] [place] [address] Lanie Thakkar MD [address] [place] [address] overdue 6 month follow up EKG/eo [facility] Comment on above: overdue 6 month follow up EKG/eo Start: 05-02-2024 HEMOGLOBIN/HEMATOCRIT HEMOGLOBIN/HEMATOCRIT [facility] Start: 05-02-2024 SERUM CREATININE SERUM CREATININE [facility] Start: 04-14-2024 End: 04-14-2024 Patient encounter procedure 04/14/2024 12:00 PM EDT Office Visit [facility] [address] [place] [id number] Joshua Urban MD [address] [place] [phone] [facility] Start: 04-01-2024 End: 04-01-2024 CYSTO URETEROSCOPY WITH LITHOTRIPSY WITH LASER CYSTO URETEROSCOPY WITH LITHOTRIPSY WITH LASER Renal stone 04/01/2024 8:36 AM EDT [facility] Start: 04-01-2024 End: 04-01-2024 URETERAL STENT URETERAL STENT Renal stone 04/01/2024 8:36 AM EDT [facility] Start: 03-21-2024 End: 03-21-2024 Patient encounter procedure 03/21/2024 1:00 PM EDT Office Visit [address] [phone] Taya Lynch PA-C [address] [place] [phone] [facility] Start: 03-19-2024 End: 03-19-2024 Patient encounter procedure 03/19/2024 11:30 AM EDT Office Visit [facility] [address] [place] [address] Joshua Urban MD [address] [place] [phone] [facility] Start: 03-14-2024 End: 03-14-2024 Patient encounter procedure 03/14/2024 10:00 AM EDT Appointment [facility] [address] [place] [address] Provider, Meredith Acc Generic Dept [facility] Start: 11-12-2023 Advance Directive Discussion Advance Directive Discussion [facility] Start: 11-12-2023 Behavioral Health Screening Behavioral Health Screening [facility] Start: 07-13-2023 Covid-19 Vaccine () Covid-19 Vaccine () [facility] Start: 07-13-2023 Influenza vaccination [facility] Start: 07-13-2023 Influenza vaccination given INFLUENZA VACCINE (#1) [facility] Start: 01-10-2023 End: 01-11-[address] CARDIAC PULMONARY VENOGRAM Imaging Routine Paroxysmal atrial fibrillation Daytime somnolence Expected: 01/10/2023, Expires: 01/11/2024 [facility] Comment on above: Expected: 01/10/2023, Expires: 4 Start: 01-10-2023 End: 01-11-2024 Overnight pulse oximetry MS [address] HOME SLEEP STUDY MS - OFFICE PERFORMED Routine Paroxysmal atrial fibrillation Daytime somnolence Expected: 01/10/2023, Expires: 01/11/2024 [facility] Comment on above: Expected: 01/10/2023, Expires: 4 Start: 11-12-2022 ADVANCE DIRECTIVE DISCUSSION ADVANCE DIRECTIVE DISCUSSION [facility] Start: 11-12-2022 DEPRESSION ASSESSMENT DEPRESSION ASSESSMENT [facility] Start: 07-13-2022 Influenza vaccination [facility] Start: 06-27-2022 End: 06-27-2022 Patient encounter procedure 06/27/2022 Office Visit Family Medicine Taya Lynch PA-C [address] [place] [address] [phone] [facility] [address] ADULT Start: 06-21-2022 Depression screening using PHQ-9 (Patient Health Questionnaire 9) score DEPRESSION SCREENING [facility] Start: 06-21-2022 SERUM CREATININE SERUM CREATININE [facility] Start: 07-13-2021 Influenza vaccination given INFLUENZA VACCINE (#1) [employer] [facility] Start: 04-27-2021 HEMOGLOBIN/HEMATOCRIT HEMOGLOBIN/HEMATOCRIT [facility] Start: 04-26-2021 CBC panel - Blood by Automated count CBC [facility] Start: 04-26-2021 Creatinine measurement CREATININE LEVEL (ANNUAL) [facility] Start: 10-26-2020 Renal function test NOS RENAL PROFILE [facility] Start: 07-13-2020 Influenza vaccination given [facility] Start: 02-25-2020 End: 02-25-2020 Office Visit 02/25/2020 Office Visit Cardiology [facility] Start: 01-22-2020 End: 01-22-2020 Office Visit 01/22/2020 Office Visit Cardiology [facility] Start: 07-13-2019 Influenza vaccination given INFLUENZA VACCINE (#1) [facility] [employer] [facility] Start: 2018 Abdominal aortic aneurysm screening ABDOMINAL AORTIC ANEURYSM HIGH RISK SCREEN [facility] Start: 2018 Fall risk assessment FALL RISK [facility] Start: 2018 Glaucoma screening GLAUCOMA/EYE EXAM AGE 65+ [facility] Start: 2018 Pneumococcal 23-valent polysaccharide vaccination given (situation) [facility] Start: 2018 Pneumococcal polysaccharide vaccine (product) PNEUMONIA VACCINE (PCV13 PPSV23) (1 of 2 - PCV13) [facility] Start: 2018 Pneumococcal vaccination [facility] Start: 2018 Pneumococcal Vaccine: 65+ (1 - PCV) Pneumococcal Vaccine: 65+ (1 - PCV) [facility] Start: 2018 Pneumococcal Vaccine: 65+ (1 of 1 - PCV) Pneumococcal Vaccine: 65+ (1 of 1 - PCV) [facility] Start: 2018 PNEUMOCOCCAL: 65+ (1 - PCV) PNEUMOCOCCAL: 65+ (1 - PCV) [facility] Start: 07-13-2018 Medicare Annual Wellness Visit Medicare Annual Wellness Visit [facility] Start: 2013 RSV Vaccine (1 - 1-dose 60+ series) RSV Vaccine (1 - 1-dose 60+ series) [facility] Start: 2013 RSV Vaccine (1 - Risk 60-74 years 1-dose series) RSV Vaccine (1 - Risk 60-74 years 1-dose series) [facility] Start: 2013 Varicella-zoster vaccine (product) ADULT VZV VACCINE [facility] Start: 2008 Prostate specific antigen measurement PSA SHARED DECISION MAKING [facility] Start: 2003 Administration of herpes zoster vaccine Zoster Vaccines (1 of 2) [facility] Start: 2003 Colonoscopy [facility] Start: 2003 Pneumococcal Vaccine: 50+ (1 of 1 - PCV) Pneumococcal Vaccine: 50+ (1 of 1 - PCV) [facility] Start: 2003 Prostate specific antigen measurement PROSTATE CANCER SCREENING DISCUSSION [facility] Start: 2003 Screening for malignant neoplasm of colon [facility] Start: 2003 SHINGLES VACCINE (1 of 2) SHINGLES VACCINE (1 of 2) [facility] Start: 2003 SHINGRIX VACCINE (1 of 2) SHINGRIX VACCINE (1 of 2) [facility] Start: 2003 Zoster vaccine hzv live for subcutaneous use ZOSTER (SHINGLES) VACCINE (1 of 2) [facility] Start: 1998 COLOGUARD (FIT-DNA) COLOGUARD (FIT-DNA) [facility] Start: 1998 Colonoscopy COLONOSCOPY [facility] Start: 1998 COLORECTAL CANCER SCREENING COLORECTAL CANCER SCREENING [facility] Start: [address] COLONOGRAPHY [facility] Start: 1998 FECAL OCCULT BLOOD FECAL OCCULT BLOOD [facility] Start: 1998 Screening for malignant neoplasm of colon [facility] Start: 1998 SIGMOIDOSCOPY SIGMOIDOSCOPY [facility] Start: 1993 Lipid panel LIPID SCREENING [facility] Start: 1988 Fasting lipid profile LIPID SCREENING [facility] Start: 1974 Tetanus, diphtheria and acellular pertussis vaccination TDAP/TD ADULT [facility] Start: 1972 Third diphtheria, tetanus and acellular pertussis (DTaP) vaccination TDAP (ADULT) [facility] Start: 1972 [facility]rine [facility]albumin [facility] Start: 1971 ANNUAL PCP TEAM CHRONIC DISEASE VISIT ANNUAL PCP TEAM CHRONIC DISEASE VISIT [facility] Start: 1971 ANNUAL WELLNESS VISIT ANNUAL WELLNESS VISIT [facility] Start: 1971 Anxiety Screening Anxiety Screening [facility] Start: 1971 Depression Screening Depression Screening [facility] Start: 1971 Hepatitis B surface antibody level LDL CHOLESTEROL [facility] Start: 1971 Hepatitis C antibody, confirmatory test Hepatitis C Screening [facility] Start: 1971 HEPATITIS C SCREENING HEPATITIS C SCREENING [facility] Start: 1971 WELLNESS ANNUAL VISIT WELLNESS ANNUAL VISIT [facility] Start: 1969 COVID-19 Vaccine (1 of 2) COVID-19 Vaccine (1 of 2) [facility] Start: 1965 Adolescent depression screening assessment Depression Screening (PHQ9) [facility] Start: 1965 Adult depression screening assessment [facility] Start: 1965 Depression screening using PHQ-9 (Patient Health Questionnaire 9) score DEPRESSION SCREENING [facility] Start: 1964 Administration of diphtheria + tetanus + acellular pertussis vaccine DTAP/TDAP/TD VACCINE (1 - Tdap) [facility] Start: 1964 Diphtheria + pertussis + tetanus vaccine (product) DTAP/TDAP/TD VACCINE (1 - Tdap) [facility] Start: 1963 Albumin DL <= 20 mg/L (U) [Mass/Vol] Urine Microalbumin [facility] Start: 1959 Pneumococcal 23-valent polysaccharide vaccination given (situation) [facility] Start: 1956 History and physical examination, annual for health maintenance Wellness Visit [facility] Start: 01-20-1954 COVID-19 VACCINE (#1) COVID-19 VACCINE (#1) [facility] Start: 1953 CLASS III : CREATININE CLASS III : CREATININE [facility] Start: 1953 CLASS III : EKG CLASS III : EKG [facility] Start: 1953 CLASS III : OFFICE VISIT CLASS III : OFFICE VISIT [facility] Start: 1953 CLASS III : POTASSIUM CLASS III : POTASSIUM [facility] Start: 1953 Class III: Magnesium Class III: Magnesium [facility] Start: 1953 Fall risk assessment Falls Risk Assessment [facility] Start: 1953 Hepatitis C antibody, confirmatory test Hepatitis C Screening [facility] Start: 1953 Hepatitis C screening [facility] Start: 1953 INTACT PARATHYROID HORMONE (iPTH) INTACT PARATHYROID HORMONE (iPTH) [facility] Start: 1953 Prostate specific antigen measurement PSA Level [facility] Start: 1953 RENAL US RENAL US [facility] Start: 1953 Screening for malignant neoplasm of colon Colorectal Cancer Screening: Colonoscopy [facility] Start: 1953 Tetanus vaccination [facility] Start: 1953 Urine screening for protein MICROALBUMINURIA [facility] Start: 1953 VITAMIN 25 ([place]) D VITAMIN 25 ([place]) D [facility] Ambulatory ECG [facility] End: 12-01-2023 Bacteria identified in Urine by Culture Urine culture and sensitivity Microbiology JOSÉ LUIS One Time for 1 Occurrences starting 12/01/2023 until 12/01/2023 [facility] Comment on above: One Time for 1 Occurrences starting 11/13 until 12/01/2023 Bacteria identified in Urine by Culture Urine culture and sensitivity Microbiology JOSÉ LUIS 12/01/2023 1:58 AM [facility] Cardiac telemetry MOBILE CARDIAC TELEMETRY ECG Routine Paroxysmal atrial fibrillation Daytime somnolence Ordered: 01/10/2023 [facility] Comment on above: Ordered: 01/10/2023 CT Abdomen and Pelvi s WO contrast CT Abdomen / Pelvis Without ANY Contrast Imaging STAT 04/26/2020 10:52 PM EDT [facility] End: 12-01-2023 Dark Green Top Dark Green Top Lab JOSÉ LUIS Once for 1 Occurrences starting 12/01/2023 until 12/01/2023, 1 completed [facility] Comment on above: Once for 1 Occurrences starting 12/01/19 until 12/01/2023, 1 completed Dark Green Top Dark Green Top L ab JOSÉ LUIS 12/01/2023 12:26 AM EST [facility] End: 03-11-2024 Dark Green Top [facility] Comment on above: Once for 1 Occurrences starting 03/11/20 until 03/11/2024, 1 completed Electrocardiogram EKG BIC Routin e 07/06/2025 8:42 AM EDT [facility] Ephys evl trnsptl tx atrial fib isolat pulm vein ABLATION SCHED INTERCARDIAC A-FIB TRANSEPTAL BY PULM VEIN ISOLATION W/EP EVAL ([id number]) Paroxysmal atrial fibrillation Daytime somnolence [facility] EP Ephys evl trnsptl tx atrial fib isolat pulm vein COMPRE EP EVAL ABLTJ ATR FIB PULM VEIN ISOLATION Paroxysmal atrial fibrillation (HCC) Status post catheter ablation of atrial fibrillation [place] [facility] Glucose [Mass/volume ] in Serum or Plasma POCT glucose Point of Care Testing Routine As Needed until discontinued starting 04/01/2024 [facility] Comment on above: As Needed until discontinued starting End: 12-01-2023 Gold Top Gold Top Lab JOSÉ LUIS Once for 1 Occurrences starting 12/01/2023 until 12/01/2023, 1 completed [facility] Comment on above: Once for 1 Occurrences starting 12/01/19 until 12/01/2023, 1 completed Gold Top Gold Top Lab ASA P 12/01/2023 12:26 AM Delver End: 03-11-2024 Gold [facility] Comment on above: Once for 1 Occurrences starting 03/11/20 until 03/11/2024, 1 completed Kidney Stone Analysis Kidney Sto ne Analysis Lab STAT Release Upon Ordering for 1 Occurrences starting 04/27/2020 [facility] Comment on above: Release Upon Ordering for 1 Occurrences starting 04/27/2020 End: 12-01-2023 Lavender Top Lavender Top Lab JOSÉ LUIS Once for 1 Occurrences starting 12/01/2023 until 12/01/2023, 1 completed [facility] Comment on above: Once for 1 Occurrences starting 12/01/19 until 12/01/2023, 1 completed Lavender Top Lavender Top Lab JOSÉ LUIS 12/01/2023 12:26 AM Delver End: 03-11-2024 Lavender [facility] Comment on above: Once for 1 Occurrences starting 03/11/20 until 03/11/2024, 1 completed End: 12-01-2023 LIGHT BLUE TOP LIGHT BLUE TOP Lab JOSÉ LUIS Once for 1 Occurrences starting 12/01/2023 until 12/01/2023, 1 completed [facility] Comment on above: Once for 1 Occurrences starting 12/01/19 until 12/01/2023, 1 completed LIGHT BLUE TOP LIGHT BLUE TOP L ab JOSÉ LUIS 12/01/2023 12:26 AM Delver End: 04-30-2024 LIGHT BLUE TOP [facility] Comment on above: Once for 1 Occurrences starting 03/11/20 until 03/11/2024, 1 completed End: 12-01-2023 Light Green Top Light Green Top Lab JOSÉ LUIS Once for 1 Occurrences starting 12/01/2023 until 12/01/2023, 1 completed [facility] Comment on above: Once for 1 Occurrences starting 12/01/19 24 until 12/01/2023, 1 completed Light Green Top Light Green Top Lab JOSÉ LUIS 12/01/2023 12:26 AM EST [facility] End: 03-11-2024 Light Green Top [facility] Comment on above: Once for 1 Occurrences starting 03/11/20 until 03/11/2024, 1 completed End: 06-21-2021 Lyme Total Antibody IGG & IGM Lyme Total Antibody IGG & IGM Lab Routine Tick bite, initial encounter 1 Occurrences starting 06/21/2021 until 06/21/2021 [facility] Comment on above: 1 Occurrences starting 06/21/2021 until 06/21/2021 Lyme Total Antibody IGG & IGM Lyme Total Antibody IGG & IGM Lab Routine Tick bite, initial encounter 06/21/2021 3:30 PM EDT [facility] Oxygen Therapy Nasal Cannula; Liters Per Minute: 1.0 LPM; FiO2: 28%; Indications for O2 therapy: Immediate post-op period; RT may modify oxygen administration per policy: Yes 1-6 LPM Titrate O2 to keep sat > *90% Oxygen Therapy Nasal Cannula; Liters Per Minute: 1.0 LPM; FiO2: 28%; Indications for O2 therapy: Immediate post-op period; RT may modify oxygen administration per policy: Yes 1-6 LPM Titrate O2 to keep sat > *90% Respiratory Care Routine Continuous until discontinued starting 03/12/2024 [facility] Work Phone: Comment on above: Continuous until discontinued starting 0 03/12/2024 Oxygen Therapy Nasal Cannula; Liters Per Minute: 2.0 LPM; RT may modify oxygen administration per policy: Yes Oxygen Therapy Nasal Cannula; Liters Per Minute: 2.0 LPM; RT may modify oxygen administration per policy: Yes Respiratory Care Routine As Needed until discontinued starting 03/11/2024 [facility] Work Phone: Comment on above: As Needed until discontinued starting Patient Education Palpitations A trial Fibrillation [facility]er [facility] Zandra Work Phone: Patient referral Ramer [facility] Work Phone: Polysomnography SCHEDULE HOME SL EEP STUDY PFT Routine Paroxysmal atrial fibrillation Daytime somnolence Ordered: 01/10/2023 [facility] Comment on above: Ordered: 01/10/2023 End: 04-27-2020 Procedure on tissue specimen Tissue Exam Pathology and Cytology Routine Once for 1 Occurrences starting 04/27/2020 until 04/27/2020, 1 completed [facility] Comment on above: Once for 1 Occurrences starting 04/27/20 until 04/27/2020, 1 completed Procedure on tissue specimen Tis viky Exam Pathology and Cytology Routine 04/27/2020 [facility] Pulse oximetry, continuous Pulse oximetry, continuous Respiratory Care Routine Continuous until discontinued starting 04/01/2024 [facility] Work Phone: Comment on above: Continuous until discontinued starting 0 04/01/2024 Pulse oximetry, cont inuous - Pulse Oximetry until discontinued by surgeon Pulse oximetry, continuous - Pulse Oximetry until discontinued by surgeon Respiratory Care Routine Continuous until discontinued starting 03/12/2024 [facility] Comment on above: Continuous until discontinued starting 0 03/12/2024 End: 12-01-2023 [facility]OW DRAW PC and [facility] ED Rachel Draw Lab JOSÉ LUIS One Time for 1 Occurrences starting 12/01/2023 until 12/01/2023 [facility] Work Phone: Comment on above: One Time for 1 Occurrences starting 11/13 until 12/01/2023 [facility]OW DRAW PC and [facility] ED R ainbow Draw Lab JOSÉ LUIS 12/01/2023 12:26 AM EST [facility] End: 03-11-2024 RAINBOW DRAW [facility] Work Phone: Comment on above: One Time for 1 Occurrences starting 02/12 until 03/11/2024 Retrograde pyelogram XR OR Retro grade Pyelogram Imaging Routine 04/27/2020 5:31 PM EDT [facility] End: 04-01-2024 RF Kidney and Ureter and Urinary bladder Views during surgery W contrast retrograde FL [facility] Surgical Procedure-Urology Imaging Routine One time imaging One time imaging for 1 Occurrences starting 04/01/2024 until 04/01/2024 [facility] Work Phone: Comment on above: One time imaging One time imaging for 1 Occurrences starting 04/01/2024 until 04/01/2024 RF Kidney and Ureter and Urinary bladder Views during surgery W contrast retrograde FL [facility] Surgical Procedure-Urology Imaging Routine 04/01/2024 10:16 AM EDT [facility] End: 04-26-2020 Urine culture and sensitivity Urine culture and sensitivity Microbiology JOSÉ LUIS One Time for 1 Occurrences starting 04/26/2020 until 04/26/2020 [facility] Comment on above: One Time for 1 Occurrences starting 04/12 until 04/26/2020 Urine culture and sensitivity Urine culture and sensitivity Microbiology JOSÉ LUIS 04/26/2020 11:31 PM EDT [facility] [place] [facility] Payers Date Payer Category Payer Self-pay [id number] 2018 Medicare xxxxxxxxxxx [id number] 2018 Medicare [id number] 2018 Medicare [id number] 2018 Medicare [id number] 2018 Medicare [id number] 1955 Unknown [id number] 2.16.8 [id number] 1955 Unknown [id number] 2.16. [id number] 1953 Unknown [id number] 2.16. [id number] 1953 Unknown [id number] 2.16. [id number] 1953 Unknown [id number] 2.16. [id number] 1953 Unknown [id number] 2.16. [id number] 1953 Unknown [id number] 2.16. [id number] 1953 Unknown [id number] 2.16. [id number] 1953 Unknown [id number] 2.16. [id number] Unknown [id number] 2.16.8 [id number] Unknown [id number] 2.16.8 [id number] Unknown [id number] 2.16.8 [id number] Unknown [id number] 2.16.8 [id number] Social History Date Type Detail Facility Start: 08-21-2019 End: 03-14-2024 Tobacco smoking status [facility] Former smoker [facility] Start: 08-21-2019 End: 04-14-2024 Alcohol intake Current non-drinker of alcohol (finding) [facility] Start: 01-30-2018 Alcohol Comment occ beer. [facility] Start: 1955 Sex Assigned At Not on file [facility] Start: 04-28-2020 End: 01-18-2023 Tobacco smoking status NYIS Never smoker [facility] Start: 04-28-2020 End: 07-09-2025 Alcohol intake Ex-drinker (finding) [facility] Start: 12-31-2022 End: 01-10-2023 Exposure to SARS-CoV-2 (event) Not sure [facility] Start: 05-06-2020 End: 01-18-2023 Tobacco use and exposure Never used [facility] Start: 1955 Sex Assigned At Male [facility] Start: 11-21-2022 End: 03-15-2023 Tobacco smoking status NHIS Unknown if ever smoked [facility] Start: 04-24-2023 End: 05-01-2023 History of Social function [facility] Start: 04-24-2023 End: 05-01-2023 Tobacco use panel [facility] Start: 10-13-2012 National Score (1-100), lower number is lower risk 86 [facility] History of tobacco use Current smoker [facility] Start: 06-21-2021 Gender identity Identifies as male gender (finding) [facility] Start: 06-21-2021 Sexual orientation Heterosexual (finding) [facility] Start: 05-25-2025 Never Never [facility] Start: 05-25-2025 No No [facility] Start: 05-25-2025 End: 05-27-2025 Sex Male (finding) [facility] How often to you hav e a drink containing alcohol? Never [facility] (I/We) worried jacquelyn er (my/our) food would run out before (I/we) got money to buy more. Never true [facility] In the past 12 month s, was there a time when you were not able to pay the mortgage or rent on time? No [facility] Medical Equipment Procedure Code Equipment Code Equipment Origin al Text Equipment Identifier Dates Stent Ureteral Polaris Ultra 6fr X 24cm .035in [place] - Sna - [id number] Start: 06-01-2018 Stent 6fr X 26cm Ureter W/O Wire - [id number] , [id number] FDA Start: 04-27-2020 Stent Contour Vl/Percuflex 6fr X 22-30cm - Sn/A - [id number] Start: 03-12-2024 Stent Contour Vl/Percuflex 6fr X 22-30cm - Sna - [id number] Start: 04-01-2024 Goals Date Patient Goal Desired Activity /State Personal health goal Personal health goal Functional Status Date Assessment Result Facility [facility] Mental Status Date Assessment Result Facility 05-25-2025 Cognitive function Level Of Cons ciousness Awake;Alert;Appropriate;Follow s Commands [facility] Work Phone: Clinical Notes 01-06-2018 to 07-10-2025 Addendum Note - Curry Bowman - 07/10/2025 2:19 PM EDTTelephone Encounter - Curry Bowman - 07/10/2025 2:19 PM EDTAddendum Note - Curry Bowman - 07/10/2025 2:19 PM EDTPatient Instructions Note Date & Type Note Facility 07-10-2025 Note Addended by: CURRY BOWMAN on: 07/10/2025 02:19 PM Modules accepted: Orders [facility] 07-10-2025 Telephone encounter Note Post PVAI orders pended for signature [facility] 07-10-2025 Miscellaneous Notes Addended by: CURRY BOWMAN on: 07/10/2025 02:19 PM Modules accepted: Orders Post PVAI orders pended for signature Patient had AF ablation with DR Thakkar Needs to be set for TTE in 3 months and monitor in 3 months Alex Arroyo MD documented in this encounter [facility] 07-10-2025 Note HNO ID: [id number] Author: DANETTE KLEIN, RN Service: Care Management Author Type: Registered Nurse Type: Care Mgt Initial Assessment Filed: 07/10/2025 11:53 Note Text: CARE MANAGEMENT: ASSESSMENT AND DISCHARGE PLAN SERVICE DATE: July 10, 2025 SERVICE TIME: 11:49 AM PCP: Oral Miller Jr, MD, MD Primary Contact: Extended Emergency Contact Information Primary Emergency Contact: Raina Solis Relation: Spouse Admission Status: Ambulatory Surgery Insurance Provider: MEDICARE A AND B Discharge Planning requested by: Per Department Practice Potential Transition Plans Home Advance Directives Current Advance Directive: None Forge Utility Worker Attempted to Assist with AD Completion: Yes Action: Education Provided Current Living Arrangements and Support Lives with: Spouse/significant other Type of Residence: Private Residence (House) Does the patient have to climb stairs at home?: Yes Support: Family members, Friends/neighbors, Spouse/significant other How do you manage to accomplish the following: Independent: Ambulation, Bathe/Shower, Dress, Meals/Meal Prep, Going to the bathroom, Medication Management, Transportation to appointments/community Current Services/Equipment Current Post-Acute Service(s): None Discharge Planning Patient Goal(s): Be able to go home, General wellness [place] of [place] Explained: [place] of [place] Given: No Reason Not Given: No placements necessary Are you interested in bedside delivery of your medications? No Discharge Planning Participant(s): Patient Patient/Family Comments: Caregiver Assessment: Caregiver is ready, willing and able to meet the patient's needs as recommended by the inter-professional team: No Caregiver needed Transport at Discharge: Transportation Arrangements: Car Needs Prior to Discharge: Needs Prior to Discharge: None Post-Acute Discharge Plan: Per chart review, patient is is a 69 yr old male admitted for scheduled ablation Met with patient at bedside; introduced self and CM role. Prior to admission, patient was independent with ADLs. The patient declined using any assistive equipment. He drives and is active. He lives with his who is available to assist him if needed. At this time, the patient has no skilled needs. CM will continue to follow for post-acute needs based on hospital course. The patient will be transported home at d/c by via private auto. Patient is discharging home today with no skilled needs SIGNATURE: Danette Klein RN PATIENT NAME: Johnathan Solis DATE: July 10, 2025 TIME: 11:49 AM [facility] 07-10-2025 Telephone encounter Note Patient had AF ablation with DR Thakkar Needs to be set for TTE in 3 months and monitor in 3 months Alex Arroyo MD [facility] 07-09-2025 Note HNO ID: [id number] Author: SUSANNE LI APRN.TYPE BAR AND SEGMENT ASSEMBLER Service: Anesthesiology Author Type: Nurse Outdoor Education Teacher Type: Anesthesia Procedure Notes Filed: 07/09/2025 10:04 Note Text: ANESTHESIOLOGY PROCEDURE NOTE Airway General Information Procedure Start Time/Medication Administration: 07/09/2025 9:48 AM Procedure End Time: 07/09/2025 9:49 AM Patient location during procedure: OR Timeout Performed Pre-procedure: timeout performed Consent Obtained: Yes Patient identity confirmed: arm band Staffing Performed by: TYPE BAR AND SEGMENT ASSEMBLER Indications and Patient Condition Indications for airway management: anesthesia Preoxygenated: yes anesthesia circuit Patient position: sniffing Method: asleep Difficult Mask: No Airway Accessory: oral airway Final Airway Details Final airway type: endotracheal airwayFinal Endotracheal Airway: ETT Cuffed: yes Successful intubation technique: direct laryngoscopy Endotracheal tube insertion site: oral Blade: Lori Blade size: #4 ETT size (mm): 8.0 Measured from: lips Measurement (cm): 24 Placement verified by: chest auscultation and capnometry Cormack-Lehane Classification: grade I - full view of glottis Number of attempts at approach: 1 Airway not difficult SIGNATURE: Susanne Li APRN.TYPE BAR AND SEGMENT ASSEMBLER PATIENT NAME: Johnathan Solis DATE: July 09, 2025 TIME: 10:01 AM CSN: [id number] [facility] 07-06-2025 Instructions Shyanne Oconnor APRN.CNP - 07/06/2025 8:11 AM EDT PATIENT PREOPERATIVE INSTRUCTIONS Lanie Thakkar MD has scheduled you for your procedure at this surgery center: EP- Check in at [facility]. EP will call the patient with arrival time and instructions. Please read below carefully for your personalized instructions. Date of Surgery:07/08/2025 Arrival Time for Surgery: Your surgeon's office will provide you with your ARRIVAL TIME for surgery. -If you have not received an arrival time by the afternoon before your surgery date, please follow up with your surgeon's office. -If you are scheduled for Sunday surgery, please make sure you have your arrival time by Sunday afternoon. Please be aware that emergency situations arise, which may delay or change your surgical time. If this happens, the surgeon's office will notify you as soon as possible. Blood Thinning Medications: -Stop NSAIDS (Ibuprofen, Advil, Aleve, Motrin, Celebrex, Mobic, Voltaren , Diclofenac etc.) 7 days before surgery, as directed by your surgeon. - If you take any of the following blood thinners, please contact your surgeon and the physician who prescribes it for you in order to get perioperative instructions as soon as possible Blood thinners: Aspirin,Coumadin, Plavix, Eliquis, Pradaxa, Xarelto, Lovenox, Brilinta, Effient, Savaysa, etc. - Stop Vitamin E, fish oil, Ginko, Solon's Wort, flax seed oil, multivitamins, CBD oil, marijuana and other over the counter herbals and dietary supplements 7 days before surgery. This would not apply to cancer patients who are prescribed Marinol or any other prescription form of marijuana or CBD. Pain Medications: - You may take Tylenol (Acetaminophen) or any of your current prescribed pain medications that do not contain aspirin or NSAIDS as needed. Dietary Restrictions: - No solid food after midnight. - You may have 12 ounces of clear liquids (water, clear juices such as apple juice or Gatorade, carbonated beverages) until 4 hours before scheduled surgery. Medications: Approved medications to take the morning of surgery with a sip of water: Pre Surgery Med Instructions Medication instructions aspirin, enteric coated (ASPIRIN, ENTERIC COATED) 81 mg EC tablet Follow surgeon's instructions. potassium citrate ER (UROCIT-K) 10 mEq (1,080 mg) If you normally take this medication in the morning, it is ok to take the morning of surgery with a sip of water. If you take any medications for erectile dysfunction-Cialis (Tadalafil), Levitra, Staxyn (Vardenafil) Viagra (Sildenenafil please do not take these for [address]-operatively. If you start any new medications after today's visit, please contact the surgeon's office. Important Reminders: - If you have a stimulator, implant or pump that requires a remote please bring the remote with you day of surgery. - If you use CPAP/BIPAP, bring the machine with you to the surgery center. - If you are prescribed inhalers for breathing, continue using them AND bring them to the surgery center. - Candy, mints, gum and tobacco products are NOT permitted the morning of surgery. - Hearing aids, dentures and glasses may be worn the morning of surgery. - NO jewelry, body piercings, makeup, hairpins or contacts are to be worn the day of surgery. - NO lotion, creams, powders or deodorants on the skin the day of surgery -[facility] should bring their walker into the building. -[facility] listed as to be [facility] should leave their walkers in the car or with a family member. - You will need to have someone else (Family or friend) drive you home once discharged from the hospital. You cannot take a cab or Uber. You are not allowed to drive yourself home after surgery. -If you are undergoing an outpatient procedure you must have someone drive you home and stay with you for 24 hours. Your surgery may be cancelled if you do not have someone to drive you home or take care of you for 24 hours. [facility]- Visitation instructions: Visitation hours are from 7 a.m. to 9 p.m. Pre-Surgery- Patients may have up to two visitors at a time. Recovery room- Patients may have up to 1-2 visitors at a time . If you already have an Advance Directive, please fax a copy to [phone] or [facility] at [phone] or email to for it to be added to your chart. If you do not have an Advance Directive, you can find the appropriate form and more information at [email or web address]. We recommend that you complete the Advance Directive form found on the website and bring it with you the day of your surgery. It can be witnessed and scanned into your chart that day. If you develop symptoms such as a fever, cold, or flu, or have other changes to your health within TWO DAYS of scheduled surgery or the morning of surgery, please contact the surgery center above. Personal Belongings: - Leave ALL valuables and money at home or with family members. - You will need a form of ID and insurance card to check in the morning of surgery. - You will have to wear a hospital gown during your stay but if you wish to bring undergarments for after surgery you may. Our anesthesia department recommends reading Prepare for Surgery, Heal Faster: A Guide of Mond-Body Techniques by Sammi Fay prior to surgery. Shyanne Oconnor APRN.DIRECTOR OF SOFTWARE ENGINEERING documented in this encounter [facility] 07-06-2025 History and physical note Images from the original note were not included. [facility] Pre[facility]Anesthesia Consultation Clinic HISTORY AND PHYSICAL EXAMINATION SERVICE DATE: 07/06/2025 SERVICE TIME: 9:12 AM PRIMARY CARE PHYSICIAN: Oral Miller Jr, MD, MD Assessment Patient has the following medical conditions which may affect dotty-operative course: Paroxysmal atrial fibrillation (HCC) Scheduled for ablation 07/08/[address] Thakkar Old myocardial infarction 2018 with stent to RCA Anticoagulant long-term use LD Xarelto 07/01/2025 ASA 81mg Obesity (BMI 30-39.9) BMI 30.38 ANESTHESIA FINDINGS: Intubation History: No history of difficult intubation Significant Anesthesia Considerations: none Airway History: No history of difficult airway Carvajal Activity Status Index: METS: Climb a flight of stairs or walk up a hill (5.50 METs) DASI Score: 5.5 ARISCAT Score: Age: 51-80 Preoperative SpO2: >=96% Respiratory infection in the last month: No Preoperative anemia: No Surgical incision: peripheral Duration of surgery: >3 hrs Emergency procedure: No ARISCAT Score: 26 I - PHYSICAL EVALUATION AIRWAY Patient intubated: No. DENTAL Dental findings: teeth intact. II - ANESTHESIA PLAN Anesthetic Plan: general Beta Rose Monitoring Plan Post Procedure Analgesic Plan Prepared for Surgery: CONSULTS: Patient does not require consults for optimization at this time Planned Anesthetic: general The Following Tests/Procedures Have Been Initiated: No orders of the defined types were placed in this encounter. REASON FOR VISIT: Johnathan Solis is a 69 year old male who is scheduled for Procedure(s) with comments: JANIE EP EVAL ABLTJ ATR FIB PULM VEIN ISOLATION (N/A) - pfa/carto *can reschedule to 07/09 if unable to do 3 pvi on 07/08 at the request of Dr. Lanie Thakkar for routine H&P. My final recommendation will be communicated back to the requesting physician by way of shared medical record or letter. Implantable Devices: cardiac stent Assessment/Plan PLAN Pre-op testing: Medical conditions which may affect the dotty-operative course were addressed in the visit today. Procedure Diagnosis: PAF Planned Procedure: Procedure(s) with comments: CAMILLE EP EVAL ABLTJ ATR FIB PULM VEIN ISOLATION (N/A) - pfa/carto *can reschedule to 07/09 if unable to do 3 pvi on 07/08 Planned Anesthetic: General CONSULTS: Patient does not require consults for optimization at this time. I spent a total of 60 minutes on the date of the service which included preparing to see the patient, [id number] patient care, completing clinical documentation, obtaining and/or reviewing separately obtained history, performing a medically appropriate examination, counseling and educating the patient/family/caregiver, and ordering medications, tests, or procedures. The Following Tests/Procedures Have Been Initiated: EKG ordered in Epic per surgeon. None ordered per SEARCH MARKETING SPECIALIST. Subjective The patient has the following: COVID-19 Immunization Status This patient has no relevant Health Maintenance data. CHIEF COMPLAINT: The reason for this visit is to perform a comprehensive review of the patient's past medical history, assess their current health status and obtain any additional testing required based on anesthesia guidelines. We will also identify any potential anesthesia problems or contraindications to the planned procedure. HPI: 69 yo WM with Paroxysmal atrial fibrillation (HCC) [I48.0] Status post catheter ablation of atrial fibrillation [Z98.890], A fib since age 33, 1987. States was treated with multiple atniarrythmics, Ablation 2005 and April 2023. Reports April 2025, felt in A fib. Last does stotal 07/01/2025. REVIEW OF SYSTEMS: General: No weight loss, malaise or fevers. Negative for: unintentional weight change, malaise and fever. Neurological: Negative for: headaches, seizures and strokes. Respiratory: Negative for: asthma, COPD, tobacco use and obstructive sleep apnea. Cardiovascular: Positive for: CAD Patient's last office visit with transporter driver, Dr. Yonathan Ross, The following tests and/or procedures were performed: cardiac stents (2018 [place] stent RCA). Negative for: arrhythmia, DVT/PE, hyperlipidemia and hypertension. GI: Negative for: abdominal pain and GERD. : Hx renal stones Left kidney Negative for: frequent urination, hematuria, hesitancy and urinary incontinence. Endocrine: Negative for: diabetes mellitus, hyperthyroidism and hypothyroidism. Hematology: Positive for: chronic anti-coagulation/platelet meds. Patient is on anti-coagulation/platelet medication(s): Aspirin. Oncology: No history of CA metastasis, chemo within 30 days, or radiotherapy within 90 days. No history of oncological symptoms or problems. Psych: Negative for: anxiety and depression. Musculoskeletal: Positive for: joint pain. Skin: Negative for lesions, rash and itching. Implanted Devices: Has implanted device PAST MEDICAL HISTORY Diagnosis Date At risk for stroke Atherosclerotic heart disease of knik coronary artery without angina pectoris Bradycardia CKD (chronic kidney disease) stage 3, GFR 30-59 ml/min ([facility]) Ischemic cardiomyopathy Kidney stones jail current use of antiarrhythmic drug Old myocardial infarction PAC (premature atrial contraction) 08/02/2023 Paroxysmal atrial fibrillation ([facility]) Presence of coronary angioplasty implant and graft Right bundle branch block (RBBB) Status post catheter ablation of atrial fibrillation RF catheter ablation for atrial fibrillation 2005 ([place]) STEMI (ST elevation myocardial infarction) ([facility]) 11/2017 PAST SURGICAL HISTORY Procedure Laterality Date AFIB ABLATION/PULM VEIN ISOLATION 2005 RF catheter ablation for atrial fibrillation; [place], [place] AFIB ABLATION/PULM VEIN ISOLATION 05/01/2023 redo PVAI (both carinas, anterior segments PVs, posterior wall, SVC/RA junction); focal left atrial PAC (posteroseptal) ablation; [facility] Dr. Thakkar ECHOCARDIOGRAM 11/30/2022 LVEF 55%; moderate LAE; no significant valvular abnormalities HOLTER MONITOR 48 HR 12/26/2022 INSERT INTRACORONARY STENT 01/06/2018 KIDNEY STONE ANALYSIS 2017 extraction 2017 LEFT HEART CATH,PERCUTANEOUS 01/06/2018 LITHOTRIPSY XTRCORP SHOCK WAVE 04/2020 LITHOTRIPSY XTRCORP SHOCK WAVE 04/01/2024 with stent TONSILLECTOMY & ADENOIDECTOMY FAMILY HISTORY Problem Relation Age of Onset Alzheimer's Disease Mother Diabetes Mother Aneurysm Father Stroke Sister SOCIAL HISTORY[1] Prior to Admission medications as of 06/30/25 1342 Medication Sig Last Dose Taking potassium citrate ER (UROCIT-K) 10 mEq (1,080 mg) Take 1,080 mg by mouth two times a day. Yes aspirin, enteric coated (ASPIRIN, ENTERIC COATED) 81 mg EC tablet Take 81 mg by mouth once daily. Yes rivaroxaban (XARELTO) 15 mg tablet Take 1 tablet by mouth once daily. Patient not taking: Reported on 07/06/2025 sotalol (BETAPACE) 80 mg tablet Take 1.5 tablets by mouth once daily. Patient not taking: Reported on 07/06/2025 No medication comments found. ALLERGIES Allergen Reactions Penicillins Anaphylaxis Caffeine Other: See Comments arrhythmia Ticagrelor Other: See Comments Didn't feel well Verapamil Other: See Comments Hypotension Objective PHYSICAL EXAM: General: alert and oriented and healthy appearance. Skin: normal color, no rash or lesions. HEENT: Neck supple, pharynx clear . Cardiovascular: RRR, S1S2. Respiratory: normal breath sounds, no wheezes or crackles. Respirations easy at rest . Abdomen: Soft, non tender . Extremities: JOY no gross deficits no peripheral edema. Neurological: normal cognition and motor skills. PAIN ASSESSMENT: VITALS: BP 153/88 Pulse 60 Temp (Src) 98.1 (Temporal) Resp 18 Ht 6' 0 (1.83m) Wt 224 lb (101.6kg) SpO2 99% BMI 30.37 kg/(m^2). Diagnostic tests reviewed for today's visit: Lab Value Units Date High Low HB No results within date range. HCT No results within date range. WBC No results within date range. PLT No results within date range. NA No results within date range. K No results within date range. GLUC No results within date range. BUN No results within date range. CREAT No results within date range. PTSEC No results within date range. INR No results within date range. APTT No results within date range. ALT No results within date range. AST No results within date range. TBILI No results within date range. TSH No results within date range. Lab Value Units Date High Low HCGQT No results within date range. UHCG No results within date range. HCG, BODY* No results within date range. Lab Value Units Date High Low ABORHD No results within date range. ABSCREEN No results within date range. No results found for: HBA1C No results found for this or any previous visit (from the past 8760 hours). No results found for this or any previous visit (from the past 08689 hours). Instructions Given to Patient: Instructions located in the after visit summary. Patient given verbal and written preop instructions and voices comprehension and compliance. SIGNATURE: Shyanne Oconnor APRN.CNP PATIENT NAME: Johnathan Solis DATE: July 06, 2025 TIME: 8:02 AM PAGER/CONTACT #: [1] Social History Tobacco Use Smoking status: Never Smokeless tobacco: Never Vaping Use Vaping status: Never Used Substance Use Topics Alcohol use: Not Currently Drug use: Never [facility] 07-06-2025 History and physical note Images from the original note were not included. [facility] HISTORY AND PHYSICAL EXAMINATION SERVICE DATE: 07/06/2025 SERVICE TIME: 9:12 AM PRIMARY CARE PHYSICIAN: Oral Miller Jr, MD, MD Assessment Patient has the following medical conditions which may affect dotty-operative course: Paroxysmal atrial fibrillation (HCC) Scheduled for ablation 07/08/[address] Thakkar Old myocardial infarction 2018 with stent to RCA Anticoagulant long-term use LD Xarelto 07/01/2025 ASA 81mg Obesity (BMI 30-39.9) BMI 30.38 ANESTHESIA FINDINGS: Intubation History: No history of difficult intubation Significant Anesthesia Considerations: none Airway History: No history of difficult airway [place]ajal Activity Status Index: METS: Climb a flight of stairs or walk up a hill (5.50 METs) DASI Score: 5.5 ARISCAT Score: Age: 51-80 Preoperative SpO2: >=96% Respiratory infection in the last month: No Preoperative anemia: No Surgical incision: peripheral Duration of surgery: >3 hrs Emergency procedure: No ARISCAT Score: 26 I - PHYSICAL EVALUATION AIRWAY Patient intubated: No. DENTAL Dental findings: teeth intact. II - ANESTHESIA PLAN Anesthetic Plan: general Beta Rose Monitoring Plan Post Procedure Analgesic Plan Prepared for Surgery: CONSULTS: Patient does not require consults for optimization at this time Planned Anesthetic: general The Following Tests/Procedures Have Been Initiated: No orders of the defined types were placed in this encounter. REASON FOR VISIT: Johnathan Solis is a 69 year old male who is scheduled for Procedure(s) with comments: COMPRE EP EVAL ABLTJ ATR FIB PULM VEIN ISOLATION (N/A) - pfa/carto *can reschedule to 07/09 if unable to do 3 pvi on 07/08 at the request of Dr. Lanie Thakkar for routine H&P. My final recommendation will be communicated back to the requesting physician by way of shared medical record or letter. Implantable Devices: cardiac stent Assessment/Plan PLAN Pre-op testing: Medical conditions which may affect the dotty-operative course were addressed in the visit today. Procedure Diagnosis: PAF Planned Procedure: Procedure(s) with comments: COMPRE EP EVAL ABLTJ ATR FIB PULM VEIN ISOLATION (N/A) - pfa/carto *can reschedule to 07/09 if unable to do 3 pvi on 07/08 Planned Anesthetic: General CONSULTS: Patient does not require consults for optimization at this time. I spent a total of 60 minutes on the date of the service which included preparing to see the patient, [id number] patient care, completing clinical documentation, obtaining and/or reviewing separately obtained history, performing a medically appropriate examination, counseling and educating the patient/family/caregiver, and ordering medications, tests, or procedures. The Following Tests/Procedures Have Been Initiated: EKG ordered in Epic per surgeon. None ordered per SEARCH MARKETING SPECIALIST. Subjective The patient has the following: COVID-19 Immunization Status This patient has no relevant Health Maintenance data. CHIEF COMPLAINT: The reason for this visit is to perform a comprehensive review of the patient's past medical history, assess their current health status and obtain any additional testing required based on anesthesia guidelines. We will also identify any potential anesthesia problems or contraindications to the planned procedure. HPI: 69 yo WM with Paroxysmal atrial fibrillation (HCC) [I48.0] Status post catheter ablation of atrial fibrillation [Z98.890], A fib since age 33, 1988. States was treated with multiple atniarrythmics, Ablation 2005 and April 2023. Reports April 2025, felt in A fib. Last does stotal 07/01/2025. REVIEW OF SYSTEMS: General: No weight loss, malaise or fevers. Negative for: unintentional weight change, malaise and fever. Neurological: Negative for: headaches, seizures and strokes. Respiratory: Negative for: asthma, COPD, tobacco use and obstructive sleep apnea. Cardiovascular: Positive for: CAD Patient's last office visit with transporter driver, Dr. Yonathan Ross, The following tests and/or procedures were performed: cardiac stents (2018 [place] stent RCA). Negative for: arrhythmia, DVT/PE, hyperlipidemia and hypertension. GI: Negative for: abdominal pain and GERD. : Hx renal stones Left kidney Negative for: frequent urination, hematuria, hesitancy and urinary incontinence. Endocrine: Negative for: diabetes mellitus, hyperthyroidism and hypothyroidism. Hematology: Positive for: chronic anti-coagulation/platelet meds. Patient is on anti-coagulation/platelet medication(s): Aspirin. Oncology: No history of CA metastasis, chemo within 30 days, or radiotherapy within 90 days. No history of oncological symptoms or problems. Psych: Negative for: anxiety and depression. Musculoskeletal: Positive for: joint pain. Skin: Negative for lesions, rash and itching. Implanted Devices: Has implanted device PAST MEDICAL HISTORY Diagnosis Date At risk for stroke Atherosclerotic heart disease of knik coronary artery without angina pectoris Bradycardia CKD (chronic kidney disease) stage 3, GFR 30-59 ml/min (HCC) Ischemic cardiomyopathy Kidney stones jail current use of antiarrhythmic drug Old myocardial infarction PAC (premature atrial contraction) 08/02/2023 Paroxysmal atrial fibrillation (HCC) Presence of coronary angioplasty implant and graft Right bundle branch block (RBBB) Status post catheter ablation of atrial fibrillation RF catheter ablation for atrial fibrillation 2005 ([place]) STEMI (ST elevation myocardial infarction) ([facility]) 11/2017 PAST SURGICAL HISTORY Procedure Laterality Date AFIB ABLATION/PULM VEIN ISOLATION 2005 RF catheter ablation for atrial fibrillation; [place], [place] AFIB ABLATION/PULM VEIN ISOLATION 05/01/2023 redo PVAI (both carinas, anterior segments PVs, posterior wall, SVC/RA junction); focal left atrial PAC (posteroseptal) ablation; [facility] Dr. Thakkar ECHOCARDIOGRAM 11/30/2022 LVEF 55%; moderate LAE; no significant valvular abnormalities HOLTER MONITOR 48 HR 12/26/2022 INSERT INTRACORONARY STENT 01/06/2018 KIDNEY STONE ANALYSIS 2018 extraction 2018 LEFT HEART CATH,PERCUTANEOUS 01/06/2018 LITHOTRIPSY XTRCORP SHOCK WAVE 04/2020 LITHOTRIPSY XTRCORP SHOCK WAVE 04/01/2024 with stent TONSILLECTOMY & ADENOIDECTOMY <AGE 10 FAMILY HISTORY Problem Relation Age of Onset Alzheimer's Disease Mother Diabetes Mother Aneurysm Father Stroke Sister SOCIAL HISTORY[1] Prior to Admission medications as of 06/30/25 1342 Medication Sig Last Dose Taking potassium citrate ER (UROCIT-K) 10 mEq (1,080 mg) Take 1,080 mg by mouth two times a day. Yes aspirin, enteric coated (ASPIRIN, ENTERIC COATED) 81 mg EC tablet Take 81 mg by mouth once daily. Yes rivaroxaban (XARELTO) 15 mg tablet Take 1 tablet by mouth once daily. Patient not taking: Reported on 07/06/2025 sotalol (BETAPACE) 80 mg tablet Take 1.5 tablets by mouth once daily. Patient not taking: Reported on 07/06/2025 No medication comments found. ALLERGIES Allergen Reactions Penicillins Anaphylaxis Caffeine Other: See Comments arrhythmia Ticagrelor Other: See Comments Didn't feel well Verapamil Other: See Comments Hypotension Objective PHYSICAL EXAM: General: alert and oriented and healthy appearance. Skin: normal color, no rash or lesions. HEENT: Neck supple, pharynx clear . Cardiovascular: RRR, S1S2. Respiratory: normal breath sounds, no wheezes or crackles. Respirations easy at rest . Abdomen: Soft, non tender . Extremities: JOY no gross deficits no peripheral edema. Neurological: normal cognition and motor skills. PAIN ASSESSMENT: VITALS: BP 153/88 Pulse 60 Temp (Src) 98.1 (Temporal) Resp 18 Ht 6' 0 (1.83m) Wt 224 lb (101.6kg) SpO2 99% BMI 30.37 kg/(m^2). Diagnostic tests reviewed for today's visit: Lab Value Units Date High Low HB No results within date range. HCT No results within date range. WBC No results within date range. PLT No results within date range. NA No results within date range. K No results within date range. GLUC No results within date range. BUN No results within date range. CREAT No results within date range. PTSEC No results within date range. INR No results within date range. APTT No results within date range. ALT No results within date range. AST No results within date range. TBILI No results within date range. TSH No results within date range. Lab Value Units Date High Low HCGQT No results within date range. UHCG No results within date range. HCG, BODY* No results within date range. Lab Value Units Date High Low ABORHD No results within date range. ABSCREEN No results within date range. No results found for: HBA1C No results found for this or any previous visit (from the past 8760 hours). No results found for this or any previous visit (from the past 59143 hours). Instructions Given to Patient: Instructions located in the after visit summary. Patient given verbal and written preop instructions and voices comprehension and compliance. SIGNATURE: Shyanne Oconnor APRN.CNP PATIENT NAME: Johnathan Solis DATE: July 06, 2025 TIME: 8:02 AM PAGER/CONTACT #: [1] Social History Tobacco Use Smoking status: Never Smokeless tobacco: Never Vaping Use Vaping status: Never Used Substance Use Topics Alcohol use: Not Currently Drug use: Never documented in this encounter [facility] 06-16-2025 Telephone encounter Note Received EKG from [facility]. Scanned in for review. Delilah Carrillo LPN [facility] 06-16-2025 Miscellaneous Notes Received EKG from [facility]. Scanned in for review. Delilah Carrillo LPN documented in this encounter [facility] 06-05-2025 Instructions Lanie Thakkar MD - 06/05/2025 8:53 AM EDT We discussed your atrial fibrillation and treatment plan: - You are currently experiencing recurrent atrial fibrillation with episodes lasting over 12 hours. This may have been triggered by a recent illness (norovirus) or other factors such as dehydration or physical activity. - We discussed restarting sotalol to help manage your rhythm. I have prescribed sotalol 80 mg tablets. Please take 120 mg (1.5 tablets) once daily. This is a conservative dose due to your kidney function. Do not adjust the dose on your own. We will reassess your response with an EKG within one week. - We discussed the option of electrical cardioversion to restore your rhythm. If you prefer this approach, please let us know, and we will schedule the procedure. You will need someone to drive you home due to sedation. - Longer-term, we discussed the possibility of a repeat ablation using pulse field ablation (PFA), a newer and safer technology. This may provide a more definitive solution. We will work to expedite scheduling, but availability is limited. We discussed your anticoagulation therapy: - I have prescribed Xarelto 15 mg once daily due to your kidney function. This is necessary to reduce your stroke risk while you are in atrial fibrillation. Please take this as directed. A 3-month supply has been sent to your preferred pharmacy. We discussed your follow-up care: - You expressed interest in seeing Dr. Se Oviedo at the [facility]. I recommend reaching out to their office to request an appointment with him. He is an excellent transporter driver and may be a good fit for your ongoing care. - If you are unable to see Dr. Oviedo, we can help you find another transporter driver closer to your preferred location. Additional instructions: - Monitor your symptoms, including heart rate and rhythm. If you experience worsening symptoms, such as chest pain, dizziness, or shortness of breath, please seek immediate medical attention. - Stay hydrated and avoid known triggers for your atrial fibrillation, such as alcohol or large meals. - Continue taking your other medications as prescribed, including potassium citrate 1,080 mg twice daily and aspirin 81 mg daily. Next steps: - Schedule an EKG within one week to assess your response to sotalol. - Contact our office if you decide to proceed with electrical cardioversion or if you have any concerns about your medications or symptoms. - We will work on scheduling your ablation and notify you of any available openings. Your prescriptions for Xarelto and sotalol have been sent to [facility] in [place]. Please pick them up and begin taking them as directed. documented in this encounter [facility] 06-05-2025 History of Presen t illness Narrative PRIMARY CARE PHYSICIAN: Oral Miller Jr, MD [address] [place] [phone] Patient Care Team: Oral Miller Jr., MD as PCP - General (Nephrology) [facility] Pin Machine Operator (Cardiology) Lanie Thakkar MD as Specialty Pin Machine Operator (Cardiology) CHIEF COMPLAINT: Follow up for arrhythmia HISTORY OF PRESENT ILLNESS: Mr. Solis is a 69 year old male who presents today for a cardiovascular medicine follow-up visit. Recording using [employer] software for draft documentation of the visit was discussed with the patient/authorized electroplating sales representative; all questions welcomed and answered. Patient/authorized electroplating sales representative agreed to proceed History from previous notes, edited as needed and/or generated by dictation with use of AI.: Patient Overview: Mr. Solis presents for a follow-up evaluation in the [facility] outpatient clinic with Dr. Thakkar on 06/05/2025. He has a long history of arrhythmia, first experiencing atrial fibrillation at age 33 in 1987. He has been treated with various medications over the years, including digoxin, beta blockers, calcium channel blockers, and sotalol. In late 2021, he experienced a recurrence of atrial fibrillation and resumed taking sotalol, 240 mg three times daily. He has a history of coronary artery disease and experienced a heart attack in 2018, undergoing intracoronary stent placement to the right coronary artery. He reports triggers for his atrial fibrillation, including large meals and alcohol, particularly wine. He underwent repeat atrial fibrillation catheter ablation in April 2023 at [facility] by Dr. Thakkar, which included catheter ablation of a focal left atrial PAC. In April 2024, he reported doing well, experiencing only occasional and brief palpitations. At that time, there was a discussion about oral anticoagulation therapy for stroke prevention, but he preferred to take low-dose aspirin, 81 milligrams daily. He has been followed by general transporter driver Dr. Mcmanus of the [facility]. In May 2025, he contacted the office to report a recurrence of atrial fibrillation, with prolonged episodes lasting over 12 hours. He had been sick with norovirus, experiencing diarrhea and fever, and reported heart rates around 85 bpm. He was evaluated by his primary care physician and was considered to still be in atrial fibrillation, although he has recovered from the viral illness. He inquired about anticoagulant medication and resuming sotalol and was advised to make an appointment with Dr. Thakkar, for which he presents now. Diagnostic Results: - Echocardiogram (07/17/2023): - Normal left ventricular size and function - LVEF: 55% - Stage 1 diastolic dysfunction - Normal atrial dimensions - No significant valvular abnormalities Interim History Dr. Thakkar 06/05/2025: The patient is a 69-year-old male with a history of arrhythmia, CAD, and [place], presenting for follow-up. The patient has a long-standing history of arrhythmia, with initial onset of atrial fibrillation at age 33 in 1987. He has been treated with various medications over the years, including digoxin, beta blockers, and calcium channel blockers. In 1992, he was started on sotalol, at one point taking a high dosage of 240 mg TID for several years. He underwent atrial fibrillation catheter ablation in 2005, which was reportedly unsuccessful, and a repeat ablation in April 2023, which included ablation of a focal left atrial PAC. In late 2021, he experienced a recurrence of atrial fibrillation and resumed taking sotalol 240 mg TID. During a follow-up in April 2024, he reported doing well with only occasional brief palpitations. At that time, he declined oral anticoagulation therapy for stroke prevention, opting to continue low-dose aspirin 81 mg daily. Recently, he contacted the office in May 2025, reporting a recurrence of atrial fibrillation with prolonged episodes lasting over 12 hours. He was experiencing diarrhea and fever, reportedly due to norovirus, and noted heart rates around 85 bpm. He was evaluated by his PCP and was considered to be still in atrial fibrillation, although he has recovered from the viral illness. He inquired about resuming sotalol and starting anticoagulation therapy. He reports a strong vagal component to his atrial fibrillation, with episodes more likely to occur after eating a large meal or consuming alcohol, particularly wine. He has been engaging in physical activities such as pruning, landscaping, and painting the house, and notes that his arrhythmia often resolves when he lies down. He has a history of CAD and experienced an [place] in 2018, at which time he underwent intracoronary stent placement to the RCA. He denies any recent surgeries other than lithotripsy for a 3/4-inch kidney stone. He has a single kidney and is followed by a technician helper instrument. He has been taking Xarelto 10 mg daily for the past 9-10 days, cutting 20 mg tablets in half. He is also taking potassium citrate 1,080 mg BID for kidney stones and aspirin 81 mg daily. He denies taking any other medications. I have confirmed and edited as necessary, the PFSH and ROS obtained by others. PAST MEDICAL HISTORY Diagnosis Date At risk for stroke Atherosclerotic heart disease of knik coronary artery without angina pectoris Bradycardia CKD (chronic kidney disease) stage 3, GFR 30-59 ml/min ([facility]) Ischemic cardiomyopathy Kidney stones jail current use of antiarrhythmic drug Old myocardial infarction PAC (premature atrial contraction) 08/02/2023 Paroxysmal atrial fibrillation ([facility]) Presence of coronary angioplasty implant and graft Right bundle branch block (RBBB) Status post catheter ablation of atrial fibrillation RF catheter ablation for atrial fibrillation 2005 ([place]) STEMI (ST elevation myocardial infarction) ([facility]) PAST SURGICAL HISTORY Procedure Laterality Date AFIB ABLATION/PULM VEIN ISOLATION 2005 RF catheter ablation for atrial fibrillation; [place], [place] AFIB ABLATION/PULM VEIN ISOLATION 05/01/2023 redo PVAI (both carinas, anterior segments PVs, posterior wall, SVC/RA junction); focal left atrial PAC (posteroseptal) ablation; [facility] Dr. Thakkar ECHOCARDIOGRAM 11/30/2022 LVEF 55%; moderate LAE; no significant valvular abnormalities HOLTER MONITOR 48 HR 12/26/2022 INSERT INTRACORONARY STENT 01/06/2018 KIDNEY STONE ANALYSIS 2018 extraction 2018 LEFT HEART CATH,PERCUTANEOUS 01/06/2018 LITHOTRIPSY XTRCORP SHOCK WAVE 04/2020 LITHOTRIPSY XTRCORP SHOCK WAVE 04/01/2024 with stent TONSILLECTOMY & ADENOIDECTOMY <AGE 10 SOCIAL HISTORY Social History Tobacco Use Smoking status: Never Smokeless tobacco: Never Vaping Use Vaping status: Never Used Substance Use Topics Alcohol use: Not Currently Drug use: Never FAMILY HISTORY Problem Relation Age of Onset Alzheimer's Disease Mother Diabetes Mother Aneurysm Father Stroke Sister ALLERGIES: ALLERGIES Allergen Reactions Penicillins Anaphylaxis Caffeine Other: See Comments arrhythmia Ticagrelor Other: See Comments Didn't feel well Verapamil Other: See Comments Hypotension MEDICATIONS: potassium citrate ER (UROCIT-K) 10 mEq (1,080 mg) Take 1,080 mg by mouth two times a day. aspirin, enteric coated (ASPIRIN, ENTERIC COATED) 81 mg EC tablet Take 81 mg by mouth once daily. rivaroxaban (XARELTO) 15 mg tablet Take 1 tablet by mouth once daily. sotalol (BETAPACE) 80 mg tablet Take 1.5 tablets by mouth once daily. Review of Systems Constitutional: Positive for malaise/fatigue. Negative for chills and fever. Respiratory: Negative for cough, hemoptysis, sputum production and shortness of breath. Cardiovascular: Positive for palpitations. Negative for chest pain, orthopnea, claudication, leg swelling and PND. Gastrointestinal: Negative for abdominal pain, blood in stool, melena, nausea and vomiting. Genitourinary: Negative for dysuria, flank pain and hematuria. Musculoskeletal: Negative for falls. Skin: Negative for rash. Neurological: Negative for focal weakness, seizures and loss of consciousness. PHYSICAL EXAMINATION: BP 131/84 Pulse 91 Resp 16 Ht 6' 2 (1.88m) Wt 217 lb (98.4kg) SpO2 100% BMI 27.85 kg/(m^2). Physical Exam Vitals reviewed. Constitutional: General: He is not in acute distress. Appearance: Normal appearance. HENT: Head: Normocephalic and atraumatic. Cardiovascular: Rate and Rhythm: Tachycardia present. Rhythm irregularly irregular. Heart sounds: Normal heart sounds, S1 normal and S2 normal. No murmur heard. No friction rub. Pulmonary: Effort: Pulmonary effort is normal. No respiratory distress. Breath sounds: Normal breath sounds. No wheezing, rhonchi or rales. Musculoskeletal: Cervical back: Neck supple. Right lower leg: No edema. Left lower leg: No edema. Skin: General: Skin is warm and dry. Neurological: General: No focal deficit present. Mental Status: He is alert and oriented to person, place, and time. Psychiatric: Mood and Affect: Mood normal. Behavior: Behavior normal. Thought Content: Thought content normal. CARDIOVASCULAR MEDICINE TESTING: Electrocardiogram: atrial fibrillation with rapid ventricular response, average 115 bpm; RBBB (QRS 134 ms); QTc 528 ms; inferior infarct pattern; compared with previous EKG 04/2024, atrial fibrillation has replaced sinus rhythm I have personally reviewed the Electrocardiogram. I spent a total of 45 minutes on the date of the service which included preparing to see the patient, [id number] patient care, completing clinical documentation, obtaining and/or reviewing separately obtained history, performing a medically appropriate examination, counseling and educating the patient/family/caregiver, ordering medications, tests, or procedures, communicating with other HCPs (not separately reported), independently interpreting results (not separately reported), communicating results to the patient/family/caregiver, and care coordination (not separately reported). 1. Paroxysmal atrial fibrillation (HCC) - ICD9: 427.31, ICD10: I48.0 (primary diagnosis) 2. Status post catheter ablation of atrial fibrillation - ICD9: V45.89, ICD10: Z98.890 3. At risk for stroke - ICD9: V15.89, ICD10: Z91.89 4. Anticoagulant medication declined by patient - ICD9: V64.2, ICD10: Z53.20 5. Bradycardia - ICD9: 427.89, ICD10: R00.1 6. Sinus bradycardia - ICD9: 427.89, ICD10: R00.1 7. Right bundle branch block (RBBB) - ICD9: 426.4, ICD10: I45.10 8. Atherosclerosis of knik coronary artery of knik heart without angina pectoris - ICD9: 414.01, ICD10: I25.10 9. Old myocardial infarction - ICD9: 412, ICD10: I25.[address] elevation myocardial infarction (STEMI) - ICD9: 412, ICD10: I25.2 11. History of coronary artery stent placement - ICD9: V45.82, ICD10: Z95.5 CHADS2-Vasc Score Breakdown 2 Total Score 1 Age 65-74 years old 1 History of vascular disease IMPRESSION: 1. Paroxysmal atrial fibrillation (HCC) (I48.0) Status post catheter ablation of atrial fibrillation (Z98.890) Long-standing history of atrial fibrillation with multiple episodes and treatments, including two catheter ablations (2005 and April 2023). Recent recurrence of prolonged atrial fibrillation episodes, possibly triggered by a recent viral illness (norovirus) and dehydration. Previous treatments included high-dose sotalol (240 mg TID) and recent use of Xarelto 10 mg daily. Recent echocardiogram (07/17/2023) showed normal LV size and function (LVEF 55%), stage 1 diastolic dysfunction, normal atrial dimensions, and no significant valvular abnormalities. - Initiated sotalol 120 mg once daily due to current kidney function (creatinine 1.8 mg/dL, GFR 37 mL/min). - Prescribed Xarelto 15 mg once daily for anticoagulation. - Scheduled outpatient EKG within one week to monitor rhythm and QT interval. - Discussed potential for another catheter ablation using pulse field ablation (PFA) technology; will expedite scheduling. 2. At risk for stroke (Z91.89) Anticoagulant medication declined by patient (Z53.20) CHADS2-VASc score of 2 due to age and coronary artery disease. - Initiated Xarelto 15 mg once daily for stroke prevention. - Discontinue aspirin 81 mg daily unless general cardiology recommends he take aspirin concomitantly with OAC due to history of CAD and stent placement. 3. Bradycardia (R00.1) Sinus bradycardia (R00.1) Right bundle branch block (RBBB) (I45.10) 4. Atherosclerosis of knik coronary artery of knik heart without angina pectoris (I25.10) Old myocardial infarction (I25.2) History of ST elevation myocardial infarction (STEMI) (I25.2) History of coronary artery stent placement (Z95.5) History of myocardial infarction in 2018 with intracoronary stent placement to the right coronary artery. No current angina pectoris. Atherosclerosis of knik coronary artery confirmed. - Continue management of coronary artery disease with current medications. - Discussed importance of regular follow-up with a general transporter driver. - Recommended follow-up with a general transporter driver, he would like to see Dr. Oviedo at [facility], as he has seen Dr. Oviedo many years ago and liked him. PLAN AND RECOMMENDATIONS: See above. We will initiate antiarrhythmic drug therapy with sotalol using once daily dosing due to renal dysfunction. We did discuss the pros and cons of outpatient versus inpatient reinitiation of sotalol. Given that he has a strong preference to avoid hospitalization it is reasonable to resume sotalol as an outpatient given the fact that he has tolerated sotalol very well in the past including at very high dosages. I think there is favorable risk to benefit of outpatient reinitiation of the sotalol. An EKG within about a week or two of reinitiation of sotalol would be prudent. For convenience he could get this completed at [facility]. We had discussed the potential for electrical cardioversion but it seems reasonably certain that he is experiencing periods of sinus rhythm so I doubt that electrical cardioversion would be beneficial as he is already transitioning spontaneously in and out of the arrhythmia. Hopefully sotalol antiarrhythmic drug therapy will help him maintain sinus rhythm. This is intended to be a short-term measure as he very much desires repeat catheter ablation with new technology of pulsed field ablation or PFA. Proceed with scheduling of atrial fibrillation catheter ablation with pulsed field ablation PFA, will try to expedite the procedure for a sooner timeframe in light of his circumstances. He is very keen to establish care with Dr. Miguel Ángel Oviedo. He has been a patient of [facility] but was not aware that Dr. Oviedo, whom he has seen many years ago, was working in that practice. I instructed him to call the [facility] office to get an appointment with Dr. Oviedo. I had a detailed discussion with Mr. Solis regarding my evaluation and recommendations. After our discussion, Mr. Slois expressed his understanding and I answered all his questions to his apparent satisfaction. He agrees to proceed as outlined. INFORMED CONSENT The risks, benefits and anticipated outcomes of the procedure, the risks and benefits of the alternatives to the procedure and the roles and tasks of the personnel to be involved were discussed with the patient. Consent for the procedure and agreement to proceed has been obtained. I verify that I personally obtained the consent. Lanie Thakkar MD 06/05/2025 Medical Decision Making: Problems: Moderate: 1+ chronic illnesses with change Data: Unique source(s) for external note(s) reviewed: 1 Unique test result(s) reviewed: 3+ Risk: Moderate: Moderate risk from testing/treatment and Drug management Medical Decision Making Level: 4 - Moderate documented in this encounter [facility] 06-05-2025 Note HNO ID: [id number] Author: LANIE THAKKAR MD Service: ? Author Type: Physician Type: Progress Notes Filed: 06/05/2025 11:55 Note Text: PRIMARY CARE PHYSICIAN: [place] [address] [place] [id number] Patient Care Team: Oral Miller Jr., MD as PCP - General (Nephrology) [facility] Specialty Pin Machine Operator (Cardiology) Lanie Thakkar MD as Specialty Pin Machine Operator (Cardiology) CHIEF COMPLAINT: Follow up for arrhythmia HISTORY OF PRESENT ILLNESS: Mr. Solis is a 69 year old male who presents today for a cardiovascular medicine follow-up visit. Recording using ambient AI software for draft documentation of the visit was discussed with the patient/authorized electroplating sales representative; all questions welcomed and answered. Patient/authorized electroplating sales representative agreed to proceed History from previous notes, edited as needed and/or generated by dictation with use of AI.: Patient Overview: Mr. Solis presents for a follow-up evaluation in the [facility] outpatient clinic with Dr. Thakkar on 06/05/2025. He has a long history of arrhythmia, first experiencing atrial fibrillation at age 33 in 1987. He has been treated with various medications over the years, including digoxin, beta blockers, calcium channel blockers, and sotalol. In late 2021, he experienced a recurrence of atrial fibrillation and resumed taking sotalol, 240 mg three times daily. He has a history of coronary artery disease and experienced a heart attack in 2017, undergoing intracoronary stent placement to the right coronary artery. He reports triggers for his atrial fibrillation, including large meals and alcohol, particularly wine. He underwent repeat atrial fibrillation catheter ablation in April 2023 at [facility] by Dr. Thakkar, which included catheter ablation of a focal left atrial PAC. In April 2024, he reported doing well, experiencing only occasional and brief palpitations. At that time, there was a discussion about oral anticoagulation therapy for stroke prevention, but he preferred to take low-dose aspirin, 81 milligrams daily. He has been followed by general transporter driver Dr. Mcmanus of the [facility]. In May 2025, he contacted the office to report a recurrence of atrial fibrillation, with prolonged episodes lasting over 12 hours. He had been sick with norovirus, experiencing diarrhea and fever, and reported heart rates around 85 bpm. He was evaluated by his primary care physician and was considered to still be in atrial fibrillation, although he has recovered from the viral illness. He inquired about anticoagulant medication and resuming sotalol and was advised to make an appointment with Dr. Thakkar, for which he presents now. Diagnostic Results: - Echocardiogram (07/17/2023): - Normal left ventricular size and function - LVEF: 55% - Stage 1 diastolic dysfunction - Normal atrial dimensions - No significant valvular abnormalities Interim History Dr. Thakkar 06/05/2025: The patient is a 69-year-old male with a history of arrhythmia, CAD, and [place], presenting for follow-up. The patient has a long-standing history of arrhythmia, with initial onset of atrial fibrillation at age 33 in 1987. He has been treated with various medications over the years, including digoxin, beta blockers, and calcium channel blockers. In 1992, he was started on sotalol, at one point taking a high dosage of 240 mg TID for several years. He underwent atrial fibrillation catheter ablation in 2005, which was reportedly unsuccessful, and a repeat ablation in April 2023, which included ablation of a focal left atrial PAC. In late 2021, he experienced a recurrence of atrial fibrillation and resumed taking sotalol 240 mg TID. During a follow-up in April 2024, he reported doing well with only occasional brief palpitations. At that time, he declined oral anticoagulation therapy for stroke prevention, opting to continue low-dose aspirin 81 mg daily. Recently, he contacted the office in May 2025, reporting a recurrence of atrial fibrillation with prolonged episodes lasting over 12 hours. He was experiencing diarrhea and fever, reportedly due to norovirus, and noted heart rates around 85 bpm. He was evaluated by his PCP and was considered to be still in atrial fibrillation, although he has recovered from the viral illness. He inquired about resuming sotalol and starting anticoagulation therapy. He reports a strong vagal component to his atrial fibrillation, with episodes more likely to occur after eating a large meal or consuming alcohol, particularly wine. He has been engaging in physical activities such as pruning, landscaping, and painting the house, and notes that his arrhythmia often resolves when he lies down. He has a history of CAD and experienced an [place] in 2018, at which time he underwent intracoronary stent p (more content not included)... [facility] 05-25-2025 Discharge summary Note Date/Time May 25, 2025 8:09pm [facility] [address] [place] [id number] HEALTH INFORMATION MANAGEMENT EMERGENCY DEPARTMENT : [id number] Signed Patient: JOHNATHAN SOLIS Acct:[id number] MRUN: [id number] : 1955 Sex: M Loc: ED AD M Date: 05/25/25 Room/Bed: DISC Date: History of Present Illness - General Chief Complaint: Cardiac complaints Stated Complaint: AFIB Symptom onset: TODAY HPI: PT ARRIVES TO THE ED WITH C/O BEING WOKEN UP FROM HIS NAP AND FEELING HIS HEART FLUTTERING. PT HAS H/X OF AFIB. PT HAS H/X OF ABLASIONS. PT TAKES A BABY ASPIRIN DAILY. PT DENIES ANY CHEST PAIN. PT ALERT AND OREINTED. NO RESPIRATORY DISTRESS. Time Seen by Provider: 05/25/25 18:46 Source: Patient Mode of Transport: Ambulatory - History of Present Illness MD Complaint: Complains of: rapid heart beat, atrial fibrillation Onset/Timin -: days(s) Arrhythmia Severity: Pulse checked and, Irregular, Rapid Context: Complains of: occured during rest Modifying factors: worse with: breathing, coughing, defacting, eating, exercise,lying down, anxiety, stress, caffeine, nothing, other Arrhythmia History: Complains of: atrial fibrillation Associated Symptoms: Complains of: diaphoresis. Denies: chest pain, shortness of breath, nausea/vomiting, anxiety Treatments Prior to Arrival: Complains of: other (Sotalol) - Related Data Home Medications Medication Instructions Recorded Confirmed Sotalol HCl [Sotalol] 80 mg PO TID 01/06/18 05/31/18 Ticagrelor [Brilinta] 1 tab PO BID 05/31/18 05/31/18 Allergies Allergy/AdvReac Type Severity Reaction Status Date / Time caffeine AdvReac Verified 05/31/18 15:25 PCN AdvReac Uncoded 05/31/18 15:25 Review of System - Constitutional Constitutional: Present: Well developed, Well nourished, Non-toxic - Nose,Throat,Mouth Nose (ROS): Absent: pain Throat: Absent: pain, swelling, discharge Mouth: Absent: pain, swelling - Respiratory Respiratory: Absent: cough, short of breath, wheezing - CV Cardiology: Present: palpitations. Absent: chest pain, edema - GI Gastrointestinal/Abdominal: Present: diarrhea. Absent: abdominal pain, nausea, vomiting - Genitourinary Symptoms: Absent: dysuria - Neuro Neurological: Absent: headache, weakness - Muskuloskeletal Musculoskeletal: Absent: back pain, joint pain, joint swelling - Integumentary Skin: Absent: lesions, rash - Allergic/Immunologic Immunological/Allergic: Present: no symptoms reported - Hematologic Hematologic/Lymphatic: Absent: easy bleeding, easy bruising, swollen glands - Endocrine Endocrine: Present: no symptoms reported - Psychiatric Psychiatric: Present: Normal Affect, Normal Mood. Absent: Depressed - All Others/Exceptions All Other Systems: Reviewed and Negative Except Where Noted in Documentation ED PMH/Social HX/Family HX - Respiratory Hx Respiratory Disorders: No - Cardiovascular Hx Cardiac Disorders: Yes PMH--Cardiovascular: Atrial Fib PSH-Cardiac: Cardiac Catheterization - Neurological Hx Neurological Disorder: No - Endocrine Hx Endocrine Disorders: No - Gastrointestinal Hx Gastrointestinal Disorders: No - Genitourinary Hx Genitourinary Disorders: No - Psychological Hx Psychosocial Problems: No - HEENT Hx Ear, Nose Throat Disorders: No - Cancer Hx Cancer: No - Social History Marital Status: Able to Read: Yes Able to Write: Yes Smoking Status: Never Smoked Hx Chewing Tobacco Use: No Alcohol Use: Never Any recreational drug use reported?: No Hx Substance Use Treatment: No Feels Threatened In Home Environment: No Feels Threatened In a Relationship: No - Family PMH mother Living Status: Unknown - [place]/Gender ID What is your current Gender Identity? Choose all that Apply: Male General Exam - General Limitations: Complains of: no limitations Constitutional: Present: no symptoms reported - Head Head exam: Present: atraumatic, normocephalic, normal inspection - Eye Eye exam: Present: normal apperance - ENT ENT exam: Present: normal orophraynx, mucous membranes moist - Neck Neck exam: Present: full ROM, Supple. Absent: tenderness - Respiratory Respiratory exam: Present: lungs clear and equal bilaterally. Absent: respiratory distress - Cardiovascular Cardiovascular Exam: Present: regular rate, normal rhythm - GI/Abdominal GI/Abdominal exam: Present: soft, non tender. Absent: guarding, rebound, rigid - Extremities Exam Extremities exam: Present: normal inspection, neurovascularly intact, full ROM - Back Exam Back exam: Present: normal inspection - Neurological Exam Neurological exam: Present: alert, oriented X3 - Psychiatric Psychiatric exam: Present: normal affect - Skin Skin Color: Present: Normal Skin exam: Present: warm, dry, intact - Vital Signs Vital Signs 05/25/25 18:32 Temperature 97.9 F Pulse Rate [ 111 H Pulse Ox] Respiratory 18 Rate Blood Pressure 129/79 [Left Arm Sitting] O2 Sat by Pulse 98 Oximetry(%) MDM Arrhythmia - Lab Data Result diagrams: 05/25/25 18:43 05/25/25 18:43 Lab Results 05/25/25 05/25/25 05/25/25 Range/Units 18:43 18:43 18:43 WBC 11.0 H (3.6-10.8) K/uL RBC 5.92 H (4.13-5.69) M/uL Hgb 15.5 (12.4-17.3) g/dL Hct 47.2 (36.7-50.6) % MCV 79.7 L (80.0-94.0) fL MCH 26.2 L (27.0-31.0) pg MCHC 32.8 L (33.0-37.0) g/dL RDW 13.7 (11.5-14.5) % Plt Count 206 (148-402) K/uL MPV 10.0 (7.4-10.4) fL Neut % (Auto) 69.1 H (43.0-65.0) % Lymph % (Auto) 21.1 (17.0-45.5) % Boyd % (Auto) 8.2 (5.5-11.7) % Eos % (Auto) 1.1 (0.9-2.9) % Baso % (Auto) 0.4 (0.2-1.0) % Abs Immat Gran (man) 0.01 (0.00-0.10) K/uL Absolute Neuts (auto) 7.63 H (2.20-4.80) K/uL Absolute Lymphs (auto) 2.30 (1.30-2.90) K/uL Absolute Monos (auto) 0.90 H (0.30-0.80) K/uL Absolute Eos (auto) 0.10 (0.00-0.20) K/uL Absolute Basos (auto) 0.04 (0.00-0.10) K/uL Immature Gran % 0.10 (0.00-1.00) % PT 10.6 (8.9-12.2) sec INR 1.1 ratio APTT 26.5 (19.5-32.1) sec Sodium 136 (132-145) mmol/L Potassium 3.7 (3.3-5.1) mmol/L Chloride 102 (94-110) mmol/L Total Carbon Dioxide 22 (21-34) mmol/L Anion Gap 15.7 (8.0-16.0) mmol/L BUN 31.3 H (3.2-26.9) mg/dL Creatinine 1.80 H (0.50-1.17) mg/dL Est GFR (MDRD) Af Amer 45 A (>60) Est GFR (MDRD) Non-Af 37 A (>60) BUN/Creatinine Ratio 17 (6-20) Glucose 147 H (65-100) mg/dL Calcium 8.9 (8.2-10.0) mg/dL Magnesium (1.3-2.3) mg/dL Total Bilirubin 1.05 H (0.00-0.99) mg/dL AST 13 (3-39) U/L ALT 18 (13-66) U/L Alkaline Phosphatase 76 (54-112) U/L Troponin I High Sens 11 (0-76) ng/L Total Protein 8.1 (6.1-8.2) g/dL Albumin 3.7 (3.4-5.0) g/dL Globulin 4.4 (1.5-4.5) g/dL Albumin/Globulin Ratio 0.8 L (1.1-2.5) 05/25/25 Range/Units 18:43 WBC (3.6-10.8) K/uL RBC (4.13-5.69) M/uL Hgb (12.4-17.3) g/dL Hct (36.7-50.6) % MCV (80.0-94.0) fL MCH (27.0-31.0) pg MCHC (33.0-37.0) g/dL RDW (11.5-14.5) % Plt Count (148-402) K/uL MPV (7.4-10.4) fL Neut % (Auto) (43.0-65.0) % Lymph % (Auto) (17.0-45.5) % Boyd % (Auto) (5.5-11.7) % Eos % (Auto) (0.9-2.9) % Baso % (Auto) (0.2-1.0) % Abs Immat Gran (man) (0.00-0.10) K/uL Absolute Neuts (auto) (2.20-4.80) K/uL Absolute Lymphs (auto) (1.30-2.90) K/uL Absolute Monos (auto) (0.30-0.80) K/uL Absolute Eos (auto) (0.00-0.20) K/uL Absolute Basos (auto) (0.00-0.10) K/uL Immature Gran % (0.00-1.00) % PT (8.9-12.2) sec INR ratio APTT (19.5-32.1) sec Sodium (132-145) mmol/L Potassium (3.3-5.1) mmol/L Chloride (94-110) mmol/L Total Carbon Dioxide (21-34) mmol/L Anion Gap (8.0-16.0) mmol/L BUN (3.2-26.9) mg/dL Creatinine (0.50-1.17) mg/dL Est GFR (MDRD) Af Amer (>60) Est GFR (MDRD) Non-Af (>60) BUN/Creatinine Ratio (6-20) Glucose (65-100) mg/dL Calcium (8.2-10.0) mg/dL Magnesium 2.2 (1.3-2.3) mg/dL Total Bilirubin (0.00-0.99) mg/dL AST (3-39) U/L ALT (13-66) U/L Alkaline Phosphatase (54-112) U/L Troponin I High Sens (0-76) ng/L Total Protein (6.1-8.2) g/dL Albumin (3.4-5.0) g/dL Globulin (1.5-4.5) g/dL Albumin/Globulin Ratio (1.1-2.5) Orders: Medications Discontinued Medications Sodium Chloride (Sodium Chloride 0.9 % 1000 Ml) 1,000 mls @ 999 mls/hr IV .Q1H1M STA Stop: 05/25/25 20:04 Last Admin: 05/25/25 19:09 Dose: 999 mls/hr Documented by: [email or web address] Labs 05/25/25 18:32 12-Lead per nursing [RC] STAT BIOTIN CHEST PAIN SCREENING [RC] ONE ED-IV [RC] ONE CHEST AP [DIAG] Stat EKG [CAR] Stat Pulse Oximetry [RESP] ONE Telemetry [RC] CONT 05/25/25 18:43 CBC w/Auto Differential [HEM] Stat Comprehensive Metabolic Panel [CHM] Stat High Sensitivity Troponin I* [CHM] Stat Magnesium [CHM] Stat PT [COA] Stat PTT [COA] Stat 05/25/25 19:04 Normal Saline 0.9% 1000 ml [Sodium Chloride 0.9 % 1000 ml] 1,000 ml IV 999 mls/hr 05/25/25 19:57 Potassium Chloride [Kdur 20 Meq Tablet] 40 meq PO ONE ONE 05/25/25 20:32 High Sensitivity Troponin I* [CHM] Routine 05/25/25 22:32 High Sensitivity Troponin I* [CHM] Routine - Radiology Data IMPRESSIONS Chest X-Ray 05/25/25 18:32 IMPRESSION: No acute process. Electrocardiogram 05/25/25 18:32 [facility] ED Test Date: 2025-05-25 Test Time: 18:36:20 Pat Name: JOHNATHAN SOLIS Department: ED Room: Gender: Male Campus President: LUIS ENRIQUE : 1955 Requested By: REBECCA PEREZ Order Number: [id number] Reading MD: Measurements Intervals [place] Rate: 117 P: 0 MS: 0 QRS: -97 QRSD: 129 T: 33 QT: 353 QTc: 493 Interpretive Statements Atrial flutter Right bundle branch block Inferior infarct, old Probable anterolateral infarct, old - Differential Diagnosis Arrhythmia Differential Dx: Considered: Atrial fibrillation, Atrial flutter, MAT, PAC's, Electrolyte disorder, PSVT, Sinus tachycardia, WPW, V-Fib, V-Tach, [place], Pulmonary embolis, Torsades de Pointes, PVC's, AV block 1st degree, AV block 2nd degree-Type 1-Wenckebach, AV block 2nd degree-Type 2, Anxiety/Panic attack, Medication toxicity, Hyperthyroidism, Hyperventilation, Hypoxia - Medical Decision Making 69-year-old male who has had some diarrhea for the last two days. Intermittently he has felt like his heart has been racing and he is back in AFib. He had a cardiac ablation two years ago and has been well controlled since then. EKG shows an AF flutter rate of 117 on arrival. Patient received IV fluids heart rate is now down to 77. He did take some sotalol that he had left over when he was on it before at home prior to coming. He appears normal regular rhythm on the monitor. He is asymptomatic at this time. Patient's potassium is borderline low at 3.7. He did give an oral replacement. his diarrhea maybe affected his levels. Workup was otherwise unremarkable. Creatinine is 1.8 which is baseline for him. 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 He will contact him tomorrow for further management. Patient is stable for discharge home. ED Discharge Summary - Discharge Data Clinical Impression: Palpitation, History of atrial fibrillation, Diarrhea Condition: Good Disposition: 01 HOME / SELF CARE Referrals: PHYSICIAN,UNASSIGNED [Primary Care Provider] - Home Medications: Ambulatory Orders Medication Instructions Recorded Sotalol HCl [Sotalol] 80 mg PO TID 01/06/18 Ticagrelor [Brilinta] 1 tab PO BID 05/31/18 Time Seen by Provider: 05/25/25 18:46 Electronically Generated By:PATRICIA CARDOZO MD Generated Date/Time: 05/25/252002 Electronically Signed By: <Electronically signed by PATRICIA CARDOZO MD> 05/25/252008 Co Signed Electronically By: Co Signed Date/Time: CC: PHYSICIAN, UNASSIGNED [facility] Work Phone: [phone] 100-754707-14-[address] [address] HEALTH INFORMATION MANAGEMENT EMERGENCY DEPARTMENT : Signed Patient: JOHNATHAN SOLIS Acct:[id number] MRUN: [id number] : 1955 Sex: M Loc: ED AD M Date: 05/25/25 Room/Bed: DISC Date: History of Present Illness - General Chief Complaint: Cardiac complaints Stated Complaint: AFIB Symptom onset: TODAY HPI: PT ARRIVES TO THE ED WITH C/O BEING WOKEN UP FROM HIS NAP AND FEELING HIS HEART FLUTTERING. PTHAS H/X OF AFIB. PT HAS H/X OF ABLASIONS. PT TAKES A BABY ASPIRIN DAILY. PT DENIES ANY CHEST PAIN. PT ALERT AND OREINTED. NO RESPIRATORY DISTRESS. Time Seen by Provider: 05/25/25 18:46 Source: Patient Mode of Transport: Ambulatory - History of Present Illness Complaint: Complains of: rapid heart beat, atrial fibrillation Onset/Timin -: days(s) Arrhythmia Severity: Pulse checked and, Irregular, Rapid Context: Complains of: occured during rest Modifying factors: worse with: breathing, coughing, defacting, eating, exercise,lying down, anxiety, stress, caffeine, nothing, other Arrhythmia History: Complains of: atrial fibrillation Associated Symptoms: Complains of: diaphoresis. Denies: chest pain, shortness of breath, nausea/vomiting, anxiety Treatments Prior to Arrival: Complains of: other (Sotalol) - Related Data Home Medications Medication Instructions Recorded Confirmed Sotalol HCl [Sotalol] 80 mg PO TID 01/06/18 05/31/18 Ticagrelor [Brilinta] 1 tab PO BID 05/31/18 05/31/18 Allergies Allergy/AdvReac Type Severity Reaction Status Date / Time caffeine AdvReac Verified 05/31/18 15:25 PCN AdvReac Uncoded 05/31/18 15:25 Review of System - Constitutional Constitutional: Present: Well developed, Well nourished, Non-toxic - Nose,Throat,Mouth Nose (ROS): Absent: pain Throat: Absent: pain, swelling, discharge Mouth: Absent: pain, swelling - Respiratory Respiratory: Absent: cough, short of breath, wheezing - CV Cardiology: Present: palpitations. Absent: chest pain, edema - GI Gastrointestinal/Abdominal: Present: diarrhea. Absent: abdominal pain, nausea, vomiting - Genitourinary Symptoms: Absent: dysuria - Neuro Neurological: Absent: headache, weakness - Muskuloskeletal Musculoskeletal: Absent: back pain, joint pain, joint swelling - Integumentary Skin: Absent: lesions, rash - Allergic/Immunologic Immunological/Allergic: Present: no symptoms reported - Hematologic Hematologic/Lymphatic: Absent: easy bleeding, easy bruising, swollen glands - Endocrine Endocrine: Present: no symptoms reported - Psychiatric Psychiatric: Present: Normal Affect, Normal Mood. Absent: Depressed - All Others/Exceptions All Other Systems: Reviewed and Negative Except Where Noted in Documentation ED PMH/Social HX/Family HX - Respiratory Hx Respiratory Disorders: No - Cardiovascular Hx Cardiac Disorders: Yes PMH--Cardiovascular: Atrial Fib PSH-Cardiac: Cardiac Catheterization - Neurological Hx Neurological Disorder: No - Endocrine Hx Endocrine Disorders: No - Gastrointestinal Hx Gastrointestinal Disorders: No - Genitourinary Hx Genitourinary Disorders: No - Psychological Hx Psychosocial Problems: No - HEENT Hx Ear, Nose Throat Disorders: No - Cancer Hx Cancer: No - Social History Marital Status: Able to Read: Yes Able to Write: Yes Smoking Status: Never Smoked Hx Chewing Tobacco Use: No Alcohol Use: Never Any recreational drug use reported?: No Hx Substance Use Treatment: No Feels Threatened In Home Environment: No Feels Threatened In a Relationship: No - Family PMH mother Living Status: Unknown - [place]/Gender ID What is your current Gender Identity? Choose all that Apply: Male General Exam - General Limitations: Complains of: no limitations Constitutional: Present: no symptoms reported - Head Head exam: Present: atraumatic, normocephalic, normal inspection - Eye Eye exam: Present: normal apperance - ENT ENT exam: Present: normal orophraynx, mucous membranes moist - Neck Neck exam: Present: full ROM, Supple. Absent: tenderness - Respiratory Respiratory exam: Present: lungs clear and equal bilaterally. Absent: respiratory distress - Cardiovascular Cardiovascular Exam: Present: regular rate, normal rhythm - GI/Abdominal GI/Abdominal exam: Present: soft, non tender. Absent: guarding, rebound, rigid - Extremities Exam Extremities exam: Present: normal inspection, neurovascularly intact, full ROM - Back Exam Back exam: Present: normal inspection - Neurological Exam Neurological exam: Present: alert, oriented X3 - Psychiatric Psychiatric exam: Present: normal affect - Skin Skin Color: Present: Normal Skin exam: Present: warm, dry, intact - Vital Signs Vital Signs 05/25/25 18:32 Temperature 97.9 F Pulse Rate [ 111 H Pulse Ox] Respiratory 18 Rate Blood Pressure 129/79 [Left Arm Sitting] O2 Sat by Pulse 98 Oximetry(%) MDM Arrhythmia - Lab Data Result diagrams: 05/25/25 18:43 05/25/25 18:43 Lab Results 05/25/25 05/25/25 05/25/25 Range/Units 18:43 18:43 18:43 WBC 11.0 H (3.6-10.8) K/uL RBC 5.92 H (4.13-5.69) M/uL Hgb 15.5 (12.4-17.3) g/dL Hct 47.2 (36.7-50.6) % MCV 79.7 L (80.0-94.0) fL MCH 26.2 L (27.0-31.0) pg MCHC 32.8 L (33.0-37.0) g/dL RDW 13.7 (11.5-14.5) % Plt Count 206 (148-402) K/uL MPV 10.0 (7.4-10.4) fL Neut % (Auto) 69.1 H (43.0-65.0) % Lymph % (Auto) 21.1 (17.0-45.5) % Boyd % (Auto) 8.2 (5.5-11.7) % Eos % (Auto) 1.1 (0.9-2.9) % Baso % (Auto) 0.4 (0.2-1.0) % Abs Immat Gran (man) 0.01 (0.00-0.10) K/uL Absolute Neuts (auto) 7.63 H (2.20-4.80) K/uL Absolute Lymphs (auto) 2.30 (1.30-2.90) K/uL Absolute Monos (auto) 0.90 H (0.30-0.80) K/uL Absolute Eos (auto) 0.10 (0.00-0.20) K/uL Absolute Basos (auto) 0.04 (0.00-0.10) K/uL Immature Gran % 0.10 (0.00-1.00) % PT 10.6 (8.9-12.2) sec INR 1.1 ratio APTT 26.5 (19.5-32.1) sec Sodium 136 (132-145) mmol/L Potassium 3.7 (3.3-5.1) mmol/L Chloride 102 (94-110) mmol/L Total Carbon Dioxide 22 (21-34) mmol/L Anion Gap 15.7 (8.0-16.0) mmol/L BUN 31.3 H (3.2-26.9) mg/dL Creatinine 1.80 H (0.50-1.17) mg/dL Est GFR (MDRD) Af Amer 45 A (>60) Est GFR (MDRD) Non-Af 37 A (>60) BUN/Creatinine Ratio 17 (6-20) Glucose 147 H (65-100) mg/dL Calcium 8.9 (8.2-10.0) mg/dL Magnesium (1.3-2.3) mg/dL Total Bilirubin 1.05 H (0.00-0.99) mg/dL AST 13 (3-39) U/L ALT 18 (13-66) U/L Alkaline Phosphatase 76 (54-112) U/L Troponin I High Sens 11 (0-76) ng/L Total Protein 8.1 (6.1-8.2) g/dL Albumin 3.7 (3.4-5.0) g/dL Globulin 4.4 (1.5-4.5) g/dL Albumin/Globulin Ratio 0.8 L (1.1-2.5) / Range/Units 18:43 WBC (3.6-10.8) K/uL RBC (4.13-5.69) M/uL Hgb (12.4-17.3) g/dL Hct (36.7-50.6) % MCV (80.0-94.0) fL MCH (27.0-31.0) pg MCHC (33.0-37.0) g/dL RDW (11.5-14.5) % Plt Count (148-402) K/uL MPV (7.4-10.4) fL Neut % (Auto) (43.0-65.0) % Lymph % (Auto) (17.0-45.5) % Boyd % (Auto) (5.5-11.7) % Eos % (Auto) (0.9-2.9) % Baso % (Auto) (0.2-1.0) % Abs Immat Gran (man) (0.00-0.10) K/uL Absolute Neuts (auto) (2.20-4.80) K/uL Absolute Lymphs (auto) (1.30-2.90) K/uL Absolute Monos (auto) (0.30-0.80) K/uL Absolute Eos (auto) (0.00-0.20) K/uL Absolute Basos (auto) (0.00-0.10) K/uL Immature Gran % (0.00-1.00) % PT (8.9-12.2) sec INR ratio APTT (19.5-32.1) sec Sodium (132-145) mmol/L Potassium (3.3-5.1) mmol/L Chloride (94-110) mmol/L Total Carbon Dioxide (21-34) mmol/L Anion Gap (8.0-16.0) mmol/L BUN (3.2-26.9) mg/dL Creatinine (0.50-1.17) mg/dL Est GFR (MDRD) Af Amer (>60) Est GFR (MDRD) Non-Af (>60) BUN/Creatinine Ratio (6-20) Glucose (65-100) mg/dL Calcium (8.2-10.0) mg/dL Magnesium 2.2 (1.3-2.3) mg/dL Total Bilirubin (0.00-0.99) mg/dL AST (3-39) U/L ALT (13-66) U/L Alkaline Phosphatase (54-112) U/L Troponin I High Sens (0-76) ng/L Total Protein (6.1-8.2) g/dL Albumin (3.4-5.0) g/dL Globulin (1.5-4.5) g/dL Albumin/Globulin Ratio (1.1-2.5) Orders: Medications Discontinued Medications Sodium Chloride (Sodium Chloride 0.9 % 1000 Ml) 1,000 mls @ 999 mls/hr IV .Q1H1M STA Stop: 05/25/25 20:04 Last Admin: 05/25/25 19:09 Dose: 999 mls/hr Documented by: [email or web address] Labs 05/25/25 18:32 12-Lead per nursing [RC] STAT BIOTIN CHEST PAIN SCREENING [RC] ONE ED-IV [RC] ONE CHEST AP [DIAG] Stat EKG [CAR] Stat Pulse Oximetry [RESP] ONE Telemetry [RC] CONT 05/25/25 18:43 CBC w/Auto Differential [HEM] Stat Comprehensive Metabolic Panel [CHM] Stat High Sensitivity Troponin I* [CHM] Stat Magnesium [CHM] Stat PT [COA] Stat PTT [COA] Stat 05/25/25 19:04 Normal Saline 0.9% 1000 ml [Sodium Chloride 0.9 % 1000 ml] 1,000 ml IV 999 mls/hr 05/25/25 19:57 Potassium Chloride [Kdur 20 Meq Tablet] 40 meq PO ONE ONE 05/25/25 20:32 High Sensitivity Troponin I* [CHM] Routine 05/25/25 22:32 High Sensitivity Troponin I* [CHM] Routine - Radiology Data IMPRESSIONS Chest X-Ray 05/25/25 18:32 IMPRESSION: No acute process. 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 Intermittently he has felt like his heart has been racing and he is back in AFib. He had a cardiac ablation two years ago and has been well controlled since then. EKG shows an AF flutter rate of 117 on arrival. Patient received IV fluids heart rate is now down to 77. He did take some sotalol that he had left over when he was on it before at home prior to coming. He appears normal regular rhythm on the monitor. He is asymptomatic at this time. Patient's potassium is borderline low at 3.7. He did give an oral replacement. his diarrhea maybe affected his levels. Workup was otherwise unremarkable. Creatinine is 1.8 which is baseline for him. 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 He will contact him tomorrow for further management. Patient is stable for discharge home. ED Discharge Summary - Discharge Data Clinical Impression: Palpitation, History of atrial fibrillation, Diarrhea Condition: Good Disposition: HOME / SELF CARE Referrals: PHYSICIAN,UNASSIGNED [Primary Care Provider] - Home Medications: Ambulatory Orders Medication Instructions Recorded Sotalol HCl [Sotalol] 80 mg PO TID 01/06/18 Ticagrelor [Brilinta] 1 tab PO BID 05/31/18 Time Seen by Provider: 05/25/25 18:46 Electronically Generated By:PATRICIA CARDOZO MD Generated Date/Time: 05/25/252002 Electronically Signed By: 05/25/252008 Co Signed Electronically By: Co Signed Date/Time: CC: PHYSICIAN, UNASSIGNED [facility]07-14-2025 Telephone encounter Note* Telephone Encounter - Lanie Thakkar MD - 05/25/2025 7:51 PM EDT [facility] [place] General Electrophysiology (EP) Not uncommon to have arrhythmias exacerbated when having another illness such as the viral illness. Not much to do differently right now except recover from the viral illness. Lanie Thakkar MD May 25, 2025 7:52 PM [facility]07-14-2025 Miscellaneous Notes* Telephone Encounter - Lanie Thakkar MD - 05/25/2025 7:51 PM EDT [facility] [place] General Electrophysiology (EP) Not uncommon to have arrhythmias exacerbated when having another illness such as the viral illness. Not much to do differently right now except recover from the viral illness. Lanie Thakkar MD May 25, 2025 7:52 PM * Telephone Encounter - Donna Arzola RN - 05/25/2025 12:59 PM EDT Johnathan Solis called in to report he went out of rhythm yesterday with an episode lasting about 12 hours then he returned to normal rhythm. He went out of rhythm again about an hour ago. He stateshe also has norovirus which started yesterday with diarrhea, fever 99.1. How long has this been occurring? Since yesterday What is your heart rate and blood pressure? HR 85 BP has not checked Are you having chest pain, shortness of breath or dizziness? no Verify medications, doses and frequency. Reviewed, correct. Donna Arzola RN [facility] Radiology Diagnostic study note [facility] RADIOLOGY [address] [address] DIAGNOSTIC RADIOLOGY REPORT: [id number], Signed. 2 Patient: JOHNATHAN SOLIS : 1955, age 69 MR#: [id number] Acct: [id number] - EXAMINATION: ONE XRAY VIEW OF THE CHEST 05/25/2025 7:01 pm COMPARISON: 01/06/2018 HISTORY: ORDERING SYSTEM PROVIDED HISTORY: Chest Pain, Afib FINDINGS: The lungs are without acute focal process. There is no effusion or pneumothorax. The cardiomediastinal silhouette is without acute process. The osseous structures are without acute process. DIAG/CHEST AP IMPRESSION: No acute process. Electronically Signed by: SAMANTHA OLSON MD Signed date/time: 05/25/251914 CC: REBECCA PEREZ MD; PHYSICIAN, UNASSIGNED [facility] Work Phone: [phone]) 387-948107-14-2025 Telephone encounter Note* Telephone Encounter - Donna Arzola RN - 05/25/2025 12:59 PM EDT Johnathan Solis called in to report he went out of rhythm yesterday with an episode lasting about 12 hours then he returned to normal rhythm. He went out of rhythm again about an hour ago. He stateshe also has norovirus which started yesterday with diarrhea, fever 99.1. How long has this been occurring? Since yesterday What is your heart rate and blood pressure? HR 85 BP has not checked Are you having chest pain, shortness of breath or dizziness? no Verify medications, doses and frequency. Reviewed, correct. Donna Arzola RN [facility]07-14-2025 Discharge summary Author PATRICIA CARDOZO [facility] Note Date/Time May 25, 2025 8:09 pm [facility] [address] [place] [id number] HEALTH INFORMATION MANAGEMENT EMERGENCY DEPARTMENT : [phone] Signed Patient: JOHNATHAN SOLIS Acct:[id number] MRUN: [id number] : 1955 Sex: M Loc: ED AD M Date: 05/25/25 Room/Bed: DISC Date: History of Present Illness - General Chief Complaint: Cardiac complaints Stated Complaint: AFIB Symptom onset: TODAY HPI: PT ARRIVES TO THE ED WITH C/O BEING WOKEN UP FROM HIS NAP AND FEELING HIS HEART FLUTTERING. PT HAS H/X OF AFIB. PT HAS H/X OF ABLASIONS. PT TAKES A BABY ASPIRIN DAILY. PT DENIES ANY CHEST PAIN. PT ALERT AND OREINTED. NO RESPIRATORY DISTRESS. Time Seen by Provider: 05/25/25 18:46 Source: Patient Mode of Transport: Ambulatory - History of Present Illness MD Complaint: Complains of: rapid heart beat, atrial fibrillation Onset/Timin -: days(s) Arrhythmia Severity: Pulse checked and, Irregular, Rapid Context: Complains of: occured during rest Modifying factors: worse with: breathing, coughing, defacting, eating, exercise,lying down, anxiety, stress, caffeine, nothing, other Arrhythmia History: Complains of: atrial fibrillation Associated Symptoms: Complains of: diaphoresis. Denies: chest pain, shortness of breath, nausea/vomiting, anxiety Treatments Prior to Arrival: Complains of: other (Sotalol) - Related Data Home Medications Medication Instructions Recorded Confirmed Sotalol HCl [Sotalol] 80 mg PO TID 01/06/18 05/31/18 Ticagrelor [Brilinta] 1 tab PO BID 05/31/18 05/31/18 Allergies Allergy/AdvReac Type Severity Reaction Status Date / Time caffeine AdvReac Verified 05/31/18 15:25 PCN AdvReac Uncoded 05/31/18 15:25 Review of System - Constitutional Constitutional: Present: Well developed, Well nourished, Non-toxic - Nose,Throat,Mouth Nose (ROS): Absent: pain Throat: Absent: pain, swelling, discharge Mouth: Absent: pain, swelling - Respiratory Respiratory: Absent: cough, short of breath, wheezing - CV Cardiology: Present: palpitations. Absent: chest pain, edema - GI Gastrointestinal/Abdominal: Present: diarrhea. Absent: abdominal pain, nausea, vomiting - Genitourinary Symptoms: Absent: dysuria - Neuro Neurological: Absent: headache, weakness - Muskuloskeletal Musculoskeletal: Absent: back pain, joint pain, joint swelling - Integumentary Skin: Absent: lesions, rash - Allergic/Immunologic Immunological/Allergic: Present: no symptoms reported - Hematologic Hematologic/Lymphatic: Absent: easy bleeding, easy bruising, swollen glands - Endocrine Endocrine: Present: no symptoms reported - Psychiatric Psychiatric: Present: Normal Affect, Normal Mood. Absent: Depressed - All Others/Exceptions All Other Systems: Reviewed and Negative Except Where Noted in Documentation ED PMH/Social HX/Family HX - Respiratory Hx Respiratory Disorders: No - Cardiovascular Hx Cardiac Disorders: Yes PMH--Cardiovascular: Atrial Fib PSH-Cardiac: Cardiac Catheterization - Neurological Hx Neurological Disorder: No - Endocrine Hx Endocrine Disorders: No - Gastrointestinal Hx Gastrointestinal Disorders: No - Genitourinary Hx Genitourinary Disorders: No - Psychological Hx Psychosocial Problems: No - HEENT Hx Ear, Nose Throat Disorders: No - Cancer Hx Cancer: No - Social History Marital Status: Able to Read: Yes Able to Write: Yes Smoking Status: Never Smoked Hx Chewing Tobacco Use: No Alcohol Use: Never Any recreational drug use reported?: No Hx Substance Use Treatment: No Feels Threatened In Home Environment: No Feels Threatened In a Relationship: No - Family PMH mother Living Status: Unknown - [place]/Gender ID What is your current Gender Identity? Choose all that Apply: Male General Exam - General Limitations: Complains of: no limitations Constitutional: Present: no symptoms reported - Head Head exam: Present: atraumatic, normocephalic, normal inspection - Eye Eye exam: Present: normal apperance - ENT ENT exam: Present: normal orophraynx, mucous membranes moist - Neck Neck exam: Present: full ROM, Supple. Absent: tenderness - Respiratory Respiratory exam: Present: lungs clear and equal bilaterally. Absent: respiratory distress - Cardiovascular Cardiovascular Exam: Present: regular rate, normal rhythm - GI/Abdominal GI/Abdominal exam: Present: soft, non tender. Absent: guarding, rebound, rigid - Extremities Exam Extremities exam: Present: normal inspection, neurovascularly intact, full ROM - Back Exam Back exam: Present: normal inspection - Neurological Exam Neurological exam: Present: alert, oriented X3 - Psychiatric Psychiatric exam: Present: normal affect - Skin Skin Color: Present: Normal Skin exam: Present: warm, dry, intact - Vital Signs Vital Signs 05/25/25 18:32 Temperature 97.9 F Pulse Rate [ 111 H Pulse Ox] Respiratory 18 Rate Blood Pressure 129/79 [Left Arm Sitting] O2 Sat by Pulse 98 Oximetry(%) MDM Arrhythmia - Lab Data Result diagrams: 05/25/25 18:43 05/25/25 18:43 Lab Results 05/25/25 05/25/25 05/25/25 Range/Units 18:43 18:43 18:43 WBC 11.0 H (3.6-10.8) K/uL RBC 5.92 H (4.13-5.69) M/uL Hgb 15.5 (12.4-17.3) g/dL Hct 47.2 (36.7-50.6) % MCV 79.7 L (80.0-94.0) fL MCH 26.2 L (27.0-31.0) pg MCHC 32.8 L (33.0-37.0) g/dL RDW 13.7 (11.5-14.5) % Plt Count 206 (148-402) K/uL MPV 10.0 (7.4-10.4) fL Neut % (Auto) 69.1 H (43.0-65.0) % Lymph % (Auto) 21.1 (17.0-45.5) % Boyd % (Auto) 8.2 (5.5-11.7) % Eos % (Auto) 1.1 (0.9-2.9) % Baso % (Auto) 0.4 (0.2-1.0) % Abs Immat Gran (man) 0.01 (0.00-0.10) K/uL Absolute Neuts (auto) 7.63 H (2.20-4.80) K/uL Absolute Lymphs (auto) 2.30 (1.30-2.90) K/uL Absolute Monos (auto) 0.90 H (0.30-0.80) K/uL Absolute Eos (auto) 0.10 (0.00-0.20) K/uL Absolute Basos (auto) 0.04 (0.00-0.10) K/uL Immature Gran % 0.10 (0.00-1.00) % PT 10.6 (8.9-12.2) sec INR 1.1 ratio APTT 26.5 (19.5-32.1) sec Sodium 136 (132-145) mmol/L Potassium 3.7 (3.3-5.1) mmol/L Chloride 102 (94-110) mmol/L Total Carbon Dioxide 22 (21-34) mmol/L Anion Gap 15.7 (8.0-16.0) mmol/L BUN 31.3 H (3.2-26.9) mg/dL Creatinine 1.80 H (0.50-1.17) mg/dL Est GFR (MDRD) Af Amer 45 A (>60) Est GFR (MDRD) Non-Af 37 A (>60) BUN/Creatinine Ratio 17 (6-20) Glucose 147 H (65-100) mg/dL Calcium 8.9 (8.2-10.0) mg/dL Magnesium (1.3-2.3) mg/dL Total Bilirubin 1.05 H (0.00-0.99) mg/dL AST 13 (3-39) U/L ALT 18 (13-66) U/L Alkaline Phosphatase 76 (54-112) U/L Troponin I High Sens 11 (0-76) ng/L Total Protein 8.1 (6.1-8.2) g/dL Albumin 3.7 (3.4-5.0) g/dL Globulin 4.4 (1.5-4.5) g/dL Albumin/Globulin Ratio 0.8 L (1.1-2.5) 05/25/25 Range/Units 18:43 WBC (3.6-10.8) K/uL RBC (4.13-5.69) M/uL Hgb (12.4-17.3) g/dL Hct (36.7-50.6) % MCV (80.0-94.0) fL MCH (27.0-31.0) pg MCHC (33.0-37.0) g/dL RDW (11.5-14.5) % Plt Count (148-402) K/uL MPV (7.4-10.4) fL Neut % (Auto) (43.0-65.0) % Lymph % (Auto) (17.0-45.5) % Boyd % (Auto) (5.5-11.7) % Eos % (Auto) (0.9-2.9) % Baso % (Auto) (0.2-1.0) % Abs Immat Gran (man) (0.00-0.10) K/uL Absolute Neuts (auto) (2.20-4.80) K/uL Absolute Lymphs (auto) (1.30-2.90) K/uL Absolute Monos (auto) (0.30-0.80) K/uL Absolute Eos (auto) (0.00-0.20) K/uL Absolute Basos (auto) (0.00-0.10) K/uL Immature Gran % (0.00-1.00) % PT (8.9-12.2) sec INR ratio APTT (19.5-32.1) sec Sodium (132-145) mmol/L Potassium (3.3-5.1) mmol/L Chloride (94-110) mmol/L Total Carbon Dioxide (21-34) mmol/L Anion Gap (8.0-16.0) mmol/L BUN (3.2-26.9) mg/dL Creatinine (0.50-1.17) mg/dL Est GFR (MDRD) Af Amer (>60) Est GFR (MDRD) Non-Af (>60) BUN/Creatinine Ratio (6-20) Glucose (65-100) mg/dL Calcium (8.2-10.0) mg/dL Magnesium 2.2 (1.3-2.3) mg/dL Total Bilirubin (0.00-0.99) mg/dL AST (3-39) U/L ALT (13-66) U/L Alkaline Phosphatase (54-112) U/L Troponin I High Sens (0-76) ng/L Total Protein (6.1-8.2) g/dL Albumin (3.4-5.0) g/dL Globulin (1.5-4.5) g/dL Albumin/Globulin Ratio (1.1-2.5) Orders: Medications Discontinued Medications Sodium Chloride (Sodium Chloride 0.9 % 1000 Ml) 1,000 mls @ 999 mls/hr IV .Q1H1M STA Stop: 05/25/25 20:04 Last Admin: 05/25/25 19:09 Dose: 999 mls/hr Documented by: [email or web address] Labs 05/25/25 18:32 12-Lead per nursing [RC] STAT BIOTIN CHEST PAIN SCREENING [RC] ONE ED-IV [RC] ONE CHEST AP [DIAG] Stat EKG [CAR] Stat Pulse Oximetry [RESP] ONE Telemetry [RC] CONT 05/25/25 18:43 CBC w/Auto Differential [HEM] Stat Comprehensive Metabolic Panel [CHM] Stat High Sensitivity Troponin I* [CHM] Stat Magnesium [CHM] Stat PT [COA] Stat PTT [COA] Stat 05/25/25 19:04 Normal Saline 0.9% 1000 ml [Sodium Chloride 0.9 % 1000 ml] 1,000 ml IV 999 mls/hr 05/25/25 19:57 Potassium Chloride [Kdur 20 Meq Tablet] 40 meq PO ONE ONE 05/25/25 20:32 High Sensitivity Troponin I* [CHM] Routine 05/25/25 22:32 High Sensitivity Troponin I* [CHM] Routine - Radiology Data IMPRESSIONS Chest X-Ray 05/25/25 18:32 IMPRESSION: No acute process. Electrocardiogram 05/25/25 18:32 [facility] ED Test Date: 2025-05-25 Test Time: 18:36:20 Pat Name: JOHNATHAN SOLIS Department: ED Room: Gender: Male Campus President: LUIS ENRIQUE : 1955 Requested By: REBECCA PEREZ Order Number: [id number] Reading MD: Measurements Intervals [place] Rate: 117 P: 0 MS: 0 QRS: -97 QRSD: 129 T: 33 QT: 353 QTc: 493 Interpretive Statements Atrial flutter Right bundle branch block Inferior infarct, old Probable anterolateral infarct, old - Differential Diagnosis Arrhythmia Differential Dx: Considered: Atrial fibrillation, Atrial flutter, MAT, PAC's, Electrolyte disorder, PSVT, Sinus tachycardia, WPW, V-Fib, V-Tach, [place], Pulmonary embolis, Torsades de Pointes, PVC's, AV block 1st degree, AV block 2nd degree-Type 1-Wenckebach, AV block 2nd degree-Type 2, Anxiety/Panic attack, Medication toxicity, Hyperthyroidism, Hyperventilation, Hypoxia - Medical Decision Making 69-year-old male who has had some diarrhea for the last two days. Intermittently he has felt like his heart has been racing and he is back in AFib. He had a cardiac ablation two years ago and has been well controlled since then. EKG shows an AF flutter rate of 117 on arrival. Patient received IV fluids heart rate is now down to 77. He did take some sotalol that he had left over when he was on it before at home prior to coming. He appears normal regular rhythm on the monitor. He is asymptomatic at this time. Patient's potassium is borderline low at 3.7. He did give an oral replacement. his diarrhea maybe affected his levels. Workup was otherwise unremarkable. Creatinine is 1.8 which is baseline for him. 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 He will contact him tomorrow for further management. Patient is stable for discharge home. ED Discharge Summary - Discharge Data Clinical Impression: Palpitation, History of atrial fibrillation, Diarrhea Condition: Good Disposition: 01 HOME / SELF CARE Referrals: PHYSICIAN,UNASSIGNED [Primary Care Provider] - Home Medications: Ambulatory Orders Medication Instructions Recorded Sotalol HCl [Sotalol] 80 mg PO TID 01/06/18 Ticagrelor [Brilinta] 1 tab PO BID 05/31/18 Time Seen by Provider: 05/25/25 18:46 Electronically Generated By:PATRICIA CARDOZO MD Generated Date/Time: 05/25/252002 Electronically Signed By: <Electronically signed by PATRICIA CARDOZO MD> 05/25/252008 Co Signed Electronically By: Co Signed Date/Time: CC: PHYSICIAN, UNASSIGNED [facility] Work Phone: 1(802) 382-871804-16-2025 Evaluation note* Diagnosis Onset Date Resolution Status Admit Date Atherosclerosis of coronary artery of knik heart without angina pectoris chronic February 252024 8:49am History of cardiac radiofrequency ablation May 01, 2023 chronic February 252024 8:49am History of coronary artery stent placement January 06, 2018 chronic February 25, 2025 8:49am Palpitations chronic February 25, 2025 8:49am Paroxysmal atrial fibrillation chronic February 25, 2025 8:49am History of ST elevation myocardial infarction (STEMI) January 06, 2018 resolved February 25, 2025 8:49am [facility] Work Phone: 1(930) 826-318506-28-2024 Nurse Note* Joya Hernandez MA - 05/09/2024 9:22 AM EDT Patient denies any cardiac issues or symptoms. [facility]-28-[facility] Nurse Note* Joya Hernandez MA - 05/09/2024 9:22 AM EDT Patient denies any cardiac issues or symptoms. [facility] History of Present illness Narrative* Lanie Thakkar MD - 05/09/2024 9:20 AM EDT PRIMARY CARE PHYSICIAN: No PCP presently Patient Care Team: Minesh Mcmanus MD as Specialty Pin Machine Operator (Cardiology) Lanie Thakkar MD as Specialty Pin Machine Operator (Cardiology) CHIEF COMPLAINT: Follow-up for arrhythmia HISTORY OF PRESENT ILLNESS: Mr. Solis is a 68 year old male who presents today for a cardiovascular medicine follow-up visit. History copied from previous notes, edited as needed: Summary of previous notes: Mr. Solis has mayelin long history of this arrhythmia, he states that he first began having atrial fibrillation at the age of 33 years (1987). He states he was treated with digoxin, this was not effective. He was then treated with Tenormin followed by a couple of other drugs, he recalls Calan (verapamil) resulting in excessive hypotension. He states in 1992 he was treated with the antiarrhythmic drug sotalol. This was eventually titrated to a very high dosage, very unusual dose and dosing interval of 240 mg three times daily. He says he took this dose for many years, and it was effective to suppress the atrial fibrillation. He underwent catheter ablation while living in [place] in 2005. In about 2012 he started weaning down the sotalol dose, down to 240 mg daily. However, he experienced recurrentatrial fibrillation in late 2021. He experienced about three episodes in a period of 2 weeks. The episodes had duration of several hours, the longest being 36 hours. Symptoms during the arrhythmia include palpitations and irregular beats. One episode was the first week of October 2022. He went back on the sotalol 240 mg three times daily regimen. He is on aspirin, states that he does not wish totake oral anticoagulation therapy. He does have a history of coronary artery disease, had a heart attack in 2018. At that time he underwent stent placement to the right coronary artery. He states that he believes there is a strong vagal component to his atrial fibrillation. He states episodes are more likely to occur after eating a large meal for example. He also believes alcohol, particularly wine, ask as a trigger for the arrhythmia. He states he was evaluated by an eeg technician at [facility] recently (Dr. Iqbal), who recommended a sleep study for evaluation for sleep apnea, and also recommended oral anticoagulation and reduce dosage of sotalol. Cardiac monitoring was rec ommended to document atrial fibrillation, with atrial fibrillation catheter ablation being considered. He underwent radiofrequency atrial fibrillation catheter ablation as well as focal left atrial PACs ablation on 05/01/[address] Thakkar. He had taken Xarelto for 30 days post ablation and then stopped. He remains on baby aspirin once a day. Interim History Dr. Thakkar 05/09/2024: Mr. Solis presents for follow-up evaluation of arrhythmia, history of atrial fibrillation status post catheter ablation procedures. He states that he hasbeen doing well. He only has very occasional and brief palpitation. Every now and then skipped beat. Might last a minute or so. He has not been aware of any recurrences of the atrial fibrillation. Hedenies chest pain, shortness of breath, orthopnea, PND, syncope. I have confirmed and edited as necessary, the PFSH and ROS obtained by others. PAST MEDICAL HISTORY Diagnosis Date At risk for stroke Atherosclerotic heart disease of knik coronary artery without angina pectoris Bradycardia CKD (chronic kidney disease) stage 3, GFR 30-59 ml/min ([facility]) Ischemic cardiomyopathy Kidney stones jail current use of antiarrhythmic drug Old myocardial infarction PAC (premature atrial contraction) 08/02/2023 Paroxysmal atrial fibrillation ([facility]) Presence of coronary angioplasty implant and graft Right bundle branch block (RBBB) Status post catheter ablation of atrial fibrillation RF catheter ablation for atrial fibrillation 2005 ([place]) STEMI (ST elevation myocardial infarction) ([facility]) PAST SURGICAL HISTORY Procedure Laterality Date AFIB ABLATION/PULM VEIN ISOLATION 2005 RF catheter ablation for atrial fibrillation; [place], [place] AFIB ABLATION/PULM VEIN ISOLATION 05/01/2023 redo PVAI (both carinas, anterior segments PVs, posterior wall, SVC/RA junction); focal left atrialPAC (posteroseptal) ablation; [facility] Dr. Thakkar ECHOCARDIOGRAM 11/30/2022 LVEF 55%; moderate LAE; no significant valvular abnormalities HOLTER MONITOR 48 HR 12/26/2022 INSERT INTRACORONARY STENT 01/06/2018 KIDNEY STONE ANALYSIS 2017 extraction 2017 LEFT HEART CATH,PERCUTANEOUS 01/06/2018 LITHOTRIPSY XTRCORP SHOCK WAVE 04/2020 LITHOTRIPSY XTRCORP SHOCK WAVE 04/01/2024 with stent TONSILLECTOMY & ADENOIDECTOMY <AGE 10 SOCIAL HISTORY Social History Tobacco Use Smoking status: Never Smokeless tobacco: Never Substance Use Topics Alcohol use: Not Currently Drug use: Never FAMILY HISTORY Problem Relation Age of Onset Alzheimer's Disease Mother Diabetes Mother Aneurysm Father Stroke Sister ALLERGIES: ALLERGIES Allergen Reactions Penicillins Anaphylaxis Caffeine Other: See Comments arrhythmia Ticagrelor Other: See Comments Didn't feel well Verapamil Other: See Comments Hypotension MEDICATIONS: potassium citrate ER (UROCIT-K) 10 mEq (1,080 mg) Take 1,080 mg by mouth three times a day. aspirin, enteric coated (ASPIRIN, ENTERIC COATED) 81 mg EC tablet Take 81 mg by mouth once daily. Review of Systems Constitutional: Negative for chills and fever. Respiratory: Negative for cough, hemoptysis, sputum production and shortness of breath. Cardiovascular: Positive for palpitations (rare, brief). Negative for chest pain, orthopnea and PND. Gastrointestinal: Negative for abdominal pain, blood in stool, melena, nausea and vomiting. Genitourinary: Negative for dysuria, flank pain and hematuria. Musculoskeletal: Negative for falls. Skin: Negative for rash. Neurological: Negative for focal weakness, seizures and loss of consciousness. PHYSICAL EXAMINATION: BP 128/78 Pulse 69 Resp 18 Ht 6' 2 (1.88m) Wt 226 lb (102.5kg) SpO2 99% BMI 29.00 kg/(m^2). Physical Exam Vitals reviewed. Constitutional: General: He is not in acute distress. Appearance: Normal appearance. HENT: Head: Normocephalic and atraumatic. Cardiovascular: Rate and Rhythm: Normal rate and regular rhythm. Heart sounds: Normal heart sounds, S1 normal and S2 normal. No murmur heard. No friction rub. Pulmonary: Effort: Pulmonary effort is normal. No respiratory distress. Breath sounds: Normal breath sounds. No wheezing, rhonchi or rales. Musculoskeletal: Cervical back: Neck supple. Skin: General: Skin is warm and dry. Neurological: General: No focal deficit present. Mental Status: He is alert and oriented to person, place, and time. Psychiatric: Mood and Affect: Mood normal. Behavior: Behavior normal. Thought Content: Thought content normal. CARDIOVASCULAR MEDICINE TESTING: Electrocardiogram: Sinus rhythm 64 bpm; normal MS interval 184 ms; right bundle branch block (QRS 132 ms); QTc 462 ms; criteria for inferior and lateral infarct, no significant changes compared with previous EKGs I have personally reviewed the Electrocardiogram. I spent a total of 30 minutes on the date of the service which included preparing to see the patient, [id number] patient care, completing clinical documentation, obtaining and/or reviewing separately obtained history, performing a medically appropriate examination, counseling and educating the pat ient/family/caregiver, ordering medications, tests, or procedures, communicating with other HCPs (not separately reported), independently interpreting results (not separately reported), communicatingresults to the patient/family/caregiver, and care coordination (not separately reported). 1. Paroxysmal atrial fibrillation (HCC) - ICD9: 427.31, ICD10: I48.0 (primary diagnosis) 2. Status post catheter ablation of atrial fibrillation - ICD9: V45.89, ICD10: Z98.890 3. PAC (premature atrial contraction) - ICD9: 427.61, ICD10: I49.1 4. Bradycardia - ICD9: 427.89, ICD10: R00.1 5. Sinus bradycardia - ICD9: 427.89, ICD10: R00.1 6. Right bundle branch block (RBBB) - ICD9: 426.4, ICD10: I45.10 7. Atherosclerosis of knik coronary artery of knik heart without angina pectoris - ICD9: 414.01, ICD10: I25.10 8. Old myocardial infarction - ICD9: 412, ICD10: I25.[address] elevation myocardial infarction (STEMI) - ICD9: 412, ICD10: I25.2 10. History of coronary artery stent placement - ICD9: V45.82, ICD10: Z95.5 11. Ischemic cardiomyopathy - ICD9: 414.8, ICD10: I25.5 12. At risk for stroke - ICD9: V15.89, ICD10: Z91.89 13. Anticoagulant medication declined by patient - ICD9: V64.2, ICD10: Z53.20 CHADS2-Vasc Score Breakdown 2 Total Score 1 Age 65-74 years old 1 History of vascular disease IMPRESSION: Mr. Solis is doing well with regards to arrhythmia. He prefers not to be treated with oral anticoagulation therapy (informed decision). PLAN AND RECOMMENDATIONS: Continue with current plan of care from EP standpoint. Return in about 1 year (around 05/09/2025) for Dr. Thakkar, [place] office. Lanie Thakkar MD 05/09/2024 Medical Decision Making: Problems: Moderate: 2+ stable chronic illnesses Data: Unique source(s) for external note(s) reviewed: 1 Unique test result(s) reviewed: 2 Unique test(s) ordered: 1 Risk: Moderate: Moderate risk from testing/treatment and Drug management Medical Decision Making Level: 4 - Moderate [facility] Note* Melissa - Tigist Gonzalez RN - 04/01/2024 11:28 AM EDT Pt voided 225 of reddish color urine with a small flot plus several very small gravel like stones [facility]05-21-2024 Miscellaneous Notes* Tigist Molina RN - 04/01/2024 11:28 AM EDT Pt voided 225 of reddish color urine with a small flot plus several very small gravel like stones * Tigist Molina RN - 04/01/2024 11:15 AM EDT Pt and given discharge instructions they voiced understanding * Tigist Molina RN - 04/01/2024 11:02 AM EDT Pt arrives at bedside * Tigist Molina RN - 04/01/2024 10:40 AM EDT Pt awakens and simple mask and og tube removed * Nursing - Tigist Gonzalez RN - 04/01/2024 10:22 AM EDT Pt arrives to recovery pt is asleep with oral airway in and a simple mask pt resp reg and easy * Op Note - Joshua Urban MD - 04/01/2024 10:14 AM EDT CHETAN: Johnathan Solis : 1955 DATE OF SURGERY: 04/01/2024 Event Time Procedure/Incision Start 925 Event Time Procedure End 1010 Surgeon: Joshua Urban MD Pre-Op Dx: Right kidney stone Post-Op Dx: same Procedure: right ureteroscopy, laser lithotripsy, stent insertion (44776) 2. Interpretation of retrograde pyelogram (10968) Anesthesia:General COMPLICATIONS: None. BLOOD LOSS: Minimal PROCEDURE : Patient was introduced into the operating room and placed in dorsal lithotomy position. Patient wassterilely prepped and draped in the standard fashion. Timeout was performed A rigid cystoscope was passed into the patient's bladder. The prostate was severely obstructing without a median lobe. I passed a Glidewire into the right kidney under fluoroscopic guidance. I then removed the ureteralstent. An access sheath was passed over the wire into the kidney. I then passed the flexible ureteroscope into the right kidney. A 20 mm stone was identified. I used a laser to ablate the stone into numerous fragments. I then used dusting settings to completely ablate the stone. I worked in this manner until visibility was significantly impaired. I then performed a right retrograde pyelogram which showed moderate residual hydronephrosis. A 6 Turkish variable length stent was placed in the right kidney in standard fashion. Appropriately positioned proximal and distal coils confirmed. The bladder was emptied and the procedure was terminated. The patient tolerated the procedure well. Salient features of the case include a massive stone that fragmented readily. I suspect mixed uric acid/calcium stone. Stent was heavily encrusted. Patient will start potassium citrate and follow up in 2 weeks with a noncontrast CT, bmp, UA [facility]* Nursing - Tigist Gonzalez RN - 04/01/2024 11:15 AM EDT Pt and given discharge instructions they voiced understanding [facility]05-21-2024 Nurse Note* Melissa - Tigist Gonzalez RN - 04/01/2024 11:02 AM EDT Pt arrives at bedside [facility]05-21-2024 Nurse Note* Nursing - Tigist Gonzalez RN - 04/01/2024 10:40 AM EDT Pt awakens and simple mask and og tube removed [facility]05-21-2024 Nurse Note* Tigist Molina RN - 04/01/2024 10:22 AM EDT Pt arrives to recovery pt is asleep with oral airway in and a simple mask pt resp reg and easy [facility]05-21-2024 Hospital course Narrative* Joshua Urban MD - 04/01/2024 10:21 AM EDT DISCHARGE SUMMARY Date of Procedure: 04/01/2024 Date of Discharge: 04/01/2024 Principle Diagnosis: Renal stone [N20.0] Procedure performed: Procedure(s) (LRB): CYSTOSCOPY, RETROGRADE PYELOGRAM, URETEROSCOPY WITH LASER LITHOTRIPSY (Right) URETERAL STENT EXCHANGE (Right) Dispostion: Home under the care of a responsible adult. Hospital Course: Patient underwent outpatient surgery and was discharged home in good condition Follow up: Patient will be contact by office staff to arrange follow up Medication List START taking these medications Last dose given Next dose due ciprofloxacin 500 MG tablet Dose: 500 mg Quantity: 6 tablet Refills: 0 Take 1 tablet by mouth two times a day. Commonly known as: CIPRO phenazopyridine 100 MG tablet Dose: 100 mg Quantity: 10 tablet Refills: 0 Take 1 tablet by mouth 3 times daily as needed for Pain. Commonly known as: PYRIDIUM potassium citrate 10 MEQ (1080 MG) SR tablet Dose: 10 mEq Quantity: 90 tablet Refills: 1 Take 1 tablet by mouth 3 times daily (with meals). Commonly known as: UROCIT-K This is the list of medications that you provided. Last dose given Next dose due aspirin EC 81 MG EC tablet Dose: 81 mg Refills: 0 Take 1 tablet by mouth daily. Commonly known as: ECOTRIN LOW STRENGTH Tamsulosin HCl 0.4 MG 24 hr capsule Dose: 0.4 mg Quantity: 30 capsule Refills: 0 Take 1 capsule by mouth daily. Take until stone passes. Commonly known as: FLOMAX documented in this [facility]05-21-2024 Surgery Surgical operation note* Op Note - Joshua Urban MD - 04/01/2024 10:14 AM EDT CHETAN: Johnathan Solis : 1955 DATE OF SURGERY: 04/01/2024 Event Time Procedure/Incision Start 925 Event Time Procedure End 101 Surgeon: Joshua Urban MD Pre-Op Dx: Right kidney stone Post-Op Dx: same Procedure: right ureteroscopy, laser lithotripsy, stent insertion (79640) 2. Interpretation of retrograde pyelogram (76135) Anesthesia:General COMPLICATIONS: None. BLOOD LOSS: Minimal PROCEDURE : Patient was introduced into the operating room and placed in dorsal lithotomy position. Patient wassterilely prepped and draped in the standard fashion. Timeout was performed A rigid cystoscope was passed into the patient's bladder. The prostate was severely obstructing without a median lobe. I passed a Glidewire into the right kidney under fluoroscopic guidance. I then removed the ureteralstent. An access sheath was passed over the wire into the kidney. I then passed the flexible ureteroscope into the right kidney. A 20 mm stone was identified. I used a laser to ablate the stone into numerous fragments. I then used dusting settings to completely ablate the stone. I worked in this manner until visibility was significantly impaired. I then performed a right retrograde pyelogram which showed moderate residual hydronephrosis. A 6 Turkish variable length stent was placed in the right kidney in standard fashion. Appropriately positioned proximal and distal coils confirmed. The bladder was emptied and the procedure was terminated. The patient tolerated the procedure well. Salient features of the case include a massive stone that fragmented readily. I suspect mixed uric acid/calcium stone. Stent was heavily encrusted. Patient will start potassium citrate and follow up in 2 weeks with a noncontrast CT, bmp, UA Qoniac [id number] Attending History and physical note* Joshua Urban MD - 04/01/2024 8:41 AM EDT The H&P was reviewed, the patient examined, and no change has occurred in the patient's condition since the H&P was completed. Source Note - Joshua Urban MD - 03/19/2024 11:58 AM EDT Todays Date 03/19/2024 HPI 68 y.o. male underwent stent placement 1 week ago for a large obstructing right renal pelvic stone,and essentially a solitary right kidney. He feels well. Has mild stent related symptoms, mild hematuria. KUB shows nonobstructing left stones, but does not show the 1.5 to 2 cm right renal pelvic stone DATA REVIEWED CT. KUB-independent interpretation performed, agree with above BMP Assessment/Plan 1. Large right kidney stone. We had a long discussion regarding management options. I suspect this may be a uric acid stone, although he could not provide a urinalysis to assess urine pH. Could also be a radiolucent calcium stone. We discussed a percutaneous nephrostolithotomy. This is essentially a solitary kidney, I will attempt a right flexible digital ureteroscopy with laser lithotripsy. The risks and benefits were reviewed extensively. If it is a uric acid stone, we could consider dissolution after a thorough fragmentation. Understands he may require multiple additional procedures, including percutaneous nephrostolithotomy There are no diagnoses linked to this encounter. Past Medical History He has a past medical history of A-fib (HCC), Arrhythmia, Atrial fibrillation (HCC), CAD (coronary artery disease), CAD (coronary artery disease) (06/01/2018), Kidney stones, Myocardial infarction (HCC), and S/P right coronary artery (RCA) stent placement (01/06/2018). Past Surgical History He has a past surgical history that includes TONSILLECTOMY; Cardiac catheterization; CYSTO URETHROSCOPY WITH URETEROSCOPY, DILATATION (Right, 06/01/2018); ablasion (05/2023); and URETERAL STENT (Right, 03/12/2024). Medications He has a current medication list which includes the following prescription(s): aspirin ec, ondansetron, oxybutynin, and tamsulosin hcl. Allergies Heis allergic to pcn [penicillins], calan [verapamil], and caffeine. Social History He reports that he has quit smoking. He has never used smokeless tobacco. He reports that he does not drink alcohol and does not use drugs. Family History No cancers or kidney stones Review of Systems Constitutional: Negative for fever, chills, weight loss, weight gain and malaise/fatigue. Skin: Negative for rash. Eyes: Negative for blurred vision. Endocrine: No heat/cold intolerance Cardiovascular: Negative for chest pain or dyspnea on exertion. Respiratory: Negative for shortness of breath or wheezing. Gastrointestinal: Negative for nausea, abdominal pain, diarrhea, constipation. Genitourinary: See HPI Musculoskeletal: Negative for back pain and joint pain. Neurological: Negative for dizziness and headaches. Lymph/Heme: Negative for easily bruises / bleeds. Physical Exam Visit Vitals Pulse 92 Temp 99 F (37.2 C) (forehead) SpO2 98% Constitutional: NAD, WDWN. HEENT: NCAT. Conjunctivae normal. MMM. Cardiovascular: Regular rate. Pulmonary/Chest: Respirations are even and non-labored bilaterally. Abdominal: Soft. No distension, tenderness, masses or guarding. No CVA tenderness. Neurological: A + O x 3. Cranial Nerves II-XII grossly intact. Normal gait. Extremities: BRAD x 4, Warm. No clubbing. No cyanosis. Skin: [place], warm and dry. No rashes noted. Genitourinary UA POC Urine Dip Lab Results Component Value Date BILIRUBINUR Negative 03/11/2024 UROBILINOGEN <2.0 03/11/2024 [facility] Hgb Date Value Ref Range Status 03/12/2024 13.6 12.8 - 17.7 g/dL Final 03/11/2024 15.0 12.8 - 17.7 g/dL Final 12/01/2023 15.1 12.8 - 17.7 g/dL Final Hematocrit Date Value Ref Range Status 03/12/2024 41.7 37.7 - 51.1 % Final 03/11/2024 46.4 37.7 - 51.1 % Final 12/01/2023 47.4 37.7 - 51.1 % Final White Blood Cells Date Value Ref Range Status 03/12/2024 9.5 4.3 - 10.3 x10*3/uL Final 03/11/2024 9.2 4.3 - 10.3 x10*3/uL Final 12/01/2023 11.6 (H) 4.3 - 10.3 x10*3/uL Final Platelets Date Value Ref Range Status 03/12/2024 175 150 - 400 x10*3/uL Final 03/11/2024 204 150 - 400 x10*3/uL Final 12/01/2023 200 150 - 400 x10*3/uL Final Sodium Date Value Ref Range Status 03/14/2024 139 135 - 147 mmol/L Final 03/13/2024 138 135 - 147 mmol/L Final 03/12/2024 135 135 - 147 mmol/L Final Potassium Date Value Ref Range Status 03/14/2024 4.4 3.6 - 5.1 mmol/L Final 03/13/2024 4.6 3.6 - 5.1 mmol/L Final 03/12/2024 4.2 3.6 - 5.1 mmol/L Final Chloride Date Value Ref Range Status 03/14/2024 109 96 - 109 mmol/L Final 03/13/2024 111 (H) 96 - 109 mmol/L Final 03/12/2024 109 96 - 109 mmol/L Final CO2 Date Value Ref Range Status 03/14/2024 19 (L) 22 - 30 mmol/L Final 03/13/2024 23 22 - 30 mmol/L Final 03/12/2024 18 (L) 22 - 30 mmol/L Final BUN Date Value Ref Range Status 03/14/2024 37 (H) 8 - 26 mg/dL Final 03/13/2024 45 (H) 8 - 26 mg/dL Final 03/12/2024 41 (H) 8 - 26 mg/dL Final 06/21/2021 19 8 - 26 mg/dL Final 04/26/2020 48 (H) 8 - 26 mg/dL Final 09/08/2019 33 (H) 8 - 26 mg/dL Final Creatinine Date Value Ref Range Status 03/14/2024 2.56 (H) 0.66 - 1.25 mg/dL Final 03/13/2024 3.80 (H) 0.66 - 1.25 mg/dL Final 03/12/2024 3.79 (H) 0.66 - 1.25 mg/dL Final Glucose Date Value Ref Range Status 03/14/2024 109 (H) 65 - 100 mg/dL Final 03/13/2024 105 (H) 65 - 100 mg/dL Final 03/12/2024 122 (H) 65 - 100 mg/dL Final Calcium Date Value Ref Range Status 03/14/2024 9.3 8.4 - 10.4 mg/dL Final 03/13/2024 8.4 8.4 - 10.4 mg/dL Final 03/12/2024 8.7 8.4 - 10.4 mg/dL Final Phosphorus Date Value Ref Range Status 06/02/2018 4.1 2.5 - 4.5 mg/dL Final 06/01/2018 5.0 (H) 2.5 - 4.5 mg/dL Final Joshua Urban 03/19/2024 [facility]05-21-2024 History and physical note* Joshua Urban MD - 04/01/2024 8:41 AM EDT The H&P was reviewed, the patient examined, and no change has occurred in the patient's condition since the H&P was completed. Source Note - Joshua Urban MD - 03/19/2024 11:58 AM EDT Todays Date 03/19/2024 HPI 68 y.o. male underwent stent placement 1 week ago for a large obstructing right renal pelvic stone,and essentially a solitary right kidney. He feels well. Has mild stent related symptoms, mild hematuria. KUB shows nonobstructing left stones, but does not show the 1.5 to 2 cm right renal pelvic stone DATA REVIEWED CT. KUB-independent interpretation performed, agree with above BMP Assessment/Plan 1. Large right kidney stone. We had a long discussion regarding management options. I suspect this may be a uric acid stone, although he could not provide a urinalysis to assess urine pH. Could also be a radiolucent calcium stone. We discussed a percutaneous nephrostolithotomy. This is essentially a solitary kidney, I will attempt a right flexible digital ureteroscopy with laser lithotripsy. The risks and benefits were reviewed extensively. If it is a uric acid stone, we could consider dissolution after a thorough fragmentation. Understands he may require multiple additional procedures, including percutaneous nephrostolithotomy There are no diagnoses linked to this encounter. Past Medical History He has a past medical history of A-fib (HCC), Arrhythmia, Atrial fibrillation (HCC), CAD (coronary artery disease), CAD (coronary artery disease) (06/01/2018), Kidney stones, Myocardial infarction (HCC), and S/P right coronary artery (RCA) stent placement (01/06/2018). Past Surgical History He has a past surgical history that includes TONSILLECTOMY; Cardiac catheterization; CYSTO URETHROSCOPY WITH URETEROSCOPY, DILATATION (Right, 06/01/2018); ablasion (05/2023); and URETERAL STENT (Right, 03/12/2024). Medications He has a current medication list which includes the following prescription(s): aspirin ec, ondansetron, oxybutynin, and tamsulosin hcl. Allergies Heis allergic to pcn [penicillins], calan [verapamil], and caffeine. Social History He reports that he has quit smoking. He has never used smokeless tobacco. He reports that he does not drink alcohol and does not use drugs. Family History No cancers or kidney stones Review of Systems Constitutional: Negative for fever, chills, weight loss, weight gain and malaise/fatigue. Skin: Negative for rash. Eyes: Negative for blurred vision. Endocrine: No heat/cold intolerance Cardiovascular: Negative for chest pain or dyspnea on exertion. Respiratory: Negative for shortness of breath or wheezing. Gastrointestinal: Negative for nausea, abdominal pain, diarrhea, constipation. Genitourinary: See HPI Musculoskeletal: Negative for back pain and joint pain. Neurological: Negative for dizziness and headaches. Lymph/Heme: Negative for easily bruises / bleeds. Physical Exam Visit Vitals Pulse 92 Temp 99 F (37.2 C) (forehead) SpO2 98% Constitutional: NAD, WDWN. HEENT: NCAT. Conjunctivae normal. MMM. Cardiovascular: Regular rate. Pulmonary/Chest: Respirations are even and non-labored bilaterally. Abdominal: Soft. No distension, tenderness, masses or guarding. No CVA tenderness. Neurological: A + O x 3. Cranial Nerves II-XII grossly intact. Normal gait. Extremities: BRAD x 4, Warm. No clubbing. No cyanosis. Skin: [place], warm and dry. No rashes noted. Genitourinary UA POC Urine Dip Lab Results Component Value Date BILIRUBINUR Negative 03/11/2024 UROBILINOGEN <2.0 03/11/2024 [facility] Hgb Date Value Ref Range Status 03/12/2024 13.6 12.8 - 17.7 g/dL Final 03/11/2024 15.0 12.8 - 17.7 g/dL Final 12/01/2023 15.1 12.8 - 17.7 g/dL Final Hematocrit Date Value Ref Range Status 03/12/2024 41.7 37.7 - 51.1 % Final 03/11/2024 46.4 37.7 - 51.1 % Final 12/01/2023 47.4 37.7 - 51.1 % Final White Blood Cells Date Value Ref Range Status 03/12/2024 9.5 4.3 - 10.3 x10*3/uL Final 03/11/2024 9.2 4.3 - 10.3 x10*3/uL Final 12/01/2023 11.6 (H) 4.3 - 10.3 x10*3/uL Final Platelets Date Value Ref Range Status 03/12/2024 175 150 - 400 x10*3/uL Final 03/11/2024 204 150 - 400 x10*3/uL Final 12/01/2023 200 150 - 400 x10*3/uL Final Sodium Date Value Ref Range Status 03/14/2024 139 135 - 147 mmol/L Final 03/13/2024 138 135 - 147 mmol/L Final 03/12/2024 135 135 - 147 mmol/L Final Potassium Date Value Ref Range Status 03/14/2024 4.4 3.6 - 5.1 mmol/L Final 03/13/2024 4.6 3.6 - 5.1 mmol/L Final 03/12/2024 4.2 3.6 - 5.1 mmol/L Final Chloride Date Value Ref Range Status 03/14/2024 109 96 - 109 mmol/L Final 03/13/2024 111 (H) 96 - 109 mmol/L Final 03/12/2024 109 96 - 109 mmol/L Final CO2 Date Value Ref Range Status 03/14/2024 19 (L) 22 - 30 mmol/L Final 03/13/2024 23 22 - 30 mmol/L Final 03/12/2024 18 (L) 22 - 30 mmol/L Final BUN Date Value Ref Range Status 03/14/2024 37 (H) 8 - 26 mg/dL Final 03/13/2024 45 (H) 8 - 26 mg/dL Final 03/12/2024 41 (H) 8 - 26 mg/dL Final 06/21/2021 19 8 - 26 mg/dL Final 04/26/2020 48 (H) 8 - 26 mg/dL Final 09/08/2019 33 (H) 8 - 26 mg/dL Final Creatinine Date Value Ref Range Status 03/14/2024 2.56 (H) 0.66 - 1.25 mg/dL Final 03/13/2024 3.80 (H) 0.66 - 1.25 mg/dL Final 03/12/2024 3.79 (H) 0.66 - 1.25 mg/dL Final Glucose Date Value Ref Range Status 03/14/2024 109 (H) 65 - 100 mg/dL Final 03/13/2024 105 (H) 65 - 100 mg/dL Final 03/12/2024 122 (H) 65 - 100 mg/dL Final Calcium Date Value Ref Range Status 03/14/2024 9.3 8.4 - 10.4 mg/dL Final 03/13/2024 8.4 8.4 - 10.4 mg/dL Final 03/12/2024 8.7 8.4 - 10.4 mg/dL Final Phosphorus Date Value Ref Range Status 06/02/2018 4.1 2.5 - 4.5 mg/dL Final 06/01/2018 5.0 (H) 2.5 - 4.5 mg/dL Final Joshua Urban 03/19/2024 [facility] Telephone encounter Note* Telephone Encounter - Patience Carrillo - 03/20/2024 1:23 PM EDT Medication clearance received from Dr. Urban asking for instructions on ASA for cystoscopy on 04/01/24. Clearance scanned in and in Dr. Thakkar's box to be reviewed. Patience Carrillo March 20, 2024 1:26 PM [facility]05-09-2024 Miscellaneous Notes* Telephone Encounter - Patience Carrillo - 03/20/2024 1:23 PM EDT Medication clearance received from Dr. Urban asking for instructions on ASA for cystoscopy on 04/01/24. Clearance scanned in and in Dr. Thakkar's box to be reviewed. Patience Carrillo March 20, 2024 1:26 PM documented in [facility] History of Present illness Narrative* Joestte Palma RN - 03/20/2024 9:02 AM EDT PAT triage call complete with pre-op instructions reviewed. Patient had this same surgery 1 week ago, so he chose not to schedule an appointment with PAT. I advised him that is his choice, but that it is up to the anesthesiologist as to whether the patient has his surgery. Patient states he was supplied with a bottle of Hibiclens soap to use prior to surgery. * Marika August RN - 03/19/2024 5:05 PM EDT Chart sent to front office for PAT appt to be scheduled. [facility] Afib, CAD. documented in this [facility] Nurse Note* Ara Barreto RN - 03/14/2024 10:43 AM EDT Johnathan Solis comes in to Acute Care Clinic today 03/14/24 for follow up after recent hospital admission. Vital signs upon arrival: Vitals: 03/14/24 0955 BP: 146/70 Pulse: 83 Resp: 20 Temp: 98.4 F (36.9 C) SpO2: 98% All discharge instructions read and explained to patient. Patient understands instructions and knows to call with any further concerns. [facility]05-03-2024 Miscellaneous Notes* Ara Barreto RN - 03/14/2024 10:43 AM EDT Johnathan Solis comes in to [facility] Care Clinic today 03/14/24 for follow up after recent hospital admission. Vital signs upon arrival: Vitals: 03/14/24 0955 BP: 146/70 Pulse: 83 Resp: 20 Temp: 98.4 F (36.9 C) SpO2: 98% All discharge instructions read and explained to patient. Patient understands instructions and knows to call with any further concerns. documented in this encounterUniversity [facility] [place] Hospital Discharge instructions* Discharge Instructions* Marleni Russo MD - 03/14/2024 10:39 AM EDT You are seen in acute care clinic for follow-up of recent hospitalization. Labs showed improving renal function. Continue good fluid intake. Follow-up with your urologist and technician helper instrument as scheduled. documented in this encounterUniversity [facility] History of Present illness Narrative* Marleni Russo MD - 03/14/2024 10:11 AM EDT 03/14/24 [facility] Outpatient Department [facility] Acute Care Clinic Progress Note Johnathan Solis 1955 [id number] Handoff Follow-up with [facility] PRn Assessment/Plan: Johnathan Solis is a 68 y.o. male with a history of atrial fibrillation, CAD and CKD 3b with recent [facility] Obs visit 03/11-03/13/24 for obstructive uropathy and STANISLAW s/p right ureteral stent who presented to [facility] on 03/14/24 for follow-up. Johnathan was seen today for follow-up. Diagnoses and all orders for this visit: Acute renal failure superimposed on stage 3b chronic kidney disease, unspecified acute renal failure type (HCC): Follows with Dr. Miller (nephrology), h/o of solitary kidney. Baseline Cr 1.5-1.7. Cr on admission 3.79 with trend up to 3.8 prior to discharge. Nephrology followed, preferred for patient to stay for inpatient monitoring but patient preferred discharge. Good urine output and fluid intake per patient. Repeat BMP today with Cr 2.56, improving. Continue good fluid intake. Follow-up with urology and nephrology as scheduled. - Basic metabolic panel; Future Current living situation: Home Subjective: Johnathan Solis is a 68 y.o. male with a h/o atrial fibrillation, CAD and CKD 3b with recent [facility] Obs visit 03/11-03/13/24 for obstructive uropathy and STANISLAW s/p right ureteral stent who presents for follow-up. Patient notes that since discharging from the hospital has been feeling much better. Denies any flank pain. Has some burning with urination but he attributes this to the stent. He notes he is peeing a lot more than usual but he thinks this is because his kidney function is getting better. Denies any chest pain, fevers, shortness of breath, nausea, vomiting. He has appointment set up with urology as well as his technician helper instrument for follow-up. I reviewed discharge summary, nephrology note, labs from recent hospitalization. Home Medications: Current Outpatient Medications on File Prior to Encounter Medication Sig Dispense Refill aspirin EC (ECOTRIN LOW STRENGTH) 81 MG EC tablet Take 1 tablet by mouth daily. ciprofloxacin (CIPRO) 250 MG tablet Take 1 tablet by mouth two times a day for 3 days. 6 tablet 0 Ondansetron (ZOFRAN-ODT) 4 MG disintegrating tablet Take 1 tablet by mouth every 8 hours as needed for Nausea and/or Vomiting. Dissolve on tongue then swallow. (Patient not taking: Reported on 03/14/2024) 20 tablet 0 oxybutynin (DITROPAN) 5 MG tablet Take 1 tablet by mouth every 8 hours as needed (bladder spasms). (Patient not taking: Reported on 03/14/2024) 15 tablet 0 Tamsulosin HCl (FLOMAX) 0.4 MG 24 hr capsule Take 1 capsule by mouth daily. Take until stone passes. 30 capsule 0 Current Facility-Administered Medications on File Prior to Encounter Medication Dose Route Frequency Provider Last Rate Last Admin [DISCONTINUED] acetaminophen (TYLENOL) tablet 650 mg 650 mg Oral Q4H PRN Phylicia Pratt APRN GROUP SALES COORDINATOR 650 mg at 03/11/24 2321 [DISCONTINUED] aluminum-magnesium hydroxide 200-200 MG/5ML suspension 30 mL 30 mL Oral Q6H PRN Phylicia Pratt APRN GROUP SALES COORDINATOR [DISCONTINUED] aspirin EC EC tablet 81 mg 81 mg Oral Daily Phylicia Pratt APRN GROUP SALES COORDINATOR 81 mg at 03/13/24 0832 [DISCONTINUED] calcium carbonate (TUMS) chewable tablet 1,000 mg 1,000 mg Oral Q4H PRN Phylicia Pratt APRN GROUP SALES COORDINATOR [DISCONTINUED] For electrolyte abnormalities subsequent to initial labs (refer to the [facility] Electrolyte Replacement Orders) Other PRN Phylicia Pratt APRN GROUP SALES COORDINATOR [DISCONTINUED] HYDROmorphone (DILAUDID) injection 0.25 mg 0.25 mg IV Push Q4H PRN Phylicia Pratt APRN GROUP SALES COORDINATOR [DISCONTINUED] levoFLOXacin 250mg/50ml (LEVAQUIN) IVPB SOLN 250 mg 250 mg Intravenous Daily Phylicia Pratt APRN GROUP SALES COORDINATOR [DISCONTINUED] melatonin tablet 5 mg 5 mg Oral Nightly PRN Phylicia Pratt APRN NP [DISCONTINUED] Ondansetron (ZOFRAN-ODT) disintegrating tablet 4 mg 4 mg Oral Q6H PRN Phylicia Pratt APRN GROUP SALES COORDINATOR 4 mg at 03/12/24 0216 [DISCONTINUED] ondansetron hcl (ZOFRAN) injection 4 mg 4 mg IV Push Q6H PRN Phylicia Pratt APRN GROUP SALES COORDINATOR [DISCONTINUED] oxyCODONE (ROXICODONE) immediate release tablet 5 mg 5 mg Oral Q6H PRN Phylicia Pratt APRN NP [DISCONTINUED] polyethylene glycol 3350 (GLYCOLAX, MIRALAX) packet 17 g 17 g Oral Daily PRN Phylicia Pratt APRN GROUP SALES COORDINATOR [DISCONTINUED] Tamsulosin HCl (FLOMAX) 24 hr capsule 0.4 mg 0.4 mg Oral Daily Phylicia Pratt APRN GROUP SALES COORDINATOR 0.4 mg at 03/13/24 0832 [DISCONTINUED] traZODone (DESYREL) tablet 50 mg 50 mg Oral Nightly Phylicia Pratt APRN GROUP SALES COORDINATOR 50 mg at03/11/24 2328 Allergies Allergen Reactions Pcn [Penicillins] Anaphylaxis Calan [Verapamil] Other (See Comments) Hypotension Caffeine Palpitations arrythmia Physical Exam: Visit Vitals BP 146/70 (BP Location: Right arm, Patient Position: Sitting, Cuff Size: Large) Pulse 83 Temp 98.4 F (36.9 C) (Oral) Resp 20 Wt 101.8 kg (224 lb 6.4 oz) SpO2 98% Comment: ra BMI 28.81 kg/m General: NAD Eyes: EOMI ENT: neck supple Cardiovascular: Regular rate. Respiratory: Clear to auscultation Gastrointestinal: Soft, non tender Genitourinary: no suprapubic tenderness Musculoskeletal: No edema. Skin: warm, dry Neuro: Alert. Psych: Mood appropriate. Labs, Imaging and Studies reviewed: Hgb Date Value Ref Range Status 03/12/2024 13.6 12.8 - 17.7 g/dL Final Hematocrit Date Value Ref Range Status 03/12/2024 41.7 37.7 - 51.1 % Final Platelets Date Value Ref Range Status 03/12/2024 175 150 - 400 x10*3/uL Final Sodium Date Value Ref Range Status 03/14/2024 139 135 - 147 mmol/L Final Potassium Date Value Ref Range Status 03/14/2024 4.4 3.6 - 5.1 mmol/L Final Chloride Date Value Ref Range Status 03/14/2024 109 96 - 109 mmol/L Final BUN Date Value Ref Range Status 03/14/2024 37 (H) 8 - 26 mg/dL Final 06/21/2021 19 8 - 26 mg/dL Final Creatinine Date Value Ref Range Status 03/14/2024 2.56 (H) 0.66 - 1.25 mg/dL Final EGFR Date Value Ref Range Status 03/14/2024 26.2 (L) >=60.0 mL/min/1.73m*2 Final Comment: eGFR calculation based on the Chronic Kidney Disease Epidemiology Collaboration (CKD-EPI) equation refit without adjustment for race. Categories in Chronic Kidney Disease (CKD) Category: GFR(mL/min/1.73m^2) Interpretation: G1* 90 or greater Normal or high G2* 60-89 Mild decrease G3a 45-59 Mild to moderate decrease G3b 30-44 Moderate to severe decrease G4 15-29 Severe decrease G5 14 or less Kidney failure *G1&G2: In the absence of evidence of kidney damage, neither GFR category G1 nor G2 fulfill the criteria for CKD Kidney Int Suppl.2013;3:1-150 Calcium Date Value Ref Range Status 03/14/2024 9.3 8.4 - 10.4 mg/dL Final Albumin Date Value Ref Range Status 03/12/2024 3.9 3.5 - 5.0 g/dL Final Phosphorus Date Value Ref Range Status 06/02/2018 4.1 2.5 - 4.5 mg/dL Final ALT Date Value Ref Range Status 03/12/2024 17 4 - 50 U/L Final AST Date Value Ref Range Status 03/12/2024 28 3 - 55 U/L Final Alk Phos Date Value Ref Range Status 03/12/2024 62 24 - 126 U/L Final Total Bilirubin Date Value Ref Range Status 03/12/2024 0.8 0.2 - 1.6 mg/dL Final INR Date Value Ref Range Status 01/08/2018 1.02 0.89 - 1.17 Final No results found for: BNP Recent Results (from the past 30970 hour(s)) EKG 12 lead [facility] Test Date: 2024-03-12 Pat Name: JOHNATHAN SOLIS Department: Room: 1208 Gender: M Campus President: Kath : 1955 Requested By: PHYLICIA PRATT Order Number: [id number] Reading MD: Vivian Pulliam Study Reason: Preop Cardiovascular Exam (Z01.810) Measurements Intervals [place] Rate: 71 P: 93 MS: 183 QRS: -10 QRSD: 133 T: 31 QT: 404 QTc: 440 Interpretive Statements SINUS RHYTHM RIGHT BUNDLE BRANCH BLOCK INFERIOR MYOCARDIAL INFARCTION , PROBABLY OLD ABNORMAL ECG Electronically Signed On 03-12-2024 8:48:08 EDT by Vivian Pulliam documented in this encounterUniversity [facility]24 Nurse Note* Nursing - Gypsy Locke RN - 03/13/2024 11:03 AM EDT Discharge education provided to patient at this time. Patient verbalized understanding in agreementwith discharge. All questions answered. IV removed. Awaiting patients spouse for transportation. [facility] Miscellaneous Notes* Gypsy Garber RN - 03/13/2024 11:03 AM EDT Discharge education provided to patient at this time. Patient verbalized understanding in agreementwith discharge. All questions answered. IV removed. Awaiting patients spouse for transportation. * Nursing - Marietta Hong RN - 03/12/2024 7:56 PM EDT Shift assessment completed. Patient denies both pain and needs at this time. Patient resting comfortably in his bed with call light in reach. Care plan on going. * Nursing - Gypsy Locke RN - 03/12/2024 2:41 PM EDT Patient returns to unit at this time. * Op Note - Joshua Urban MD - 03/12/2024 2:24 PM EDT Urology Operative Note NAME: Johnathan Solis : 1955 DATE OF SURGERY: 03/12/2024 Event Time Procedure/Incision Start 1350 Event Time Procedure End 1358 Pre-op diagnosis: Right ureteral stone Post-op diagnosis: same Surgeon: Joshua Urban MD Procedure: Cystoscopy with right ureteral stent placement Anesthesia: General Anesthesiologist: Hayley Montesinos MD TYPE BAR AND SEGMENT ASSEMBLER: Hodan Martinez APRN-CRNA Description of Procedure: Patient was introduced the operating room. General anesthesia was induced. He was sterilely preppedand draped in standard fashion. Timeout performed. Cystoscope was passed to the patient's bladder. The urethra was normal. The prostate was moderatelyobstructing. The bladder was inspected, no tumors stones foreign bodies or mucosal lesions identified. I performed a right retrograde pyelogram which showed a very large right renal pelvic stone withmoderate to severe hydronephrosis. A 6 Turkish variable length ureteral stent was placed into the right kidney in standard fashion. Appropriate positioned proximal and distal curl was confirmed. The procedure was then terminated. The patient tolerated the procedure well. Patient emerged from anesthesia and taken to the PACU in stable condition. Complications: none EBL: Minimal The patient will follow-up in 1 week with a KUB prior * Nursing - Gypsy Locke RN - 03/12/2024 12:50 PM EDT Patient off unit to procedure at this time. * Pharmacy Note - Radha Mckeon RPH - 03/12/2024 12:08 PM EDT Creat 3.79 clearance 21ml/min Had Levaquin 500mg 0030 03/12 Adjust Levaquin 250mg daily-start 9a 03/13 * Nursing - Marietta Hong RN - 03/12/2024 12:02 AM EDT Admissions assessment completed. Patient alert and oriented times 4. Respirations easy and unlabored. Patient complains of abdominal pain of 6/10 on pain scale. Patient requested to have his tylenol and is aware of the stronger medications in his chart. Patient states I do not want and opioid medication. This nurse gave PRN tylenol for pain. Patient is currently resting in bed with call light in reach. Care plan initiated. documented in this [facility]05-02-2024 History of Present illness Narrative* Bernice Carias APRN GROUP SALES COORDINATOR - 03/13/2024 11:00 AM EDT Images from the original note were not included. Nephrology Daily Progress Note Subjective: Johnathan is up ambulating in the room. He is preparing for discharge. Voiding well with 1.8 liters output overnight. Hematuria has cleared. Creatinine unchanged. We discussed he still has a significant STANISLAW with solitary functioning kidney. Review of Systems Review of Systems Constitutional: Negative for chills, fever, malaise/fatigue and weight loss. Respiratory: Negative for cough and shortness of breath. Cardiovascular: Negative. Negative for chest pain, palpitations and leg swelling. Gastrointestinal: Negative for abdominal pain, nausea and vomiting. Genitourinary: Negative for dysuria and hematuria. Musculoskeletal: Negative for myalgias. Skin: Negative. Neurological: Negative for dizziness, tingling and weakness. Psychiatric/Behavioral: Negative. Objective: Vital signs in last 24 hours: Temp: [98.3 F (36.8 C)-98.7 F (37.1 C)] 98.3 F (36.8 C) Heart Rate: [63-82] 76 Resp: [14-20] 20 BP: (98-149)/(53-84) 149/68 Intake/Output last 3 shifts: I/O last 3 completed shifts: In: 600 [I.V.:600] Out: 1800 [Urine:1800] Intake/Output this shift: No intake/output data recorded. Patient Vitals for the past 72 hrs: Weight 03/11/24 2142 99.8 kg (220 lb) 03/11/24 1750 99.8 kg (220 lb) Physical Exam Physical Exam Constitutional: General: He is not in acute distress. Appearance: He is not diaphoretic. HENT: Head: Normocephalic and atraumatic. Mouth/Throat: Mouth: Mucous membranes are moist. Cardiovascular: Rate and Rhythm: Normal rate and regular rhythm. Heart sounds: Normal heart sounds. No murmur heard. No friction rub. Pulmonary: Effort: Pulmonary effort is normal. No respiratory distress. Breath sounds: Normal breath sounds. No wheezing. Abdominal: General: Bowel sounds are normal. There is no distension. Palpations: Abdomen is soft. Tenderness: There is no abdominal tenderness. Musculoskeletal: General: No tenderness or deformity. Normal range of motion. Cervical back: Normal range of motion and neck supple. Skin: General: Skin is warm and dry. Neurological: General: No focal deficit present. Mental Status: He is alert and oriented to person, place, and time. Psychiatric: Mood and Affect: Mood and affect normal. Recent Lab Values 09/08/2019 04/26/2020 06/21/2021 12/01/2023 03/11/2024 03/12/2024 03/12/2024 03/13/2024 3:51 AM 3:52 AM WHITEBLOODCE 6.6 11.0 7.5 11.6 9.2 -- 9.5 -- HGB 14.2 16.2 14.2 15.1 15.0 -- 13.6 -- HCT 44.6 49.3 45.2 47.4 46.4 -- 41.7 -- PLT 182.0 164.0 180.0 200 204 -- 175 -- NA 141 135 139 137 136 135 -- 138 K 4.8 4.2 3.9 4.0 4.0 4.2 -- 4.6 CL 106 101 105 105 106 109 -- 111 CO2 26 23 22 19 19 18 -- 23 BUN 33 48 19 36 37 41 -- 45 CREATININE 1.59 3.65 1.53 1.73 2.17 3.79 -- 3.80 GLU 101 111 93 131 114 122 -- 105 CALCIUM 9.5 9.4 9.1 9.4 9.4 8.7 -- 8.4 Principal Problem: Right kidney stone Active Problems: Right ureteral stone Assessment/Plan: 1. STANISLAW- Creatinine unchanged post intervention. Recommend continued inpatient monitoring, however patient refuses and has elected to leave the hospital today. He is scheduled for repeat lab work tomorrow [facility]. 2. CKD stage 3- Baseline creatinine 1.7. Follows with Dr. Miller outpatient. 3. Severe left renal atrophy 4. Obstructing right ureteral stone with moderate to severe hydronephrosis- S/p right ureteral stent placement. Voiding without difficulty. F/u with Urology as planned. Above assessment and plan discussed with Dr. Back collaborating physician. Bernice Carias APRN GROUP SALES COORDINATOR 03/13/2024 11:00 AM * Lana Fernandez APRN DIRECTOR OF SOFTWARE ENGINEERING - 03/13/2024 8:32 AM EDT Urology Progress Note Name: Johnathan Solis : 1955 Admission Date: 03/11/2024 Today's Date: 03/13/24 Hospital Day #: LOS: 2 days Assessment/Plan: Right ureteral stone/hydronephrosis: Patient presented to [facility] ED on 03/11/2024 for bilateral lower abdominal pain. CTAP on admission demonstrated moderate to severe right-sided hydronephrosis and perinephric fat stranding secondary to a 1.7 cm stone in the right UPJ. UA with large blood, trace leuks, WBC 9.5 and renal function elevated with Cr 2.16. He was initiated on Levaquin IV. S/p cystoscopy with right ureteral stent placement by Dr. Urban on 03/12/2024. Final urine culture no growth. Today03/13/2024 and exam, patient states he is having minimal stent discomfort at right flank and has not needed medication. Voiding clear yellow urine per his report without difficulty. Denies suprapubic pain, bladder spasms, dysuria, nausea/vomiting or chills. Plan: Continue Flomax 0.4 mg, Ditropan 5 mgevery 8 hours as needed for stent discomfort, Cipro 250 mg twice daily x 3 days. Follow-up in [address] Urban on 03/19/2024 to discuss definitive stone management STANISLAW on CKD: Followed with Dr. Miller nephrology for CKD outpatient. On admission Cr elevated 2.13. He has noted to have severe left renal atrophy with solitary functioning right kidney previously obstructed, should improve with stent management per above. Today 03/13/2024, renal function with creatinine of 3.8, GFR 16.3 (yesterday creatinine 3.79, GFR 16). Good urine output 1800 mL over the last24 hours. Plan: Avoid nephrotoxins, renally dose medications, monitor renal carefully. Recommendations per nephrology Bilateral renal stones: CTAP 03/11/2024 with additional nonobstructing bilateral intrarenal calculi,with cluster in the right kidney measuring up to 6 mm per my read. Plan: Outpatient urology management Anticoagulation Recommendation: No restrictions from urology standpoint. Likely will need to hold aspirin 81 mg at least 7 days prior to definitive stone management. Catheter Management: Voiding independently Anticipated Discharge Plan: Okay to discharge from urology standpoint when medically cleared, depending on nephrology recommendations. Flomax 0.4 mg daily, oxybutynin 5 mg every 8 hours as needed for stent discomfort/bladder spasms, Cipro 250 mg twice daily x 3 days postop prophylaxis. Pain medication as needed. Follow-up outpatient urology clinic in 1 week to discuss definitive stone management, appointment scheduled for 03/19/2024 Brief HPI: 68 y.o. male with PMH of PAF, CAD, CKD and kidney stones. He presented to [facility] ED on 03/11/2024 for bilateral lower abdominal pain. CTAP on admission demonstrated moderate to severe right hydronephrosis secondary to a 1.7 cm stone in the right UPJ. S/p right ureteral stent placement by Dr. Urban on03/12/2024. He is LOS: 2 days being consulted for right ureteral stone and hydronephrosis. In regard to the reason for consultation, the patient s condition has been stable. Not all imaging/Labs listed below evaluated during consult note, some of this information was pulled through by chart review from [facility] system. Only imaging/labs listed in plan per above were discussed and reviewed at today's visit. UA Urinalysis Component Value Date Urine Source Clean Catch 04/26/2020 Color Yellow 03/11/2024 Appearance Urine Cloudy 03/11/2024 Appearance Urine Cloudy 04/26/2020 Specific [place], Urine 1.020 03/11/2024 Protein, Ur 100 (A) 03/11/2024 Glucose-Urine Negative 03/11/2024 Glucose-Urine Negative 04/26/2020 Ketones Negative 03/11/2024 Ketones Negative 04/26/2020 Occult Bld Large (A) 03/11/2024 Urobilinogen, UA <2.0 03/11/2024 Leukoesterase Trace (A) 03/11/2024 Leukoesterase Trace (A) 04/26/2020 Nitrites Negative 03/11/2024 Nitrites Negative 04/26/2020 Bilirubin, Urine Negative 03/11/2024 WBC, UA 10 (A) 04/26/2020 RBC, UA 296 (H) 04/26/2020 Mucous-Urine Rare 04/26/2020 Micro Labs Recent Labs Lab 03/13/24 0453 03/12/24 0352 03/12/24 0351 03/11/24 1753 HGB -- 13.6 -- 15.0 HCT -- 41.7 -- 46.4 WHITEBLOODCE -- 9.5 -- 9.2 PLT -- 175 -- 204 NA 138 -- 135 136 K 4.6 -- 4.2 4.0 CL 111* -- 109 106 CO2 23 -- 18* 19* BUN 45* -- 41* 37* CREATININE 3.80* -- 3.79* 2.17* GLU 105* -- 122* 114* CALCIUM 8.4 -- 8.7 9.4 Radiographic Studies Recent Results (from the past 1095 days) CT Abdomen / Pelvis Without ANY Contrast Narrative EXAMINATION:CT ABDOMEN PELVIS WITHOUT IV CONTRAST INDICATION:Abdominal/flank pain, stone suspected COMPARISON:12/01/2023 TECHNIQUE:Multiple thin section transaxial slices were acquired through the abdomen and pelvis without intravenous contrast. Coronal and sagittal reconstructed images were reviewed. Oral contrastWas not administered. FINDINGS: LOWER CHEST: Dependent changes are present in the lung bases. LIVER: The liver is unremarkable. GALLBLADDER AND BILIARY SYSTEM: No obvious ductal dilation. No calcified stones. SPLEEN: The spleen is unremarkable. PANCREAS: The pancreas is unremarkable. ADRENAL GLANDS: The adrenal glands are unremarkable. KIDNEYS AND URETERS: There is moderate to severe hydronephrosis of the right kidney with surrounding perinephric fat stranding. The obstructive uropathy is felt to be due to a large calculus within the distal right renal pelvis at the ureteropelvic junction measuring 1.7 cm. The distal right ureteral calculi present on the previous examination are no longer present and were likely expelled. No obstructing urologic calcifications are identified in either kidney. The left kidney is severely atrophied without hydronephrosis. There are nonobstructive bilateral intrarenal calculi. There is a simple cyst arising from the posterior left kidney similar to the previous exam. VASCULATURE: Vascularity is unremarkable. PERITONEUM/RETROPERITONEUM: Peritoneum/retroperitoneum is unremarkable. LYMPH NODES: No suspicious lymphadenopathy. GASTROINTESTINAL TRACT: The bowel is normal in caliber.There is chronic colonic diverticulosis of the colon without acute inflammation.The appendix is not well delineated on this exam and may be absent or diminutive. BLADDER: The urinary bladder is unremarkable. REPRODUCTIVE SYSTEM: Reproductive system is unremarkable. BODY WALL: There is a tiny fat-containing umbilical hernia. There is a small left fat-containing umbilical hernia. BONES: There is multilevel degenerative disc disease throughout the thoracolumbar spine most severe at L4-L5. Impression 1. Moderate to severe right-sided hydronephrosis and perinephric fat stranding secondary to a 1.7 cm size calculus in the right ureteropelvic junction. 2. Distal right ureteral calculi present on the previous examination are no longer present and were likely expelled. 3. Nonobstructive bilateral intrarenal calculi. Severe atrophy of the left kidney. Allergies Allergen Reactions Pcn [Penicillins] Anaphylaxis Calan [Verapamil] Other (See Comments) Hypotension Caffeine Palpitations arrythmia No current facility-administered medications on file prior to encounter. Current Outpatient Medications on File Prior to Encounter Medication Sig Dispense Refill aspirin EC (ECOTRIN LOW STRENGTH) 81 MG EC tablet Take 1 tablet by mouth daily. Ondansetron (ZOFRAN-ODT) 4 MG disintegrating tablet Take 1 tablet by mouth every 8 hours as needed for Nausea and/or Vomiting. Dissolve on tongue then swallow. 20 tablet 0 Tamsulosin HCl (FLOMAX) 0.4 MG 24 hr capsule Take 1 capsule by mouth daily. Take until stone passes. 30 capsule 0 ROS: See pertinent positives as noted above Physical Exam Visit Vitals BP 127/68 (Patient Position: Lying) Pulse 67 Temp 98.7 F (37.1 C) (forehead) Resp 18 Ht 6' 2 (1.88 m) Wt 99.8 kg (220 lb) SpO2 96% BMI 28.25 kg/m Intake/Output Summary (Last 24 hours) at 03/13/2024 0742 Last data filed at 03/13/2024 0433 Gross per 24 hour Intake 600 ml Output 1800 ml Net -1200 ml Physical Exam Vitals and nursing note reviewed. Constitutional: General: He is not in acute distress. Comments: Sitting up in bed, appears comfortable HENT: Head: Normocephalic. Cardiovascular: Rate and Rhythm: Normal rate. Pulmonary: Effort: Pulmonary effort is normal. Abdominal: Tenderness: There is no abdominal tenderness. There is no right CVA tenderness or left CVA tenderness. Skin: General: Skin is warm and dry. Neurological: Mental Status: He is alert and oriented to person, place, and time. Psychiatric: Mood and Affect: Mood normal. Past Medical History: Diagnosis Date A-fib (HCC) Arrhythmia Atrial fibrillation (HCC) CAD (coronary artery disease) CAD (coronary artery disease) 06/01/2018 Kidney stones Myocardial infarction (HCC) S/P right coronary artery (RCA) stent placement 01/06/2018 Past Surgical History: Procedure Laterality Date ablasion 05/2023 CARDIAC CATHERIZATION CYSTO URETHROSCOPY WITH URETEROSCOPY, DILATATION Right 06/01/2018 CYSTO URETHROSCOPY WITH URETEROSCOPY, DILATATION stone extraction right ureteral stent placement performed by Aman Carrington MD at SURGERY TONSILLECTOMY Family History Problem Relation Age of Onset Diabetes Mother Alzheimer's disease Mother Aneurysm Father Stroke Sister Sudden Neg Hx Social History Socioeconomic History Marital status: Tobacco Use Smoking status: Former Smokeless tobacco: Never Substance and Sexual Activity Alcohol use: No Drug use: No Social Determinants of Health Food Insecurity: No Food Insecurity (03/11/2024) IP Food Inpatient social: Food: No Food Insecurity Transportation Needs: No Transportation Needs (03/11/2024) IP Transportation Inpatient social: Transportation: Unmet Transportation Needs Inpatient IPV Housing Stability: Low Risk (03/11/2024) IP Housing Inpatient social: Housing: Medium Risk Lana Fernandez APRN CNP 03/13/2024 * Becca Swan APRN DIRECTOR OF SOFTWARE ENGINEERING - 03/13/2024 8:06 AM EDT [facility] Medicine / [facility] Inpatient Progress Note 03/13/2024 Johnathan Solis 1955 [id number] Assessment/Plan: Johnathan Solis is a 68 y.o. male with a history of atrial fibrillation, CAD and CKD who presentedto [facility] Observation 03/11/2024 with abd and right flank pain. Obstructive uropathy: Admit CTAP with right sided hydronephrosis due to 1.7 cm obstructive right UPJ stone. S/p cystoscopy with right ureteral stent placement 03/12/[address] Urban (urology). Continued ditropan, flomax, and cipro on discharge. STANISLAW on CKD3: Follows with Dr. Miller (nephrology). Admit sCr 2.17, trended up to 3.79 on 03/12/24 in the setting of above obstructive uropathy. S/p IV fluids. Cr 3.8 on 03/13/24. Nephrology following. Chronically elevated lipase: Chronic elevation per trend review, noted to be 1788 on 11/2023. 1810 on admit. Asymptomatic. Outpatient follow up Atrial Fibrillation: s/p ablation in 05/2023. No longer on AC CAD: S/p PCI in 2018. Continued home medications. HTN: Continued home Medications. Monitor and titrate PRN Code Status: Full Code Current Living Situation: Home Estimated discharge date: 03/12/24 Subjective: Patient denies urinary frequency, hesitancy, dysuria after stent placement. Discussed discharge medications with urology LISA. Discussed creatinine 3.8 with nephrology LISA who recommended patient stay1 more night for observation of kidney function; however, if patient prefers to be discharged todaywould like creatinine checked again tomorrow and ACC. Patient prefers to be discharged today and isagreeable to ACC follow-up tomorrow with the understanding that if his creatinine is worsened he will have to be readmitted, likely. Physical Exam: Visit Vitals BP 127/68 (Patient Position: Lying) Pulse 67 Temp 98.7 F (37.1 C) (forehead) Resp 18 Ht 6' 2 (1.88 m) Wt 99.8 kg (220 lb) SpO2 96% BMI 28.25 kg/m General: NAD Eyes: EOMI ENT: neck supple Cardiovascular: Regular rate. Respiratory: Clear to auscultation Gastrointestinal: Soft, non tender Genitourinary: no suprapubic tenderness Musculoskeletal: No edema. Skin: warm, dry Neuro: Alert. Psych: Mood appropriate. Current Medications: aspirin EC 81 mg Oral Daily levoFLOXacin 250 mg Intravenous Daily Tamsulosin HCl 0.4 mg Oral Daily traZODone 50 mg Oral Nightly Labs, Imaging and Studies reviewed: Recent Labs Lab 03/12/24 0352 03/11/24 1753 HGB 13.6 15.0 HCT 41.7 46.4 PLT 175 204 Recent Labs Lab 03/13/24 0453 03/12/24 0351 03/11/24 1753 NA 138 135 136 K 4.6 4.2 4.0 CL 111* 109 106 BUN 45* 41* 37* CREATININE 3.80* 3.79* 2.17* EGFR 16.3* 16.4* 32.0* CALCIUM 8.4 8.7 9.4 LABALBU -- 3.9 5.0 Recent Labs Lab 03/12/24 0351 03/11/24 1753 ALT 17 18 AST 28 28 ALKPHOS 62 69 BILITOT 0.8 0.6 No results for input(s): INR in the last 168 hours. * Aman Gentile NP - 03/12/2024 7:29 AM EDT [facility] Medicine / [facility] Inpatient Progress Note 03/12/2024 Johnathan Solis 1955 [id number] Assessment/Plan: Johnathan Solis is a 68 y.o. male with a history of atrial fibrillation, CAD and CKD who presentedto [facility] Observation 03/11/2024 with abd and right flank pain. Admit CTAP with right sided hydronephrosis due to 1.7 cm obstructive right UPJ stone. Obstructive uropathy: IV fluids, Flomax, NPO, supportive care. Urology planning cystoscopy with right ureteral stent placement 03/12/2024 STANISLAW on CKD3: Admit sCr 2.17 > 3.79 in the setting of above obstructive uropathy. IV fluids. Nephrology consulted. Chronically elevated lipase: Chronic elevation per trend review, noted to be 1788 on 11/2023. 1810 on admit. Asymptomatic. Outpatient follow up Atrial Fibrillation: s/p ablation in 05/2023. No longer on AC CAD: S/p PCI in 2018. Continued home medications. HTN: Continued home Medications. Monitor and titrate PRN Code Status: Full Code Current Living Situation: Home Estimated discharge date: 03/12/24 Subjective: Personally reviewed patient chart including history, labs, imaging, and previous provider notes. Close attention paid to labs and vitals given declining renal function. Patient reported having increased frustration this morning. He has concerns regarding his right kidney function. Not having any current pain at this point in time which is particularly concerning to him as he feels his kidney may be, . Personally discussed with nephrology patient's declining renal function in the setting of significant right-sided hydronephrosis due to the obstructive uropathy coupled with left atrophied kidney. They have agreed to see the patient in consultation to assist with fluid optimization. Personally discussed declining renal function with urology. They are planning on right ureteral stent placement this afternoon. In my medical opinion patient requires continued hospitalization due to declining renal function inthe setting of obstructive uropathy. Physical Exam: Visit Vitals BP 142/67 (Patient Position: Lying) Pulse 70 Temp 97.7 F (36.5 C) (forehead) Resp 18 Ht 6' 2 (1.88 m) Wt 99.8 kg (220 lb) SpO2 97% BMI 28.25 kg/m General: NAD Eyes: EOMI ENT: neck supple Cardiovascular: Regular rate. Respiratory: Clear to auscultation Gastrointestinal: Soft, non tender Genitourinary: no suprapubic tenderness Musculoskeletal: No edema. Skin: warm, dry Neuro: Alert. Psych: Mood appropriate. Current Medications: aspirin EC 81 mg Oral Daily levoFLOXacin 500 mg Intravenous Daily Tamsulosin HCl 0.4 mg Oral Daily traZODone 50 mg Oral Nightly Labs, Imaging and Studies reviewed: Recent Labs Lab 03/12/24 0352 03/11/24 1753 HGB 13.6 15.0 HCT 41.7 46.4 PLT 175 204 Recent Labs Lab 03/12/24 0351 03/11/24 1753 NA 135 136 K 4.2 4.0 CL 109 106 BUN 41* 37* CREATININE 3.79* 2.17* EGFR 16.4* 32.0* CALCIUM 8.7 9.4 LABALBU 3.9 5.0 Recent Labs Lab 03/12/24 0351 03/11/24 1753 ALT 17 18 AST 28 28 ALKPHOS 62 69 BILITOT 0.8 0.6 No results for input(s): INR in the last 168 hours. documented in this [facility]05-02-2024 Hospital course Narrative* Becca Swan APRN DIRECTOR OF SOFTWARE ENGINEERING - 03/13/2024 10:07 AM EDT [facility] DISCHARGE SUMMARY Johnathan Solis Account: [id number] Admitted: 03/11/2024 Discharge Date/Time: 03/13/24/10:07 AM Handoff to PCP Routine hospital follow up ACC to address: STANISLAW: repeat renal function panel 03/14 Clinical Summary Johnathan Solis is a 68 y.o. male with a history of atrial fibrillation, CAD and CKD who presentedto [facility] 03/11/2024 with abd and right flank pain. Obstructive uropathy: Admit CTAP with right sided hydronephrosis due to 1.7 cm obstructive right UPJ stone. S/p cystoscopy with right ureteral stent placement 03/12/[address] Urban (urology). Continued ditropan, flomax, and cipro on discharge. STANISLAW on CKD3: Follows with Dr. Miller (nephrology). Admit sCr 2.17, trended up to 3.79 on 03/12/24 in the setting of above obstructive uropathy. S/p IV fluids. Cr 3.8 on 03/13/24. Nephrology followed. ACC 03/14/24 for renal function panel. Disposition: home Discharge Medications: Medication List START taking these medications Last dose given Next dose due ciprofloxacin 250 MG tablet Dose: 250 mg Quantity: 6 tablet Refills: 0 Take 1 tablet by mouth two times a day for 3 days. Commonly known as: CIPRO oxybutynin 5 MG tablet Dose: 5 mg Quantity: 15 tablet Refills: 0 Take 1 tablet by mouth every 8 hours as needed (bladder spasms). Commonly known as: DITROPAN This is the list of medications that you provided. Last dose given Next dose due aspirin EC 81 MG EC tablet Dose: 81 mg Refills: 0 Take 1 tablet by mouth daily. Commonly known as: ECOTRIN LOW STRENGTH Ondansetron 4 MG disintegrating tablet Dose: 4 mg Quantity: 20 tablet Refills: 0 Take 1 tablet by mouth every 8 hours as needed for Nausea and/or Vomiting. Dissolve on tongue then swallow. Commonly known as: ZOFRAN-ODT Tamsulosin HCl 0.4 MG 24 hr capsule Dose: 0.4 mg Quantity: 30 capsule Refills: 0 Take 1 capsule by mouth daily. Take until stone passes. Commonly known as: FLOMAX Laboratory Follow Up by [facility] N/a Additional Information: Patient seen and examined day of discharge. For more information regarding patient s care, including complete radiology reports, please contact [facility] at . Patient instructions, including activity, were given to the patient/family at discharge. Please seethe After Visit Summary in the medical records for details. Time spent on discharge: > 30 Minutes Completed by: Becca Swan APRN CNP on 03/13/24, 10:07 AM Associated attestation - Carlos Roper MD - 03/13/2024 10:13 AM EDT Patient care discussed with APC. I did not personally evaluate this patient. Carlos Roper MD [facility] Hospitalist Please do not hesitate to contact me via [employer] directory or salt machine operator. [facility]* Nursing - Marietta Hong RN - 03/12/2024 7:56 PM EDT Shift assessment completed. Patient denies both pain and needs at this time. Patient resting comfortably in his bed with call light in reach. Care plan on going. [facility]05-01[facility] Nurse Note* Nursing - Gypsy Locke RN - 03/12/2024 2:41 PM EDT Patient returns to unit at this time. [facility]05-01-2024 Surgery Surgical operation note* Op Note - Joshua Urban MD - 03/12/2024 2:24 PM EDT Urology Operative Note NAME: Johnathan Solis : 1955 DATE OF SURGERY: 03/12/2024 Event Time Procedure/Incision Start 1350 Event Time Procedure End 1358 Pre-op diagnosis: Right ureteral stone Post-op diagnosis: same Surgeon: Joshua Urban MD Procedure: Cystoscopy with right ureteral stent placement Anesthesia: General Anesthesiologist: Hayley Montesinos MD TYPE BAR AND SEGMENT ASSEMBLER: Hodan Martinez APRN-TYPE BAR AND SEGMENT ASSEMBLER Description of Procedure: Patient was introduced the operating room. General anesthesia was induced. He was sterilely preppedand draped in standard fashion. Timeout performed. Cystoscope was passed to the patient's bladder. The urethra was normal. The prostate was moderatelyobstructing. The bladder was inspected, no tumors stones foreign bodies or mucosal lesions identified. I performed a right retrograde pyelogram which showed a very large right renal pelvic stone withmoderate to severe hydronephrosis. A 6 Turkish variable length ureteral stent was placed into the right kidney in standard fashion. Appropriate positioned proximal and distal curl was confirmed. The procedure was then terminated. The patient tolerated the procedure well. Patient emerged from anesthesia and taken to the PACU in stable condition. Complications: none EBL: Minimal The patient will follow-up in 1 week with a KUB prior [facility] Work Phone: [phone]) 758-830505-01-2024 Nurse Note* Karina Celeste RN - 03/12/2024 2:06 PM EDT 1406 Pt arrives from OR. Bedside report received from Gracie LÓPEZ and CYNDI Cheema. Opa in place.Resp easy and regular. 1411 OPA out, pt awake and alert. 1429 Dr Montesinos at bedside clears pt for OPS 1431 Report called 1 savi Tarango RN, all questions answered. 1436 Patient meets PACU discharge criteria. Pt transported to room 1208 per hospital transportationstaff. Pt awake and alert vss. Pt denies any pain or nausea. documented in [facility]05-01-[facility] Nurse Surgical operation note* Karina Celeste RN - 03/12/2024 2:06 PM EDT 1406 Pt arrives from OR. Bedside report received from Gracie Schmitz RN. Opa in place.Resp easy and regular. 1411 OPA out, pt awake and alert. 1429 Dr Montesinos at bedside clears pt for OPS 1431 Report called 1 savi Tarango RN, all questions answered. 1436 Patient meets PACU discharge criteria. Pt transported to room 1208 per hospital transportationstaff. Pt awake and alert vss. Pt denies any pain or nausea. [facility] Nurse Note* Nursing - Gypsy Locke RN - 03/12/2024 12:50 PM EDT Patient off unit to procedure at this time. [facility] Progress note* Pharmacy Note - Radha Mckeon RPH - 03/12/2024 12:08 PM EDT Creat 3.79 clearance 21ml/min Had Levaquin 500mg 0030 03/12 Adjust Levaquin 250mg daily-start 9a 03/13 [facility]05-01-2024 Consult note* Samantha Back MD - 03/12/2024 12:05 PM EDTAssociated Order(s): IP CONSULT TO NEPHROLOGY Inpatient Nephrology Consult Subjective: Date of service: 03/12/2024 Requesting physician: Merry Gentile APRN Primary care provider: Taya Lynch PA-C Chief complaint: groin pain Reason for Consult: STANISLAW History of present illness: Johnathan is a 68-year-old male with a history of A- fib, CAD, CKD, and nephrolithiasis. Presented to the ER yesterday with bilateral groin pain. CT shows moderate to severe right-sided hydronephrosis due to obstructing 1.7 cm calculus at the right UPJ as well as severe left renal atrophy. Has an associated STANISLAW with creatinine 3.79, baseline 1.7. He is admitted to the hospital for management of STANISLAW and obstructing ureteral stone. Denies fever, chills, or UTI symptoms. Pain started yesterday morning. Had some mild hematuria last week but none yesterday. Has significanthistory of renal stones and passes them frequently. Pain has improved since presentation. Urology is consulted and planning for cystoscopy with right ureteral stent placement today. Follows with Dr. Miller as outpatient for CKD. Past Medical History: Diagnosis Date A-fib (HCC) Arrhythmia Atrial fibrillation (HCC) CAD (coronary artery disease) CAD (coronary artery disease) 06/01/2018 Kidney stones Myocardial infarction (HCC) S/P right coronary artery (RCA) stent placement 01/06/2018 Past Surgical History: Procedure Laterality Date ablasion 05/2023 CARDIAC CATHERIZATION CYSTO URETHROSCOPY WITH URETEROSCOPY, DILATATION Right 06/01/2018 CYSTO URETHROSCOPY WITH URETEROSCOPY, DILATATION stone extraction right ureteral stent placement performed by Aman Carrington MD at [facility] Prior to Admission medications Medication Sig Start Date End Date Taking? Authorizing Provider aspirin EC (ECOTRIN LOW STRENGTH) 81 MG EC tablet Take 1 tablet by mouth daily. Yes Provider, MD Amanda Ondansetron (ZOFRAN-ODT) 4 MG disintegrating tablet Take 1 tablet by mouth every 8 hours as needed for Nausea and/or Vomiting. Dissolve on tongue then swallow. 12/01/23 Yes Brandon Bright MD Tamsulosin HCl (FLOMAX) 0.4 MG 24 hr capsule Take 1 capsule by mouth daily. Take until stone passes. 12/01/23 Yes Brandon Brgiht MD Current Facility-Administered Medications: acetaminophen (TYLENOL) tablet 650 mg, 650 mg, Oral, Q4H PRN, Phylicia Pratt APRN GROUP SALES COORDINATOR, 650 mg at 03/11/24 2321 aluminum-magnesium hydroxide 200-200 MG/5ML suspension 30 mL, 30 mL, Oral, Q6H PRN, Phylicia PrattGEOTHERMAL HEAT PUMP MACHINIST GROUP SALES COORDINATOR aspirin EC EC tablet 81 mg, 81 mg, Oral, Daily, Phylicia Pratt APRN GROUP SALES COORDINATOR, 81 mg at 03/12/24 0754 calcium carbonate (TUMS) chewable tablet 1,000 mg, 1,000 mg, Oral, Q4H PRN, Phylicia Pratt APRN NP For electrolyte abnormalities subsequent to initial labs (refer to the [facility] Electrolyte Replacement Orders), , Other, PRN, Phylicia Pratt GEOTHERMAL HEAT PUMP MACHINIST GROUP SALES COORDINATOR HYDROmorphone (DILAUDID) injection 0.25 mg, 0.25 mg, IV Push, Q4H PRN, Phylicia rPatt GEOTHERMAL HEAT PUMP MACHINIST NP lactated ringers infusion, , Intravenous, Continuous, Pratt, Dareth, GEOTHER[employer] HEAT PUMP MACHINIST GROUP SALES COORDINATOR, Last Rate: 100 mL/hrat 03/11/24 2356, New Bag at 03/11/24 2356 levoFLOXacin (LEVAQUIN) IVPB SOLN 500 mg, 500 mg, Intravenous, Daily, Phylicia Pratt APRN GROUP SALES COORDINATOR, LastRate: 100 mL/hr at 03/12/24 0000, 500 mg at 03/12/24 0000 melatonin tablet 5 mg, 5 mg, Oral, Nightly PRN, Phylicia Pratt APRN NP Ondansetron (ZOFRAN-ODT) disintegrating tablet 4 mg, 4 mg, Oral, Q6H PRN, 4 mg at 03/12/24 0216 OR ondansetron hcl (ZOFRAN) injection 4 mg, 4 mg, IV Push, Q6H PRN, Phylicia Pratt APRN NP oxyCODONE (ROXICODONE) immediate release tablet 5 mg, 5 mg, Oral, Q6H PRN, Phylicia Pratt APRN NP polyethylene glycol 3350 (GLYCOLAX, MIRALAX) packet 17 g, 17 g, Oral, Daily PRN, Phylicia Pratt APRN NP Tamsulosin HCl (FLOMAX) 24 hr capsule 0.4 mg, 0.4 mg, Oral, Daily, Phylicia Pratt APRN GROUP SALES COORDINATOR, 0.4 mg at 03/12/24 0754 traZODone (DESYREL) tablet 50 mg, 50 mg, Oral, Nightly, Phylicia Pratt APRN GROUP SALES COORDINATOR, 50 mg at 03/11/24 2328 Allergies Allergen Reactions Pcn [Penicillins] Anaphylaxis Calan [Verapamil] Other (See Comments) Hypotension Caffeine Palpitations arrythmia Social History Tobacco Use Smoking status: Former Smokeless tobacco: Never Substance Use Topics Alcohol use: No Family History Problem Relation Age of Onset Diabetes Mother Alzheimer's disease Mother Aneurysm Father Stroke Sister Sudden Neg Hx Review of Systems Review of Systems Constitutional: Negative for chills, fever, malaise/fatigue and weight loss. Respiratory: Negative for cough and shortness of breath. Cardiovascular: Negative. Negative for chest pain, palpitations and leg swelling. Gastrointestinal: Negative for abdominal pain, nausea and vomiting. Genitourinary: Positive for flank pain. Negative for dysuria and hematuria. Musculoskeletal: Negative for myalgias. Skin: Negative. Neurological: Negative for dizziness, tingling and weakness. Psychiatric/Behavioral: Negative. Objective: Patient Vitals for the past 8 hrs: BP Temp Temp src Pulse Resp SpO2 03/12/24 1142 127/62 98.6 F (37 C) -- 82 18 97 % 03/12/24 0815 128/63 97.8 F (36.6 C) FOREHEAD 66 18 99 % I/O last 3 completed shifts: In: - Out: 50 [Urine:50] No intake/output data recorded. Physical Exam Vitals reviewed. Constitutional: General: He is not in acute distress. Appearance: He is not diaphoretic. HENT: Head: Normocephalic and atraumatic. Cardiovascular: Rate and Rhythm: Normal rate and regular rhythm. Heart sounds: Normal heart sounds. No murmur heard. No friction rub. Pulmonary: Effort: Pulmonary effort is normal. No respiratory distress. Breath sounds: Normal breath sounds. No wheezing. Abdominal: General: Bowel sounds are normal. There is no distension. Palpations: Abdomen is soft. Tenderness: There is no abdominal tenderness. Musculoskeletal: General: No tenderness or deformity. Normal range of motion. Cervical back: Normal range of motion and neck supple. Skin: General: Skin is warm and dry. Neurological: Mental Status: He is alert and oriented to person, place, and time. Psychiatric: Mood and Affect: Mood and affect normal. Lab Results Component Value Date LABALBU 3.9 03/12/2024 Lab Results Component Value Date CALCIUM 8.7 03/12/2024 PHOS 4.1 06/02/2018 Lab Results Component Value Date CREATININE 3.79 (H) 03/12/2024 BUN 41 (H) 03/12/2024 NA 135 03/12/2024 K 4.2 03/12/2024 CL 109 03/12/2024 CO2 18 (L) 03/12/2024 No results found for: [id number] Urinalysis Component Value Date Urine Source Clean Catch 04/26/2020 Color Yellow 03/11/2024 Appearance Urine Cloudy 03/11/2024 Appearance Urine Cloudy 04/26/2020 Specific [place], Urine 1.020 03/11/2024 Protein, Ur 100 (A) 03/11/2024 Glucose-Urine Negative 03/11/2024 Glucose-Urine Negative 04/26/2020 Ketones Negative 03/11/2024 Ketones Negative 04/26/2020 Occult Bld Large (A) 03/11/2024 Urobilinogen, UA <2.0 03/11/2024 Leukoesterase Trace (A) 03/11/2024 Leukoesterase Trace (A) 04/26/2020 Nitrites Negative 03/11/2024 Nitrites Negative 04/26/2020 Bilirubin, Urine Negative 03/11/2024 WBC, UA 10 (A) 04/26/2020 RBC, UA 296 (H) 04/26/2020 Mucous-Urine Rare 04/26/2020 No results found for: SPEP, UPEP Assessment:Plan: 1. STANISLAW- Appears to have solitary functioning kidney that is now obstructed. Renal function should improve with stone management. No issues with hyperkalemia currently. Would monitor overnight to ensure that renal function is improving post intervention. 2. CKD stage 3- Baseline creatinine 1.7. Follows with Dr. Miller outpatient. 3. Severe left renal atrophy 4. Obstructing right ureteral stone with moderate to severe hydronephrosis- Urology planning cystoscopy with right ureteral stent placement. Above assessment and plan discussed with Dr. Back collaborating physician. Bernice Carias APRN GROUP SALES COORDINATOR 03/12/2024 12:06 PM Seen and examined. Agree with above. Acute on chronic renal failure with obstructing stone. Plannedfor intervention today. Needs to confirm improved kidney function tomorrow prior to discharge, Samantha Back MD [employer] Work Phone: [phone]) 704-770305-01-2024 Consult note* Samantha Back MD - 03/12/2024 12:05 PM EDTAssociated Order(s): IP CONSULT TO NEPHROLOGY Inpatient Nephrology Consult Subjective: Date of service: 03/12/2024 Requesting physician: Merry Gentile APRN Primary care provider: Taya Lynch PA-C Chief complaint: groin pain Reason for Consult: STANISLAW History of present illness: Johnathan is a 68-year-old male with a history of A- fib, CAD, CKD, and nephrolithiasis. Presented to the ER yesterday with bilateral groin pain. CT shows moderate to severe right-sided hydronephrosis due to obstructing 1.7 cm calculus at the right UPJ as well as severe left renal atrophy. Has an associated STANISLAW with creatinine 3.79, baseline 1.7. He is admitted to the hospital for management of STANISLAW and obstructing ureteral stone. Denies fever, chills, or UTI symptoms. Pain started yesterday morning. Had some mild hematuria last week but none yesterday. Has significanthistory of renal stones and passes them frequently. Pain has improved since presentation. Urology is consulted and planning for cystoscopy with right ureteral stent placement today. Follows with Dr. Miller as outpatient for CKD. Past Medical History: Diagnosis Date A-fib (HCC) Arrhythmia Atrial fibrillation (HCC) CAD (coronary artery disease) CAD (coronary artery disease) 06/01/2018 Kidney stones Myocardial infarction (HCC) S/P right coronary artery (RCA) stent placement 01/06/2018 Past Surgical History: Procedure Laterality Date ablasion 05/2023 CARDIAC CATHERIZATION CYSTO URETHROSCOPY WITH URETEROSCOPY, DILATATION Right 06/01/2018 CYSTO URETHROSCOPY WITH URETEROSCOPY, DILATATION stone extraction right ureteral stent placement performed by Aman Carrington MD at [facility] Prior to Admission medications Medication Sig Start Date End Date Taking? Authorizing Provider aspirin EC (ECOTRIN LOW STRENGTH) 81 MG EC tablet Take 1 tablet by mouth daily. Yes Provider, MD Amanda Ondansetron (ZOFRAN-ODT) 4 MG disintegrating tablet Take 1 tablet by mouth every 8 hours as needed for Nausea and/or Vomiting. Dissolve on tongue then swallow. 12/01/23 Yes Brandon Bright MD Tamsulosin HCl (FLOMAX) 0.4 MG 24 hr capsule Take 1 capsule by mouth daily. Take until stone passes. 12/01/23 Yes Brandon Bright MD Current Facility-Administered Medications: acetaminophen (TYLENOL) tablet 650 mg, 650 mg, Oral, Q4H PRN, Phylicia Pratt, GEOTHERMAL HEAT PUMP MACHINIST GROUP SALES COORDINATOR, 650 mg at 03/11/24 8571 aluminum-magnesium hydroxide 200-200 MG/5ML suspension 30 mL, 30 mL, Oral, Q6H PRN, Phylicia Pratt APRN NP aspirin EC EC tablet 81 mg, 81 mg, Oral, Daily, Phylicia Pratt APRN NP, 81 mg at 03/12/24 0754 calcium carbonate (TUMS) chewable tablet 1,000 mg, 1,000 mg, Oral, Q4H PRN, Phylicia Pratt APRN NP For electrolyte abnormalities subsequent to initial labs (refer to the [facility] Electrolyte Replacement Orders), , Other, PRN, Phylicia Pratt APRN NP HYDROmorphone (DILAUDID) injection 0.25 mg, 0.25 mg, IV Push, Q4H PRN, Phylicia Pratt APRN NP lactated ringers infusion, , Intravenous, Continuous, Phylicia Pratt APRN NP, Last Rate: 100 mL/hrat 03/11/24 2356, New Bag at 03/11/24 2356 levoFLOXacin (LEVAQUIN) IVPB SOLN 500 mg, 500 mg, Intravenous, Daily, Phylicia Pratt APRN NP, LastRate: 100 mL/hr at 03/12/24 0000, 500 mg at 03/12/24 0000 melatonin tablet 5 mg, 5 mg, Oral, Nightly PRN, Phylicia Pratt APRN NP Ondansetron (ZOFRAN-ODT) disintegrating tablet 4 mg, 4 mg, Oral, Q6H PRN, 4 mg at 03/12/24 0216 OR ondansetron hcl (ZOFRAN) injection 4 mg, 4 mg, IV Push, Q6H PRN, Phylicia Pratt APRN NP oxyCODONE (ROXICODONE) immediate release tablet 5 mg, 5 mg, Oral, Q6H PRN, Phylicia Pratt APRN NP polyethylene glycol 3350 (GLYCOLAX, MIRALAX) packet 17 g, 17 g, Oral, Daily PRN, Phylicia Pratt APRN NP Tamsulosin HCl (FLOMAX) 24 hr capsule 0.4 mg, 0.4 mg, Oral, Daily, Phylicia Pratt APRN NP, 0.4 mg at 03/12/24 0754 traZODone (DESYREL) tablet 50 mg, 50 mg, Oral, Nightly, Pratt, Phylicia, GEOTHERMAL HEAT PUMP MACHINIST GROUP SALES COORDINATOR, 50 mg at 03/11/24 3319 Allergies Allergen Reactions Pcn [Penicillins] Anaphylaxis Calan [Verapamil] Other (See Comments) Hypotension Caffeine Palpitations arrythmia Social History Tobacco Use Smoking status: Former Smokeless tobacco: Never Substance Use Topics Alcohol use: No Family History Problem Relation Age of Onset Diabetes Mother Alzheimer's disease Mother Aneurysm Father Stroke Sister Sudden Neg Hx Review of Systems Review of Systems Constitutional: Negative for chills, fever, malaise/fatigue and weight loss. Respiratory: Negative for cough and shortness of breath. Cardiovascular: Negative. Negative for chest pain, palpitations and leg swelling. Gastrointestinal: Negative for abdominal pain, nausea and vomiting. Genitourinary: Positive for flank pain. Negative for dysuria and hematuria. Musculoskeletal: Negative for myalgias. Skin: Negative. Neurological: Negative for dizziness, tingling and weakness. Psychiatric/Behavioral: Negative. Objective: Patient Vitals for the past 8 hrs: BP Temp Temp src Pulse Resp SpO2 03/12/24 1142 127/62 98.6 F (37 C) -- 82 18 97 % 03/12/24 0815 128/63 97.8 F (36.6 C) FOREHEAD 66 18 99 % I/O last 3 completed shifts: In: - Out: 50 [Urine:50] No intake/output data recorded. Physical Exam Vitals reviewed. Constitutional: General: He is not in acute distress. Appearance: He is not diaphoretic. HENT: Head: Normocephalic and atraumatic. Cardiovascular: Rate and Rhythm: Normal rate and regular rhythm. Heart sounds: Normal heart sounds. No murmur heard. No friction rub. Pulmonary: Effort: Pulmonary effort is normal. No respiratory distress. Breath sounds: Normal breath sounds. No wheezing. Abdominal: General: Bowel sounds are normal. There is no distension. Palpations: Abdomen is soft. Tenderness: There is no abdominal tenderness. Musculoskeletal: General: No tenderness or deformity. Normal range of motion. Cervical back: Normal range of motion and neck supple. Skin: General: Skin is warm and dry. Neurological: Mental Status: He is alert and oriented to person, place, and time. Psychiatric: Mood and Affect: Mood and affect normal. Lab Results Component Value Date LABALBU 3.9 03/12/2024 Lab Results Component Value Date CALCIUM 8.7 03/12/2024 PHOS 4.1 06/02/2018 Lab Results Component Value Date CREATININE 3.79 (H) 03/12/2024 BUN 41 (H) 03/12/2024 NA 135 03/12/2024 K 4.2 03/12/2024 CL 109 03/12/2024 CO2 18 (L) 03/12/2024 No results found for: [id number] Urinalysis Component Value Date Urine Source Clean Catch 04/26/2020 Color Yellow 03/11/2024 Appearance Urine Cloudy 03/11/2024 Appearance Urine Cloudy 04/26/2020 Specific [place], Urine 1.020 03/11/2024 Protein, Ur 100 (A) 03/11/2024 Glucose-Urine Negative 03/11/2024 Glucose-Urine Negative 04/26/2020 Ketones Negative 03/11/2024 Ketones Negative 04/26/2020 Occult Bld Large (A) 03/11/2024 Urobilinogen, UA <2.0 03/11/2024 Leukoesterase Trace (A) 03/11/2024 Leukoesterase Trace (A) 04/26/2020 Nitrites Negative 03/11/2024 Nitrites Negative 04/26/2020 Bilirubin, Urine Negative 03/11/2024 WBC, UA 10 (A) 04/26/2020 RBC, UA 296 (H) 04/26/2020 Mucous-Urine Rare 04/26/2020 No results found for: SPEP, UPEP Assessment:Plan: 1. STANISLAW- Appears to have solitary functioning kidney that is now obstructed. Renal function should improve with stone management. No issues with hyperkalemia currently. Would monitor overnight to ensure that renal function is improving post intervention. 2. CKD stage 3- Baseline creatinine 1.7. Follows with Dr. Miller outpatient. 3. Severe left renal atrophy 4. Obstructing right ureteral stone with moderate to severe hydronephrosis- Urology planning cystoscopy with right ureteral stent placement. Above assessment and plan discussed with Dr. Back collaborating physician. Bernice Carias APRN NP 03/12/2024 12:06 PM Seen and examined. Agree with above. Acute on chronic renal failure with obstructing stone. Plannedfor intervention today. Needs to confirm improved kidney function tomorrow prior to discharge, Samantha Back MD [facility] Nurse Note* Nursing - Marietta Hong RN - 03/12/2024 12:02 AM EDT Admissions assessment completed. Patient alert and oriented times 4. Respirations easy and unlabored. Patient complains of abdominal pain of 6/10 on pain scale. Patient requested to have his tylenol and is aware of the stronger medications in his chart. Patient states I do not want and opioid medication. This nurse gave PRN tylenol for pain. Patient is currently resting in bed with call light in reach. Care plan initiated. [facility]04-30-2024 Hospital Discharge instructions* Discharge Instructions* Sadia Leon RN - 03/11/2024 11:10 PM EDT Instructions for patient: PLEASE FOLLOW UP DIRECTED What to do after you leave the hospital: If you experience any of the following symptoms NEW AND OR WORSENING FEELINGS OF UNWELL, please follow up with PCP/ER. Activity: TOLERATED. Diet: Diet cardiac Feeds Self Diet NPO effective now Except for: SIPS WITH MEDS Wound Care: {wound care:00992} The following personal items were collected during your admission and were returned to you: Valuables Dentures: None Vision - Corrective Lenses: Glasses Hearing Aid: None Jewelry: None Clothing: Pants, Shirt, Underpants, Socks, Footwear Home medical equipment: None Other Valuables: None Valuables Comment: $1000 dyer Offered to send valuables to safe: Declined after education Valuables Given To: None, Patient Verified above items were sent on patient:: Transfer * Attachments The following attachments cannot be sent through Care Everywhere. * Kidney Stone (Guinean Brazilian) * Kidney Stone Prevention Diet: General Info (Guinean Brazilian) * Ureteral Stent Placement: Post-op (Guinean Brazilian) * oxybutynin (oral) (Guinean Brazilian) * Tamsulosin Oral Capsule (TAMSULOSIN CAPSULE - ORAL) (Gu[place]an Brazilian) documented [facility] History and physical note* Phylicia Pratt APRN GROUP SALES COORDINATOR - 03/11/2024 9:37 PM EDT [facility] History and Physical Note 03/11/2024 Johnathan Slois [id number] Assessment/Plan: Johnathan Solis is a 68 y.o. male with a history of atrial fibrillation, Cad and CKD who [facility] with with lower abdominal pain. OLH: CR 2.17, Lipase 1810. Ua with pyuria. CT A/P moderate to severe right sided hydronephrosis with perinephric fat stranding, secondary to 1.7 cm renal calculus un right UPJ junction. Non obstructive renal calculi. He was transferred to [facility] 03/11/2024 for further urological evaluation. Obstructive Uropathy: CT A/P moderate to severe right sided hydronephrosis with perinephric fat stranding, secondary to 1.7 cm renal calculus un right UPJ junction. Non obstructive renal calculi. Initiated IV antibiotics. IV fluids, Supportive care, flomax. Urology to follow. STANISLAW on CKDIII: Admit sCr 2.17. Suspect due to Obstructive Uropathy. Initiated IV fluids. Avoid Nephrotoxins as able. Monitor Urinary output. Preoperative evaluation: Jeffrey Revised Cardiac Index Risk Factors: Coronary artery disease. At home, patient is able to complete > 4 METS as evidenced by the ability to climb 2 flights of stairs without CP or dyspnea. Chronic medical conditions that increase perioperative risk not captured with RCRI include: arrhythmia with history of atrial fibrillation . Most recent cardiac testing : EKG ordered on admit and pending. After chart review and discussion with patient, qualifies for Low Risk (0 or 1 RCRI with good functional status). Further cardiac testing will not reduce patient's risk and okay to proceed without further testing. Final decision to take patient to OR left to risk/benefit decision making of surgical and anesthesia teams. Elevated Lipase: Chronic elevation per trend review, noted to be 1788 on 11/2023. 1810 on admit. Asymptomatic. Outpatient follow up Atrial Fibrillation: s/p ablation in 05/2023. No longer on AC CAD: S/p PCI in 2018. Continued home medications. HTN: Continued home Medications. Monitor and titrate PRN Code Status: Full Code Current Living Situation: Home Estimated discharge date: 03/12/24 Chief Complaint: Lowe abdominal Pain History of Present Illness: Johnathan Solis is a 68 y.o. male with a history of atrial fibrillation, Cad and CKD who [facility] with with lower abdominal pain. Has history of kidney stone with previous stent.Thought he developed stone on 11/2023 and He thought he passed it in pieces. OLH: CR 2.17, Lipase 1810. CT A/P moderate to severe right sided hydronephrosis with perinephric fat stranding, secondary to 1.7 cm renal calculus un right UPJ junction. Non obstructive renal calculi. He was transferred to [facility] 03/11/2024 for further urological evaluation. Examined at bed side. No Family/Friends present. VSS. On exam his pain is controlled. He Denied N/V/D or Fever. Today I did a person review of imaging, labs, vital signs, EKG and pulse oximetry. I have reviewed external notes from potential/prior admission discharge summaries and outside hospital records . ROS: 10 systems were reviewed and negative, except as noted above Past Medical, Surgical, Social, Family History: Past Medical History: Diagnosis Date A-fib (HCC) Arrhythmia Atrial fibrillation (HCC) CAD (coronary artery disease) CAD (coronary artery disease) 06/01/2018 Kidney stones Myocardial infarction (HCC) S/P right coronary artery (RCA) stent placement 01/06/2018 Past Surgical History: Procedure Laterality Date ablasion 05/2023 CARDIAC CATHERIZATION CYSTO URETHROSCOPY WITH URETEROSCOPY, DILATATION Right 06/01/2018 CYSTO URETHROSCOPY WITH URETEROSCOPY, DILATATION stone extraction right ureteral stent placement performed by Aman Carrington MD at [facility] Social History Socioeconomic History Marital status: Spouse name: Not on file Number of children: Not on file Years of education: Not on file Highest education level: Not on file Occupational History Not on file Tobacco Use Smoking status: Former Smokeless tobacco: Never Substance and Sexual Activity Alcohol use: No Drug use: No Sexual activity: Not on file Other Topics Concern Not on file Social History Narrative Not on file Social Determinants of Health Financial Resource Strain: Not on file Food Insecurity: Not on file Transportation Needs: Not on file Physical Activity: Not on file Stress: Not on file Social Connections: Not on file Intimate Partner Violence: Not on file Housing Stability: Not on file Family History Problem Relation Age of Onset Diabetes Mother Alzheimer's disease Mother Aneurysm Father Stroke Sister Sudden Neg Hx Home Medications: No current facility-administered medications on file prior to encounter. Current Outpatient Medications on File Prior to Encounter Medication Sig Dispense Refill aspirin EC (ECOTRIN LOW STRENGTH) 81 MG EC tablet Take 1 tablet by mouth daily. Ondansetron (ZOFRAN-ODT) 4 MG disintegrating tablet Take 1 tablet by mouth every 8 hours as needed for Nausea and/or Vomiting. Dissolve on tongue then swallow. 20 tablet 0 Tamsulosin HCl (FLOMAX) 0.4 MG 24 hr capsule Take 1 capsule by mouth daily. Take until stone passes. 30 capsule 0 Allergies: Allergies Allergen Reactions Pcn [Penicillins] Anaphylaxis Calan [Verapamil] Other (See Comments) Hypotension Caffeine Palpitations arrythmia Physical Exam: Visit Vitals BP 146/80 (BP Location: Left arm, Patient Position: Sitting, Cuff Size: Large) Pulse 69 Temp 98.2 F (36.8 C) (Oral) Resp 24 Ht 6' 2 (1.88 m) Wt 99.8 kg (220 lb) SpO2 99% BMI 28.25 kg/m General: NAD Eyes: EOMI ENT: Neck supple Cardiovascular: Regular Rate Respiratory: Clear to auscultation, unlabored on RA Gastrointestinal: Soft, non-tender, bowel tones present Musculoskeletal: No edema Skin: Warm, dry Neuro: Alert, oriented x 3, non focal Psych: Mood appropriate Labs, Imaging, and Studies reviewed: Recent Labs Lab 03/11/24 1753 HGB 15.0 HCT 46.4 PLT 204 Recent Labs Lab 03/11/24 1753 NA 136 K 4.0 CL 106 BUN 37* CREATININE 2.17* EGFR 32.0* CALCIUM 9.4 LABALBU 5.0 Recent Labs Lab 03/11/24 1753 ALT 18 AST 28 ALKPHOS 69 BILITOT 0.6 No results for input(s): INR in the last 168 hours. Associated attestation - Jie Bucio MD - 03/11/2024 11:50 PM EDT [facility]. I, Jie Bucio MD, am physically located at Home. I discussed the risks, benefits, and alternatives of the telemedicine visit with the patient and agrees to proceed. The Advanced Practice Provider is in the patient s room and facilitated the visit on the patient s behalf. This visit was performed by both me and the advanced practiced clinician. I performed all aspects of the MDM as documented. S: lower abdominal pain, hx of kidney stones, pain typical with his kidney stones No F/c, some nausea intermittent, no emesis Has CAD, remote PCI, no CHF, TTE 2018 EF normal, no significant valve issues Johnathan Solis with significant PMH of kidney stones who presented to [facility] on 03/11/24 with abdominal pain. Workup significant for CT Assessment and Plan: Nephrolithiasis with obstructive uropathy: IVF, flomax, strain all urine, NPO MN, consult urology Obstructive STANISLAW: baseline Cr 1.73, Admit 2.13, IVF, monitor Preop: RCRI 1, baseline EKG pending. If EKG unremarkable patient is low risk and not further testing needed CAD s/p PCI 2017 PAF: not on AC [facility] [place] [id number] History and physical note* Phylicia Pratt APRN GROUP SALES COORDINATOR - 03/11/2024 9:37 PM EDT [facility] History and Physical Note 03/11/2024 Johnathan Solis [id number] Assessment/Plan: Johnathan Solis is a 68 y.o. male with a history of atrial fibrillation, Cad and CKD who presentedto [facility] on 03/11[facility]34 with with lower abdominal pain. [facility]: CR 2.17, Lipase 1810. Ua with pyuria. CT A/P moderate to severe right sided hydronephrosis with perinephric fat stranding, secondary to 1.7 cm renal calculus un right UPJ junction. Non obstructive renal calculi. He was transferred to [facility] 03/11/2024 for further urological evaluation. Obstructive Uropathy: CT A/P moderate to severe right sided hydronephrosis with perinephric fat stranding, secondary to 1.7 cm renal calculus un right UPJ junction. Non obstructive renal calculi. Initiated IV antibiotics. IV fluids, Supportive care, flomax. Urology to follow. STANISLAW on CKDIII: Admit sCr 2.17. Suspect due to Obstructive Uropathy. Initiated IV fluids. Avoid Nephrotoxins as able. Monitor Urinary output. Preoperative evaluation: Jeffrey Revised Cardiac Index Risk Factors: Coronary artery disease. At home, patient is able to complete > 4 METS as evidenced by the ability to climb 2 flights of stairs without CP or dyspnea. Chronic medical conditions that increase perioperative risk not captured with RCRI include: arrhythmia with history of atrial fibrillation . Most recent cardiac testing : EKG ordered on admit and pending. After chart review and discussion with patient, qualifies for Low Risk (0 or 1 RCRI with good functional status). Further cardiac testing will not reduce patient's risk and okay to proceed without further testing. Final decision to take patient to OR left to risk/benefit decision making of surgical and anesthesia teams. Elevated Lipase: Chronic elevation per trend review, noted to be 1788 on 11/2023. 1810 on admit. Asymptomatic. Outpatient follow up Atrial Fibrillation: s/p ablation in 05/2023. No longer on AC CAD: S/p PCI in 2018. Continued home medications. HTN: Continued home Medications. Monitor and titrate PRN Code Status: Full Code Current Living Situation: Home Estimated discharge date: 03/12/24 Chief Complaint: Lowe abdominal Pain History of Present Illness: Johnathan Solis is a 68 y.o. male with a history of atrial fibrillation, Cad and CKD who [facility] on 03[facility] with with lower abdominal pain. Has history of kidney stone with previous stent.Thought he developed stone on 11/2023 and He thought he passed it in pieces. OLH: CR 2.17, Lipase 1810. CT A/P moderate to severe right sided hydronephrosis with perinephric fat stranding, secondary to 1.7 cm renal calculus un right UPJ junction. Non obstructive renal calculi. He was transferred to [facility] 03/11/2024 for further urological evaluation. Examined at bed side. No Family/Friends present. VSS. On exam his pain is controlled. He Denied N/V/D or Fever. Today I did a person review of imaging, labs, vital signs, EKG and pulse oximetry. I have reviewed external notes from potential/prior admission discharge summaries and outside hospital records . ROS: 10 systems were reviewed and negative, except as noted above Past Medical, Surgical, Social, Family History: Past Medical History: Diagnosis Date A-fib (HCC) Arrhythmia Atrial fibrillation (HCC) CAD (coronary artery disease) CAD (coronary artery disease) 06/01/2018 Kidney stones Myocardial infarction (HCC) S/P right coronary artery (RCA) stent placement 01/06/2018 Past Surgical History: Procedure Laterality Date ablasion 05/2023 CARDIAC CATHERIZATION CYSTO URETHROSCOPY WITH URETEROSCOPY, DILATATION Right 06/01/2018 CYSTO URETHROSCOPY WITH URETEROSCOPY, DILATATION stone extraction right ureteral stent placement performed by Aman Carrington MD at [facility] Social History Socioeconomic History Marital status: Spouse name: Not on file Number of children: Not on file Years of education: Not on file Highest education level: Not on file Occupational History Not on file Tobacco Use Smoking status: Former Smokeless tobacco: Never Substance and Sexual Activity Alcohol use: No Drug use: No Sexual activity: Not on file Other Topics Concern Not on file Social History Narrative Not on file Social Determinants of Health Financial Resource Strain: Not on file Food Insecurity: Not on file Transportation Needs: Not on file Physical Activity: Not on file Stress: Not on file Social Connections: Not on file Intimate Partner Violence: Not on file Housing Stability: Not on file Family History Problem Relation Age of Onset Diabetes Mother Alzheimer's disease Mother Aneurysm Father Stroke Sister Sudden Neg Hx Home Medications: No current facility-administered medications on file prior to encounter. Current Outpatient Medications on File Prior to Encounter Medication Sig Dispense Refill aspirin EC (ECOTRIN LOW STRENGTH) 81 MG EC tablet Take 1 tablet by mouth daily. Ondansetron (ZOFRAN-ODT) 4 MG disintegrating tablet Take 1 tablet by mouth every 8 hours as needed for Nausea and/or Vomiting. Dissolve on tongue then swallow. 20 tablet 0 Tamsulosin HCl (FLOMAX) 0.4 MG 24 hr capsule Take 1 capsule by mouth daily. Take until stone passes. 30 capsule 0 Allergies: Allergies Allergen Reactions Pcn [Penicillins] Anaphylaxis Calan [Verapamil] Other (See Comments) Hypotension Caffeine Palpitations arrythmia Physical Exam: Visit Vitals BP 146/80 (BP Location: Left arm, Patient Position: Sitting, Cuff Size: Large) Pulse 69 Temp 98.2 F (36.8 C) (Oral) Resp 24 Ht 6' 2 (1.88 m) Wt 99.8 kg (220 lb) SpO2 99% BMI 28.25 kg/m General: NAD Eyes: EOMI ENT: Neck supple Cardiovascular: Regular Rate Respiratory: Clear to auscultation, unlabored on RA Gastrointestinal: Soft, non-tender, bowel tones present Musculoskeletal: No edema Skin: Warm, dry Neuro: Alert, oriented x 3, non focal Psych: Mood appropriate Labs, Imaging, and Studies reviewed: Recent Labs Lab 03/11/24 1753 HGB 15.0 HCT 46.4 PLT 204 Recent Labs Lab 03/11/24 1753 NA 136 K 4.0 CL 106 BUN 37* CREATININE 2.17* EGFR 32.0* CALCIUM 9.4 LABALBU 5.0 Recent Labs Lab 03/11/24 1753 ALT 18 AST 28 ALKPHOS 69 BILITOT 0.6 No results for input(s): INR in the last 168 hours. Associated attestation - Jie Bucio MD - 03/11/2024 11:50 PM EDT [facility]. I, Jie Bucio MD, am physically located at Home. I discussed the risks, benefits, and alternatives of the telemedicine visit with the patient and agrees to proceed. The Advanced Practice Provider is in the patient s room and facilitated the visit on the patient s behalf. This visit was performed by both me and the advanced practiced clinician. I performed all aspects of the MDM as documented. S: lower abdominal pain, hx of kidney stones, pain typical with his kidney stones No F/c, some nausea intermittent, no emesis Has CAD, remote PCI, no CHF, TTE 2018 EF normal, no significant valve issues Johnathan Solis with significant PMH of kidney stones who presented to [facility] on 03/11/24 with abdominal pain. Workup significant for CT Assessment and Plan: Nephrolithiasis with obstructive uropathy: IVF, flomax, strain all urine, NPO MN, consult urology Obstructive STANISLAW: baseline Cr 1.73, Admit 2.13, IVF, monitor Preop: RCRI 1, baseline EKG pending. If EKG unremarkable patient is low risk and not further testing needed CAD s/p PCI 2017 PAF: not on AC [facility] Note* Marivel Palma RN - 03/11/2024 8:48 PM EDT Spoke with Adrianne RN at [facility] ED to let her know pt is coming POV and will check in at the front of house manager. Spoke with Esperanza RN on OBS unit to let her know pt is leaving our facility and will arrivein the next 40-45 minutes via POV. [facility] Emergency department Note* Marivel Palma RN - 03/11/2024 8:48 PM EDT Spoke with Adrianne RN at [facility] ED to let her know pt is coming POV and will check in at the front of house manager. Spoke with Esperanza RN on OBS unit to let her know pt is leaving our facility and will arrivein the next 40-45 minutes via POV. * Marivel Palma RN - 03/11/2024 8:29 PM EDT Went over Transfer to consent who is driving POV to [facility]. Paperwork signed and placed in records. * Nannette Solorzano RN - 03/11/2024 7:01 PM EDT Pt report given to Marivel HANNA. * Nannette Solorzano RN - 03/11/2024 6:23 PM EDT Lipase 1809 Keren lisa notified. * Nannette Solorzano RN - 03/11/2024 5:48 PM EDT PT alert and oriented x4. Respirations easy and unlabored. Ambulatory to room. PT reports having lower groin pain on the left and right. Pt states he has had multiple and and was told he has more present. * Keren Mcneill APRN GROUP SALES COORDINATOR - 03/11/2024 5:47 PM EDT ED Diagnosis and Summary 1. Right ureteral stone 2. Hydronephrosis with ureteropelvic junction (UPJ) obstruction ED Summary This 68 year old male with a history of PAF, CAD, CKD, presents to ED via private vehicle. He c/o bilateral lower abd pain that started a couple of days ago. Pt is non ill, non toxic appearing. He is afebrile. He is not hypoxic or tachycardic. Lower abd tender to palpation. He declines pain medication. He was ordered IVF. Urine without infection. Cbc unremarkable. Creat 2.17, up from baseline. Lipase 1810. No upper abd pain. Ct abd/pelvis shows Moderateto severe right-sided hydronephrosis and perinephric fat stranding secondary to a 1.7 cm size calculus in the right ureteropelvic junction. Pt made aware of same. He will be admitted to medicine for further eval and treatment. Labs Reviewed CBC AND DIFFERENTIAL - Abnormal; Notable for the following components: Result Value RBC 5.78 (*) MCV 80.3 (*) MCH 26.0 (*) Absolute Boyd 0.7 (*) All other components within normal limits COMPREHENSIVE METABOLIC PANEL - Abnormal; Notable for the following components: CO2 19 (*) Glucose 114 (*) BUN 37 (*) Creatinine 2.17 (*) Total Protein 8.7 (*) EGFR 32.0 (*) All other components within normal limits LIPASE - Abnormal; Notable for the following components: Lipase 1,810 (*) All other components within normal limits URINE CHEM STRIP ONLY - Abnormal; Notable for the following components: Protein, Ur 100 (*) Occult Bld Large (*) Leukoesterase Trace (*) All other components within normal limits RAINBOW DRAW Narrative: The following orders were created for panel order and [facility] ED Rachel Draw. Procedure Abnormality Status --------- ------ Gold Top[[id number]] In process LIGHT BLUE TOP[[id number]] In process Light Green Top[[id number]] In process Lavender Top[[id number]] In process Dark Green Top[[id number]] In process Please view results for these tests on the individual orders. GOLD TOP LIGHT BLUE TOP LIGHT GREEN TOP LAVENDER TOP DARK GREEN TOP CT Abdomen / Pelvis Without ANY Contrast Final Result 1. Moderate to severe right-sided hydronephrosis and perinephric fat stranding secondary to a 1.7 cm size calculus in the right ureteropelvic junction. 2. Distal right ureteral calculi present on the previous examination are no longer present and were likely expelled. 3. Nonobstructive bilateral intrarenal calculi. Severe atrophy of the left kidney. This plan was discussed with patient and/or parent(s), questions were answered, the patient and or parent(s) appear to understand and agree with plan for admission. History Chief Complaint Patient presents with Nephrolithiasis Patient's medications, allergies, past medical, surgical, social and family histories were reviewedand updated as appropriate. The history is provided by the patient. This 68 year old male with a history of PAF, CAD, CKD, presents to ED via private vehicle. He c/o bilateral lower abd pain that started a couple of days ago. He states he usually can drink lemon juice, it breaks up his stones and they pass. He rates his pain 7/10, sharp, starting in right abd, radiating along lower abd. He denies changes in urination. He denies blood in urine. He denies fever. Hereports hx similar s/s. Review of Systems Constitutional: Negative. HENT: Negative. Respiratory: Negative. Cardiovascular: Negative. Gastrointestinal: Positive for abdominal pain. Negative for diarrhea and nausea. Genitourinary: Negative. Physical Exam ED Triage Vitals [03/11/24 1750] BP 172/86 Heart Rate 84 Resp 18 Temp 98.4 F (36.9 C) Temp src Oral SpO2 99 % Weight 220 lb (99.8 kg) Height 6' 2 (1.88 m) BMI (Calculated) 28.23 Physical Exam Vitals and nursing note reviewed. Constitutional: Appearance: Normal appearance. HENT: Head: Normocephalic and atraumatic. Right Ear: External ear normal. Left Ear: External ear normal. Cardiovascular: Rate and Rhythm: Normal rate and regular rhythm. Pulses: Normal pulses. Heart sounds: Normal heart sounds. Pulmonary: Effort: Pulmonary effort is normal. Breath sounds: Normal breath sounds. Abdominal: General: Bowel sounds are normal. Palpations: Abdomen is soft. Tenderness: There is abdominal tenderness in the right lower quadrant and left lower quadrant. There is no right CVA tenderness or left CVA tenderness. Skin: General: Skin is warm and dry. Capillary Refill: Capillary refill takes less than 2 seconds. Neurological: General: No focal deficit present. Mental Status: He is alert and oriented to person, place, and time. Mental status is at baseline. Psychiatric: Mood and Affect: Mood normal. ED Course Procedures Medical Decision Making Keren Mcneill APRN GROUP SALES COORDINATOR 03/11/242009 documented [facility] Emergency department Note* Marivel Palma RN - 03/11/2024 8:29 PM EDT Went over Transfer to consent who is driving POV to [facility]. Paperwork signed and placed in records. [facility] Emergency department Note* Nannette Solorzano RN - 03/11/2024 7:01 PM EDT Pt report given to Marivel HANNA. [facility] Emergency department Note* Nannette Solorzano RN - 03/11/2024 6:23 PM EDT Lipase 1810 Keren lisa notified. Qoniac [id number] Emergency department Triage note* Nannette Solorzano RN - 03/11/2024 5:48 PM EDT PT alert and oriented x4. Respirations easy and unlabored. Ambulatory to room. PT reports having lower groin pain on the left and right. Pt states he has had multiple and and was told he has more present. Qoniac [id number] Physician Emergency department Note* Keren Mcneill APRN GROUP SALES COORDINATOR - 03/11/2024 5:47 PM EDT ED Diagnosis and Summary 1. Right ureteral stone 2. Hydronephrosis with ureteropelvic junction (UPJ) obstruction ED Summary This 68 year old male with a history of PAF, CAD, CKD, presents to ED via private vehicle. He c/o bilateral lower abd pain that started a couple of days ago. Pt is non ill, non toxic appearing. He is afebrile. He is not hypoxic or tachycardic. Lower abd tender to palpation. He declines pain medication. He was ordered IVF. Urine without infection. Cbc unremarkable. Creat 2.17, up from baseline. Lipase 1810. No upper abd pain. Ct abd/pelvis shows Moderateto severe right-sided hydronephrosis and perinephric fat stranding secondary to a 1.7 cm size calculus in the right ureteropelvic junction. Pt made aware of same. He will be admitted to medicine for further eval and treatment. Labs Reviewed CBC AND DIFFERENTIAL - Abnormal; Notable for the following components: Result Value RBC 5.78 (*) MCV 80.3 (*) MCH 26.0 (*) Absolute Boyd 0.7 (*) All other components within normal limits COMPREHENSIVE METABOLIC PANEL - Abnormal; Notable for the following components: CO2 19 (*) Glucose 114 (*) BUN 37 (*) Creatinine 2.17 (*) Total Protein 8.7 (*) EGFR 32.0 (*) All other components within normal limits LIPASE - Abnormal; Notable for the following components: Lipase 1,810 (*) All other components within normal limits URINE CHEM STRIP ONLY - Abnormal; Notable for the following components: Protein, Ur 100 (*) Occult Bld Large (*) Leukoesterase Trace (*) All other components within normal limits RAINBOW DRAW Narrative: The following orders were created for panel order and [facility] ED Rachel Draw. Procedure Abnormality Status --------- ------ Gold Top[[id number]] In process LIGHT BLUE TOP[[id number]] In process Light Green Top[[id number]] In process Lavender Top[[id number]] In process Dark Green Top[[id number]] In process Please view results for these tests on the individual orders. GOLD TOP LIGHT BLUE TOP LIGHT GREEN TOP LAVENDER TOP DARK GREEN TOP CT Abdomen / Pelvis Without ANY Contrast Final Result 1. Moderate to severe right-sided hydronephrosis and perinephric fat stranding secondary to a 1.7 cm size calculus in the right ureteropelvic junction. 2. Distal right ureteral calculi present on the previous examination are no longer present and were likely expelled. 3. Nonobstructive bilateral intrarenal calculi. Severe atrophy of the left kidney. This plan was discussed with patient and/or parent(s), questions were answered, the patient and or parent(s) appear to understand and agree with plan for admission. History Chief Complaint Patient presents with Nephrolithiasis Patient's medications, allergies, past medical, surgical, social and family histories were reviewedand updated as appropriate. The history is provided by the patient. This 68 year old male with a history of PAF, CAD, CKD, presents to ED via private vehicle. He c/o bilateral lower abd pain that started a couple of days ago. He states he usually can drink lemon juice, it breaks up his stones and they pass. He rates his pain 7/10, sharp, starting in right abd, radiating along lower abd. He denies changes in urination. He denies blood in urine. He denies fever. Hereports hx similar s/s. Review of Systems Constitutional: Negative. HENT: Negative. Respiratory: Negative. Cardiovascular: Negative. Gastrointestinal: Positive for abdominal pain. Negative for diarrhea and nausea. Genitourinary: Negative. Physical Exam ED Triage Vitals [03/11/24 1750] BP 172/86 Heart Rate 84 Resp 18 Temp 98.4 F (36.9 C) Temp src Oral SpO2 99 % Weight 220 lb (99.8 kg) Height 6' 2 (1.88 m) BMI (Calculated) 28.23 Physical Exam Vitals and nursing note reviewed. Constitutional: Appearance: Normal appearance. HENT: Head: Normocephalic and atraumatic. Right Ear: External ear normal. Left Ear: External ear normal. Cardiovascular: Rate and Rhythm: Normal rate and regular rhythm. Pulses: Normal pulses. Heart sounds: Normal heart sounds. Pulmonary: Effort: Pulmonary effort is normal. Breath sounds: Normal breath sounds. Abdominal: General: Bowel sounds are normal. Palpations: Abdomen is soft. Tenderness: There is abdominal tenderness in the right lower quadrant and left lower quadrant. There is no right CVA tenderness or left CVA tenderness. Skin: General: Skin is warm and dry. Capillary Refill: Capillary refill takes less than 2 seconds. Neurological: General: No focal deficit present. Mental Status: He is alert and oriented to person, place, and time. Mental status is at baseline. Psychiatric: Mood and Affect: Mood normal. ED Course Procedures Medical Decision Making Keren Mcneill APRN GROUP SALES COORDINATOR 03/11/242009 [facility]01-20-2024 Emergency department Note* Lainey Mayorga RN - 12/01/2023 2:33 AM EST Discharge instructions reviewed patient verbalizes understanding NAD [facility]01[facility] Emergency department Note* Lainey Mayorga RN - 12/01/2023 2:33 AM EST Discharge instructions reviewed patient verbalizes understanding NAD * Lainey Mayorga RN - 12/01/2023 12:40 AM EST Patient aware urine specimen is needed * Lainey Mayorga RN - 12/01/2023 12:[address] bright at bedside * Lainey Mayorga RN - 12/01/2023 12:18 AM EST Patient arrives to ED from home with complaints of right flank pain that goes into his side and front of his abdomen. States that his pain started around 1999 yesterday. GCS 15 documented in this [facility] Hospital Discharge instructions* Discharge Instructions* Brandon Bright MD - 12/01/2023 2:27 AM EST You were seen today here in the emergency department. You were seen for concerns of right-sided flank pain, and your imaging did show concerns for kidneystone causing some mild fluid backup. We are prescribing you nausea medications as well as medications to help pass the kidney stone. Take these as prescribed. We are referring you to urology. At this time, you are safe for discharge. Even though you are safe for discharge at this time, return to the emergency department if you develop new or worsening symptoms. documented in this encounterUniversity [facility] Emergency department Note* Lainey Mayorga RN - 12/01/2023 12:40 AM EST Patient aware urine specimen is needed [facility] Emergency department Note* Lainey Mayorga RN - 12/01/2023 12:[address] bright at bedside [facility]01-20-2024 Emergency department Triage note* Lainey Mayorga RN - 12/01/2023 12:18 AM EST Patient arrives to ED from home with complaints of right flank pain that goes into his side and front of his abdomen. States that his pain started around 1999 yesterday. GCS 15 [place]09-21-2023 History of Present illness Narrative* Juan Daniel Noel APRN.DIRECTOR OF SOFTWARE ENGINEERING - 08/02/2023 11:00 AM EDT [facility] Electrophysiology PRIMARY CARE PHYSICIAN: To use this Smartlink, specify the provider ID whose address you want to display, e.g., .PROVADDR[1(where 1 is the provider ID). CHIEF COMPLAINT: 3-month follow-up status post radiofrequency PVI for atrial fibrillation as well as PACs with Dr. Thakkar on 05/01/2023. HISTORY OF PRESENT ILLNESS (from my previous office note on 04/24/2023): Pankaj is a pleasant 67-year-old male who presents today for history and physical update prior to PVI with Dr. Thakkar on 04/30/2023. Overall Pankaj reports he has been feeling decent. He indicates at the end of March into the beginning of April he went back out of rhythm and estimates he was in atrial fibrillation for roughly 36 hours. He last had an episode about 2 weeks ago. He describes it is simply a sensation he is out of rhythm. These episodes occur only occasionally and they are typically brief in duration. As instructed patient last took his sotalol yesterday evening 04/23 and is now holding. He started his Xarelto around 0400 on 04/23. He presently denies angina, shortness of breath, worsening activity tolerance, or constitutional symptoms. Lengthy discussion was had regarding what to expect pre-/intra-/post procedure. Topics included procedure overview, general anesthesia, recovery, medications, overnight stay in [facility], risk/benefits, and follow-up. Benefit being best chance at long-term maintenance of normal sinus rhythm. Low potential risk for bleeding, stroke, or . Advised patient to eat and drink well day before procedure with nothing after midnight except medicationswith small sips of water morning of. Patient previously underwent radiofrequency PVI in 2005 in [place]. Medications, allergies, medical history reviewed with patient. He is on a reduced dose of Xarelto 10 mg daily due to history of stage III CKD. Patient verbalized understanding that he had no further questions at this time. Interval History: Pankaj is a pleasant 68-year-old gentleman who presents today for 3-month follow-up status post radiofrequency PVI for atrial fibrillation as well as PACs on 05/01/[address] Thakkar. Overall check reports he has been feeling well. He stated he has not had any heart racing episodes for at least the past 3 weeks. He does endorse some occasional palpitations. He is continue toremain active at home. Specifically he mentioned yesterday lifting and moving a 150 pound block of wood. He denies any worsening activity tolerance. He typically hikes considerable distances however he avoids this in the summertime as in the past heat/humidity has provoked his palpitations. Post ablation it was agreed upon in light of patient's CKD and strong desire to remain off of OAC long-termPankaj had taken Xarelto for 30 days post PVI and then stopped. He remains on baby aspirin once a day. [id number] of 2 secondary to age and CAD. Echo from July 2023 showed a normal left ventricle with an ejection fraction of 55%. Twelve-lead performed in office showed normal sinus rhythm with a ventricular rate of 76. Patient follows with Dr. Mcmanus for his general cardiology needs in [place]. In addition to his echo he had a Holter monitor completed there. I do not have the results at this time. We discussed standing order for CT of the chest to assess for pulmonary vein stenosis. At this time Pankaj is not interested in having this done as his activity tolerance has remained well and he has not experienced any symptoms of shortness of breath. Follow-up in 6 months. 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 current use of antiarrhythmic drug Old myocardial infarction PAC (premature atrial contraction) 08/02/2023 Paroxysmal atrial fibrillation ([facility]) Presence of coronary angioplasty implant and graft Right bundle branch block (RBBB) Status post catheter ablation of atrial fibrillation RF catheter ablation for atrial fibrillation 2005 ([place]) STEMI (ST elevation myocardial infarction) ([facility]) PAST SURGICAL HISTORY Procedure Laterality Date AFIB ABLATION/PULM VEIN ISOLATION 2006 RF catheter ablation for atrial fibrillation; [place], [place] AFIB ABLATION/PULM VEIN ISOLATION 05/01/2023 redo PVAI (both carinas, anterior segments PVs, posterior wall, SVC/RA junction); focal left atrialPAC (posteroseptal) ablation; [facility] Dr. Thakkar ECHOCARDIOGRAM 11/30/2022 LVEF 55%; moderate LAE; no significant valvular abnormalities HOLTER MONITOR 48 HR 12/26/2022 INSERT INTRACORONARY STENT 01/06/2018 KIDNEY STONE ANALYSIS 2017 extraction 2017 LEFT HEART CATH,PERCUTANEOUS 01/06/2018 LITHOTRIPSY XTRCORP SHOCK WAVE 04/2020 TONSILLECTOMY & ADENOIDECTOMY <AGE 10 Social History Tobacco Use Smoking status: Never Smokeless tobacco: Never Substance Use Topics Alcohol use: Not Currently Drug use: Never Family History Problem Relation Age of Onset Alzheimer's Disease Mother Diabetes Mother Aneurysm Father Stroke Sister ALLERGIES Allergen Reactions Penicillins Anaphylaxis Caffeine Other: See Comments arrhythmia Ticagrelor Other: See Comments Didn't feel well Verapamil Other: See Comments Hypotension MEDICATIONS: aspirin, enteric coated (ASPIRIN, ENTERIC COATED) 81 mg EC tablet^Take 81 mg by mouth once daily.^Disp: ^Rfl: rivaroxaban (XARELTO) 10 mg tablet^Take 10 mg by mouth once daily.^Disp: ^Rfl: REVIEW OF SYSTEMS: Review of Systems Constitutional: Negative for chills, fatigue and fever. Respiratory: Negative for apnea, cough, chest tightness, shortness of breath and wheezing. Cardiovascular: Positive for palpitations. Negative for chest pain and leg swelling. Gastrointestinal: Negative for abdominal distention, abdominal pain, constipation, diarrhea, nauseaand vomiting. Genitourinary: Negative for difficulty urinating, dysuria and hematuria. Musculoskeletal: Negative for arthralgias. Neurological: Negative for dizziness, weakness, light-headedness and headaches. Psychiatric/Behavioral: Negative for agitation, behavioral problems, confusion and suicidal ideas. PHYSICAL EXAMINATION: There were no vitals taken for this visit. Physical Exam Constitutional: Appearance: Normal appearance. Cardiovascular: Rate and Rhythm: Normal rate and regular rhythm. Pulses: Normal pulses. Radial pulses are 2+ on the right side and 2+ on the left side. Posterior tibial pulses are 2+ on the right side and 2+ on the left side. Heart sounds: Normal heart sounds, S1 normal and S2 normal. Comments: Normal sinus rhythm with a ventricular rate of 76. Pulmonary: Effort: Pulmonary effort is normal. Breath sounds: Normal breath sounds. Abdominal: General: Bowel sounds are normal. Palpations: Abdomen is soft. Musculoskeletal: Right lower leg: No edema. Left lower leg: No edema. Skin: General: Skin is warm and dry. Neurological: Mental Status: He is alert and oriented to person, place, and time. Psychiatric: Mood and Affect: Mood normal. Behavior: Behavior normal. CARDIOVASCULAR MEDICINE TESTING: Echo 07/17/2023 Normal LV size. Estimated ejection fraction is 55%. Stage I diastolic dysfunction. Structurally normal valves. EKG 05/02/2023 Normal sinus rhythm with a ventricular rate of 67. RBBB. MS 176. QRS 136. QT/QTc 446/471. When factoring RBBB true QT is roughly 435. I have reviewed the echocardiogram and EKG. PLAN AND RECOMMENDATIONS: ASSESSMENT/PLAN: 1. Status post catheter ablation of atrial fibrillation - ICD9: V45.89, ICD10: Z98.890 (primary diagnosis) Patient had radiofrequency PVI initially in 2005 in the [place] area. Patient underwent radiofrequency PVI for atrial fibrillation and additionally underwent PAC ablation with Dr. Knight 05/01/2023. Current treatment regimen includes Xarelto 10 mg daily as well as ASA EC 81 mg daily.[id number] of at least 2 secondary to age and CAD. Echo from July 2023 showed a ejection fraction of 55% left ventricular size. Stage I diastolic dysfunction was noted valves are structurally normal. 2. Paroxysmal atrial fibrillation (HCC) - ICD9: 427.31, ICD10: I48.0 As above. 3. PAC (premature atrial contraction) - ICD9: 427.61, ICD10: I49.1 As Above. 4. Right bundle branch block (RBBB) - ICD9: 426.4, ICD10: I45.10 As above. 5. History of coronary artery stent placement - ICD9: V45.82, ICD10: Z95.5 Patient underwent PCI in December 2017. 6. At risk for stroke - ICD9: V15.89, ICD10: Z91.89 As above. Return in about 6 months (around 01/31/2024) for Follow up with Dr. Thakkar in 6 months. . Juan Daniel Noel APRN.DIRECTOR OF SOFTWARE ENGINEERING documented in this encounter[facility]09-[facility] Nurse Note* Joya Hernandez MA - 08/02/2023 10:49 AM EDT Patient complains of palpitations. documented in this encounterFisher-[facility]07-18-2023 Miscellaneous Notes* Telephone Encounter - Delilah Carrillo LPN - 05/29/2023 9:19 AM EDT Spoke with patient about recommendation to come in for EKG so we can document the rhythm if symptoms persist. Patient verbalizes understanding, reports last night symptoms improved; he will call office back to schedule EKG if symptoms persist. Delilah Carrillo LPN * Telephone Encounter - Lanie Thakkar MD - 05/29/2023 9:00 AM EDT [facility] [place] General Electrophysiology (EP) If his symptoms persist he should get an EKG so we can document the rhythm. Lanie Thakkar MD May 29, 2023 9:00 AM * Telephone Encounter - Delilah Carrillo LPN - 05/28/2023 8:08 AM EDT Patient called [facility] to report that he feels like he is back in a-fib; symptoms include palpitations,shortness of breath, and dizziness; states he feels worse than he did before ablation. HR ranging 42-140 bpm. Currently taking Xarelto 10 mg once daily and aspirin 81 mg once daily. Delilah Carrillo LPN documented in this encounterFisher[facility]03-14-2023 History of Present illness Narrative* Lanie Thakkar MD - 01/23/2023 6:08 PM EDT PRIMARY CARE PHYSICIAN: No PCP presently REFERRING PHYSICIAN: Minesh Mcmanus MD ([facility]) [address] [address] Patient Care Team: Minesh Mcmanus as Specialty Pin Machine Operator (Cardiology) CHIEF COMPLAINT: Evaluation of arrhythmia HISTORY OF PRESENT ILLNESS: Mr. Solis is a 67 year old male who presents today for evaluation of atrial fibrillation. He hasa very long history of this arrhythmia, he states that he first began having atrial fibrillation atthe age of 33 years (1987). He states he was treated with digoxin, this was not effective. He was then treated with Tenormin followed by a couple of other drugs, he recalls Calan (verapamil) resulting in excessive hypotension. He states in 1992 he was treated with the antiarrhythmic drug sotalol. This was eventually titrated to a very high dosage, very unusual dose and dosing interval of 240 mg three times daily. He says he took this dose for many years, and it was effective to suppress the atrial fibrillation. He underwent catheter ablation while living in [place] in 2005. In about 2012 he started weaning down the sotalol dose, down to 240 mg daily. However, he experienced recurrent atrial fibrillation in late 2021. He experienced about three episodes in a period of 2 weeks. Theepisodes had duration of several hours, the longest being 36 hours. Symptoms during the arrhythmia include palpitations and irregular beats. The most recent episode was the first week of October 2022. He went back on the sotalol 240 mg three times daily regimen. Since then he has not been aware ofany substantial recurrence of the atrial fibrillation. He is on aspirin, states that he does not wish to take oral anticoagulation therapy. He does have a history of coronary artery disease, had a heart attack in 2018. At that time he underwent stent placement to the right coronary artery. He states that he believes there is a strong vagal component to his atrial fibrillation. He states episodes are more likely to occur after eating a large meal for example. He also believes alcohol, particularly wine, ask as a trigger for the arrhythmia. He states he was evaluated by an eeg technician at [facility] recently (Dr. Iqbal), who recommended a sleep study for evaluation for sleepapnea, and also recommended oral anticoagulation and reduce dosage of sotalol. Cardiac monitoring was recommended to document atrial fibrillation, with atrial fibrillation catheter ablation being considered. Mr. Solis does not wish to have such studies completed, particularly the sleep study, does not feel that this is relevant for his atrial fibrillation as he has had the arrhythmia for so many years. He presents today to discuss catheter ablation, would like to have this procedure performed. I have confirmed and edited as necessary, the PFSH and ROS obtained by others. 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 current use of antiarrhythmic drug Old myocardial infarction Paroxysmal atrial fibrillation ([facility]) Presence of coronary angioplasty implant and graft Right bundle branch block (RBBB) Status post catheter ablation of atrial fibrillation RF catheter ablation for atrial fibrillation 2005 ([place]) STEMI (ST elevation myocardial infarction) ([facility]) PAST SURGICAL HISTORY Procedure Laterality Date AFIB ABLATION/PULM VEIN ISOLATION 2005 RF catheter ablation for atrial fibrillation; [place], [place] ECHOCARDIOGRAM 11/30/2022 LVEF 55%; moderate LAE; no significant valvular abnormalities INSERT INTRACORONARY STENT 01/06/2018 KIDNEY STONE ANALYSIS 2018 extraction 2018 LEFT HEART CATH,PERCUTANEOUS 01/06/2018 LITHOTRIPSY XTRCORP SHOCK WAVE 04/2020 TONSILLECTOMY & ADENOIDECTOMY <AGE 10 SOCIAL HISTORY Social History Tobacco Use Smoking status: Never Smokeless tobacco: Never Substance Use Topics Alcohol use: Not Currently Drug use: Never FAMILY HISTORY Problem Relation Age of Onset Alzheimer's Disease Mother Diabetes Mother Aneurysm Father Stroke Sister ALLERGIES: ALLERGIES Allergen Reactions Penicillins Anaphylaxis Caffeine Other: See Comments arrhythmia Ticagrelor Other: See Comments Didn't feel well Verapamil Other: See Comments Hypotension MEDICATIONS: sotalol (BETAPACE) 240 mg tablet Take 240 mg by mouth three times daily. aspirin, enteric coated (ASPIRIN, ENTERIC COATED) 81 mg EC tablet Take 81 mg by mouth once daily. REVIEW OF SYSTEMS: Review of Systems Constitutional: Negative for chills and fever. Respiratory: Negative for cough, hemoptysis, sputum production and shortness of breath. Cardiovascular: Positive for palpitations. Negative for chest pain, orthopnea, leg swelling and PND. Gastrointestinal: Negative for abdominal pain, blood in stool, melena, nausea and vomiting. Genitourinary: Negative for hematuria. Musculoskeletal: Negative for falls. Skin: Negative for rash. Neurological: Negative for dizziness and loss of consciousness. PHYSICAL EXAMINATION: BP 155/84 Pulse 57 Resp 18 Ht 6' 2 (1.88m) Wt 238 lb (108.0kg) SpO2 99[room air]% BMI 30.54 kg/(m^2). Physical Exam Vitals reviewed. Constitutional: General: He is not in acute distress. Appearance: Normal appearance. HENT: Head: Normocephalic and atraumatic. Cardiovascular: Rate and Rhythm: Regular rhythm. Bradycardia present. Heart sounds: Normal heart sounds, S1 normal and S2 normal. No murmur heard. No friction rub. Pulmonary: Effort: Pulmonary effort is normal. No respiratory distress. Breath sounds: Normal breath sounds. No wheezing, rhonchi or rales. Musculoskeletal: Cervical back: Neck supple. Right lower leg: No edema. Left lower leg: No edema. Skin: General: Skin is warm and dry. Neurological: General: No focal deficit present. Mental Status: He is alert and oriented to person, place, and time. Psychiatric: Mood and Affect: Mood normal. Behavior: Behavior normal. Thought Content: Thought content normal. CARDIOVASCULAR MEDICINE TESTING: Electrocardiogram: Sinus bradycardia 56 bpm; normal MS interval 174 ms; right bundle branch block (QRS 132 ms); possible inferior infarct pattern; QTc 496 ms, appropriate on sotalol I have personally reviewed the Electrocardiogram. ASSESSMENT/PLAN: 1. Paroxysmal atrial fibrillation (HCC) - ICD9: 427.31, ICD10: I48.0 (primary diagnosis) Symptomatic; diagnosed many years ago at age 33 years; sotalol for many years, s/p catheter ablation 2005; recurrent atrial fibrillation despite medical therapy - ECG B/O W INTERP (MED OFFICE) 2. jail current use of antiarrhythmic drug - ICD9: V58.69, ICD10: Z79.899 Sotalol; indication: symptomatic atrial fibrillation - ECG B/O W INTERP (MED OFFICE) 3. 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 Bradycardia - ICD9: 427.89, ICD10: R00.1 Not symptomatic 5. Atherosclerosis of knik coronary artery of knik heart without angina pectoris - ICD9: 414.01, ICD10: I25.10 6. Old myocardial infarction - ICD9: 412, ICD10: I25.2 7. Ischemic cardiomyopathy - ICD9: 414.8, ICD10: I25.5 Stable CAD s/p [place]; followed by Dr. Mcmanus 8. Right bundle branch block (RBBB) - ICD9: 426.4, ICD10: I45.10 9. Status post catheter ablation of atrial fibrillation - ICD9: V45.89, ICD10: Z98.890 2005 IMPRESSION: Mr. Solis has a long history of symptomatic paroxysmal atrial fibrillation. He has been on sotalol for many years, he has been taking a very high dosage with an unusual rate times daily dosing interval regimen. Surprisingly, the QTc by EKG is not excessively prolonged. This is in spite of the very high dosage of sotalol in the setting of CKD3. I do think that this high dosage is not recommended, but he has been doing it for many many years without adverse effects such as ventricular proarrhythmia. He is having frequently recurrent symptoms when not taking the sotalol that most likely reflects recurrence of the atrial fibrillation. He very much desires repeat catheter ablation and this is not unreasonable. He expressed preference for cryoablation since the 2005 procedure involved the use of radiofrequency --- I did explain to him that a repeat procedure would be best performed with the use of radiofrequency rather than cryoablation, particularly cryoballoon as this balloon technology would not be capable of addressing the regions needed to be covered with the repeat procedure. Theelectroanatomical mapping and the flexibility of the RF ablation technology would be superior to cryoablation technology at this point. He expressed understanding. I also discussed with Mr. Solis the need for him to be on oral anticoagulation therapy for the safety of the ablation procedure. He states Eliquis 30-day supply would probably cost him > $500. I told him we could check on that and see what the cost will be for either Eliquis or Xarelto or Pradaxa, and work with him on it. Perhaps the cost will not be so excessive. Nevertheless, even if the cost is high he is willing to spend the money for the safety of the procedure. Overall, I think it is very reasonable to perform repeat catheter ablation for the atrial fibrillation at this point. I did explain to him the rationale for the recommendation from others (Dr. Iqbal) for an evaluation for sleep apnea. I explained to him that untreated sleep apnea can reduce the effectiveness of maintaining sinus rhythm by any means, even with catheter ablation. I had a detailed discussion with Mr. Solis regarding my evaluation and recommendations. After our discussion, Mr. Solis expressed his understanding and I answered all his questions to his apparent satisfaction. He agrees to proceed as outlined. INFORMED CONSENT The risks, benefits and anticipated outcomes of the procedure, the risks and benefits of the alternatives to the procedure and the roles and tasks of the personnel to be involved were discussed with the patient. Consent for the procedure and agreement to proceed has been obtained. I verify that I personally obtained the consent. PLAN AND RECOMMENDATIONS: Proceed with scheduling of atrial fibrillation catheter ablation. He will need to wean off the sotalol about one week prior to the procedure. He will need to start oral anticoagulation (Eliquis, Xarelto or Pradaxa) about one week prior to the procedure --- will need to work with him regarding cost of such medications. Lanie Thakkar MD 01/23/2023 Medical Decision Making: Problems: Moderate: 1+ chronic illnesses with change Data: Unique source(s) for external note(s) reviewed: 3+ Unique test result(s) reviewed: 3+ Unique test(s) ordered: 1 Risk: Moderate: Moderate risk from testing/treatment, Drug management and Decision on minor surgery w/ risk factors Medical Decision Making Level: 4 - Moderate documented in this [facility]03-14-2023 Nurse Note* Joya Hernandez MA - 01/23/2023 11:22 AM EDT Patient denies any cardiac issues or symptoms. documented in this encounterFisher[facility]03-03-2023 Miscellaneous Notes* Telephone Encounter - Ilia Lund - 01/12/2023 1:25 PM ESTSummary: Schedule new EP appointment Pt. called in to schedule a new pt. appt. with Dr. Thakkar. He wants another ablation done. He has a hx of A-fib and had an ablation done in 2005. I referred him to fax records over with cardiac history. He will have his transporter driver in [place] fax over records. Ilia Lund documented in this encounter[facility]03-02-2023 History of Present illness Narrative* Braydon Bedolla - 01/11/2023 7:51 AM EST HSAT ordered by Dr. Leo Iqbal during office visit on 01/10/2023 DX - Hypersomnia Please review. * Calli Hill MD - 01/11/2023 7:51 AM EST I have reviewed the chart as it pertains to the sleep study. At this time there is no discussion about need for sleep study or symptoms of obstructive sleep apnea. Please addend as indicated and route back to this group so that we can review. Calli Hill MD Professor Division of Pulmonary, Allergy, Critical Care and Sleep Medicine [address] [facility] [place] [address] [place] [address] * Leo Iqbal MD - 01/11/2023 7:51 AM EST During the electrophysiology clinic evaluation the pt had several symptoms of daytime fatigue and somnolence and waking with not feeling rested I am concerned about obstructive sleep apnea and have recommended a sleep study [facility] History of Present illness Narrative* Braydon Bedolla - 01/11/2023 7:51 AM EST HSAT ordered by Dr. Leo Iqbal during office visit on 01/10/2023 DX - Hypersomnia Please review. * Calli Hill MD - 01/11/2023 7:51 AM EST I have reviewed the chart as it pertains to the sleep study and agree with proceeding with the ordered study. Calli Hill MD Professor Division of Pulmonary, Allergy, Critical Care and Sleep Medicine [address] [place] [address] [facility] [place] [address] * Leo Iqbal MD - 01/11/2023 7:51 AM EST During the electrophysiology clinic evaluation the pt had several symptoms of daytime fatigue and somnolence and waking with not feeling rested I am concerned about obstructive sleep apnea and have recommended a sleep study [facility] History of Present illness Narrative* Leo Iqbal MD - 01/10/2023 2:00 PM EST Attending Physician Note (GC) I saw and personally examined this patient with the Fellow/GROUP SALES COORDINATOR/Resident. I have discussed the findings and therapeutic plan with the Fellow/GROUP SALES COORDINATOR/Resident. I agree with the history, physical examination and medical decisions as outlined. Further comments are added below Subjective & Physical BP 155/71 (BP Location: Left arm, BP Position: Sitting) Pulse 53 Resp 16 Ht 1.88 m (6' 2) Wt 107 kg (236 lb) SpO2 99% BMI 30.30 kg/m Assessment & Plan There is no problem list on file for this patient. Parox AF PVI 2005 CKD Stage III HTN CAD Acute Inferior [place] PCI RBBB 520ms Sotalol 240 TID Alert & Oriented Leo Iqbal MD 01/10/2023 12:59 PM Cell D[employer] Associate, [facility] * Leo Iqbal MD - 01/10/2023 2:00 PM EST Attending Physician Note (GC) I saw and personally examined this patient with the Fellow/GROUP SALES COORDINATOR/Resident. I have discussed the findings and therapeutic plan with the Fellow/GROUP SALES COORDINATOR/Resident. I agree with the history, physical examination and medical decisions as outlined. Further comments are added below Subjective & Physical BP 155/71 (BP Location: Left arm, BP Position: Sitting) Pulse 53 Resp 16 Ht 1.88 m (6' 2) Wt 107 kg (236 lb) SpO2 99% BMI 30.30 kg/m Assessment & Plan There is no problem list on file for this patient. Dx AF 28 yo 1991 - Sotalol 240 TID; rare Af since then Ablation 2005 - [place] Weaned sotalol 2013; 80mg once a day; Coumadin - nausea 2017 - heart attack; RCA - PCI stent; Acute [place] - [place] - Иван Stopped Brillenta; AF recurred BID sotalol - more AF - 80 TID Sep 2022 - [place] - 3 AF episodes in 3 weeks 240 TID ECHO and Monitor - Nl CHADS VASC = 2 - HTN; - DM Sleep study RBBB MEDS: Sotalol 160 BID; Apixaban 5 BID Sleep apnea Alert & Oriented Leo Iqbal MD 01/10/2023 1:01 PM [employer], [facility] Cardiac Electrophysiology * Marisa Arreola RN - 01/10/2023 2:00 PM EST Patient Education Patient education regarding the following topic(s) was provided on 01/10/2023: diagnostic tesing (MCT, sleep eval, med changes CT and afib ablation). Those in attendance for the education included: patient. Barriers in providing the education included: none. The following methods were used in providing the education: explanation and handout. [facility] handoutsgiven included: After visit summary and afib guide. The response of those in attendance was: applies knowledge and states/identifies education topic. The following Clinical Intervention(s) occurred during today s visit: None [facility] Instructions* Patient Instructions* Marisa Arreola RN - 01/10/2023 2:00 PM EST No Sotalol tonight Tomorrow Decrease Sotalol to 2 - 80 mg tablets twice a day (160 mg twice a day) Begin Eliquis 5 mg twice a day Sleep evaluation. 30 day event monitor to be sent to you Plan Cat scan and afib ablation in a few months Hold eliquis 2 doses- night prior and am of procedure Hold sotalol the day prior and am of procedure. Follow-up appointment may be scheduled/determined after procedure Thank you for choosing [facility] for your Heart Care. [employer] is an available tool to securely access your online medical information. Please ask to enroll during any [facility] appointment. Once enrolled, your MD reviewed test results will be available for you to review at your convenience. [facility] messaging is reserved for non urgent messages and responses may take a few days. Call the [facility] at [phone] for urgent questions/concerns M-F 8 to 4:00 Call Scheduling for any appointment/procedure verification or changes [phone] If we are sending you an Event monitor and you have not received it when expected, please call the office. For any questions/problems with your monitor please call [facility] at [phone]. [facility] testing and procedure patient Instructions may be obtained at: [email or web address] Concerns: [email or web address] [facility] Note* Referral Letter - Leo Iqbal MD - 01/10/2023 1:41 PM EST January 10, 2023 RE: JOHNATHAN SOLIS Dear Minesh: Today, I saw your patient Johnathan Solis in first-time evaluation at [facility]. He is a 67-year-old gentleman. He tells me he has had a diagnosis of atrial fibrillation since he was 28 years of age. In 1991, he was started on sotalol and was titrated up to 240 mg t.i.d. and he had rare atrial fibrillation since then. In [place], in 2005, he had a pulmonary vein isolation ablation procedure. He remained on sotalol 240 t.i.d. thereafter until in 2013. He decided to start weaning himself from the sotalol and he was down to 80 mg once a day. There was attempts to place him on anticoagulation, Coumadin, but this apparently caused excessive nausea and so he has never been on an anticoagulant. In 2017, he had a heart attack and was flown to [place] and underwent emergent right coronary artery stenting. Fortunately, apparently he had good resolution and his ejection fraction was about 50%. While in that hospitalization, he had apparently recurrent episodes of atrial fibrillation. They placed him on sotalol 80 b.i.d. and because of more AFib, was titrated to 80 t.i.d. However, the atrial fibrillation continued. He had 3 episodes in 3 weeks and September 2022, his dose was raised to sotalol 240 t.i.d. More recently, he had an echocardiogram, which shows normal ejection fraction of 50%, inferior wall scar, normal valves. He had a monitor that showed no episodes of atrial fibrillation and was normal. His CHADS-VASc score is 3 for cardiomyopathy, coronary artery disease and age. He has not had a sleep study. His physical exam; his blood pressure is 155/70, which tells me is an abnormally elevated reading. His pulse is 53. He is 6 feet 2 inches, 236 pounds. BMI of 30.3. His EKG is sinus rhythm with normal P, complete right bundle branch block pattern with a QTc interval of 508 with bifit T-waves in V4 and V3. I reviewed with Mr. Solis several things. First, the dosing of 240 t.i.d. even if it seems to be controlling his AFib is associated with excessive risk of polymorphic VT. I have finally convinced him to stop the 240 dosing today and then tomorrow he can take sotalol 80 mg tablets 2 tablets p.o. b.i.d., so we will reduce the dose from 240 t.i.d. to 160 mg b.i.d. Also, given his elevated CHADS-VASc score and history of recurrent atrial fibrillation, we recommended apixaban 5 b.i.d. He will need to continue the aspirin because of his history of coronary artery disease and myocardial infarction. I have recommended a sleep study. Finally, unfortunately, there was no documentation what he is experiencing when he has his palpitations. He is convinced it is atrial fibrillation and so we will move forward in that manner, but he believes very strongly, once we reduce his sotalol and particularly if he has a drink of alcohol, he will have his atrial fibrillation episodes. We will provide him an auto trigger event monitor. We need to document if his palpitations are indeed atrial fibrillation. Assuming the monitor confirms atrial fibrillation as a diagnosis, then I reviewed with him in details an ablation procedure that we would perform at [facility]. Reviewing the risks and benefits and the likelihood of success. He is highly motivated to move forward in this manner. We will make arrangements for that, but I did explain to him that if we do not have documentation of AFib, then we will need to postpone/cancel the procedure. Minesh, if there are any questions, certainly please do not hesitate to contact me. Again, thank for allowing me to participate in his care. Leo Iqbal MD [employer] Associate, [facility] Cardiac Electrophysiology cc: Minesh Mcmanus MD [address] [place] [address] [facility] Miscellaneous Notes* Referral Letter - Leo Iqbal MD - 01/10/2023 1:41 PM EST January 10, 2023 RE: JOHNATHAN SOLIS Dear Minesh: Today, I saw your patient Johnathan Solis in first-time evaluation at [facility]. He is a 67-year-old gentleman. He tells me he has had a diagnosis of atrial fibrillation since he was 28 years of age. In 1991, he was started on sotalol and was titrated up to 240 mg t.i.d. and he had rare atrial fibrillation since then. In [place], in 2005, he had a pulmonary vein isolation ablation procedure. He remained on sotalol 240 t.i.d. thereafter until in 2013. He decided to start weaning himself from the sotalol and he was down to 80 mg once a day. There was attempts to place him on anticoagulation, Coumadin, but this apparently caused excessive nausea and so he has never been on an anticoagulant. In 2017, he had a heart attack and was flown to [place] and underwent emergent right coronary artery stenting. Fortunately, apparently he had good resolution and his ejection fraction was about 50%. While in that hospitalization, he had apparently recurrent episodes of atrial fibrillation. They placed him on sotalol 80 b.i.d. and because of more AFib, was titrated to 80 t.i.d. However, the atrial fibrillation continued. He had 3 episodes in 3 weeks and September 2022, his dose was raised to sotalol 240 t.i.d. More recently, he had an echocardiogram, which shows normal ejection fraction of 50%, inferior wall scar, normal valves. He had a monitor that showed no episodes of atrial fibrillation and was normal. His CHADS-VASc score is 3 for cardiomyopathy, coronary artery disease and age. He has not had a sleep study. His physical exam; his blood pressure is 155/70, which tells me is an abnormally elevated reading. His pulse is 53. He is 6 feet 2 inches, 236 pounds. BMI of 30.3. His EKG is sinus rhythm with normal P, complete right bundle branch block pattern with a QTc interval of 508 with bifit T-waves in V4 and V3. I reviewed with Mr. Solis several things. First, the dosing of 240 t.i.d. even if it seems to be controlling his AFib is associated with excessive risk of polymorphic VT. I have finally convinced him to stop the 240 dosing today and then tomorrow he can take sotalol 80 mg tablets 2 tablets p.o. b.i.d., so we will reduce the dose from 240 t.i.d. to 160 mg b.i.d. Also, given his elevated CHADS-VASc score and history of recurrent atrial fibrillation, we recommended apixaban 5 b.i.d. He will need to continue the aspirin because of his history of coronary artery disease and myocardial infarction. I have recommended a sleep study. Finally, unfortunately, there was no documentation what he is experiencing when he has his palpitations. He is convinced it is atrial fibrillation and so we will move forward in that manner, but he believes very strongly, once we reduce his sotalol and particularly if he has a drink of alcohol, he will have his atrial fibrillation episodes. We will provide him an auto trigger event monitor. We need to document if his palpitations are indeed atrial fibrillation. Assuming the monitor confirms atrial fibrillation as a diagnosis, then I reviewed with him in details an ablation procedure that we would perform at [facility]. Reviewing the risks and benefits and the likelihood of success. He is highly motivated to move forward in this manner. We will make arrangements for that, but I did explain to him that if we do not have documentation of AFib, then we will need to postpone/cancel the procedure. Minesh, if there are any questions, certainly please do not hesitate to contact me. Again, thank for allowing me to participate in his care. Leo Iqbal MD [employer] Associate, [facility] Cardiac Electrophysiology cc: Minesh Mcmanus MD [address] [place] [address] documented in this encounterMem[facility] Hospital02-[facility] Evaluation note * Diagnosis Onset Date Resolution Status CKD (chronic kidney disease) stage 3, GFR 30-59 ml/min chronic History of coronary artery stent placement January 062017 chronic Paroxysmal atrial fibrillation [facility] Work Phone: Evaluation note* Diagnosis Tick bite, initial encounter Screening, anemia, deficiency, iron Screening for iron deficiency anemia Encounter for screening examination for impaired glucose regulation and diabetes mellitus Screening, ischemic heart disease Screening for ischemic heart disease Need for hepatitis C screening test Special screening examination for other specified viral diseases [facility]* Diagnosis Paroxysmal atrial fibrillation- Primary Atrial fibrillation Daytime somnolence Hypersomnia, unspecified [facility]* Diagnosis Paroxysmal atrial fibrillation (HCC)- Primary Atrial fibrillation jail current use of antiarrhythmic drug At risk for stroke Other specified personal history presenting hazards to health Bradycardia Other specified cardiac dysrhythmias Atherosclerosis of knik coronary artery of knik heart without angina pectoris Old myocardial infarction Ischemic cardiomyopathy Other specified forms of chronic ischemic heart disease Right bundle branch block (RBBB) Status post catheter ablation of atrial fibrillation documented [facility] noteNo assessment information availableWKettering [facility] Work Phone: Evaluation note* Diagnosis Status post catheter ablation of atrial fibrillation- Primary Paroxysmal atrial fibrillation (HCC) Atrial fibrillation PAC (premature atrial contraction) Supraventricular premature beats Right bundle branch block (RBBB) History of coronary artery stent placement Postsurgical percutaneous transluminal coronary angioplasty status At risk for stroke Other specified personal history presenting hazards to health [facility]* Diagnosis Right kidney stone- Primary Calculus of kidney Hydroureteronephrosis Hydronephrosis documented in this encounter [facility]* Diagnosis Right kidney stone- Primary Calculus of kidney Right ureteral stone Calculus of ureter Hydronephrosis with ureteropelvic junction (UPJ) obstruction STANISLAW (acute kidney injury) (HCC) Acute kidney failure, unspecified Right ureteral stone Calculus of ureter documented [facility] this encounter [facility]* Diagnosis Acute renal failure superimposed on stage 3b chronic kidney disease, unspecified acute renal failure type (HCC)- Primary documented in this encounter [facility]* Diagnosis Right kidney stone Calculus of kidney documented in this encounter [facility] note* Diagnosis Renal stone- Primary Calculus of kidney Renal stone Calculus of kidney Right ureteral stone Calculus of ureter Right kidney stone Calculus of kidney documented in this encounter [facility] note* Diagnosis Renal stone Calculus of kidney documented in this encounter [facility] note* Diagnosis Paroxysmal atrial fibrillation (HCC)- Primary Atrial fibrillation Status post catheter ablation of atrial fibrillation PAC (premature atrial contraction) Supraventricular premature beats Bradycardia Other specified cardiac dysrhythmias Sinus bradycardia Other specified cardiac dysrhythmias Right bundle branch block (RBBB) Atherosclerosis of knik coronary artery of knik heart without angina pectoris Old myocardial infarction History of ST elevation myocardial infarction (STEMI) Old myocardial infarction History of coronary artery stent placement Postsurgical percutaneous transluminal coronary angioplasty status Ischemic cardiomyopathy Other specified forms of chronic ischemic heart disease At risk for stroke Other specified personal history presenting hazards to health Anticoagulant medication declined by patient [facility]* Diagnosis Renal stone Calculus of kidney documented in this encounter [facility] note* Diagnosis Paroxysmal atrial fibrillation (HCC)- Primary Atrial fibrillation Status post catheter ablation of atrial fibrillation At risk for stroke Other specified personal history presenting hazards to health Anticoagulant medication declined by patient Bradycardia Other specified cardiac dysrhythmias Sinus bradycardia Other specified cardiac dysrhythmias Right bundle branch block (RBBB) Atherosclerosis of knik coronary artery of knik heart without angina pectoris Old myocardial infarction History of ST elevation myocardial infarction (STEMI) Old myocardial infarction History of coronary artery stent placement Postsurgical percutaneous transluminal coronary angioplasty status documented in [facility]* Diagnosis Paroxysmal atrial fibrillation (HCC) Atrial fibrillation Status post catheter ablation of atrial fibrillation Old myocardial infarction- Primary Paroxysmal atrial fibrillation (HCC) Atrial fibrillation Stage 3a chronic kidney disease (HCC) Anticoagulant long-term use Long-term (current) use of anticoagulants Pre-op exam [Z01.818] Preoperative examination, unspecified Obesity (BMI 30-39.9) Obesity, unspecified Paroxysmal atrial fibrillation (HCC) Atrial fibrillation Status post catheter ablation of atrial fibrillation * Assessment & Plan Note - Shyanne Oconnor APRN.DIRECTOR OF SOFTWARE ENGINEERING - 07/06/2025 9:12 AM EDT Associated Problem(s): Obesity (BMI 30-39.9) BMI 30.38 * Assessment & Plan Note - Shyanne Oconnor APRN.CNP - 07/06/2025 9:09 AM EDT Associated Problem(s): Anticoagulant long-term use (Resolved 05/09/2024) LD Xarelto 07/01/2025 ASA 81mg * Assessment & Plan Note - Shyanne Oconnor APRN.CNP - 07/06/2025 9:03 AM EDT Associated Problem(s): Old myocardial infarction 2018 with stent to RCA * Assessment & Plan Note - Shyanne Oconnor APRN.CNP - 07/06/2025 9:03 AM EDT Associated Problem(s): Paroxysmal atrial fibrillation (HCC) Scheduled for ablation 07/08/[address] Thakkar [facility] Diagnosis Old myocardial infarction- Primary Paroxysmal atrial fibrillation (HCC) Atrial fibrillation Stage 3a chronic kidney disease (HCC) Anticoagulant long-term use Long-term (current) use of anticoagulants Pre-op exam [Z01.818] Preoperative examination, unspecified Obesity (BMI 30-39.9) Obesity, unspecified Persistent atrial fibrillation (HCC)- Primary Atrial fibrillation Dyspnea, unspecified type documented in this encounter [facility] Discharge instructions* Attachments The following attachments cannot be sent through Care Everywhere. * Laser Lithotripsy: Post-op (Guinean Brazilian) [facility] SystemReason for referral (narrative)* Consultation (Emergency) - Open Specialty Diagnoses / Procedures Referred By Controbert t Referred To Contact Urology Diagnoses Right kidney stone Hydroureteronephrosis Brandon Bright MD [address] [place], [place] [id number] g Urology [address] [facility] [address] [place] [address] Referral ID Status Reason Start Date Expiration Date Visits Re quested Visits Authorized [id number] Open 12/01/2023 01/01/[address] [facility] for referral (narrative)* Consultation (Routine) - Incomplete Specialty Diagnoses / Procedures Referred By Contac t Referred To Contact Family Medicine / Acute Care Clinic Diagnoses STANISLAW (acute kidney injury) (HCC) Becca Swan APRN DIRECTOR OF SOFTWARE ENGINEERING [address] [place] [address] [facility] [address] [place] [address] Referral ID Status Reason Start Date Expiration Date V isits Requested Visits Authorized [id number] Incomplete 03/13/2024 04/13/2025 1 1 * (Routine) - Potential Duplicate Specialty Diagnoses / Procedures Referred By Contac t Referred To Contact Becca Swan APRN DIRECTOR OF SOFTWARE ENGINEERING [address] [place] [address] Referral ID Status Reason Start Date Expiration Date V isits Requested Visits Authorized [id number] Potential Duplicate 03/13/2024 04/13/2025 1 1 * (Routine) - Incomplete Specialty Diagnoses / Procedures Referred By Contac t Referred To Contact Becca Swan APRN DIRECTOR OF SOFTWARE ENGINEERING [address] [place] [address] Referral ID Status Reason Start Date Expiration Date V isits Requested Visits Authorized [id number] Incomplete 03/13/2024 04/13/2025 1 1 [facility] SystemReason for referral (narrative)* Procedure Authorization (Routine) - Closed Specialty Diagnoses / Procedures Referred By Contac t Referred To Contact Radiology Diagnoses Renal stone Procedures CT Kidney Stone Joshua Urban MD [address] [place] [phone] [employer] [address] [place] [phone] Phone: [phone] Referral ID Status Reason Start Date Expiration Date Visits Re quested Visits Authorized [id number] Closed 04/01/2024 06/10/2024 1 1 [facility] SystemReason for referral (narrative)No reason for referral information availableMont[facility] Work Phone: Reason for visit Narrative* Procedure Authorization (Routine) - Closed Specialty Diagnoses / Procedures Referred By Contac t Referred To Contact Radiology Diagnoses Renal stone Procedures CT Kidney Stone Joshua Urban MD [address] [place] [phone] [employer] [address] [address] Phone: [phone] Referral ID Status Reason Start Date Expiration Date Visits Re quested Visits Authorized [id number] Closed 04/01/2024 06/10/2024 1 1 [facility] SystemReason for visit Narrative* Procedure Authorization (Routine) - Closed Specialty Diagnoses / Procedures Referred By Contac t Referred To Contact Radiology Diagnoses Renal stone Procedures CT Kidney Stone Joshua Urban MD [address] [place] [phone] Phone: tel: fax: [employer] [address] [place] [phone] Phone: tel: Referral ID Status Reason Start Date Expiration Date Visits Re quested Visits Authorized [id number] Closed 08/18/2024 11/11/2024 1 1 [facility] System Assessments Diagnosis Coronary artery disease involving knik coronary artery of knik heart without angina pectoris CKD (chronic kidney disease) stage 3, GFR 30-59 ml/min (HCC) Chronic kidney disease, Stage III (moderate) Medication monitoring encounter Encounter for therapeutic drug monitoring Diagnosis Kidney stones Calculus of kidney Diverticulosis Diverticulosis of colon (without mention of hemorrhage) Lumbar spondylosis Lumbosacral spondylosis without myelopathy Renal atrophy Small kidney, unspecified Diagnosis Right ureteral stone CAD (coronary artery disease) Coronary atherosclerosis of unspecified type of vessel, knik or graft CKD (chronic kidney disease), stage III (HCC) Chronic kidney disease, Stage III (moderate) Diagnosis Encounter for fitting and adjustment of urinary device Advance Directives No Advanced Directives Records FoundDocuments on File Type Date Recorded Patient All Round Logger Expl anation Advance Directives and Living Will Advance Directives and Living Will 01/06/2018 7:26 PM 01/06/18- NO AD Power of Office Nurse Latest Code Status on File Code Status Date Activated Date Inactivated Comments Full Code 06/02/2018 12:33 PM Full Code 06/01/2018 5:17 AM 06/02/2018 12:33 PM Full Code 01/08/2018 9:51 PM 01/09/2018 10:00 PM Full Code 01/06/2018 8:14 PM 01/08/2018 9:51 PM Documents on File Type Date Recorded Patient All Round Logger Expl anation Advance Directives and Livin g Will 04/27/2020 5:21 AM Latest Code Status on File Code Status Date Activated Date Inactivated Comments Full Code 04/27/2020 4:33 AM 04/28/2020 2:09 PM Documents on File Type Date Recorded Patient All Round Logger Expl anation Advance Directives and Livin g Will 04/27/2020 5:21 AM Latest Code Status on File Code Status Date Activated Date Inactivated Comments Full Code 04/27/2020 4:33 AM 04/28/2020 2:09 PM Documents on File Type Date Recorded Patient All Round Logger Expl anation Advance Directives and Living Will Power of Office Nurse Advance Directives and Living Will 01/06/2018 7:26 PM 01/06/18- NO AD Latest Code Status on File Code Status Date Activated Date Inactivated Comments Full Code 06/02/2018 12:33 PM Code Status History Code Status Date Activated Date Inactivated Comments Full Code 06/01/2018 5:17 AM 06/02/2018 12:33 PM Full Code 01/08/2018 9:51 PM 01/09/2018 10:00 PM Full Code 01/06/2018 8:14 PM 01/08/2018 9:51 PM Latest Code Status on File Code Status Date Activated Date Inactivated Comments Full Code 03/13/2024 9:23 AM Code Status History Code Status Date Activated Date Inactivated Comments Full Code 03/12/2024 2:29 PM 03/13/2024 9:23 AM Full Code 03/11/2024 9:58 PM 03/12/2024 2:29 PM Full Code 06/02/2018 12:33 PM 03/11/2024 9:58 PM Full Code 06/01/2018 5:17 AM 06/02/2018 12:33 PM Latest Code Status on File Code Status Date Activated Date Inactivated Comments Full Code 03/13/2024 9:23 AM Code Status History Code Status Date Activated Date Inactivated Comments Full Code 03/12/2024 2:29 PM 03/13/2024 9:23 AM Full Code 03/11/2024 9:58 PM 03/12/2024 2:29 PM Full Code 06/02/2018 12:33 PM 03/11/2024 9:58 PM Full Code 06/01/2018 5:17 AM 06/02/2018 12:33 PM Date Activated Date Inactivated Comments 03/13/2024 9:23 AM Date Activated Date Inactivated Comments 03/12/2024 2:29 PM 03/13/2024 9:23 AM Date Activated Date Inactivated Comments 03/11/2024 9:58 PM 03/12/2024 2:29 PM Date Activated Date Inactivated Comments 06/02/2018 12:33 PM 03/11/2024 9:58 PM Date Activated Date Inactivated Comments 06/01/2018 5:17 AM 06/02/2018 12:33 PM Hospital Course * Bradley Hernandez MD - 04/28/2020 9:45 AM EDT [facility] DISCHARGE SUMMARY Johnathan Solis Account: [id number] Admitted: 04/27/2020 PCP: Physician No Discharge Date/Time: 04/28/20 / 9:53 AM Handoff to PCP PCP to address the following 1. Follow up with Cardiology about possibly changing sotalol as renally dosed and renal issues in past. Clinical Summary Johnathan Solis is a 64 y.o. male with a history of ureteral stones s/p stent, CKDIII, atrophic left kidney, CAD s/p stent, paroxysmal A fib who presented to [facility] with right flank pain. SCr 3.56. UA negative. CT Kidney Stone showed two right ureteral stones, 7mm and 4mm with mild to moderate hydronephrosis, along with periureteral and perinephric stranding. Patient was transferred to[place] 04/27/2020 for further urological evaluation. Taken to [place] 04/27/20 (Dr. Sorensen - Urology) for lithotripsy and right ureteral stent placement. 1. Right Nephrolithiasis: hx of ureteral stones/stents. CT at [facility] two stones, with mild to moderate hydronephrosis. Taken to [place] 04/27/20 (Dr. Sorensen - Urology) for lithotripsy and right ureteralstent placement. Will need follow up in clinic for stent removal. 2. STANISLAW on CKD stage 3: history of atrophic left kidney, baseline SCr 1.5. SCr 3.56 at [facility] due to obstructive uropathy. SCr 2.96 on [facility] admit. Improved with IVF. Should resolve at home. 3. Concern for Pyelonephritis: CT read with can not exclude pyelonephritis given degree of right periureteral and perinephric inflammatory stranding. However patient afebrile, WBC normal, and UA with large blood but negative for infection. Cipro was started on admit but discontinued. Resolved. 4. CAD: s/p stent, only on ASA, held for procedures, resume when able. 5. Chronic Systolic Heart Failure: is a current diagnosis. 6. PAF: per hx. On Sotalol, patient not on AC because he does not believe in it. Held Sotalol on admit due to being contraindicated with his CrCl. EKG 04/27/20 with QTc 385. He was bradycardic while admitted, on day of discharge discussed with EP (Dr. Bradley) who recommended holding and follow up with his Cardiology (Dr. Mcmanus) about when to restart as it is renally cleared however discovered patient had been dosing his own supply while admitted. Discussed risk of dosing on his own with abnormalCrCl including arrhy, bradycardia, even ; he was not deterred and reported he would adjust dose on his own. Dispo: Discharged to home. Mental Status: At discharge oriented to full name, location, and year. Discharge Medications Medication List START taking these medications acetaminophen 325 MG tablet Commonly known as: TYLENOL Take 2 (two) tablets (650 mg total) by mouth every 4 (four) hours as needed . CONTINUE taking these medications aspirin 81 MG EC tablet sotaloL 80 MG tablet Commonly known as: BETAPACE Where to Get Your Medications You can get these medications from any pharmacy You don't need a prescription for these medications acetaminophen 325 MG tablet Physician(s) Family: Physician No, Phone: None, Address: [facility] Follow Up: Alexandra Sorensen MD [address] [place] [address] [address] [facility] [id number] Schedule an appointment as soon as possible for a visit Minesh Mcmanus MD [address] [facility] [address] [facility] [phone] Schedule an appointment as soon as possible for a visit Discuss sotalol dosing Additional Information: Patient seen and examined day of discharge. For more information regarding patient's care, including complete radiology reports, please contact [facility] at Patient instructions, including activity, were given to the patient/family at discharge. Please seethe After Visit Summary in the medical record for details. Time spent on discharge: > 30 minutes Completed by: Bradley Hernandez on 04/28/20, 9:53 AM documented in this encounter History of Present Illness * Pasha Harvey, CYNDI - 04/28/2020 12:00 PM EDT Rn provided patient with d/c education and instructions. All questions answered and pt verbalized understanding. Pt wheeled down to d/c by PSA * Rashard Tariq PA-C - 04/27/2020 8:34 AM EDT [facility] Inpatient Progress Note 04/27/2020 Johnathan Solis 1955 [id number] Assessment/Plan: Johnathan Solis is a 64 y.o. male with a history of ureteral stones s/p stent, CKDIII, atrophic left kidney, CAD s/p stent, paroxysmal A fib who presented to [facility] right flank pain. Cr 3.56. UA negative. CT Kidney Stone showed two right ureteral stones, 7mm and 4mm with mild to moderate hydronephrosis, along with periureteral and perinephric stranding. Patient was transferred to [facility] 04/27/2020 for further urological evaluation. 1. Right Nephrolithiasis: hx of ureteral stones/stents. Presented with R flank pain.CT at [facility] two stones, with mild to moderate hydronephrosis, can not exclude pyelonephritis given degree of right periureteral and perinephric inflammatory stranding. UA negative. Initiated on IV Cipro. IVFs, Flomax. Urology planning for cystoscopy with retrograde stone manipulation stent insertion with laser. 2. STANISLAW on CKD stage 3: history of atrophic left kidney, baseline Cr 1.5, now 3.56 from obstructive uropathy. Initiated on IVFs. Cr 2.96 on [facility] admit. Monitor. 3. CAD: s/p stent, only on ASA, held for procedures, resume when able. 4. PAF: per hx. On Sotalol, patient not on AC because he does not believe in it. Held Sotalol on admit due to being contraindicated with his CrCl. ECG 04/27/20 pending to evaluate Qtc. 5. DVT Prophylaxis: low risk. Current living situation: home Expected Disposition: Likely Home Estimated discharge date: Likely 04/28/20 if Cr improves after cysto. Subjective: Today I personally did a review of prior medical records and have summarized my findings in my assessment and plan as noted. Today I also reviewed recent labs, diagnostics, vitals including pulse ox,and client development consultant/other provider recommendations. Patient is new to me. Patient seen morning. Patient declines any pain. Discussed pending urology procedure. Physical Exam: BP (!) 174/76 Pulse (!) 58 Temp 97.4 F (36.3 C) (Oral) Resp 14 Ht 6' 2 Wt 102.3 kg (225 lb 8.5 oz) SpO2 92% BMI 28.96 kg/m General: NAD, alert Eyes: EOMI ENT: neck supple Cardiovascular: Regular rate. Respiratory: Clear to auscultation bilaterally Gastrointestinal: Soft, non tender, central obesity Genitourinary: no suprapubic tenderness Musculoskeletal: No cyanosis. Skin: warm, dry Neuro: Alert. JOY x 4. Psych: Calm, cooperative. Current Medications: ciprofloxacin 400 mg Intravenous Q24H sotaloL 320 mg Oral BID tamsulosin 0.4 mg Oral After evening meal Labs, Imaging and Studies reviewed: Results from last 7 days Lab Units 04/27/20 0714 WBC K/mcL 9.11 HGB g/dL 13.3* HCT % 43.2 PLT K/mcL 143* Results from last 7 days Lab Units 04/27/20 0714 SODIUM mmol/L 138 POTASSIUM mmol/L 4.0 CHLORIDE mmol/L 108 BICARB mmol/L 20* BUN mg/dL 45* CREATININE mg/dL 2.96* EGFR mL/min/1.73 m2 21* GLUCOSE mg/dL 99 CALCIUM mg/dL 8.5 Results from last 7 days Lab Units 04/27/20 0714 ALT U/L 10 AST U/L 13 ALK PHOS U/L 55 BILIRUBIN TOTAL mg/dL 0.5 * Keya Glynn RN - 04/27/2020 3:28 AM EDT [facility] notified of patient's arrival, waiting on orders to perform COVID testing. Pt stable and resting in bed. documented in this encounter* Alexandra Sorensen MD - 05/06/2020 7:45 AM EDT Procedure Note Date of Procedure: 05/05/2020 Pre-procedure diagnosis: Right kidney stone with stent Post-procedure diagnosis: Right kidney stone with stent Procedure: Cysto with ureteral stent removal. Surgeon: Alexandra Sorensen MD History: Patient presented with obstructing kidney stone in a functional solitary kidney. He underwent ureteroscopy and a stent was placed on 04/27/20. Patient desires stent removal. The risks, benefits, and alternatives were discussed with the patient. Description: Patient was identified by name and number. Perineum and groin were prepped and draped in the usual sterile manner. A flexible cystoscope was inserted through the urethra into the bladder and the stent was seen protruding from the ureteral orifice. A visual exam revealed no tumors or areas of suspicion. The stent was grasped with cystoscopic graspers and removed. The stent was examined and noted to be present inits entirety. The patient tolerated the procedure. The patient was cleaned and dressed and instructions given. Post-op Instructions/Follow-up 1. Notify MD if renal colic, fevers, chills, or symptoms recur 2. RTC after completion of 24 hour urine as his functional solitary kidney puts him at high risk Alexandra Sorensen documented in this encounter Summary Purpose Family History No Family History Records Found Relationship Condition Age at Onset Recorded Date/T clementine mother Alzheimer's disease Unknown Diabetes mellitus Unknown father Aneurysm Unknown sister Cerebrovascular accident (CVA) Unknown Chief Complaint and Reason for Visit Chief Complaint TALK ABOUT SOTALOL N OT WORKING E ORDER A-FIB/FLUTTER Reason for Visit CKD (chronic kidney disease) stage 3, GFR 30-59 ml/min History of coronary artery stent placement Paroxysmal atrial fibrillation Chief Complaint TALK ABOUT SOTALOL N OT WORKING E ORDER A-FIB/FLUTTER A-FIB/FLUTTER Amb Documentation Reason for Visit CKD (chronic kidney disease) stage 3, GFR 30-59 ml/min History of coronary artery stent placement Paroxysmal atrial fibrillation Chief Complaint Amb Documentation S/P ABLATION, A-FIB/FLUTTER Chief Complaint Admit Date AFIB May 25, 2025 6:29 pm Chief Complaint Admit Date 1 Y FU February 25, 2025 8:4 9am 1 WK S/P Ablation June 12, 2025 10: 00am Reason for Visit Admit Date Atherosclerosis of coronary artery of knik heart without angina pectoris February 25, 2025 8:49am History of cardiac radiofrequency ablati on February 25, 2025 8:49am History of coronary artery stent placeme nt February 25, 2025 8:49am Palpitations February 25, 2025 8:4 9am Paroxysmal atrial fibrillation February 8:49am History of ST elevation myocardial infar ction (STEMI) February 25, 2025 8:49am Reason for Referral Specialty Diagnoses / Procedures Referred By Ara t Referred To Contact Diagnoses Paroxysmal atrial fibrillation Daytime somnolence Procedures SCHEDULE HOME SLEEP STUDY [place] Iqbal MD [address] [place] [phone] Referral ID Status Reason Start Date Expiration Date V isits Requested Visits Authorized [id number] New Request 01/10/2023 02/04/2024 1 1 Specialty Diagnoses / Procedures Referred By Ara t Referred To Contact Diagnoses Paroxysmal atrial fibrillation Daytime somnolence Procedures MOBILE CARDIAC TELEMETRY [place] Iqbal MD [address] [place] [phone] Referral ID Status Reason Start Date Expiration Date V isits Requested Visits Authorized [id number] New Request 01/10/2023 02/04/2024 1 1 Specialty Diagnoses / Procedures Referred By Ara t Referred To Contact Diagnoses Paroxysmal atrial fibrillation Daytime somnolence Procedures CT CARDIAC PULMONARY VENOGRAM MS CHG CT HEART CONTRAST EVAL CARDIAC STRUCT/MORPH [place] Iqbal MD [address] [place] [phone] Referral ID Status Reason Start Date Expiration Date V isits Requested Visits Authorized [id number] New Request 01/10/2023 02/04/2024 1 1 Specialty Diagnoses / Procedures Referred By Ara t Referred To Contact Diagnoses Paroxysmal atrial fibrillation Daytime somnolence Procedures CASE REQUEST - EP PROC (EPS, ABLATION, DEVICE) [place] Iqbal MD [address] [place] [phone] Referral ID Status Reason Start Date Expiration Date V isits Requested Visits Authorized [id number] New Request 01/10/2023 02/04/2024 1 1 Additional Source Comments Reason for Visit (unrecogniz ed section and content) Reason Comments Flank Pain right Status Reason Specialty Diagnoses / Procedures Referre d By Contact Referred To Contact Diagnoses obstructing ureter stone Reason Comments Follow-up stent removal Reason Comments Appointment Reason Comments New Patient Specialty Diagnoses / Procedures Referred By Ara sagastume Referred To Contact Electrophysiology Diagnoses Paroxysmal atrial fibrillation Other specified postprocedural states Atherosclerosis of knik coronary artery without angina pectoris, unspecified whether knik or transplanted heart Old myocardial infarction Presence of coronary angioplasty implant and graft Minesh Mcmanus MD [address] [place] [address] [place] Iqbal MD [address] [phone] Referral ID Status Reason Start Date Expiration Date V isits Requested Visits Authorized [id number] New Request 10/25/2022 11/19/2023 1 1 Reason Comments Record Review Reason Comments CARD New Patient Consult GROUP SALES COORDINATOR REF FOR PAF AND BRADYCARDIA Reason Onset Date Comments Patient Update Treatment Planning 05/28/2023 Reason Comments CARD Hospital Follow Up [facility] Reason Comments Flank Pain RT Reason Comments Nephrolithiasis Reason Comments Follow-up Hospital follow up f or repeat blood work. States increase in urine. Denies any current complaints. Specialty Diagnoses / Procedures Referred By Ara sagastume Referred To Contact Family Medicine / Acute Care Clinic Diagnoses STANISLAW (acute kidney injury) ([facility]) Becca Swan APRN DIRECTOR OF SOFTWARE ENGINEERING [address] [facility] [address] [place] [address] [facility] [address] [place] [phone] Referral ID Status Reason Start Date Expiration Date V isits Requested Visits Authorized [id number] Incomplete 03/13/2024 04/13/2025 1 1 Reason Comments Medication Clearance Specialty Diagnoses / Procedures Referred By Ara sagastume Referred To Contact Diagnoses Renal stone Procedures Case Request Operating Room: CYSTOSCOPY, RIGHT RETROGRADE PYELOGRAM, RIGHT URETEROSCOPY WITH LASER LITHOTRIPSY, RIGHT URETERAL STENT PLACEMENT MS CYSTOURETHROSCOPY MS NJX RETROGRADE URETHROCSTOGRAPY CHG URETHROCYSTOGRAPHY RETROGRADE RS&I MS CYSTO/URETERO W/LITHOTRIPSY &INDWELL STENT INSRT MS CYSTO W/INSERT URETERAL STENT Josuha Urban MD [address] [phone] Referral ID Status Reason Start Date Expiration Date V isits Requested Visits Authorized [id number] New Request 03/19/2024 04/19/2025 1 1 Reason Comments CARD Follow Up 6 Month Follow up to paf Reason Comments Patient Update Reason Comments CARD Follow Up Annual PAF Reason Comments Results Reason Comments Orders Alexandra Sorensen MD - 04/27/2020 4:24 PM EDTBRoney plummer PA-C - 04/27/2020 9:22 AM EDTKesha Landa MD - 04/27/2020 3:47 AM EDT H&P Notes (unrecognized sect ion and content) INTERVAL HISTORY AND PHYSICAL Patient Name: Johnathan Solis Admit Date: MR #: [id number] : 1955 The H&P has been reviewed and the patient has been examined. I concur with the findings of the H&P. There are no significant changes. It is appropriate to proceed with the planned procedure. Alexandra Sorensen MD 04/27/2020 4:24 PM CONSULT NOTE Patient Name: Johnathan Solis Admit Date: MR #: [id number] : 1955 Assessment and Plan: Right ureteral stone STANISLAW Atrophic left kidney, unclear function Hx kidney stones Per report CT from [facility] showing 2 right uretersal stones ( 7 mm and 4 mm) with mild to moderate hydronephrosis. Added to OR pending list with Dr. Sorensen for a hopeful time of 15:30 for ureteroscopy with laser lithotripsy and possible stent placement. Patient asked to remain NPO. Assessment Detail: The total time spent for this visit was 50 minutes. Greater than 50% of the time was spent in counseling and coordination of care regarding ureteral stone, hydronephrosis and STANISLAW. Thank you for this consult. Please call with questions. Jessy Mares PA-C [facility] [phone] Physicians: Physician No (Family); No ref. provider found (Referring) Chief Complaint/Reason for Visit: No chief complaint on file. History of Present Illness: Johnathan Solis is a 64 y.o. y/o male presenting from [facility] with c/o right flank pain. Patient reports pain in right side waxing andaining beginning around noon yesterday. Pain intensified and felt more like abdominal pressure around 5 PM, this is what he recalls feeling with prior stone requiring surgery. Patient presented to the [facility] ED and had a CT scan that by report revealed 2 right ureteral stones. Patient follows with a technician helper instrument for CKD, creatinine normally 1.5 by report. History of a atrophic stone producing left kidney. Patient does not follow with a urologist at this time. He did have a surgery for a kidney stones May of 2018 that required a stent with Dr. Cui, the stent was later removed by Dr. Burdick which resulted in hematuria for 1 week following. Patient denies fever,chills. He has noticed some nausea, no episodes of emesis. Normal bowel function. He does endorse some nocturia prior to stone. History: Past Medical History: Diagnosis Date Atrophic kidney left CAD (coronary artery disease) s/p stent CKD (chronic kidney disease), stage III (HCC) Kidney stone history of stent Paroxysmal atrial fibrillation (HCC) s/p ablation Past Surgical History: Procedure Laterality Date CORONARY ANGIOPLASTY TONSILLECTOMY URETERAL STENT PLACEMENT Family History Problem Relation Age of Onset Heart disease Father Social History Socioeconomic History Marital status: Spouse name: Not on file Number of children: Not on file Years of education: Not on file Highest education level: Not on file Occupational History Not on file Social Needs Financial resource strain: Not on file Food insecurity Worry: Not on file Inability: Not on file Transportation needs Medical: Not on file Non-medical: Not on file Tobacco Use Smoking status: Never Smoker Smokeless tobacco: Never Used Substance and Sexual Activity Alcohol use: Not Currently Drug use: Never Sexual activity: Not on file Lifestyle Physical activity Days per week: Not on file Minutes per session: Not on file Stress: Not on file Relationships Social connections Talks on phone: Not on file Gets together: Not on file Attends adventist service: Not on file Active member of club or organization: Not on file Attends meetings of clubs or organizations: Not on file Relationship status: Not on file Other Topics Concern Not on file Social History Narrative Not on file Allergy Information: I have reviewed the patient's allergies. Verapamil; Caffeine; and Penicillins Home Medications: Outpatient Medications as of 04/27/2020 Medication Sig sotaloL (BETAPACE) 160 MG tablet Take 320 mg by mouth 2 (two) times a day . Review of Systems: The following system(s) were reviewed and are negative unless otherwise noted in the HPI: All other systems reviewed and negative other than HPI Physical Examination: Vital Signs: BP 106/62 Pulse (!) 47 Temp 98.2 F (36.8 C) (Oral) Resp 16 Ht 6' 2 Wt 102.3 kg (225 lb 8.5 oz) SpO2 97% BMI 28.96 kg/m General appearance: alert, appears stated age, cooperative and no distress Head: Normocephalic, without obvious abnormality, atraumatic Eyes: conjunctiva clear Neck: supple, symmetrical, trachea midline Back: no flank pain Lungs: RRR Heart: regular rate and rhythm Abdomen: soft, non-tender, non-distended abdomen Extremities: extremities normal, atraumatic, no cyanosis or edema Skin: Skin color, texture, turgor normal. 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 I concur with the assessment and plan. I have reviewed his labs and outside records including imaging. Given that he has a solitary kidney, he needs ureteroscopy to clear his right sided stones. URS: We discussed the risks benefits and alternatives for treatment of the stone. The patient preferred ureteroscopy and laser lithotripsy with possible stent insertion. He was informed the risks of bleeding, pain and infection as well as ureteral injury. He was explained the inherent risks of anesthesia. He was told that if a ureteral stent is placed, it would likely result in urinary frequency, urgency, and dysuria, as well as flank pain with voiding. The stent would be removed at a later date as an office based procedure. The patient was given the opportunity to ask any questions and after answering his questions and an informed consent was obtained. Alexandra Sorensen MD [facility] Physicians [facility] History and Physical Note 04/27/20 Johnathan Solis 1955 [id number] Assessment/Plan: Johnathan Solis is a 64 y.o. male with a history of ureteral stones s/p stent, CKD stage 3, atrophic left kidney, CAD s/p stent, paroxysmal A fib who presented to [facility] right flank pain, CT stone showed two right ureteral stones with hydronephrosis, STANISLAW on CKD Cr 3.56, UA negative, he was transferred to [facility] 04/27/2020 for further evaluation. 1. Right ureteral stone: per CT at [facility] two stones, with mild to moderate hydronephrosis, can not exclude pyelonephritis given degree of right periureteral and perinephric inflammatory stranding. UA negative. Empiric Cipro IV, Flomax, consult Urology. 2. History of ureteral stones: s/p stent in the past. 3. STANISLAW on CKD stage 3: history of atrophic left kidney, baseline Cr 1.5, now 3.56 from obstructive uropathy, IVF and repeat. 4. CAD: s/p stent, only on ASA, hold for procedures. 5. Paroxysmal A fib: on Sotalol, patient not on AC because he does not believes it. 6. DVT Prophylaxis: low risk. Current living situation: home Expected Disposition: not sure Estimated discharge date: TBD Chief Complaint: Right flank pain History of Present Illness: Johnathan Solis is a 64 y.o. male with a history of ureteral stones s/p stent, CKD stage 3, atrophic left kidney, CAD s/p stent, paroxysmal A fib who presented to [facility] right flank pain, CT stone showed two right ureteral stones with hydronephrosis, STANISLAW on CKD Cr 3.56, UA negative, he was transferred to [facility] 04/27/2020 for further evaluation. Currently he does not have pain, denies nausea vomiting. ROS: 10 systems were reviewed and negative, except as noted above. Past Medical, Surgical, Social, Family History: Past Medical History: Diagnosis Date Atrophic kidney CAD (coronary artery disease) s/p stents Chronic systolic CHF (congestive heart failure) (HCC) CKD (chronic kidney disease), stage III (HCC) Kidney stone history of stent Paroxysmal atrial fibrillation (HCC) s/p ablation Past Surgical History: Procedure Laterality Date CORONARY ANGIOPLASTY Social History Socioeconomic History Marital status: Not on file Spouse name: Not on file Number of children: Not on file Years of education: Not on file Highest education level: Not on file Occupational History Not on file Social Needs Financial resource strain: Not on file Food insecurity Worry: Not on file Inability: Not on file Transportation needs Medical: Not on file Non-medical: Not on file Tobacco Use Smoking status: Not on file Substance and Sexual Activity Alcohol use: Not on file Drug use: Not on file Sexual activity: Not on file Lifestyle Physical activity Days per week: Not on file Minutes per session: Not on file Stress: Not on file Relationships Social connections Talks on phone: Not on file Gets together: Not on file Attends adventist service: Not on file Active member of club or organization: Not on file Attends meetings of clubs or organizations: Not on file Relationship status: Not on file Other Topics Concern Not on file Social History Narrative Not on file No family history on file. Home Medications: There are no discharge medications for this patient. Physical Exam: There were no vitals taken for this visit. General: NAD Eyes: EOMI ENT: neck supple Cardiovascular: Regular rhythm, normal rate. Respiratory: Clear to auscultation, breathing unlabored, no crackles or wheezes Gastrointestinal: Soft, non tender Genitourinary: no suprapubic tenderness Musculoskeletal: No edema Skin: warm, dry Neuro: Alert, oriented x3, no focal motor deficits. Psych: Mood appropriate. Labs, Imaging, and Studies reviewed: Invalid input(s): MAG AMELIA documented in this encounter Roney Mares PA-C - 04/27/2020 9:22 AM EDT Consult Notes (unrecognized section and content) Associated Order(s): IP CONSULT TO UROLOGY CONSULT NOTE Patient Name: Johnathan Solis Admit Date: MR #: [id number] : 1955 Assessment and Plan: Right ureteral stone STANISLAW Atrophic left kidney, unclear function Hx kidney stones Per report CT from [facility] showing 2 right uretersal stones ( 7 mm and 4 mm) with mild to moderate hydronephrosis. Added to OR pending list with Dr. Sorensen for a hopeful time of 15:30 for ureteroscopy with laser lithotripsy and possible stent placement. Patient asked to remain NPO. Assessment Detail: The total time spent for this visit was 50 minutes. Greater than 50% of the time was spent in counseling and coordination of care regarding ureteral stone, hydronephrosis and STANISLAW. Thank you for this consult. Please call with questions. Jessy Mares PA-C [facility] [phone] Physicians: Physician No (Family); No ref. provider found (Referring) Chief Complaint/Reason for Visit: No chief complaint on file. History of Present Illness: Johnathan Solis is a 64 y.o. y/o male presenting from [facility] with c/o right flank pain. Patient reports pain in right side waxing andaining beginning around noon yesterday. Pain intensified and felt more like abdominal pressure around 5 PM, this is what he recalls feeling with prior stone requiring surgery. Patient presented to the [facility] ED and had a CT scan that by report revealed 2 right ureteral stones. Patient follows with a technician helper instrument for CKD, creatinine normally 1.5 by report. History of a atrophic stone producing left kidney. Patient does not follow with a urologist at this time. He did have a surgery for a kidney stones May of 2018 that required a stent with Dr. Cui, the stent was later removed by Dr. Burdick which resulted in hematuria for 1 week following. Patient denies fever,chills. He has noticed some nausea, no episodes of emesis. Normal bowel function. He does endorse some nocturia prior to stone. History: Past Medical History: Diagnosis Date Atrophic kidney left CAD (coronary artery disease) s/p stent CKD (chronic kidney disease), stage III (HCC) Kidney stone history of stent Paroxysmal atrial fibrillation (HCC) s/p ablation Past Surgical History: Procedure Laterality Date CORONARY ANGIOPLASTY TONSILLECTOMY URETERAL STENT PLACEMENT Family History Problem Relation Age of Onset Heart disease Father Social History Socioeconomic History Marital status: Spouse name: Not on file Number of children: Not on file Years of education: Not on file Highest education level: Not on file Occupational History Not on file Social Needs Financial resource strain: Not on file Food insecurity Worry: Not on file Inability: Not on file Transportation needs Medical: Not on file Non-medical: Not on file Tobacco Use Smoking status: Never Smoker Smokeless tobacco: Never Used Substance and Sexual Activity Alcohol use: Not Currently Drug use: Never Sexual activity: Not on file Lifestyle Physical activity Days per week: Not on file Minutes per session: Not on file Stress: Not on file Relationships Social connections Talks on phone: Not on file Gets together: Not on file Attends adventist service: Not on file Active member of club or organization: Not on file Attends meetings of clubs or organizations: Not on file Relationship status: Not on file Other Topics Concern Not on file Social History Narrative Not on file Allergy Information: I have reviewed the patient's allergies. Verapamil; Caffeine; and Penicillins Home Medications: Outpatient Medications as of 04/27/2020 Medication Sig sotaloL (BETAPACE) 160 MG tablet Take 320 mg by mouth 2 (two) times a day . Review of Systems: The following system(s) were reviewed and are negative unless otherwise noted in the HPI: All other systems reviewed and negative other than HPI Physical Examination: Vital Signs: BP 106/62 Pulse (!) 47 Temp 98.2 F (36.8 C) (Oral) Resp 16 Ht 6' 2 Wt 102.3 kg (225 lb 8.5 oz) SpO2 97% BMI 28.96 kg/m General appearance: alert, appears stated age, cooperative and no distress Head: Normocephalic, without obvious abnormality, atraumatic Eyes: conjunctiva clear Neck: supple, symmetrical, trachea midline Back: no flank pain Lungs: RRR Heart: regular rate and rhythm Abdomen: soft, non-tender, non-distended abdomen Extremities: extremities normal, atraumatic, no cyanosis or edema Skin: Skin color, texture, turgor normal. 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 I concur with the assessment and plan. I have reviewed his labs and outside records including imaging. Given that he has a solitary kidney, he needs ureteroscopy to clear his right sided stones. URS: We discussed the risks benefits and alternatives for treatment of the stone. The patient preferred ureteroscopy and laser lithotripsy with possible stent insertion. He was informed the risks of bleeding, pain and infection as well as ureteral injury. He was explained the inherent risks of anesthesia. He was told that if a ureteral stent is placed, it would likely result in urinary frequency, urgency, and dysuria, as well as flank pain with voiding. The stent would be removed at a later date as an office based procedure. The patient was given the opportunity to ask any questions and after answering his questions and an informed consent was obtained. Alexandra Sorensen MD [facility] Physiciansdocumented in this encounter Gris Slaughter RN - 04/27/2020 2:59 AM EDT ED Notes (unrecognized secti on and content) Patient transported to [place] by [facility] 113 report received at 0250. Receiving unit notified of patient's arrival. Patient's vital signs BP 125/70, HR 52, RR 18, Pulse Ox 96% on RA . Patient has a chief complaint of ureteral calculus. Patient does have patent IV access. 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 Patient transported to room 8023 in stable condition. documented in this encounter CDI Query - Bradley Hernandez MD - 04/28/2020 10:18 AM EDTOp Note - Alexandra Sorensen MD - 04/27/2020 5:27 PM EDT Miscellaneous Notes (unrecog nized section and content) ADDENDUM: reviewed CDI query, I have updated progress note to reflect Chronic Systolic Heart Failure: is a current diagnosis. Appreciate assistance, call if questions. Bradley Hernandez MD 04/28/2020 1:44 PM Noted documentation of Chronic systolic heart failure in the patient's past history. Clinical Indicators: 04/27 H&P: Chronic systolic CHF (congestive heart failure) (HCC) 04/28 DCS: Right Nephrolithiasis: hx of ureteral stones/stents. CT at [facility] two stones, with mild to moderate hydronephrosis. Taken to OR 04/27/20 (Dr. Sorensen - Urology) for lithotripsy and right ureteral stent placement. Will need follow up in clinic for stentremoval.. Please clarify the status of the diagnosis of chronic systolic heart failure. For Example: Chronic systolic heart failure is a current diagnosis History of chronic systolic heart failure, no longer affecting the patient Other (please specify) Unable to determine Thank you, FITO Sheth, RN Clinical Nuclear Equipment Design Engineer [phone] After business hours you may contact Angela Viera at [phone] (Weekdays until 10 PM and weekends 8 AM -10 PM) OPERATIVE REPORT Date of Service: 04/27/20 Clinician: Alexandra Sorensen MD OR Staff: Caretaker Resort: Georgia Leo RN Principal Strategist: Marcia Darby, TECHNOLOGIST Scrub Person: ST Gurjit Anesthesia Staff: Anesthesiologist: Alexandra Garcia MD TYPE BAR AND SEGMENT ASSEMBLER: Ronak De La O CRNA Surgeon(s):Surgeon(s) and Role: * Alexandra Sorensen MD - Primary Patient Name: Johnathan Solis MR #: [id number] PREOPERATIVE DIAGNOSIS: 1. Right Ureteral Calculi. 2. Right Hydronephrosis 3. Functional right solitary kidney 4. Acute kidney injury POSTOPERATIVE DIAGNOSIS: Same PROCEDURES PERFORMED 1. Cystoscopy with right ureteral catheterization and retrograde pyelogram 2. Intraoperative interpretation of radiographic images (retrograde) by surgeon 3. Right ureteroscopy with holmium laser lithotripsy and ureteral stent placement ANESTHESIA: General anesthesia. INDICATIONS FOR THE PROCEDURE: Johnathan Solis is a 64 y.o. male Who continues with significant symptoms secondary to urinary tract calculi. He has a functional solitary kidney and his creatinine was noted to be elevated. Axial imaging demonstrated right Ureteral calculi as the source. Risks, benefits, and alternatives were discussed with the patient; they elected to proceed with ureteroscopic laser lithotripsy. The risks of the procedure included bleeding, infection, injury to bladder, kidney, ureter, and need for further procedures were discussed with the patient preoperatively. They voiced understanding ofthese risks and gave their written consent to proceed. DESCRIPTION OF THE PROCEDURE: The patient was brought to the operating theater, identified by name and date of and placed supine on the operating room table. SCDs were placed and antibiotics administered. After the induction of general anesthesia, The patient was repositioned in the dorsal lithotomy position and the external genitalia were prepped and draped in the standard sterile surgical fashion. Cystourethroscopy was performed with a rigid cystourethroscope which revealed the bladder was free of any gross tumors, masses, or lesions. Both ureteral orifices were normal in position and appearance. The right ureteral orifice was intubated with a ureteral catheter and a retrograde pyelogram was performed. The real time retrograde images revealed that there was a filling defect in the distal ureter. There was scant contrast that was able to go past this area. The ureter appeared hydronephrotic proximal to this. A guide wire was then passed into the right renal pelvis under fluoroscopic guidance. A RIGID ureteroscope was advanced along side the guide wire until the ureteral calculi was encountered The holmium laser fiber was inserted through the ureteroscope. The calculi were fragmented into small pieces which were felt to be of easily passable size. Laser settings were 8 Hz and 0.8 J. Once the stones were fragmented, the Pathfinder device was used to flush 8 out of the ureter. After all the stones were flushed out of the ureter, the scope was advanced all the way to the UPJ. The scope was slowly backed down. No further stone fragments were seen. At this point, ureteroscope was removed. A 5 Turkish open-ended catheter was advanced over the wire and the wire was removed. Retrograde pyelogram was then shot. Ureter at this point appeared normal course and caliber. There were no filling defects. There was mild hydronephrosis. No further filling defects were seen. The wire was replaced in the renal pelvis. All instruments were removed from the patients upper and lower urinary tract. Under fluoroscopic guidance, over the existing guide wire, an ureteral double J stent was advanced into the renal pelvis. The guide wire was removed and fluoroscopic confirmation of satisfactory proximal and distal stent placement was confirmed. The patients bladder was drained of irrigant and stone fragments and this ended the operative procedure. The patient tolerated the procedure without difficulty and was emerged from general anesthesia and taken to the PACU in stable condition. IMPLANTS: 6 x 26 cm right double-J ureteral stent. COMPLICATIONS: None. DISPOSITION: Stable, to recovery room. EBL: Minimal SPECIMEN: Right kidney stone for chemical analysis FOLLOW-UP/PLAN: F/U in clinic for stent removal as directed. Alexandra Sorensen MD Urology [facility] Office: [email or web address] documented in this encounter (unrecognized sect ion and content) No Status Records FoundNo Status Records FoundNo Status Records FoundNo Status Records FoundNo Status Records FoundNo Status Records FoundNo Status Records Found INFORMATION SOURCE (unrecogn ized section and content) DATE CREATED AUTHOR 05/06/2020 [facility] DATE CREATED AUTHOR AUTHOR'S ORGANIZ ATION 06/01/2020 [facility] DATE CREATED AUTHOR AUTHOR'S ORGANIZ ATION 02/03/2023 [facility] DATE CREATED AUTHOR AUTHOR'S ORGANIZ ATION 06/02/2025 [facility] DATE CREATED AUTHOR AUTHOR'S ORGANIZ ATION 08/26/2025 [facility] DATE CREATED AUTHOR AUTHOR'S ORGANIZ ATION 09/18/2025 [facility] DATE CREATED AUTHOR AUTHOR'S ORGANIZ ATION 09/22/2025 [facility] Care Teams (unrecognized sec tion and content) Team Status: Active Member Role Status Dates No Primary Care Physician Family Provider Active No Primary Care Physician Primary Care Provider Active Team Status: Inactive Member Role Status Dates No Primary Care Physician Primary Care Provider, Refer ring Provider Active Dr. Minesh Mcmanus MD Attending Provider Active Team Status: Active Member Role Status Dates No Primary Care Physician Primary Care Provider Active Dr. Minesh Mcmanus MD Attending Provider Active Team Status: Inactive Member Role Status Dates No Primary Care Physician Primary Care Provider Active Dr. Minesh Mcmanus MD Attending Provider, Referring Pro vider Active Team Status: Inactive Member Role Status Dates No Primary Care Physician Primary Care Provider Active Dr. Minesh Mcmanus MD Attending Provider Active Team Status: Active Member Role Status Dates No Primary Care Physician Primary Care Provider Active Alexandra Holcomb GROUP SALES COORDINATOR, GROUP SALES COORDINATOR-C Attending Provider Active Dye Lab Technician Relationship Specialty Start Date End Date Minesh Mcmanus MD [address] [facility] [place] [address] PCP - General Cardiovascular Disease 01/10/23 Minesh Mcmanus MD [address] [facility] [address] [place] [address] Cardiovascular Disease 11/28/22 Dye Lab Technician Relationship Specialty Start Date End Date Minesh Mcmanus MD [address] [facility] [place] [address] PCP - General Cardiovascular Disease 01/10/23 Minesh Mcmanus MD [address] [facility] [address] [place] [address] Cardiovascular Disease 11/28/22 Dye Lab Technician Relationship Specialty Start Date End Date Minesh Mcmanus [address] [facility] [address] [place] [address] Specialty Pin Machine Operator Cardiology 01/22/23 Dye Lab Technician Relationship Specialty Start Date End Date Minesh Mcmanus [address] [address] Specialty Pin Machine Operator Cardiology 01/22/23 Team Status: Active Member Role Status Dates No Primary Care Physician Primary Care Provider Active Laury Byrne Attending Provider Active Dye Lab Technician Relationship Specialty Start Date End Date Minesh Mcmanus MD [address] [address] [place] [address] Specialty Pin Machine Operator Cardiology 01/22/23 Dye Lab Technician Relationship Specialty Start Date End Date Taya Lynch PA-C [address] [place] [address] PCP - General Family Medicine 06/21/21 Mark Fernandez MD [address] [place] [address] Electrophysiology 07/30/19 Dye Lab Technician Relationship Specialty Start Date End Date Taya Lynch PA-C [address] [place] [address] PCP - General Family Medicine 06/21/21 Mark Fernandez MD [address] [place] [address] Electrophysiology 07/30/19 Dye Lab Technician Relationship Specialty Start Date End Date Taya Lynch PA-C [address] [place] [address] PCP - General Family Medicine 06/21/21 Mark Fernandez MD [address] [place] [address] Electrophysiology 07/30/19 Dye Lab Technician Relationship Specialty Start Date End Date Taya Lynch PA-C [address] [place] [address] PCP - General Family Medicine 06/21/21 Mark Fernandez MD [address] [address] Electrophysiology 07/30/19 Dye Lab Technician Relationship Specialty Start Date End Date Minesh Mcmanus MD [address] [place] [phone] Specialty Pin Machine Operator Cardiology 01/22/23 Dye Lab Technician Relationship Specialty Start Date End Date Minesh Mcmanus MD [address] [place] [address] [phone] Specialty Pin Machine Operator Cardiology 01/22/23 Dye Lab Technician Relationship Specialty Start Date End Date Oral Miller MD [address] [place] [address] PCP - General Hospitalist/Outside Production Inspector 03/26/24 Mark Fernandez MD [address] [address] Electrophysiology 07/30/19 Dye Lab Technician Relationship Specialty Start Date End Date Oral Miller MD [address] [place] [address] PCP - General Hospitalist/Outside Production Inspector 03/26/24 Mark Fernandez MD [address] [address] Electrophysiology 07/30/19 Dye Lab Technician Relationship Specialty Start Date End Date Minesh Mcmanus MD [address] [place] [address] Specialty Pin Machine Operator Cardiology 01/22/23 Lanie Thakkar MD [address] [place] [address] Specialty Pin Machine Operator Cardiology 05/08/24 Dye Lab Technician Relationship Specialty Start Date End Date Oral Miller MD [address] [place] [address] PCP - General Hospitalist/Outside Production Inspector 03/26/24 Mark Fernandez MD [address] [facility] 1[address] [place] [address] Electrophysiology 07/30/19 Team Status: Active Member Role Status Dates UNASSIGNED PHYSICIAN Primary Care Provider Active Start: May 25, 2025 PATRICIA CARDOZO MD Emergency Provider Active St art: May 25, 2025 AV SOLIS next of kin Active JOHNATHAN SOLIS Guarantor Active Dye Lab Technician Relationship Specialty Start Date End Date Minesh Mcmanus MD [address] [facility] [address] [place] [address] Specialty Pin Machine Operator Cardiology 01/22/23 Lanie Thakkar MD [address] [place] [address] Specialty Pin Machine Operator Cardiology 05/08/24 Team Status: Active Member Role Status Dates UNASSIGNED PHYSICIAN Primary Care Provider Active Start: May 25, 2025 PATRICIA CARDOZO MD Emergency Provider Active St art: May 25, 2025 Jayde ROTH Other Provider Active Start: May 25, 2025 AV SOLIS next of kin Active JOHNATHAN SOLIS Guarantor Active Team Status: Active Member Role Status Dates PATRICIA CARDOZO MD Emergency Provider Active St art: May 25, 2025 ORAL MILLER JR, MD Primary Care Provider Active Start: May 25, 2025 AV SOLIS next of kin Active JOHNATHAN SOLIS Guarantor Active Dye Lab Technician Relationship Specialty Start Date End Date Oral Miller Jr., MD [address] [place] [phone] PCP - General Nephrology 06/05/25 Minesh Mcmanus MD [address] [facility] [address] [place], [place] [address] [phone] Specialty Pin Machine Operator Cardiology 01/22/23 Lanie Thakkar MD [address] [facility] [address] [place] [address] Specialty Pin Machine Operator Cardiology 05/08/24 Team Status: Active Member Role/Relationship Status Dates No Primary Care Physician Family Provider Active Out of [facility] Doctor Primary Care Provider Active Team Status: Inactive Member Role/Relationship Status Dates No Primary Care Physician Referring Provider Active Start: February 25, 2025 End: February 25, 2025 MARANDA Valentino Attending Provider Active St art: February 25, 2025 End: February 25, 2025 Out of [facility] Doctor Primary Care Provider Active Start: February 25, 2025 End: February 25, 2025 Team Status: Inactive Member Role/Relationship Status Dates Out of [facility] Doctor Primary Care Provider Active Start: June 12, 2025 End: June 12, 2025 Out of [facility] Doctor Referring Provider Active Sta rt: June 12, 2025 End: June 12, 2025 Dr. Miguel Ángel Oviedo MD Attending Provider Active Start: June 12, 2025 End: June 12, 2025 Dye Lab Technician Relationship Specialty Start Date End Date Oral Miller Jr., MD [address] [place] [phone] PCP - General Nephrology 06/05/25 Minesh Mcmanus MD [address] [phone] Specialty Pin Machine Operator Cardiology 01/22/23 Lanie Thakkar MD [address] [phone] (Fax) Specialty Pin Machine Operator Cardiology 05/08/24 Dye Lab Technician Relationship Specialty Start Date End Date Oral Miller Jr., MD [address] [place] [phone] PCP - General Nephrology 06/05/25 Minesh Mcmanus MD [address] [place] [address] Specialty Pin Machine Operator Cardiology 01/22/23 Lanie Thakkar MD [address] [phone] (Fax) Specialty Pin Machine Operator Cardiology 05/08/24 Dye Lab Technician Relationship Specialty Start Date End Date Oral Miller Jr., MD [address] [place] [phone] PCP - General Nephrology 06/05/25 Minesh Mcmanus MD [address] [place] [address] Specialty Pin Machine Operator Cardiology 01/22/23 Lanie Thakkar MD [address] [phone] (Fax) Specialty Pin Machine Operator Cardiology 05/08/24 Goals (unrecognized section and content) Goals may be documented in a n alternate sectionGoals may be documented in an alternate sectionGoals may be documented in an alternate sectionGoals may be documented in an alternate sectionGoals may be documented in an alternate sectionGoals may be documented in an alternate sectionGoals may be documented in an alternate sectionGoals may be documented in an alternate section Source Comments (unrecognize d section and content) In the event this informatio n is protected by the Federal Confidentiality of Alcohol and Drug Abuse Patient Records regulations: The Federal rules restrict any use of the information to criminally investigate or prosecute any alcohol or drug abuse patient.[facility] Center[facility] the event this information is protected by the Federal Confidentiality of Alcohol and Drug Abuse Patient Records regulations: The Federal rules restrict any use of the information to criminally investigate or prosecute any alcohol or drug abuse patient.[facility] Center[facility] the event this information is protected by the Federal Confidentiality of Alcohol and Drug Abuse Patient Records regulations: The Federal rules restrict any use of the information to criminally investigate or prosecute any alcohol or drug abuse patient.[facility] CenterIn the event this information is protected by the Federal Confidentiality of Alcohol and Drug Abuse Patient Records regulations: The Federal rules restrict any use of the information to criminally investigate or prosecute any alcohol or drug abuse patient.[facility] Center[facility] the event this information is protected by the Federal Confidentiality of Alcohol and Drug Abuse Patient Records regulations: The Federal rules restrict any use of the information to criminally investigate or prosecute any alcohol or drug abuse patient.[facility] Center[facility] the event this information is protected by the Federal Confidentiality of Alcohol and Drug Abuse Patient Records regulations: The Federal rules restrict any use of the information to criminally investigate or prosecute any alcohol or drug abuse patient.[facility] CenterIn the event this information is protected by the Federal Confidentiality of Alcohol and Drug Abuse Patient Records regulations: The Federal rules restrict any use of the information to criminally investigate or prosecute any alcohol or drug abuse patient.[facility] CenterIn the event this information is protected by the Federal Confidentiality of Alcohol and Drug Abuse Patient Records regulations: The Federal rules restrict any use of the information to criminally investigate or prosecute any alcohol or drug abuse patient.[facility] Center[facility] the event this information is protected by the Federal Confidentiality of Alcohol and Drug Abuse Patient Records regulations: The Federal rules restrict any use of the information to criminally investigate or prosecute any alcohol or drug abuse patient.[facility] CenterIn the event this information is protected by the Federal Confidentiality of Alcohol and Drug Abuse Patient Records regulations: The Federal rules restrict any use of the information to criminally investigate or prosecute any alcohol or drug abuse patient.[facility] CenterIn the event this information is protected by the Federal Confidentiality of Alcohol and Drug Abuse Patient Records regulations: The Federal rules restrict any use of the information to criminally investigate or prosecute any alcohol or drug abuse patient.[facility] CenterIn the event this information is protected by the Federal Confidentiality of Alcohol and Drug Abuse Patient Records regulations: The Federal rules restrict any use of the information to criminally investigate or prosecute any alcohol or drug abuse patient.[facility] CenterIn the event this information is protected by the Federal Confidentiality of Alcohol and Drug Abuse Patient Records regulations: The Federal rules restrict any use of the information to criminally investigate or prosecute any alcohol or drug abuse patient.[facility] CenterIn the event this information is protected by the Federal Confidentiality of Alcohol and Drug Abuse Patient Records regulations: The Federal rules restrict any use of the information to criminally investigate or prosecute any alcohol or drug abuse patient.[facility] Scheduled Active and Recently Administ ered Medications (unrecognized section and content) Medication Order 11/29/2023 11/30/2023 12/01/2023 sodium chloride 0.9% bolus 0.9 % solution 1,000 mL (COMPLETED) 1,000 mL, Intravenous, Administer over 1.01 Hours, On 12/01/23 at 0100, ONCE, 1 dose 0030 (New Bag - Prov ider: Lainey Mayorga RN)0130 (Stopped - Provider: Lainey Mayorga RN) Scheduled Medication Order 03/11/2024 03/12/2024 03/13/2024 aspirin EC EC tablet 81 mg 81 mg, Oral, DAILY, First dose on Sun03/12/24 at 0900, Until Discontinued 0754 (Given - Provider: Gypsy Locke RN) 0832 (Given - Provider: Gypsy Locke RN) levoFLOXacin (LEVAQUIN) IVPB SOLN 500 mg (CANCELED) 500 mg, Intravenous, at 100 mL/hr, EVERY 24 HOURS SCHEDULED (Daily), First dose on Sun03/11/24 at 2330, Until Discontinued, Indications: Urinary Tract Infection 0000 (New Bag - Provider: Marietta Hong, CYNDI) levoFLOXacin 250mg/50ml (LEVAQUIN) IVPB SOLN 250 mg 250 mg, Intravenous, at 50 mL/hr, EVERY 24 HOURS SCHEDULED (Daily), First dose (after last modification) on Sun03/13/24 at 0900, Until Discontinued, Indications: Urinary Tract Infection 0833 (Canceled Entry - Provider: Gypsy Locke RN - Comment: patient being discharged) sodium chloride 0.9% bolus 0.9 % solution 1,000 mL (COMPLETED) 1,000 mL, Intravenous, Administer over 2 Hours, On Sun03/11/24 at 1915, ONCE, 1 dose 1849 (New Bag - Provider: Nannette Solorzano RN) Tamsulosin HCl (FLOMAX) 24 hr capsule 0.4 mg 0.4 mg, Oral, DAILY, First dose on Sun03/12/24 at 0900, Until Discontinued, Caution: Do not crush or chew. Give with food. 0754 (Given - Provider: Gypsy Locke RN) 0832 (Given - Provider: Gypsy Locke RN) traZODone (DESYREL) tablet 50 mg 50 mg, Oral, NIGHTLY, First dose on Sun03/12/24 at 0000, Until Discontinued, Caution: This medication looks and/or sounds like another medication. 2328 (Given - Provider: Marietta Hong, CYNDI) 2207 (Not Given - Provider: Marietta Hong, RN - Reason: Patient/family refused) 2199 (Due) Continuous Medication Order 03/11/2024 03/12/2024 03/13/2024 lactated ringers infusion () Intravenous, at 100 mL/hr, CONTINUOUS, Starting on Sun03/11/24 at 2230, Until Sun03/12/24 at 1629 2356 (New Bag - Provider: Marietta Hong RN) 1332 (Continued from Pre-op - Provider: TJ Davidson)1333 (Anesthesia Volume Adjustment - Provider: TJ Davidson) PRN Medication Order 03/11/2024 03/12/2024 03/13/2024 acetaminophen (TYLENOL) tablet 650 mg 650 mg, Oral, EVERY 4 HOURS PRN, Mild Pain, Fever, Headaches, Starting on Sun03/11/24 at 2154, Until Discontinued, Maximum dose of acetaminophen is 4000 mg from all sources in 24 hours. 2321 (Given - Provider: Marietta Hong RN) aluminum-magnesium hydroxide 200-200 MG/5ML suspension 30 mL 30 mL, Oral, EVERY 6 HOURS PRN, Indigestion, Starting on Sun03/11/24 at 2154, Until Discontinued calcium carbonate (TUMS) chewable tablet 1,000 mg 1,000 mg, Oral, EVERY 4 HOURS PRN, Heartburn, Starting on Sun03/11/24 at 2154, Until Discontinued For electrolyte abnormalities subsequent to initial labs (refer to the [facility] Electrolyte Replacement Orders) Other, PRN, For electrolyte abnormalities, Starting on Sun03/11/24 at 2154, Until Discontinued, For Potassium level <=3.9 or Magnesium level <=1.9, please use Order Set #100 to order medications and repeat labs. BE SURE TO CONTINUE PROTOCOL AFTER REPLACEMENT UNTIL LABS NORMALIZE. HYDROmorphone (DILAUDID) injection 0.25 mg 0.25 mg, IV Push, EVERY 4 HOURS PRN, Severe Pain, Starting on Sun03/11/24 at 2159, Until Discontinued, Caution: This medication looks and/or sounds like another medication. LOCM iohexol (OMNIPAQUE 240 mg/ml) injection (CANCELED) PRN, Starting on Sun03/12/24 at 1402, Until Sun03/12/24 at 1405, Intra-op 1402 (Given - Provider: Joshua Urban MD - Comment: Delivered to sterile field) melatonin tablet 5 mg 5 mg, Oral, NIGHTLY PRN, Sleep, Starting on Sun03/11/24 at 2315, Until Discontinued Ondansetron (ZOFRAN-ODT) disintegrating tablet 4 mg(Linked Group 1) 4 mg, Oral, EVERY 6 HOURS PRN, Nausea and/or Vomiting, Starting on Sun03/11/24 at 2154, Until Discontinued 0216 (Given - Provider: Marietta Hong, CYNDI) ondansetron hcl (ZOFRAN) injection 4 mg(Linked Group 1) 4 mg, IV Push, EVERY 6 HOURS PRN, Nausea and/or Vomiting, For nausea or vomiting unrelieved by oral Zofran after 30 minutes or if unable to tolerate oral intake, Starting on Sun03/11/24 at 2154, Until Discontinued, Caution: This medication looks and/or sounds like another medication. 0216 (See Alternative - Provider: Marietta Hong RN) oxyCODONE (ROXICODONE) immediate release tablet 5 mg 5 mg, Oral, EVERY 6 HOURS PRN, Moderate Pain, Starting on Sun03/11/24 at 2158, Until Discontinued, Caution: This medication looks and/or sounds like another medication. polyethylene glycol 3350 (GLYCOLAX, MIRALAX) packet 17 g 17 g, Oral, DAILY PRN, Constipation, constipation, Starting on Sun03/11/24 at 2154, Until Discontinued, This is a maintenance laxative, begin for prevention of constipation. Linked Groups Order Group 1: Ondansetron (ZOFRAN-ODT) disintegrating tablet 4 mgJump to med 4 mg, Oral, EVERY 6 HOURS PRN, Nausea and/or Vomiting, Starting on Sun03/11/24 at 2154, Until Discontinued Or ondansetron hcl (ZOFRAN) injection 4 mgJump to med 4 mg, IV Push, EVERY 6 HOURS PRN, Nausea and/or Vomiting, For nausea or vomiting unrelieved by oral Zofran after 30 minutes or if unable to tolerate oral intake, Starting on Sun03/11/24 at 2154, Until Discontinued, Caution: This medication looks and/or sounds like another medication. Scheduled Medication Order 03/30/2024 03/31/2024 04/01/2024 acetaminophen tablet 1,000 mg 1,000 mg, Oral, 60 MIN PRE-OP, Starting on Sun04/01/24 at 0711, Until Discontinued, Pre-op (OPS) 0731 (Not Given - Pr ovider: Bernice Joseph RN - Reason: Patient/family refused) levoFLOXacin (LEVAQUIN) IVPB SOLN 500 mg 500 mg, Intravenous, at 100 mL/hr, EVERY 24 HOURS SCHEDULED (Daily), First dose on Sun04/01/24 at 0900, Until Discontinued, Indications: Preoperative Pharmacoprophylaxis 0730 (Handoff - Prov ider: Bernice Joseph RN)0926 (Given - Provider: TJ Benitez) ondansetron hcl (ZOFRAN) injection 4 mg 4 mg, IV Push, ONCE, 1 dose, On e 04/01/24 at 1045, Caution: This medication looks and/or sounds like another medication. 1045 (Due) Continuous Medication Order 03/30/2024 03/31/2024 04/01/2024 lactated ringers infusion Intravenous, at 125 mL/hr, CONTINUOUS, Starting on Sun04/01/24 at 0745, Until Discontinued, Pre-op (OPS) 0730 (New Bag - Prov ider: Bernice Joseph RN)0858 (Continued from Pre-op - Provider: TJ Benitez)1016 (Paused - Provider: TJ Benitez - Comment: Switch to gravity)1017 (Restarted - Provider: TJ Benitez) PRN Medication Order 03/30/2024 03/31/2024 04/01/2024 HYDROmorphone (DILAUDID) injection 0.5 mg 0.5 mg, IV Push, EVERY 5 MIN PRN, Severe Pain, 6 doses, Starting on Sun04/01/24 at 1014, Until Discontinued, Caution: This medication looks and/or sounds like another medication. LOCM iohexol (OMNIPAQUE 240 mg/ml) injection (CANCELED) PRN, Starting on e 04/01/24 at 0938, Until Sun04/01/24 at 1031, Intra-op 0938 (Given - Provid er: Joshua Urban MD) oxyCODONE (ROXICODONE) immediate release tablet 5 mg 5 mg, Oral, EVERY 4 HOURS PRN, Moderate Pain, Starting on 5/21/24 at 1014, Until Discontinued, Caution: This medication looks and/or sounds like another medication. Sodium Chloride Flush (SALINE FLUSH) 0.9 % injection 1-10 mL 1-10 mL, Intravenous, DAILY PRN, Line Care, Starting on Sun04/01/24 at 0711, Until Discontinued, Pre-op (OPS) FOR RECORDS PERTAINING TO PATIENTS WHO ARE OR HAVE BEEN ENROLLED IN A CHEMICAL DEPENDENCY/SUBSTANCEABUSE PROGRAM, SOME INFORMATION MAY BE OMITTED. This clinical summary was aggregated from multiple sources. Caution should be exercised in using it in the provision of clinical care. This summary normalizes information from multiple sources, and as a consequence, information in this document may materially change the coding, format and clinical context of patient data. In addition, data may be omitted in some cases. CLINICAL DECISIONS SHOULD BE BASED ON THE PRIMARY CLINICAL RECORDS. [employer] [facility]. provides no warranty or guarantee of the accuracy or completeness of information in this document.
== END | disposition home or self-care (01) ==
PROVIDERS: Referring Provider Internal Medicine Cardiovascular Disease; Visit Provider Internal Medicine Cardiovascular Disease
DX: I48.19 Other persistent atrial fibrillation (principal); R06.00 Dyspnea, unspecified
CPT/HCPCS: 93306